=== PATIENT | female | born 1955 | race Caucasian/White ===

== ENCOUNTER 2023-11-04 06:39 | Day surgery (SDC) | payer MEDICARE, OTHER, SELFPAY ==
[2023-11-04 12:25] VITALS: BP 124/91
[2023-11-04 12:48] VITALS: BMI 20.6
[2023-11-04 13:09] VITALS: BMI 20.6
[2023-11-04 14:00] VITALS: BP 137/78
[2023-11-04 14:15] VITALS: BP 134/70
[2023-11-04 14:30] VITALS: BP 138/92
== END 2023-11-04 14:55 | disposition home or self-care (01) ==
LOC: SDS 06:39
PROVIDERS: ATTENDING PHYSICIAN Internal Medicine Gastroenterology
DX: K64.9 Unspecified hemorrhoids (principal); R19.4 Change in bowel habit; Z98.0 Intestinal bypass and anastomosis status
CPT/HCPCS: 45330

== ENCOUNTER → 2023-12-02 14:57 | Outpatient (REF) | payer MEDICARE, OTHER, SELFPAY ==
[2023-12-02 16:34] LABS: % Basophils 0.8 % (0-2); % Eosinophils 2.4 % (0-6); % Monocytes 10.6 % (1.7-9.3); % Neutrophils 50.2 % (42.2-75.2); Absolute Eosinophils 0.1 10^3/uL (0-0.7); Absolute Lymphocytes 1.3 10^3/uL (1.2-3.4); Absolute Monocytes 0.4 10^3/uL (0.1-0.6); Absolute Neutrophils 1.9 10^3/uL (1.4-6.5); Hematocrit 36.1 % (37.0-47.0); Hemoglobin 12.5 g/dL (12.0-16.0); Mean Corp Hgb Conc. 34.6 g/dL (33.0-37.0); Mean Corpuscular Hgb 34.2 pg (27.0-31.0); Mean Corpuscular Volume 98.9 fL (81.0-99.0); Mean Platelet Volume 9.7 fL (7.4-10.4); Nucleated Red Blood Cells % 0 %; Platelet Count 271 10^3/uL (130-400); Red Blood Cell Count 3.65 10^6/uL (4.20-5.40); Red Cell Dist. Width 12.1 % (11.5-14.5); White Blood Cell Count 3.7 10^3/uL (4.8-10.8)
[2023-12-02 16:40] LABS: Erythrocyte Sed Rate 1 mm/hour (0-20)
[2023-12-02 16:51] LABS: Blood Urea Nitrogen 17 mg/dl (7-17); Glucose 107 mg/dl (70-99)
[2023-12-02 16:52] LABS: ALT (SGPT) 30 U/L (0-35); AST (SGOT) 33 U/L (14-36); Albumin 3.9 g/dl (3.5-5.0); Alkaline Phosphatase 72 U/L (38-126); Calcium 9.3 mg/dl (8.4-10.2); Carbon Dioxide 29 mmol/L (22-30); Chloride 96 mmol/L (98-107); Potassium 4.4 mmol/L (3.5-5.1); Sodium 131 mmol/L (135-145); Total Bilirubin 0.4 mg/dl (0.2-1.3); Total Protein 6.1 g/dl (6.3-8.2); eGFR > 60.00
[2023-12-02 17:15] LABS: FSH 57.4 mIU/ml
[2023-12-02 17:31] LABS: Estradiol 23.8 pg/ml
[2023-12-03 23:51] LABS: Complement C3 77 mg/dl (88-165)
[2023-12-05 08:28] LABS: Scleroderma Antibody (Scl-70) 0 AU/mL (0-40); Smith (ENA) Antibody, IgG 0 AU/mL (0-40)
[2023-12-06 01:30] LABS: ds-DNA Ab, IgG Reflex To Titer 1 IU (0-24)
== END ==
LOC: REG 14:57
PROVIDERS: ATTENDING PHYSICIAN Internal Medicine Rheumatology; FAMILY PHYSICIAN Internal Medicine
DX: L94.0 Localized scleroderma [morphea] (principal); M34.1 CR(E)ST syndrome; M81.0 Age-related osteoporosis without current pathological fracture
CPT/HCPCS: 36415; 80053; 82670; 83001; 84403; 85025; 85652; 86140; 86160; 86225; 86235

== ENCOUNTER → 2023-12-31 11:45 | Outpatient (REF) | payer MEDICARE, OTHER, SELFPAY ==
[2023-12-31 13:17] LABS: % Basophils 0.8 % (0-2); % Eosinophils 3.9 % (0-6); % Immature Granulocytes 0.3 % (0-0.5); % Lymphocytes 33.8 % (20.5-51.1); % Monocytes 12.7 % (1.7-9.3); % Neutrophils 48.5 % (42.2-75.2); Absolute Eosinophils 0.1 10^3/uL (0-0.7); Absolute Lymphocytes 1.2 10^3/uL (1.2-3.4); Absolute Monocytes 0.5 10^3/uL (0.1-0.6); Absolute Neutrophils 1.8 10^3/uL (1.4-6.5); Hematocrit 41.1 % (37.0-47.0); Hemoglobin 13.8 g/dL (12.0-16.0); Mean Corp Hgb Conc. 33.6 g/dL (33.0-37.0); Mean Corpuscular Hgb 33.7 pg (27.0-31.0); Mean Corpuscular Volume 100.5 fL (81.0-99.0); Mean Platelet Volume 10.7 fL (7.4-10.4); Nucleated Red Blood Cells % 0 %; Platelet Count 282 10^3/uL (130-400); Red Blood Cell Count 4.09 10^6/uL (4.20-5.40); Red Cell Dist. Width 13.2 % (11.5-14.5); White Blood Cell Count 3.6 10^3/uL (4.8-10.8)
== END ==
LOC: REG 11:45
PROVIDERS: ATTENDING PHYSICIAN Internal Medicine Rheumatology; FAMILY PHYSICIAN Internal Medicine
DX: D72.819 Decreased white blood cell count, unspecified (principal)
CPT/HCPCS: 36415; 85025

== ENCOUNTER → 2024-01-12 14:16 | Outpatient (REF) | payer MEDICARE, OTHER, SELFPAY | LOC: WDC 14:16 | PROVIDERS: ATTENDING PHYSICIAN Obstetrics & Gynecology; FAMILY PHYSICIAN Internal Medicine | DX: Z12.31 Encounter for screening mammogram for malignant neoplasm of breast (principal) | CPT/HCPCS: 77063; 77067 ==

== ENCOUNTER → 2024-01-20 09:37 | Outpatient (REF) | payer MEDICARE, OTHER, SELFPAY ==
[2024-01-20 10:26] LABS: % Basophils 0.9 % (0-2); % Eosinophils 3.8 % (0-6); % Immature Granulocytes 0.3 % (0-0.5); % Lymphocytes 30.3 % (20.5-51.1); % Monocytes 8.8 % (1.7-9.3); % Neutrophils 55.9 % (42.2-75.2); Absolute Eosinophils 0.1 10^3/uL (0-0.7); Absolute Monocytes 0.3 10^3/uL (0.1-0.6); Absolute Neutrophils 1.8 10^3/uL (1.4-6.5); Hematocrit 37.8 % (37.0-47.0); Hemoglobin 13.1 g/dL (12.0-16.0); Mean Corp Hgb Conc. 34.7 g/dL (33.0-37.0); Mean Corpuscular Hgb 34.4 pg (27.0-31.0); Mean Corpuscular Volume 99.2 fL (81.0-99.0); Nucleated Red Blood Cells % 0 %; Platelet Count 266 10^3/uL (130-400); Red Blood Cell Count 3.81 10^6/uL (4.20-5.40); Red Cell Dist. Width 12.9 % (11.5-14.5); White Blood Cell Count 3.2 10^3/uL (4.8-10.8)
[2024-01-20 12:07] LABS: ALT (SGPT) 39 U/L (0-35); AST (SGOT) 38 U/L (14-36); Albumin 5.1 g/dl (3.5-5.0); Alkaline Phosphatase 77 U/L (38-126); Blood Urea Nitrogen 14 mg/dl (7-17); Calcium 10.2 mg/dl (8.4-10.2); Carbon Dioxide 26 mmol/L (22-30); Chloride 100 mmol/L (98-107); Creatine Phosphokinase 173 U/L (30-135); Glucose 82 mg/dl (70-99); Potassium 4.9 mmol/L (3.5-5.1); Sodium 132 mmol/L (135-145); Total Bilirubin 0.6 mg/dl (0.2-1.3); Total Cholesterol 232 mg/dl (50-199); Triglyceride 77 mg/dl (10-149); Very Low Density Lipoprotein 15 mg/dl (0-30); eGFR > 60.00
[2024-01-20 12:25] LABS: HDL Cholesterol 140 mg/dl; LDL Cholesterol, Calculated 77 mg/dl
[2024-01-20 12:30] LABS: Free T3 3.07 pg/ml (2.77-5.27); Free T4 0.94 ng/dl (0.78-2.19)
[2024-01-20 12:44] LABS: TSH 3.33 uIU/ml (0.47-4.68)
[2024-01-20 13:03] LABS: Vitamin B12 896 pg/ml (239-931)
[2024-01-21 22:51] LABS: Total T3 (Sendout) 91 ng/dL (80-200)
== END ==
LOC: REG 09:37
PROVIDERS: ATTENDING PHYSICIAN Physician Assistant; FAMILY PHYSICIAN Internal Medicine
DX: E03.9 Hypothyroidism, unspecified (principal); I10 Essential (primary) hypertension; M35.1 Other overlap syndromes; Z87.19 Personal history of other diseases of the digestive system; M81.0 Age-related osteoporosis without current pathological fracture; F34.1 Dysthymic disorder; M79.18 Myalgia, other site; D72.818 Other decreased white blood cell count; R53.82 Chronic fatigue, unspecified; E87.1 Hypo-osmolality and hyponatremia; Z00.00 Encounter for general adult medical examination without abnormal findings; G60.9 Hereditary and idiopathic neuropathy, unspecified
CPT/HCPCS: 36415; 80053; 80061; 82550; 82607; 84439; 84443; 84480; 84481; 85025

== ENCOUNTER → 2024-02-03 09:18 | Outpatient (REF) | payer MEDICARE, OTHER, SELFPAY ==
[2024-02-03 10:16] LABS: % Immature Granulocytes 0.3 % (0-0.5); % Lymphocytes 38.3 % (20.5-51.1); % Monocytes 11.1 % (1.7-9.3); % Neutrophils 45.3 % (42.2-75.2); Absolute Eosinophils 0.1 10^3/uL (0-0.7); Absolute Lymphocytes 1.1 10^3/uL (1.2-3.4); Absolute Monocytes 0.3 10^3/uL (0.1-0.6); Absolute Neutrophils 1.4 10^3/uL (1.4-6.5); Hematocrit 34.6 % (37.0-47.0); Hemoglobin 11.9 g/dL (12.0-16.0); Mean Corp Hgb Conc. 34.4 g/dL (33.0-37.0); Mean Corpuscular Hgb 34.5 pg (27.0-31.0); Mean Corpuscular Volume 100.3 fL (81.0-99.0); Mean Platelet Volume 9.3 fL (7.4-10.4); Nucleated Red Blood Cells % 0 %; Platelet Count 244 10^3/uL (130-400); Red Blood Cell Count 3.45 10^6/uL (4.20-5.40); Red Cell Dist. Width 12.6 % (11.5-14.5)
[2024-02-03 10:31] LABS: ALT (SGPT) 27 U/L (0-35); AST (SGOT) 27 U/L (14-36); Albumin 4.3 g/dl (3.5-5.0); Alkaline Phosphatase 85 U/L (38-126); Blood Urea Nitrogen 17 mg/dl (7-17); Calcium 9.8 mg/dl (8.4-10.2); Carbon Dioxide 26 mmol/L (22-30); Chloride 103 mmol/L (98-107); Creatine Phosphokinase 112 U/L (30-135); Glucose 91 mg/dl (70-99); Potassium 4.4 mmol/L (3.5-5.1); Sodium 133 mmol/L (135-145); Total Bilirubin 0.4 mg/dl (0.2-1.3); Total Protein 6.2 g/dl (6.3-8.2); eGFR > 60.00
[2024-02-03 10:45] LABS: Erythrocyte Sed Rate 11 mm/hour (0-20)
[2024-02-03 10:53] LABS: C-Reactive Protein < 5.00 mg/L (0.0-10.00)
[2024-02-03 11:06] LABS: Urine Albumin Negative (Neg - Trace); Urine Bilirubin Negative (Negative); Urine Character Clear (Clear); Urine Color Yellow; Urine Glucose Negative (Negative); Urine Ketone Negative (Negative); Urine Leukocyte Negative (Negative); Urine Nitrite Negative (Negative); Urine Occult Blood Negative (Negative); Urine Urobilinogen Negative (Neg - 1+)
[2024-02-04 19:39] LABS: Aldolase 3.7 U/L (1.2-7.6)
[2024-02-05 17:21] LABS: Myeloperoxidase Antibody 0 AU/mL (0-19); Serine Protease-3, IgG 0 AU/mL (0-19)
== END ==
LOC: REG 09:18
PROVIDERS: ATTENDING PHYSICIAN Physician Assistant; FAMILY PHYSICIAN Internal Medicine
DX: E07.9 Disorder of thyroid, unspecified (principal); I77.82 Antineutrophilic cytoplasmic antibody [ANCA] vasculitis; M06.4 Inflammatory polyarthropathy; M34.1 CR(E)ST syndrome; M79.10 Myalgia, unspecified site; M79.641 Pain in right hand; R68.83 Chills (without fever); M35.1 Other overlap syndromes; R53.83 Other fatigue
CPT/HCPCS: 36415; 80053; 81003; 82085; 82550; 83516; 85025; 85652; 86140; 87040

== ENCOUNTER → 2024-02-10 09:24 | Outpatient (REF) | payer MEDICARE, OTHER, SELFPAY ==
[2024-02-12 15:03] LABS: Lyme Antibody Screen, EIA Negative (Negative)
== END ==
LOC: REG 09:24
PROVIDERS: ATTENDING PHYSICIAN Internal Medicine Rheumatology; FAMILY PHYSICIAN Internal Medicine
DX: A69.20 Lyme disease, unspecified (principal); A77.40 Ehrlichiosis, unspecified; R53.83 Other fatigue
CPT/HCPCS: 36415; 86618; 86666

== ENCOUNTER → 2024-02-16 14:08 | Outpatient (REF) | payer MEDICARE, OTHER, SELFPAY ==
[2024-02-16 16:38] LABS: % Basophils 0.6 % (0-2); % Eosinophils 1.9 % (0-6); % Lymphocytes 26.7 % (20.5-51.1); % Monocytes 7.6 % (1.7-9.3); % Neutrophils 63.2 % (42.2-75.2); Absolute Eosinophils 0.1 10^3/uL (0-0.7); Absolute Lymphocytes 1.4 10^3/uL (1.2-3.4); Absolute Monocytes 0.4 10^3/uL (0.1-0.6); Absolute Neutrophils 3.4 10^3/uL (1.4-6.5); Hematocrit 37.1 % (37.0-47.0); Hemoglobin 12.6 g/dL (12.0-16.0); Mean Corpuscular Hgb 34.4 pg (27.0-31.0); Mean Corpuscular Volume 101.4 fL (81.0-99.0); Mean Platelet Volume 10.1 fL (7.4-10.4); Nucleated Red Blood Cells % 0 %; Platelet Count 266 10^3/uL (130-400); Red Blood Cell Count 3.66 10^6/uL (4.20-5.40); Red Cell Dist. Width 12.8 % (11.5-14.5); White Blood Cell Count 5.3 10^3/uL (4.8-10.8)
== END ==
LOC: REG 14:08
PROVIDERS: ATTENDING PHYSICIAN Internal Medicine Hematology & Oncology; FAMILY PHYSICIAN Internal Medicine; REFERRING PHYSICIAN Internal Medicine Rheumatology
DX: R53.81 Other malaise (principal); D64.9 Anemia, unspecified
CPT/HCPCS: 36415; 82784; 83520; 83521; 84155; 84165; 85025; 86334

== ENCOUNTER → 2024-02-18 18:07 | Outpatient (REF) | payer MEDICARE, OTHER, SELFPAY ==
[2024-02-18 19:06] LABS: Urine Albumin Negative (Neg - Trace); Urine Bilirubin Negative (Negative); Urine Character Clear (Clear); Urine Color Yellow; Urine Glucose Negative (Negative); Urine Ketone Negative (Negative); Urine Leukocyte Negative (Negative); Urine Nitrite Negative (Negative); Urine Occult Blood Negative (Negative); Urine Specific Gravity 1.005 (<1.030); Urine Urobilinogen Negative (Neg - 1+)
== END ==
LOC: CLAB 18:07
PROVIDERS: ATTENDING PHYSICIAN Nurse Practitioner
DX: N39.0 Urinary tract infection, site not specified (principal)
CPT/HCPCS: 81003; 87086

== ENCOUNTER → 2024-02-19 09:49 | Outpatient (REF) | payer MEDICARE, OTHER, SELFPAY | LOC: RAD 09:49 | PROVIDERS: ATTENDING PHYSICIAN Internal Medicine Hematology & Oncology; FAMILY PHYSICIAN Internal Medicine; OTHER PHYSICIAN Internal Medicine Rheumatology; REFERRING PHYSICIAN Internal Medicine Critical Care Medicine | DX: R53.81 Other malaise (principal); D64.9 Anemia, unspecified | CPT/HCPCS: 71260; 74177; Q9967 ==

== ENCOUNTER → 2024-02-27 09:14 | Outpatient (REF) | payer MEDICARE, OTHER, SELFPAY ==
[2024-02-27 09:46] VITALS: BP 156/93; BP_SYST 72
[2024-02-27 09:56] LABS: % Basophils 0.8 % (0-2); % Eosinophils 3.6 % (0-6); % Lymphocytes 37.2 % (20.5-51.1); % Monocytes 8.3 % (1.7-9.3); % Neutrophils 50.1 % (42.2-75.2); Absolute Eosinophils 0.1 10^3/uL (0-0.7); Absolute Lymphocytes 0.9 10^3/uL (1.2-3.4); Absolute Monocytes 0.2 10^3/uL (0.1-0.6); Absolute Neutrophils 1.3 10^3/uL (1.4-6.5); Hemoglobin 11.9 g/dL (12.0-16.0); Mean Corpuscular Volume 97.1 fL (81.0-99.0); Mean Platelet Volume 9.1 fL (7.4-10.4); Nucleated Red Blood Cells % 0 %; Platelet Count 274 10^3/uL (130-400); Red Cell Dist. Width 12.2 % (11.5-14.5); White Blood Cell Count 2.5 10^3/uL (4.8-10.8)
[2024-02-27 09:59] LABS: INR 1.02; PT 13.2 Sec (11.4-14.6)
[2024-02-27] MEDS: ATIVAN 0.5 MG IV (10:30)
[2024-02-27] MEDS: NSS (PRESERVATIVE FREE) 0.25 ML IV (10:30)
[2024-02-27 11:06] VITALS: BP 154/81; BP_SYST 76
[2024-02-27 11:12] VITALS: BP 165/93
[2024-02-27 11:20] VITALS: BP 149/82; BP_SYST 86
== END ==
LOC: RADI 09:14
PROVIDERS: ATTENDING PHYSICIAN Internal Medicine Hematology & Oncology; FAMILY PHYSICIAN Internal Medicine
DX: C90.00 Multiple myeloma not having achieved remission (principal)
CPT/HCPCS: 88305; 88311; 88312; 36415; 38222; 77012; 85025; 85610; 88313; 88341; 88342

== ENCOUNTER 2024-03-08 06:36 | Day surgery (SDC) | payer MEDICARE, OTHER, SELFPAY ==
[2024-02-23 13:16] VITALS: BMI 22.3
[2024-03-08 09:41] VITALS: BMI 22.3
[2024-03-08 09:56] VITALS: BP 128/81
[2024-03-08] MEDS: NORMOSOL-R 1000 IV (10:25)
[2024-03-08 11:40] VITALS: BP 119/70
[2024-03-08 11:46] VITALS: BP 125/78
[2024-03-08 12:00] VITALS: BP 132/67
[2024-03-08 12:15] VITALS: BP 151/83
== END 2024-03-08 12:35 | disposition home or self-care (01) ==
LOC: SDS 06:36
PROVIDERS: ATTENDING PHYSICIAN Urology
DX: R15.9 Full incontinence of feces (principal); R35.0 Frequency of micturition; M62.89 Other specified disorders of muscle
CPT/HCPCS: 64590; 64561; 72170; 76000; C1767; C1778; C1787; L8681

== ENCOUNTER → 2024-04-09 06:20 | Day surgery (SDC) | payer MEDICARE, OTHER, SELFPAY | LOC: GI 06:20 | PROVIDERS: ATTENDING PHYSICIAN Internal Medicine Gastroenterology | DX: E85.9 Amyloidosis, unspecified (principal); R19.4 Change in bowel habit; Z98.0 Intestinal bypass and anastomosis status; K62.6 Ulcer of anus and rectum; K22.2 Esophageal obstruction; K21.00 Gastro-esophageal reflux disease with esophagitis, without bleeding; K44.9 Diaphragmatic hernia without obstruction or gangrene; K31.7 Polyp of stomach and duodenum; K62.89 Other specified diseases of anus and rectum; K29.50 Unspecified chronic gastritis without bleeding | CPT/HCPCS: 45380; 43239; 88305; 88313; 88342 ==

== ENCOUNTER → 2024-04-27 14:47 | Outpatient (REF) | payer MEDICARE, OTHER, SELFPAY ==
[2024-04-27 14:44] LABS: % Basophils 0.3 % (0-2); % Eosinophils 2.8 % (0-6); % Lymphocytes 35.8 % (20.5-51.1); % Neutrophils 52.1 % (42.2-75.2); Absolute Eosinophils 0.1 10^3/uL (0-0.7); Absolute Lymphocytes 1.2 10^3/uL (1.2-3.4); Absolute Monocytes 0.3 10^3/uL (0.1-0.6); Absolute Neutrophils 1.7 10^3/uL (1.4-6.5); Hematocrit 36.8 % (37.0-47.0); Hemoglobin 12.6 g/dL (12.0-16.0); Mean Corp Hgb Conc. 34.2 g/dL (33.0-37.0); Mean Corpuscular Hgb 34.2 pg (27.0-31.0); Mean Platelet Volume 9.3 fL (7.4-10.4); Platelet Count 297 10^3/uL (130-400); Red Blood Cell Count 3.68 10^6/uL (4.20-5.40); Red Cell Dist. Width 12.5 % (11.5-14.5); White Blood Cell Count 3.2 10^3/uL (4.8-10.8)
[2024-04-27 15:57] LABS: ALT (SGPT) 23 U/L (0-35); AST (SGOT) 31 U/L (14-36); Albumin 4.9 g/dl (3.5-5.0); Alkaline Phosphatase 69 U/L (38-126); Blood Urea Nitrogen 21 mg/dl (7-17); Carbon Dioxide 26 mmol/L (22-30); Chloride 98 mmol/L (98-107); Glucose 78 mg/dl (70-99); Sodium 134 mmol/L (135-145); Total Bilirubin 0.5 mg/dl (0.2-1.3); Total Protein 6.6 g/dl (6.3-8.2); eGFR > 60.00
[2024-04-27 16:25] LABS: Hepatitis B Surface Antigen Negative (Negative)
[2024-04-27 16:43] LABS: Hepatitis B Core Ab, Total Negative (Negative); Hepatitis B Surface Antibody Positive
== END ==
LOC: OIDL 14:47
PROVIDERS: ATTENDING PHYSICIAN Internal Medicine Hematology & Oncology
DX: D64.9 Anemia, unspecified (principal); R53.81 Other malaise; C90.00 Multiple myeloma not having achieved remission
CPT/HCPCS: 80053; 85025; 86704; 86706; 86850; 86900; 86901; 87340

== ENCOUNTER 2024-05-04 17:15 | Emergency (ER) | payer MEDICARE, OTHER, SELFPAY ==
[2024-05-04 17:16] VITALS: BP 167/90
[2024-05-04 18:48] VITALS: BP 151/82
[2024-05-04 18:49] VITALS: BMI 23.1
--- NOTE | 2024-05-04 19:28 | ED.GENMED ---
History of Present Illness
General
Chief Complaint: Abnormal Lab Value
Source: patient
Exam Limitations: none
Time Seen by Provider: 05/04/24 18:47
History of Present Illness
History of Present Illness:
This is a 68 year old female that comes in with c/o abnormal labs. States that she has blood work done thisi morning and Dr. Moreland called her and told her that her sodium was low. States that she was told to come to the ER. States that she is to
be getting Chemo on . States that she has felt hot, lightheaded, fatigued and dizzy. States that occasionally she was SOB, nausea, had abd discomfort, and in a daze. Denies any fever, chills, chest pain, vomiting, diarrhea, headache, urinary
burning.
Past History
Past History
ED Past Medical History: Cancer (Multiple Myloma, ), HTN, Psychiatric (depression, anxiety), Other (diverticulitis with Perforation, Lupus, connective tissue disorder, small bowel obstructions, irritable bowel syndrome, Back pain, Migraines,
Raynauds, Colitis, Urinary retention) and Other (Headaches, Imitrex as needed at home, Lyme, Lupus, CREST disease, ADHD, )
ED Past Surgical History: Bowel resection (Sigmoid diverticulitis with perforation requiring temporary colostomy with colostomy reversal 2014. Sigmoid colon resection. Lysis of adhesions.), Gynecological (Hysterectomy, Pelvic lift, LEEP, Right and
left Rotator cuff), Orthopedic (RL5-S1 fusion, Left wrist surgery, Right hip repair. Right and left Hip replacement ), Urological (Bladder prolapse. Rectocele/Cystocele repair) and Other (Abdominoplasty, breast augmentation, Cataracts, face lift,
Breast implants, )
Social History
Tobacco: Non-smoker
Alcohol: None
Drug: Other (Medical marijuana as needed)
Personal:
Living: alone
Employment: Not employed
Family History
Family History: Other (Father with coronary disease, hypertension, gout)
Review of Systems
Review of Systems
All Other Systems: ROS reviewed and negative except as documented in HPI and ROS
Constitutional: Reports no symptoms; Denies fever or chills
EENT: Reports no symptoms
Respiratory: Reports trouble breathing (occasional); Denies cough
Cardiac: Reports no symptoms; Denies chest pain
ABD/GI: Reports abdominal pain and nausea; Denies vomiting or diarrhea
: Reports no symptoms; Denies dysuria, frequency or urgency
Musculoskeletal: Reports no symptoms
Skin: Reports no symptoms
Neurological: Reports dizzy (Lightheaded); Denies headache
Psychiatric: Reports no symptoms
Phy Exam
General Physical Exam
General Presentation: well appearing and no apparent distress
General age: appears stated age
General Skin: warm and dry
General Habitus: normal
General Mental: alert
General Hydration: dry mucous membranes
ENT Exam
ENT Exam: TM's normal, pharynx normal and neck supple
Eye Exam
Eye Exam: EOMI
Cardiovascular Exam
Cardiovascular Exam: regular rate/rhythm, no edema and normal peripheral pulses
Pulmonary Exam
Pulmonary Exam: lungs clear, no respiratory distress, no rales, chest non tender, no crackles, no rhonchi, no wheezing and no cough
Gastrointestinal Exam
Gastrointestinal Exam: normal bowel sounds, non tender, soft, no organomegaly, no pulsatile mass and non distended
Musculoskeletal Exam
Musculoskeletal Exam: full ROM and no edema
Skin Exam
Skin Exam: normal color, warm/dry, no rash and no petechia
Psychiatric Exam
Psychiatric Exam: normal mood/affect
Course
Orders/Labs/Results
Orders:
Orders
05/04/24 17:21
Electrocardiogram (*1) Urgent
Reason for Study: Chest Pain
EKG- Treatment ONCE
05/04/24 19:27
0.9% Sodium Chloride 1000 ml [Nss] 1,000 ml IV BOLUS
05/04/24 19:30
Complete Blood Count/With Diff Urgent
Comprehensive Metabolic Panel Urgent
Abnormal Lab Results
05/04/24
19:30
WBC 4.2 L 10^3/uL
(4.8-10.8)
RBC 3.56 L 10^6/uL
(4.20-5.40)
Hct 33.0 L %
(37.0-47.0)
MCH 34.0 H pg
(27.0-31.0)
Monocytes % 9.9 H %
(1.7-9.3)
Sodium 132 L mmol/L
(135-145)
BUN 23 H mg/dl
(7-17)
Total Protein 5.9 L g/dl
(6.3-8.2)
05/04/24 19:30
05/04/24 19:30
WBC slightly low. Sodium very slightly low. Dehydration. Total protein slightly low.
Vital Signs
Initial and Last Documented VS:
Initial Vital Signs
Temp Pulse Resp BP Pulse Ox
99.2 F 86 20 167/90 97
05/04/24 17:16 05/04/24 17:16 05/04/24 17:16 05/04/24 17:16 05/04/24 17:16
Last Documented Vital Signs
Temp Pulse Resp BP Pulse Ox
99.2 F 86 20 151/82 98
05/04/24 17:16 05/04/24 17:16 05/04/24 17:16 05/04/24 18:48 05/04/24 19:00
MDM/Problems Addressed
Differential Diagnosis Includes:
Dehydration, Hyponatremia,
MDM/Problems Addressed:
This is a 68 year old female that comes in with c/o abnormal labs. States that she was told to come in by Dr. Moreland as she is due to have an Infusion on . State that she had blood work this morning and was told that her Sodium is low.
Will recheck labs and give IV fluids.
Back into see patient. Explained that her blood work shows that her Sodium is 132. This is very slightly low but not at a level that is concerning. Patient can eat some canned soup or boxed food that his high is sodium. Follow up with the Oncologist
or family doctor for recheck. Return with any concerns.
Chronic conditions affecting care: Cancer
Acute Exacerbation and/or Progression of Chronic Illness: Cancer
*Pulse Oximetry
Patient hypoxic: no
*EKG
Interpreted by ED Provider?: Yes
Heart Rate: 79
Rate: normal
Rhythm: sinus
[place]: normal axis
Interval: normal interval
QRS Pattern: normal QRS
Ischemia: no ischemia
*Critical Care Note
Total Time (30-74mins, 75-104mins- exclusive of procedures): Not Applicable
ED Attending Note
-
Portions of this chart may have been created with voice recognition software.� Occasional wrong word or��sound alike� substitutions may have occurred due to the inherent limitations of voice recognition software.
Discharge Plan
Departure
Patient Disposition: Home (Routine Discharge)
Date of Disposition: 05/04/24
Time of Disposition: 21:10
Patient with high blood pressure during this ER visit?: Yes
Condition: Good
Covid-19: Not Applicable
Discharge Problem:
Dehydration
Instructions: Dehydration, Adult (DC), BLOOD PRESSURE
Prescriptions:
No Action
losartan 50 MG tablet
50 mg PO DAILY
zinc 15 MG tablet
30 mg PO DAILY
ascorbic acid (vitamin C) [Vitamin C] 500 MG tablet
1,000 mg PO BID
hydroxychloroquine 200 MG tablet
200 mg PO Daily
finasteride 5 MG tablet
5 mg PO DAILY
diltiazem HCl 180 mg Capsule,Extended Release 24 Hr
180 mg PO DAILY
clonazepam [Klonopin] 0.5 mg Tablet
0.5 mg PO HS
quercetin 500 mg Capsule
250 mg PO DAILY
Calm
15 ml PO HS
Rx Instructions:
Magnesium
Prolia 60 mg/mL Syringe
60 mg SC [id number]
Regener-Eyes
1 drp BOTH EYES PRN PRN (Reason: dry eyes)
Medical Cannabis
1 dose inhalation DAILY PRN (Reason: inflammation)
multivitamin Tablet
1 tab PO DAILY
minoxidil 2.5 mg Tablet
1.25 mg PO DAILY
sumatriptan succinate 50 mg Tablet
50 mg PO ONCE PRN (Reason: Migraines)
cholecalciferol (vitamin D3) [Vitamin D3] 125 mcg (5,000 unit) Tablet
125 mcg PO DAILY
Cbd
1 dose PO PRN PRN (Reason: pain, sleep)
[place] 3
5 ml PO DAILY
Referrals:
UNKNOWN - PT DOES,NOT KNOW [Unknown Provider] -
Activity Restrictions/Additional Instructions:
As discussed, your blood work shows that your Sodium is very slightly low and that you area dehydrated. You have been given a liter of saline. Please try eating some canned soup or boxed food. Please limit your water intake to no more then 8-8oz
glasses daily. Follow up with the Oncologist or the Family doctor for recheck. IF YOU HAVE ANY OTHER CONCERNS PLEASE RETURN TO THE EMERGENCY ROOM.
Interventions
Interventions:
*Risk Screen - Suicide Last Done: 05/04/24 17:16
*General Assessment Last Done: 05/04/24 17:16
*Neglect/Abuse Screening Last Done: 05/04/24 17:16
ED- Fall Risk Assessment Last Done: 05/04/24 18:52
*ED COVID-19 Vaccine History Last Done: 05/04/24 18:52
Discharge Date and Time
Print Language: TURKISH
[2024-05-04] MEDS: NSS 1000 IV (19:30)
[2024-05-04 19:57] LABS: % Basophils 0.2 % (0-2); % Eosinophils 2.6 % (0-6); % Immature Granulocytes 0.2 % (0-0.5); % Lymphocytes 33.2 % (20.5-51.1); % Monocytes 9.9 % (1.7-9.3); % Neutrophils 53.9 % (42.2-75.2); Absolute Eosinophils 0.1 10^3/uL (0-0.7); Absolute Lymphocytes 1.4 10^3/uL (1.2-3.4); Absolute Monocytes 0.4 10^3/uL (0.1-0.6); Absolute Neutrophils 2.2 10^3/uL (1.4-6.5); Hemoglobin 12.1 g/dL (12.0-16.0); Mean Corp Hgb Conc. 36.7 g/dL (33.0-37.0); Mean Corpuscular Volume 92.7 fL (81.0-99.0); Mean Platelet Volume 10.1 fL (7.4-10.4); Nucleated Red Blood Cells % 0 %; Platelet Count 215 10^3/uL (130-400); Red Blood Cell Count 3.56 10^6/uL (4.20-5.40); Red Cell Dist. Width 12.8 % (11.5-14.5); White Blood Cell Count 4.2 10^3/uL (4.8-10.8)
[2024-05-04 20:00] VITALS: BP 149/78
[2024-05-04 20:15] LABS: ALT (SGPT) 32 U/L (0-35); AST (SGOT) 20 U/L (14-36); Albumin 4.2 g/dl (3.5-5.0); Alkaline Phosphatase 80 U/L (38-126); Blood Urea Nitrogen 23 mg/dl (7-17); Calcium 9.6 mg/dl (8.4-10.2); Carbon Dioxide 25 mmol/L (22-30); Chloride 100 mmol/L (98-107); Estimated Creatinine Clearance 52 ml/min; Glucose 94 mg/dl (70-99); Sodium 132 mmol/L (135-145); Total Bilirubin 0.2 mg/dl (0.2-1.3); Total Protein 5.9 g/dl (6.3-8.2); eGFR > 60.00
[2024-05-04 21:00] VITALS: BP 137/79
== END 2024-05-04 22:02 | disposition home or self-care (01) ==
LOC: EMR 17:15
PROVIDERS: Clinical Nurse Specialist Family Health; EMERGENCY PHYSICIAN Emergency Medicine; FAMILY PHYSICIAN Internal Medicine
DX: E86.0 Dehydration (principal); R79.89 Other specified abnormal findings of blood chemistry; I10 Essential (primary) hypertension; F41.8 Other specified anxiety disorders; M32.9 Systemic lupus erythematosus, unspecified; I73.00 Raynaud's syndrome without gangrene; K58.9 Irritable bowel syndrome, unspecified; Z82.49 Family history of ischemic heart disease and other diseases of the circulatory system; Z90.710 Acquired absence of both cervix and uterus
CPT/HCPCS: 99283; 36415; 80053; 85025; 93005

== ENCOUNTER → 2024-05-11 12:06 | Outpatient (REF) | payer MEDICARE, OTHER, SELFPAY ==
[2024-05-11 16:09] LABS: % Basophils 0.3 % (0-2); % Eosinophils 0.9 % (0-6); % Immature Granulocytes 1.2 % (0-0.5); % Lymphocytes 24.1 % (20.5-51.1); % Neutrophils 62.5 % (42.2-75.2); Absolute Lymphocytes 0.8 10^3/uL (1.2-3.4); Absolute Monocytes 0.4 10^3/uL (0.1-0.6); Absolute Neutrophils 2.2 10^3/uL (1.4-6.5); Hematocrit 34.4 % (37.0-47.0); Hemoglobin 12.2 g/dL (12.0-16.0); Mean Corp Hgb Conc. 35.5 g/dL (33.0-37.0); Mean Corpuscular Hgb 34.7 pg (27.0-31.0); Mean Corpuscular Volume 97.7 fL (81.0-99.0); Nucleated Red Blood Cells % 0 %; Platelet Count 169 10^3/uL (130-400); Red Blood Cell Count 3.52 10^6/uL (4.20-5.40); White Blood Cell Count 3.4 10^3/uL (4.8-10.8)
[2024-05-11 16:36] LABS: ALT (SGPT) 26 U/L (0-35); AST (SGOT) 21 U/L (14-36); Albumin 4.2 g/dl (3.5-5.0); Alkaline Phosphatase 71 U/L (38-126); Blood Urea Nitrogen 16 mg/dl (7-17); Calcium 9.4 mg/dl (8.4-10.2); Carbon Dioxide 26 mmol/L (22-30); Chloride 97 mmol/L (98-107); Glucose 75 mg/dl (70-99); Potassium 4.8 mmol/L (3.5-5.1); Sodium 129 mmol/L (135-145); Total Bilirubin 0.5 mg/dl (0.2-1.3); Total Protein 5.9 g/dl (6.3-8.2); eGFR > 60.00
== END ==
LOC: REG 12:06
PROVIDERS: ATTENDING PHYSICIAN Internal Medicine Hematology & Oncology
DX: D64.9 Anemia, unspecified (principal); R53.81 Other malaise; C90.00 Multiple myeloma not having achieved remission
CPT/HCPCS: 36415; 80053; 85025

== ENCOUNTER → 2024-05-18 08:14 | Outpatient (REF) | payer MEDICARE, OTHER, SELFPAY ==
[2024-05-18 11:34] LABS: ALT (SGPT) 33 U/L (0-35); AST (SGOT) 24 U/L (14-36); Albumin 4.2 g/dl (3.5-5.0); Alkaline Phosphatase 68 U/L (38-126); Blood Urea Nitrogen 14 mg/dl (7-17); Calcium 9.4 mg/dl (8.4-10.2); Carbon Dioxide 31 mmol/L (22-30); Chloride 99 mmol/L (98-107); Glucose 86 mg/dl (70-99); Potassium 4.1 mmol/L (3.5-5.1); Sodium 133 mmol/L (135-145); Total Bilirubin 0.4 mg/dl (0.2-1.3); Total Protein 5.9 g/dl (6.3-8.2); eGFR > 60.00
[2024-05-18 11:36] LABS: % Eosinophils 0.4 % (0-6); % Lymphocytes 27.8 % (20.5-51.1); % Monocytes 10.4 % (1.7-9.3); % Neutrophils 61.4 % (42.2-75.2); Absolute Lymphocytes 0.6 10^3/uL (1.2-3.4); Absolute Monocytes 0.2 10^3/uL (0.1-0.6); Absolute Neutrophils 1.4 10^3/uL (1.4-6.5); Hematocrit 34.6 % (37.0-47.0); Hemoglobin 12.2 g/dL (12.0-16.0); Mean Corp Hgb Conc. 35.3 g/dL (33.0-37.0); Mean Corpuscular Hgb 34.6 pg (27.0-31.0); Nucleated Red Blood Cells % 0 %; Platelet Count 177 10^3/uL (130-400); Red Blood Cell Count 3.53 10^6/uL (4.20-5.40); Red Cell Dist. Width 13.1 % (11.5-14.5); White Blood Cell Count 2.3 10^3/uL (4.8-10.8)
== END ==
LOC: RAD 08:14
PROVIDERS: ATTENDING PHYSICIAN Surgery; FAMILY PHYSICIAN Internal Medicine; OTHER PHYSICIAN Internal Medicine Hematology & Oncology; REFERRING PHYSICIAN Internal Medicine Rheumatology
DX: R10.9 Unspecified abdominal pain (principal); K59.09 Other constipation; D64.9 Anemia, unspecified; R53.81 Other malaise; C90.00 Multiple myeloma not having achieved remission
CPT/HCPCS: 36415; 74250; 80053; 85025

== ENCOUNTER → 2024-05-25 14:55 | Outpatient (REF) | payer MEDICARE, OTHER, SELFPAY ==
[2024-05-25 15:43] LABS: % Basophils 0.2 % (0-2); % Eosinophils 0.2 % (0-6); % Immature Granulocytes 0.2 % (0-0.5); % Lymphocytes 22.3 % (20.5-51.1); % Monocytes 10.9 % (1.7-9.3); % Neutrophils 66.2 % (42.2-75.2); Absolute Lymphocytes 0.9 10^3/uL (1.2-3.4); Absolute Monocytes 0.5 10^3/uL (0.1-0.6); Absolute Neutrophils 2.7 10^3/uL (1.4-6.5); Hematocrit 33.1 % (37.0-47.0); Hemoglobin 11.9 g/dL (12.0-16.0); Mean Corpuscular Hgb 35.1 pg (27.0-31.0); Mean Corpuscular Volume 97.6 fL (81.0-99.0); Mean Platelet Volume 9.9 fL (7.4-10.4); Nucleated Red Blood Cells % 0 %; Platelet Count 191 10^3/uL (130-400); Red Blood Cell Count 3.39 10^6/uL (4.20-5.40); Red Cell Dist. Width 13.1 % (11.5-14.5); White Blood Cell Count 4.1 10^3/uL (4.8-10.8)
[2024-05-25 17:19] LABS: ALT (SGPT) 33 U/L (0-35); AST (SGOT) 27 U/L (14-36); Albumin 4.2 g/dl (3.5-5.0); Alkaline Phosphatase 65 U/L (38-126); Blood Urea Nitrogen 16 mg/dl (7-17); Calcium 9.1 mg/dl (8.4-10.2); Carbon Dioxide 23 mmol/L (22-30); Chloride 97 mmol/L (98-107); Glucose 89 mg/dl (70-99); Potassium 4.4 mmol/L (3.5-5.1); Sodium 127 mmol/L (135-145); Total Bilirubin 0.4 mg/dl (0.2-1.3); Total Protein 5.8 g/dl (6.3-8.2); eGFR > 60.00
== END ==
LOC: REG 14:55
PROVIDERS: ATTENDING PHYSICIAN Internal Medicine Hematology & Oncology; FAMILY PHYSICIAN Internal Medicine
DX: D64.9 Anemia, unspecified (principal); R53.81 Other malaise; C90.00 Multiple myeloma not having achieved remission; K57.90 Diverticulosis of intestine, part unspecified, without perforation or abscess without bleeding
CPT/HCPCS: 36415; 80053; 85025

== ENCOUNTER → 2024-06-01 13:46 | Outpatient (REF) | payer MEDICARE, OTHER, SELFPAY ==
[2024-06-01 14:16] LABS: % Basophils 0.3 % (0-2); % Eosinophils 0.2 % (0-6); % Lymphocytes 10.2 % (20.5-51.1); % Monocytes 6.4 % (1.7-9.3); % Neutrophils 81.9 % (42.2-75.2); Absolute Immature Granulocytes 0.1 10^3/uL (0-0.05); Absolute Lymphocytes 0.6 10^3/uL (1.2-3.4); Absolute Monocytes 0.4 10^3/uL (0.1-0.6); Hematocrit 33.6 % (37.0-47.0); Hemoglobin 12.3 g/dL (12.0-16.0); Mean Corp Hgb Conc. 36.6 g/dL (33.0-37.0); Mean Corpuscular Hgb 34.6 pg (27.0-31.0); Mean Corpuscular Volume 94.6 fL (81.0-99.0); Mean Platelet Volume 10.4 fL (7.4-10.4); Nucleated Red Blood Cells % 0 %; Platelet Count 193 10^3/uL (130-400); Red Blood Cell Count 3.55 10^6/uL (4.20-5.40); Red Cell Dist. Width 13.3 % (11.5-14.5); White Blood Cell Count 6.1 10^3/uL (4.8-10.8)
[2024-06-01 15:10] LABS: ALT (SGPT) 39 U/L (0-35); AST (SGOT) 31 U/L (14-36); Albumin 4.5 g/dl (3.5-5.0); Alkaline Phosphatase 67 U/L (38-126); Blood Urea Nitrogen 15 mg/dl (7-17); Calcium 9.6 mg/dl (8.4-10.2); Carbon Dioxide 27 mmol/L (22-30); Chloride 97 mmol/L (98-107); Glucose 91 mg/dl (70-99); Potassium 4.3 mmol/L (3.5-5.1); Sodium 134 mmol/L (135-145); Total Bilirubin 0.5 mg/dl (0.2-1.3); Total Protein 6.4 g/dl (6.3-8.2); eGFR > 60.00
== END ==
LOC: REG 13:46
PROVIDERS: ATTENDING PHYSICIAN Internal Medicine Hematology & Oncology
DX: D64.9 Anemia, unspecified (principal); R53.81 Other malaise; C90.00 Multiple myeloma not having achieved remission
CPT/HCPCS: 36415; 80053; 85025

== ENCOUNTER → 2024-06-08 12:54 | Outpatient (REF) | payer MEDICARE, OTHER, SELFPAY ==
[2024-06-08 14:20] LABS: % Basophils 0.3 % (0-2); % Eosinophils 0.8 % (0-6); % Immature Granulocytes 0.7 % (0-0.5); % Lymphocytes 6.1 % (20.5-51.1); % Monocytes 13.6 % (1.7-9.3); % Neutrophils 78.5 % (42.2-75.2); ALT (SGPT) 39 U/L (0-35); AST (SGOT) 24 U/L (14-36); Absolute Eosinophils 0.1 10^3/uL (0-0.7); Absolute Immature Granulocytes 0.1 10^3/uL (0-0.05); Absolute Lymphocytes 0.5 10^3/uL (1.2-3.4); Absolute Neutrophils 5.8 10^3/uL (1.4-6.5); Albumin 4.1 g/dl (3.5-5.0); Alkaline Phosphatase 59 U/L (38-126); Blood Urea Nitrogen 16 mg/dl (7-17); Carbon Dioxide 28 mmol/L (22-30); Chloride 94 mmol/L (98-107); Glucose 86 mg/dl (70-99); Hematocrit 32.3 % (37.0-47.0); Hemoglobin 11.1 g/dL (12.0-16.0); Mean Corp Hgb Conc. 34.4 g/dL (33.0-37.0); Mean Corpuscular Hgb 33.7 pg (27.0-31.0); Mean Corpuscular Volume 98.2 fL (81.0-99.0); Nucleated Red Blood Cells % 0 %; Platelet Count 174 10^3/uL (130-400); Potassium 4.7 mmol/L (3.5-5.1); Red Blood Cell Count 3.29 10^6/uL (4.20-5.40); Red Cell Dist. Width 13.8 % (11.5-14.5); Sodium 130 mmol/L (135-145); Total Bilirubin 0.5 mg/dl (0.2-1.3); Total Protein 5.8 g/dl (6.3-8.2); White Blood Cell Count 7.4 10^3/uL (4.8-10.8); eGFR > 60.00
== END ==
LOC: REG 12:54
PROVIDERS: ATTENDING PHYSICIAN Internal Medicine Hematology & Oncology; FAMILY PHYSICIAN Internal Medicine
DX: D64.9 Anemia, unspecified (principal); R53.81 Other malaise; C90.00 Multiple myeloma not having achieved remission
CPT/HCPCS: 36415; 80053; 85025

== ENCOUNTER → 2024-06-14 15:11 | Outpatient (REF) | payer MEDICARE, OTHER, SELFPAY ==
[2024-06-14 16:21] LABS: ALT (SGPT) 37 U/L (0-35); AST (SGOT) 23 U/L (14-36); Alkaline Phosphatase 61 U/L (38-126); Blood Urea Nitrogen 20 mg/dl (7-17); Calcium 8.9 mg/dl (8.4-10.2); Carbon Dioxide 29 mmol/L (22-30); Chloride 96 mmol/L (98-107); Glucose 100 mg/dl (70-99); Potassium 4.7 mmol/L (3.5-5.1); Sodium 131 mmol/L (135-145); Total Bilirubin 0.6 mg/dl (0.2-1.3); Total Protein 5.8 g/dl (6.3-8.2); eGFR > 60.00
[2024-06-14 17:09] LABS: Hematocrit 32.3 % (37.0-47.0); Hemoglobin 11.3 g/dL (12.0-16.0); Mean Corpuscular Hgb 33.6 pg (27.0-31.0); Mean Corpuscular Volume 96.1 fL (81.0-99.0); Mean Platelet Volume 11.2 fL (7.4-10.4); Platelet Count 132 10^3/uL (130-400); Red Blood Cell Count 3.36 10^6/uL (4.20-5.40); White Blood Cell Count 6.7 10^3/uL (4.8-10.8)
[2024-06-14 17:19] LABS: % Basophils 0.2 % (0-2); % Eosinophils 1.4 % (0-6); % Immature Granulocytes 0.8 % (0-0.5); % Lymphocytes 6.6 % (20.5-51.1); Absolute Eosinophils 0.1 10^3/uL (0-0.7); Absolute Immature Granulocytes 0.1 10^3/uL (0-0.05); Absolute Lymphocytes 0.4 10^3/uL (1.2-3.4); Absolute Monocytes 0.9 10^3/uL (0.1-0.6); Absolute Neutrophils 5.1 10^3/uL (1.4-6.5); Nucleated Red Blood Cells % 0.5 %
[2024-06-14 21:53] LABS: Urine Albumin 1+ (Neg - Trace); Urine Bilirubin Negative (Negative); Urine Character Clear (Clear); Urine Color Yellow; Urine Glucose Negative (Negative); Urine Ketone Negative (Negative); Urine Leukocyte 2+ (Negative); Urine Nitrite Negative (Negative); Urine Occult Blood 4+ (Negative); Urine Urobilinogen Negative (Neg - 1+)
[2024-06-14 22:31] LABS: Urine White Cell 26-30 /HPF (0-5)
[2024-06-14 22:33] LABS: Urine Bacteria Moderate (Negative); Urine Red Blood Cell 0-2 /HPF (0-2)
== END ==
LOC: REG 15:11
PROVIDERS: ATTENDING PHYSICIAN Nurse Practitioner Adult Health; FAMILY PHYSICIAN Internal Medicine
DX: D64.9 Anemia, unspecified (principal); R53.81 Other malaise; C90.00 Multiple myeloma not having achieved remission
CPT/HCPCS: 36415; 80053; 81003; 81015; 83735; 85025; 87077; 87086

== ENCOUNTER → 2024-06-15 11:31 | Outpatient (REF) | payer MEDICARE, OTHER, SELFPAY ==
[2024-06-15 12:50] LABS: Hematocrit 33.9 % (37.0-47.0); Hemoglobin 11.7 g/dL (12.0-16.0); Mean Corp Hgb Conc. 34.5 g/dL (33.0-37.0); Mean Corpuscular Hgb 34.8 pg (27.0-31.0); Mean Corpuscular Volume 100.9 fL (81.0-99.0); Platelet Count 138 10^3/uL (130-400); Red Blood Cell Count 3.36 10^6/uL (4.20-5.40); Red Cell Dist. Width 14.1 % (11.5-14.5); White Blood Cell Count 7.3 10^3/uL (4.8-10.8)
[2024-06-15 13:32] LABS: ALT (SGPT) 35 U/L (0-35); AST (SGOT) 22 U/L (14-36); Albumin 3.8 g/dl (3.5-5.0); Alkaline Phosphatase 67 U/L (38-126); Blood Urea Nitrogen 17 mg/dl (7-17); Calcium 8.9 mg/dl (8.4-10.2); Carbon Dioxide 28 mmol/L (22-30); Chloride 97 mmol/L (98-107); Glucose 71 mg/dl (70-99); Potassium 4.7 mmol/L (3.5-5.1); Sodium 131 mmol/L (135-145); Total Bilirubin 0.6 mg/dl (0.2-1.3); Total Protein 5.6 g/dl (6.3-8.2); eGFR > 60.00
[2024-06-15 14:37] LABS: % Basophils 0.3 % (0-2); % Eosinophils 1.9 % (0-6); % Immature Granulocytes 1.1 % (0-0.5); % Lymphocytes 5.6 % (20.5-51.1); % Monocytes 11.7 % (1.7-9.3); % Neutrophils 79.4 % (42.2-75.2); Absolute Eosinophils 0.1 10^3/uL (0-0.7); Absolute Immature Granulocytes 0.1 10^3/uL (0-0.05); Absolute Lymphocytes 0.4 10^3/uL (1.2-3.4); Absolute Monocytes 0.9 10^3/uL (0.1-0.6); Absolute Neutrophils 5.8 10^3/uL (1.4-6.5); Nucleated Red Blood Cells % 0.3 %
== END ==
LOC: REG 11:31
PROVIDERS: ATTENDING PHYSICIAN Internal Medicine Hematology & Oncology; FAMILY PHYSICIAN Internal Medicine
DX: D64.9 Anemia, unspecified (principal); R53.81 Other malaise; C90.00 Multiple myeloma not having achieved remission
CPT/HCPCS: 36415; 80053; 85025

== ENCOUNTER → 2024-06-18 11:34 | Outpatient (REF) | payer MEDICARE, OTHER, SELFPAY | LOC: REG 11:34 | PROVIDERS: ATTENDING PHYSICIAN Nurse Practitioner Adult Health | DX: D64.9 Anemia, unspecified (principal); R53.81 Other malaise; C90.00 Multiple myeloma not having achieved remission | CPT/HCPCS: 87045; 87046; 87324; 87328; 87329; 87427; 87449; 89055 ==

== ENCOUNTER → 2024-06-22 13:02 | Outpatient (REF) | payer MEDICARE, OTHER, SELFPAY ==
[2024-06-22 14:41] LABS: Hematocrit 32.3 % (37.0-47.0); Hemoglobin 11.2 g/dL (12.0-16.0); Mean Corp Hgb Conc. 34.7 g/dL (33.0-37.0); Mean Corpuscular Hgb 33.4 pg (27.0-31.0); Mean Corpuscular Volume 96.4 fL (81.0-99.0); Mean Platelet Volume 10.3 fL (7.4-10.4); Platelet Count 219 10^3/uL (130-400); Red Blood Cell Count 3.35 10^6/uL (4.20-5.40); Red Cell Dist. Width 13.7 % (11.5-14.5); White Blood Cell Count 4.7 10^3/uL (4.8-10.8)
[2024-06-22 15:01] LABS: ALT (SGPT) 51 U/L (0-35); AST (SGOT) 31 U/L (14-36); Albumin 3.8 g/dl (3.5-5.0); Alkaline Phosphatase 82 U/L (38-126); Blood Urea Nitrogen 16 mg/dl (7-17); Calcium 9.1 mg/dl (8.4-10.2); Carbon Dioxide 25 mmol/L (22-30); Chloride 98 mmol/L (98-107); Glucose 82 mg/dl (70-99); Potassium 4.4 mmol/L (3.5-5.1); Sodium 135 mmol/L (135-145); Total Bilirubin 0.3 mg/dl (0.2-1.3); Total Protein 5.6 g/dl (6.3-8.2); eGFR > 60.00
[2024-06-22 15:11] LABS: Absolute Neutrophils -Man Diff 3.2 10^3/uL (1.4-6.5); Band Neutrophils 0 % (0-3); Eosinophils 4 % (0-6); Lymphocytes 11 % (20-51); Monocytes 15 % (2-9); Segmented Neutrophils 69 % (42-75)
[2024-06-22 15:12] LABS: Myelocytes 1 % (-); Normal RBC Morphology Yes; Platelets Checked Yes; Total Cells Counted 100
== END ==
LOC: REG 13:02
PROVIDERS: ATTENDING PHYSICIAN Internal Medicine Hematology & Oncology; FAMILY PHYSICIAN Internal Medicine
DX: D64.9 Anemia, unspecified (principal); R53.81 Other malaise; C90.00 Multiple myeloma not having achieved remission
CPT/HCPCS: 36415; 80053; 85025

== ENCOUNTER → 2024-06-24 13:10 | Outpatient (REF) | payer MEDICARE, OTHER, SELFPAY ==
[2024-06-24 15:14] LABS: Protein/creatinine Ratio 0.2; Urine Protein 8 mg/dl
== END ==
LOC: OIDL 13:10
PROVIDERS: ATTENDING PHYSICIAN Internal Medicine Hematology & Oncology
DX: D64.9 Anemia, unspecified (principal); R53.81 Other malaise; C90.00 Multiple myeloma not having achieved remission
CPT/HCPCS: 82570; 84156

== ENCOUNTER → 2024-06-28 08:22 | Outpatient (REF) | payer MEDICARE, OTHER, SELFPAY ==
[2024-06-28 09:06] VITALS: BP 146/83; BP_SYST 61
[2024-06-28] MEDS: VANCOCIN 200 IV (09:29)
== END ==
LOC: RADI 08:22
PROVIDERS: ATTENDING PHYSICIAN Nurse Practitioner Adult Health; FAMILY PHYSICIAN Internal Medicine
DX: D64.9 Anemia, unspecified (principal)
CPT/HCPCS: 36561; 76937; 77001; 99152; 99153; C1788

== ENCOUNTER → 2024-06-29 15:52 | Outpatient (REF) | payer MEDICARE, OTHER, SELFPAY ==
[2024-06-29 16:39] LABS: % Basophils 0.7 % (0-2); % Eosinophils 4.6 % (0-6); % Immature Granulocytes 1.5 % (0-0.5); % Lymphocytes 11.1 % (20.5-51.1); % Monocytes 9.4 % (1.7-9.3); % Neutrophils 72.7 % (42.2-75.2); Absolute Eosinophils 0.3 10^3/uL (0-0.7); Absolute Immature Granulocytes 0.1 10^3/uL (0-0.05); Absolute Lymphocytes 0.6 10^3/uL (1.2-3.4); Absolute Monocytes 0.5 10^3/uL (0.1-0.6); Absolute Neutrophils 3.9 10^3/uL (1.4-6.5); Hematocrit 34.6 % (37.0-47.0); Hemoglobin 11.9 g/dL (12.0-16.0); Mean Corp Hgb Conc. 34.4 g/dL (33.0-37.0); Mean Corpuscular Hgb 33.7 pg (27.0-31.0); Mean Platelet Volume 10.4 fL (7.4-10.4); Nucleated Red Blood Cells % 0 %; Platelet Count 259 10^3/uL (130-400); Red Blood Cell Count 3.53 10^6/uL (4.20-5.40); Red Cell Dist. Width 14.6 % (11.5-14.5); White Blood Cell Count 5.4 10^3/uL (4.8-10.8)
[2024-06-29 17:03] LABS: ALT (SGPT) 33 U/L (0-35); AST (SGOT) 24 U/L (14-36); Albumin 4.2 g/dl (3.5-5.0); Alkaline Phosphatase 86 U/L (38-126); Blood Urea Nitrogen 15 mg/dl (7-17); Calcium 9.6 mg/dl (8.4-10.2); Carbon Dioxide 24 mmol/L (22-30); Chloride 100 mmol/L (98-107); Glucose 88 mg/dl (70-99); Potassium 4.8 mmol/L (3.5-5.1); Sodium 135 mmol/L (135-145); Total Bilirubin 0.3 mg/dl (0.2-1.3); Total Protein 6.1 g/dl (6.3-8.2); eGFR > 60.00
== END ==
LOC: REG 15:52
PROVIDERS: ATTENDING PHYSICIAN Internal Medicine Hematology & Oncology; FAMILY PHYSICIAN Internal Medicine
DX: D64.9 Anemia, unspecified (principal); R53.81 Other malaise; C90.00 Multiple myeloma not having achieved remission; A69.20 Lyme disease, unspecified
CPT/HCPCS: 36415; 80053; 85025

== ENCOUNTER → 2024-07-03 09:39 | Outpatient (REF) | payer MEDICARE, OTHER, SELFPAY ==
[2024-07-03 10:56] LABS: % Basophils 0.7 % (0-2); % Eosinophils 3.2 % (0-6); % Immature Granulocytes 0.7 % (0-0.5); % Monocytes 11.3 % (1.7-9.3); % Neutrophils 78.1 % (42.2-75.2); Absolute Basophils 0.1 10^3/uL (0-0.2); Absolute Eosinophils 0.3 10^3/uL (0-0.7); Absolute Immature Granulocytes 0.1 10^3/uL (0-0.05); Absolute Lymphocytes 0.6 10^3/uL (1.2-3.4); Absolute Monocytes 1.1 10^3/uL (0.1-0.6); Absolute Neutrophils 7.5 10^3/uL (1.4-6.5); Hematocrit 33.1 % (37.0-47.0); Hemoglobin 11.5 g/dL (12.0-16.0); Mean Corp Hgb Conc. 34.7 g/dL (33.0-37.0); Mean Corpuscular Hgb 34.5 pg (27.0-31.0); Mean Corpuscular Volume 99.4 fL (81.0-99.0); Mean Platelet Volume 10.1 fL (7.4-10.4); Nucleated Red Blood Cells % 0 %; Platelet Count 302 10^3/uL (130-400); Red Blood Cell Count 3.33 10^6/uL (4.20-5.40); Red Cell Dist. Width 14.2 % (11.5-14.5); White Blood Cell Count 9.6 10^3/uL (4.8-10.8)
[2024-07-03 11:43] LABS: ALT (SGPT) 29 U/L (0-35); AST (SGOT) 22 U/L (14-36); Albumin 4.2 g/dl (3.5-5.0); Alkaline Phosphatase 82 U/L (38-126); Blood Urea Nitrogen 17 mg/dl (7-17); Calcium 9.4 mg/dl (8.4-10.2); Carbon Dioxide 24 mmol/L (22-30); Chloride 104 mmol/L (98-107); Glucose 100 mg/dl (70-99); Potassium 4.2 mmol/L (3.5-5.1); Sodium 138 mmol/L (135-145); Total Bilirubin 0.4 mg/dl (0.2-1.3); Total Protein 5.9 g/dl (6.3-8.2); eGFR > 60.00
[2024-07-05 20:10] LABS: Beta-2-Glycoprotein I Ab. IgG <10 SGU (<=20); Beta-2-Glycoprotein I Ab. IgM <10 SMU (<=20)
[2024-07-05 20:34] LABS: Albumin 4.02 g/dL (3.75-5.01); Alpha 1 Globulin 0.28 g/dL (0.19-0.46); Alpha 2 Globulin 0.55 g/dL (0.48-1.05); Free Kappa Light Chains,Quant 3.19 mg/L (3.30-19.40); Free Lambda Light Chains,Quant 133.71 mg/L (5.71-26.30); IgA 2 mg/dL (68-408); IgG 304 mg/dL (768-1632); IgM <10 mg/dL (35-263); Immunofixation Electrophoresis IFE Done; Kappa/Lambda Fr Light Ratio 0.02 (0.26-1.65); Monoclonal Protein 0.17 g/dL (<=0.00); Total Protein-Electrophoresis 5.7 g/dL (6.3-8.2)
== END ==
LOC: REG 09:39
PROVIDERS: ATTENDING PHYSICIAN Internal Medicine Hematology & Oncology; FAMILY PHYSICIAN Internal Medicine
DX: D64.9 Anemia, unspecified (principal); R53.81 Other malaise; C90.00 Multiple myeloma not having achieved remission
CPT/HCPCS: 36415; 80053; 82784; 83521; 84155; 84165; 85025; 86146; 86334

== ENCOUNTER → 2024-07-06 08:55 | Outpatient (REF) | payer MEDICARE, OTHER, SELFPAY ==
[2024-07-06 10:14] LABS: 24 Hour Urine Total Volume 3000 ml
[2024-07-06 10:31] LABS: % Basophils 0.6 % (0-2); % Eosinophils 2.1 % (0-6); % Immature Granulocytes 0.8 % (0-0.5); % Monocytes 18.8 % (1.7-9.3); % Neutrophils 63.7 % (42.2-75.2); Absolute Basophils 0.1 10^3/uL (0-0.2); Absolute Eosinophils 0.2 10^3/uL (0-0.7); Absolute Immature Granulocytes 0.1 10^3/uL (0-0.05); Absolute Lymphocytes 1.2 10^3/uL (1.2-3.4); Absolute Monocytes 1.6 10^3/uL (0.1-0.6); Absolute Neutrophils 5.5 10^3/uL (1.4-6.5); Hematocrit 35.7 % (37.0-47.0); Hemoglobin 12.5 g/dL (12.0-16.0); Mean Corpuscular Hgb 35.3 pg (27.0-31.0); Mean Corpuscular Volume 100.8 fL (81.0-99.0); Nucleated Red Blood Cells % 0 %; Platelet Count 369 10^3/uL (130-400); Red Blood Cell Count 3.54 10^6/uL (4.20-5.40); Red Cell Dist. Width 14.1 % (11.5-14.5); White Blood Cell Count 8.6 10^3/uL (4.8-10.8)
[2024-07-06 11:04] LABS: ALT (SGPT) 38 U/L (0-35); AST (SGOT) 22 U/L (14-36); Albumin 4.5 g/dl (3.5-5.0); Alkaline Phosphatase 59 U/L (38-126); Blood Urea Nitrogen 20 mg/dl (7-17); Calcium 10.1 mg/dl (8.4-10.2); Carbon Dioxide 29 mmol/L (22-30); Chloride 99 mmol/L (98-107); Glucose 79 mg/dl (70-99); Potassium 4.5 mmol/L (3.5-5.1); Sodium 139 mmol/L (135-145); Total Bilirubin 0.4 mg/dl (0.2-1.3); Total Protein 6.4 g/dl (6.3-8.2); eGFR > 60.00
[2024-07-08 22:57] LABS: 24 Hour Urine Total Volume 3000 mL; Ur Free Lambda Excretion/day 16.26 mg/d; Urine Collection Length 24 hr; Urine Free Kappa Excretion/Day 4.41 mg/d; Urine Free Kappa Light Chains 1.47 mg/L (0.00-32.90); Urine Free Lambda Light Chains 5.42 mg/L (0.00-3.79)
== END ==
LOC: REG 08:55
PROVIDERS: ATTENDING PHYSICIAN Internal Medicine Hematology & Oncology; FAMILY PHYSICIAN Internal Medicine
DX: D64.9 Anemia, unspecified (principal); R53.81 Other malaise; C90.00 Multiple myeloma not having achieved remission
CPT/HCPCS: 80053; 81050; 83521; 84156; 85025; 86335

== ENCOUNTER 2024-07-12 20:41 | Emergency (ER) | payer MEDICARE, OTHER, SELFPAY ==
[2024-07-12 20:43] VITALS: BP 163/89
[2024-07-12 20:58] LABS: % Basophils 0.3 % (0-2); % Eosinophils 10.3 % (0-6); % Immature Granulocytes 4.4 % (0-0.5); % Lymphocytes 13.7 % (20.5-51.1); % Monocytes 10.2 % (1.7-9.3); % Neutrophils 61.1 % (42.2-75.2); Absolute Eosinophils 0.8 10^3/uL (0-0.7); Absolute Immature Granulocytes 0.3 10^3/uL (0-0.05); Absolute Monocytes 0.7 10^3/uL (0.1-0.6); Absolute Neutrophils 4.4 10^3/uL (1.4-6.5); Hematocrit 35.8 % (37.0-47.0); Hemoglobin 12.4 g/dL (12.0-16.0); Mean Corp Hgb Conc. 34.6 g/dL (33.0-37.0); Mean Corpuscular Hgb 33.2 pg (27.0-31.0); Mean Corpuscular Volume 95.7 fL (81.0-99.0); Mean Platelet Volume 10.2 fL (7.4-10.4); Nucleated Red Blood Cells % 0 %; Platelet Count 248 10^3/uL (130-400); Red Blood Cell Count 3.74 10^6/uL (4.20-5.40); Red Cell Dist. Width 14.1 % (11.5-14.5); White Blood Cell Count 7.3 10^3/uL (4.8-10.8)
[2024-07-12 21:08] LABS: COVID-19 Antigen Negative (Negative)
[2024-07-12 21:13] LABS: ALT (SGPT) 32 U/L (0-35); AST (SGOT) 23 U/L (14-36); Albumin 4.1 g/dl (3.5-5.0); Alkaline Phosphatase 90 U/L (38-126); Blood Urea Nitrogen 15 mg/dl (7-17); Calcium 9.2 mg/dl (8.4-10.2); Carbon Dioxide 28 mmol/L (22-30); Chloride 99 mmol/L (98-107); Glucose 95 mg/dl (70-99); Potassium 4.2 mmol/L (3.5-5.1); Sodium 134 mmol/L (135-145); Total Bilirubin 0.2 mg/dl (0.2-1.3); Total Protein 5.9 g/dl (6.3-8.2); eGFR > 60.00
[2024-07-12 23:30] VITALS: BMI 21.5
[2024-07-12 23:34] VITALS: BP 137/81
--- NOTE | 2024-07-13 00:01 | ED.GENMED ---
History of Present Illness
General
Chief Complaint: Weakness
Source: patient
Exam Limitations: none
Time Seen by Provider: 07/12/24 22:56
History of Present Illness
History of Present Illness:
This is a 68 year old female that comes in with c/o redness on her right abdomen. States that she had her injection on . Today she went to PT and they noticed the redness on her stomach. State that she as told that she could be septic so
this 'freaked her out'. States that she has been letargic today and she felt that the redness on her abd was getting worse. States that she did have some chills today, some abd discomfort, nausea, and feels like she is walking in a cloud. Denies any
fever, chest pain, SOB, vomiting, diarrhea, headache, dizziness, urinary burning.
Past History
Past History
ED Past Medical History: Cancer (Multiple Myloma, ), HTN, Psychiatric (depression, anxiety), Other (diverticulitis with Perforation, Lupus, connective tissue disorder, small bowel obstructions, irritable bowel syndrome, Back pain, Migraines,
Raynaud's, Colitis, Urinary retention) and Other (Headaches, Imitrex as needed at home, Lyme, Lupus, CREST disease, ADHD, )
ED Past Surgical History: Bowel resection (Sigmoid diverticulitis with perforation requiring temporary colostomy with colostomy reversal 2014. Sigmoid colon resection. Lysis of adhesions.), Gynecological (Hysterectomy, Pelvic lift, LEEP, Right and
left Rotator cuff), Orthopedic (RL5-S1 fusion, Left wrist surgery, Right hip repair. Right and left Hip replacement ), Urological (Bladder prolapse. Rectocele/Cystocele repair) and Other (Abdominoplasty, breast augmentation, Cataracts, face lift,
Breast implants, )
Social History
Tobacco: Non-smoker
Alcohol: None
Drug: Other (Medical marijuana as needed)
Personal:
Living: alone
Employment: Not employed
Family History
Family History: Other (Father with coronary disease, hypertension, gout)
Review of Systems
Review of Systems
All Other Systems: ROS reviewed and negative except as documented in HPI and ROS
Constitutional: Reports chills; Denies fever
EENT: Reports no symptoms
Respiratory: Reports no symptoms; Denies cough or trouble breathing
Cardiac: Reports no symptoms; Denies chest pain
ABD/GI: Reports abdominal pain and nausea; Denies vomiting or diarrhea
: Reports no symptoms; Denies dysuria, frequency or urgency
Musculoskeletal: Reports no symptoms
Skin: Reports other (Redness on the right lower abd)
Neurological: Reports other (Just feels like she is in a fog); Denies dizzy or headache
Psychiatric: Reports no symptoms
Phy Exam
General Physical Exam
General Presentation: no apparent distress
General age: appears stated age
General Skin: warm and dry
General Habitus: normal
General Mental: alert
General Hydration: dry mucous membranes
ENT Exam
ENT Exam: TM's normal, pharynx normal and neck supple
Eye Exam
Eye Exam: EOMI
Cardiovascular Exam
Cardiovascular Exam: regular rate/rhythm and normal peripheral pulses
Pulmonary Exam
Pulmonary Exam: lungs clear, no respiratory distress, no rales, chest non tender, no crackles, no rhonchi, no wheezing and no cough
Gastrointestinal Exam
Gastrointestinal Exam: normal bowel sounds, non tender, soft, no organomegaly, no pulsatile mass and non distended
Musculoskeletal Exam
Musculoskeletal Exam: full ROM and edema (Very slight lower leg edema nonpitting)
Skin Exam
Skin Exam: normal color, warm/dry, no petechia and redness (right lower abd that is moving up to the right UQ. Almost appears like a hive, Patient has a rash over her back that is itching and states that the abd is slightly itchy. )
Psychiatric Exam
Psychiatric Exam: normal mood/affect
Course
Orders/Labs/Results
Orders:
Orders
07/12/24 20:48
Influenza A+B Rapid Molecular Urgent
RADHA Source: Nasal Swab
Specimen Description:
07/12/24 20:52
COVID-19 Antigen Urgent
Source: Nasal Swab
Complete Blood Count/With Diff Urgent
Comprehensive Metabolic Panel Urgent
07/12/24 23:59
Clindamycin HCl [Cleocin] 300 mg PO NOW STA
Abnormal Lab Results
07/12/24
20:52
RBC 3.74 L 10^6/uL
(4.20-5.40)
Hct 35.8 L %
(37.0-47.0)
MCH 33.2 H pg
(27.0-31.0)
Abs Immat Gran (auto) 0.3 H 10^3/uL
(0-0.05)
Absolute Lymphs (auto) 1.0 L 10^3/uL
(1.2-3.4)
Absolute Monos (auto) 0.7 H 10^3/uL
(0.1-0.6)
Absolute Eos (auto) 0.8 H 10^3/uL
(0-0.7)
Immature Gran % 4.4 H %
(0-0.5)
Lymphocytes % 13.7 L %
(20.5-51.1)
Monocytes % 10.2 H %
(1.7-9.3)
Eosinophils % 10.3 H %
(0-6)
Sodium 134 L mmol/L
(135-145)
Total Protein 5.9 L g/dl
(6.3-8.2)
07/12/24 20:52
07/12/24 20:52
Sodium very slightly low. Total protein low.
Vital Signs
Initial and Last Documented VS:
Initial Vital Signs
Temp Pulse Resp BP Pulse Ox
98.2 F 90 18 163/89 98
07/12/24 20:43 07/12/24 20:43 07/12/24 20:43 07/12/24 20:43 07/12/24 20:43
Last Documented Vital Signs
Temp Pulse Resp BP Pulse Ox
98.2 F 76 12 137/81 96
07/12/24 20:43 07/12/24 23:33 07/12/24 23:34 07/12/24 23:34 07/12/24 23:34
MDM/Problems Addressed
Differential Diagnosis Includes:
Cellulitis, Local reaction to injection,
MDM/Problems Addressed:
This is a 68 year old female that comes in with c/o redness of the right abd. States that she got her injection on and that the redness form the injection has gotten redder. States that she went to PT today and they were concerned and told
her that this could be sepsis. Patient freaked out.
Will check labs and given patient an antibiotic. Patient has follow up visit for labs tomorrow.
Will discharge patient home.
Chronic conditions affecting care: Cancer
Acute Exacerbation and/or Progression of Chronic Illness: Cancer
*Pulse Oximetry
Patient hypoxic: no
*EKG
Interpreted by ED Provider?: NA
Rate: EKG- N/A
*[place] Interpretation
Rate: normal
Heart Rate: 76
Rhythm: sinus
*Critical Care Note
Total Time (30-74mins, 75-104mins- exclusive of procedures): Not Applicable
ED Attending Note
-
Portions of this chart may have been created with voice recognition software.� Occasional wrong word or��sound alike� substitutions may have occurred due to the inherent limitations of voice recognition software.
Discharge Plan
Departure
Patient Disposition: Home (Routine Discharge)
Date of Disposition: 07/13/24
Time of Disposition: 00:10
Patient with high blood pressure during this ER visit?: Yes
Condition: Good
Covid-19: Negative COVID-19
Discharge Problem:
Skin reaction to injection vs Cellulitis
Instructions: Cellulitis (Skin Infection), Adult ED, BLOOD PRESSURE
Prescriptions:
New
clindamycin HCl 300 mg capsule
300 mg PO BID Qty: 14 0RF
No Action
losartan 50 MG tablet
50 mg PO DAILY
zinc 15 MG tablet
30 mg PO DAILY
ascorbic acid (vitamin C) [Vitamin C] 500 MG tablet
1,000 mg PO BID
finasteride 5 MG tablet
5 mg PO DAILY
diltiazem HCl 180 mg Capsule,Extended Release 24 Hr
180 mg PO DAILY
clonazepam [Klonopin] 0.5 mg Tablet
0.5 mg PO HS
quercetin 500 mg Capsule
250 mg PO DAILY
Prolia 60 mg/mL Syringe
60 mg SC [id number]
Medical Cannabis
1 dose inhalation DAILY PRN (Reason: inflammation)
multivitamin Tablet
1 tab PO DAILY
minoxidil 2.5 mg Tablet
1.25 mg PO DAILY
sumatriptan succinate 50 mg Tablet
50 mg PO ONCE PRN (Reason: Migraines)
cholecalciferol (vitamin D3) [Vitamin D3] 125 mcg (5,000 unit) Tablet
125 mcg PO DAILY
Artificial Tears (cmc) 1 % Drops
1 drp OPHTHALMIC (EYE) BID PRN (Reason: dry eyes)
Referrals:
Daniel Easton MD [Family Provider] -
Activity Restrictions/Additional Instructions:
As discussed, your blood work is normal. You are negative for COVID. This may be a reaction to the injection or Cellulitis which is a skin infection. You have been given your first antibiotic here and a prescription has been sent to your Pharmacy.
Please follow up with the family doctor for recheck. IF YOU HAVE ANY FEVER, OR YOU HAVE ANY OTHER CONCERNS PLEASE RETURN TO THE EMEREGNCY ROOM.
Interventions
Interventions:
*Risk Screen - Suicide Last Done: 07/12/24 20:43
*General Assessment Last Done: 07/12/24 20:43
*Neglect/Abuse Screening Last Done: 07/12/24 20:43
ED- Fall Risk Assessment Last Done: 07/12/24 23:31
*ED COVID-19 Vaccine History Last Done: 07/12/24 20:43
ED- Cardiac Assessment Last Done: 07/12/24 23:31
ED- Neurological Assessment Last Done: 07/12/24 23:31
ED- Pulmonary Assessment Last Done: 07/12/24 23:31
Discharge Date and Time
Print Language: [id number]
[2024-07-13] MEDS: CLEOCIN 300 MG PO (00:28)
[2024-07-13 00:35] VITALS: BP 157/86
== END 2024-07-13 00:47 | disposition home or self-care (01) ==
LOC: EMR 20:41
PROVIDERS: Student in an Organized Health Care Education/Training Program; EMERGENCY PHYSICIAN Emergency Medicine; FAMILY PHYSICIAN Internal Medicine
DX: R53.1 Weakness (principal); I10 Essential (primary) hypertension; F41.9 Anxiety disorder, unspecified; I73.00 Raynaud's syndrome without gangrene; K58.9 Irritable bowel syndrome, unspecified; Z82.49 Family history of ischemic heart disease and other diseases of the circulatory system; Z90.710 Acquired absence of both cervix and uterus
CPT/HCPCS: 99283; 80053; 85025; 87811

== ENCOUNTER → 2024-07-13 14:25 | Outpatient (REF) | payer MEDICARE, OTHER, SELFPAY ==
[2024-07-13 15:24] LABS: % Basophils 0.2 % (0-2); % Eosinophils 7.6 % (0-6); % Immature Granulocytes 1.7 % (0-0.5); % Lymphocytes 6.8 % (20.5-51.1); % Monocytes 6.3 % (1.7-9.3); % Neutrophils 77.4 % (42.2-75.2); Absolute Eosinophils 0.7 10^3/uL (0-0.7); Absolute Immature Granulocytes 0.2 10^3/uL (0-0.05); Absolute Lymphocytes 0.6 10^3/uL (1.2-3.4); Absolute Monocytes 0.6 10^3/uL (0.1-0.6); Absolute Neutrophils 6.8 10^3/uL (1.4-6.5); Hematocrit 36.8 % (37.0-47.0); Hemoglobin 12.9 g/dL (12.0-16.0); Mean Corp Hgb Conc. 35.1 g/dL (33.0-37.0); Mean Corpuscular Hgb 34.6 pg (27.0-31.0); Mean Corpuscular Volume 98.7 fL (81.0-99.0); Mean Platelet Volume 10.8 fL (7.4-10.4); Nucleated Red Blood Cells % 0 %; Platelet Count 247 10^3/uL (130-400); Red Blood Cell Count 3.73 10^6/uL (4.20-5.40); White Blood Cell Count 8.8 10^3/uL (4.8-10.8)
[2024-07-13 15:52] LABS: ALT (SGPT) 31 U/L (0-35); AST (SGOT) 21 U/L (14-36); Albumin 3.9 g/dl (3.5-5.0); Alkaline Phosphatase 64 U/L (38-126); Blood Urea Nitrogen 17 mg/dl (7-17); Calcium 9.2 mg/dl (8.4-10.2); Carbon Dioxide 24 mmol/L (22-30); Chloride 99 mmol/L (98-107); Glucose 94 mg/dl (70-99); Potassium 4.2 mmol/L (3.5-5.1); Sodium 132 mmol/L (135-145); Total Bilirubin 0.3 mg/dl (0.2-1.3); Total Protein 5.8 g/dl (6.3-8.2); eGFR > 60.00
== END ==
LOC: REG 14:25
PROVIDERS: ATTENDING PHYSICIAN Internal Medicine Hematology & Oncology; FAMILY PHYSICIAN Internal Medicine
DX: D64.9 Anemia, unspecified (principal); R53.81 Other malaise; C90.00 Multiple myeloma not having achieved remission
CPT/HCPCS: 36415; 80053; 85025

== ENCOUNTER → 2024-07-21 12:29 | Outpatient (REF) | payer MEDICARE, OTHER, SELFPAY ==
[2024-07-21 13:30] LABS: % Basophils 0.2 % (0-2); % Eosinophils 0.1 % (0-6); % Immature Granulocytes 0.5 % (0-0.5); % Lymphocytes 4.9 % (20.5-51.1); % Monocytes 11.6 % (1.7-9.3); % Neutrophils 82.7 % (42.2-75.2); Absolute Immature Granulocytes 0.1 10^3/uL (0-0.05); Absolute Lymphocytes 0.5 10^3/uL (1.2-3.4); Absolute Monocytes 1.2 10^3/uL (0.1-0.6); Absolute Neutrophils 8.7 10^3/uL (1.4-6.5); Hemoglobin 11.2 g/dL (12.0-16.0); Mean Corpuscular Hgb 33.4 pg (27.0-31.0); Mean Corpuscular Volume 95.5 fL (81.0-99.0); Mean Platelet Volume 10.1 fL (7.4-10.4); Nucleated Red Blood Cells % 0 %; Platelet Count 267 10^3/uL (130-400); Red Blood Cell Count 3.35 10^6/uL (4.20-5.40); Red Cell Dist. Width 14.4 % (11.5-14.5); White Blood Cell Count 10.5 10^3/uL (4.8-10.8)
[2024-07-21 14:16] LABS: ALT (SGPT) 40 U/L (0-35); AST (SGOT) 30 U/L (14-36); Albumin 4.2 g/dl (3.5-5.0); Alkaline Phosphatase 69 U/L (38-126); Blood Urea Nitrogen 18 mg/dl (7-17); Calcium 9.4 mg/dl (8.4-10.2); Carbon Dioxide 24 mmol/L (22-30); Chloride 102 mmol/L (98-107); Glucose 93 mg/dl (70-99); Potassium 4.5 mmol/L (3.5-5.1); Sodium 135 mmol/L (135-145); Total Bilirubin 0.3 mg/dl (0.2-1.3); Total Protein 5.9 g/dl (6.3-8.2); eGFR > 60.00
== END ==
LOC: REG 12:29
PROVIDERS: ATTENDING PHYSICIAN Internal Medicine Hematology & Oncology; FAMILY PHYSICIAN Internal Medicine
DX: D64.9 Anemia, unspecified (principal); R53.81 Other malaise; C90.00 Multiple myeloma not having achieved remission
CPT/HCPCS: 36415; 80053; 85025

== ENCOUNTER → 2024-07-27 15:45 | Outpatient (REF) | payer MEDICARE, OTHER, SELFPAY ==
[2024-07-27 17:13] LABS: % Basophils 0.4 % (0-2); % Eosinophils 7.4 % (0-6); % Immature Granulocytes 0.4 % (0-0.5); % Lymphocytes 13.7 % (20.5-51.1); % Monocytes 15.5 % (1.7-9.3); % Neutrophils 62.6 % (42.2-75.2); Absolute Eosinophils 0.4 10^3/uL (0-0.7); Absolute Lymphocytes 0.7 10^3/uL (1.2-3.4); Absolute Monocytes 0.8 10^3/uL (0.1-0.6); Absolute Neutrophils 3.3 10^3/uL (1.4-6.5); Hematocrit 34.1 % (37.0-47.0); Hemoglobin 11.7 g/dL (12.0-16.0); Mean Corp Hgb Conc. 34.3 g/dL (33.0-37.0); Mean Corpuscular Hgb 32.8 pg (27.0-31.0); Mean Corpuscular Volume 95.5 fL (81.0-99.0); Mean Platelet Volume 9.9 fL (7.4-10.4); Nucleated Red Blood Cells % 0 %; Platelet Count 287 10^3/uL (130-400); Red Blood Cell Count 3.57 10^6/uL (4.20-5.40); Red Cell Dist. Width 13.9 % (11.5-14.5); White Blood Cell Count 5.2 10^3/uL (4.8-10.8)
[2024-07-27 17:25] LABS: 24 Hour Urine Total Volume 3000 ml
[2024-07-27 17:40] LABS: ALT (SGPT) 33 U/L (0-35); AST (SGOT) 22 U/L (14-36); Albumin 3.9 g/dl (3.5-5.0); Alkaline Phosphatase 85 U/L (38-126); Blood Urea Nitrogen 19 mg/dl (7-17); Carbon Dioxide 25 mmol/L (22-30); Chloride 98 mmol/L (98-107); Glucose 90 mg/dl (70-99); Potassium 4.1 mmol/L (3.5-5.1); Sodium 132 mmol/L (135-145); Total Bilirubin 0.3 mg/dl (0.2-1.3); Total Protein 5.7 g/dl (6.3-8.2); eGFR > 60.00
[2024-07-27 18:08] LABS: 24 Hour Urine Creatinine 0.729 gm/day (0.8-1.8); Urine Protein 12 mg/dl (0-12)
[2024-07-27 18:45] LABS: Folate 19.8 ng/ml (2.76-20); Vitamin B12 > 1000 pg/ml (239-931)
[2024-07-30 04:50] LABS: Beta-2-Microglobulin 1.4 mg/L (<=3.0)
[2024-07-30 08:34] LABS: 24 Hour Urine Total Volume 3000 mL; Ur Free Lambda Excretion/day 3.12 mg/d; Urine Collection Length 24 hr; Urine Free Kappa Excretion/Day 1.41 mg/d; Urine Free Kappa Light Chains 0.47 mg/L (0.00-32.90); Urine Free Lambda Light Chains 1.04 mg/L (0.00-3.79)
== END ==
LOC: REG 15:45
PROVIDERS: ATTENDING PHYSICIAN Internal Medicine Hematology & Oncology; FAMILY PHYSICIAN Internal Medicine; REFERRING PHYSICIAN Psychiatry & Neurology Neurology
DX: D64.9 Anemia, unspecified (principal); R53.81 Other malaise; C90.00 Multiple myeloma not having achieved remission; R41.3 Other amnesia
CPT/HCPCS: 36415; 80053; 81050; 82232; 82570; 82607; 82746; 82784; 83521; 84155; 84156; 84165; 85025; 86334; 86335

== ENCOUNTER → 2024-07-28 13:40 | Outpatient (REF) | payer MEDICARE, OTHER, SELFPAY | LOC: RCS 13:40 | PROVIDERS: ATTENDING PHYSICIAN Internal Medicine Interventional Cardiology; FAMILY PHYSICIAN Internal Medicine; REFERRING PHYSICIAN Internal Medicine Hematology & Oncology | DX: Z51.11 Encounter for antineoplastic chemotherapy (principal); D64.9 Anemia, unspecified; R53.81 Other malaise; C90.00 Multiple myeloma not having achieved remission | CPT/HCPCS: 93306; 93356 ==

== ENCOUNTER → 2024-08-03 15:54 | Outpatient (REF) | payer MEDICARE, OTHER, SELFPAY ==
[2024-08-03 16:38] LABS: Hematocrit 34.4 % (37.0-47.0); Mean Corp Hgb Conc. 34.9 g/dL (33.0-37.0); Mean Corpuscular Hgb 34.5 pg (27.0-31.0); Mean Corpuscular Volume 98.9 fL (81.0-99.0); Mean Platelet Volume 9.8 fL (7.4-10.4); Platelet Count 245 10^3/uL (130-400); Red Blood Cell Count 3.48 10^6/uL (4.20-5.40); Red Cell Dist. Width 13.7 % (11.5-14.5)
[2024-08-03 16:55] LABS: ALT (SGPT) 31 U/L (0-35); AST (SGOT) 22 U/L (14-36); Albumin 3.8 g/dl (3.5-5.0); Alkaline Phosphatase 65 U/L (38-126); Blood Urea Nitrogen 18 mg/dl (7-17); Carbon Dioxide 27 mmol/L (22-30); Chloride 98 mmol/L (98-107); Glucose 91 mg/dl (70-99); Potassium 4.2 mmol/L (3.5-5.1); Sodium 133 mmol/L (135-145); Total Bilirubin 0.2 mg/dl (0.2-1.3); Total Protein 5.6 g/dl (6.3-8.2); eGFR > 60.00
[2024-08-04 09:18] LABS: % Basophils 0.3 % (0-2); % Eosinophils 2.3 % (0-6); % Immature Granulocytes 1.3 % (0-0.5); % Lymphocytes 16.1 % (20.5-51.1); % Monocytes 12.3 % (1.7-9.3); % Neutrophils 67.7 % (42.2-75.2); Absolute Eosinophils 0.1 10^3/uL (0-0.7); Absolute Immature Granulocytes 0.1 10^3/uL (0-0.05); Absolute Monocytes 0.8 10^3/uL (0.1-0.6); Absolute Neutrophils 4.1 10^3/uL (1.4-6.5); Nucleated Red Blood Cells % 0 %
== END ==
LOC: RAD 15:54
PROVIDERS: ATTENDING PHYSICIAN Internal Medicine Hematology & Oncology; FAMILY PHYSICIAN Internal Medicine; REFERRING PHYSICIAN Psychiatry & Neurology Neurology
DX: M54.50 Low back pain, unspecified (principal); D64.9 Anemia, unspecified; R53.81 Other malaise; C90.00 Multiple myeloma not having achieved remission
CPT/HCPCS: 36415; 72100; 80053; 85025; 85027

== ENCOUNTER 2024-08-04 09:16 | Outpatient (RCR) | payer MEDICARE, OTHER, SELFPAY | END 2024-08-04 23:59 | disposition home or self-care (01) | LOC: RPT 09:16 | PROVIDERS: ATTENDING PHYSICIAN Nurse Practitioner Adult Health; FAMILY PHYSICIAN Internal Medicine | DX: C90.00 Multiple myeloma not having achieved remission (principal); R53.81 Other malaise; D64.9 Anemia, unspecified; R53.0 Neoplastic (malignant) related fatigue; R10.2 Pelvic and perineal pain; K59.00 Constipation, unspecified | CPT/HCPCS: 97110; 97163; 97164; 97530 ==

== ENCOUNTER → 2024-08-17 16:17 | Outpatient (REF) | payer MEDICARE, OTHER, SELFPAY ==
[2024-08-17 16:56] LABS: % Basophils 0.2 % (0-2); % Eosinophils 3.1 % (0-6); % Monocytes 11.3 % (1.7-9.3); % Neutrophils 73.4 % (42.2-75.2); Absolute Eosinophils 0.3 10^3/uL (0-0.7); Absolute Immature Granulocytes 0.1 10^3/uL (0-0.05); Absolute Neutrophils 6.3 10^3/uL (1.4-6.5); Hematocrit 33.7 % (37.0-47.0); Hemoglobin 11.4 g/dL (12.0-16.0); Mean Corp Hgb Conc. 33.8 g/dL (33.0-37.0); Mean Corpuscular Hgb 33.6 pg (27.0-31.0); Mean Corpuscular Volume 99.4 fL (81.0-99.0); Mean Platelet Volume 10.2 fL (7.4-10.4); Nucleated Red Blood Cells % 0 %; Platelet Count 210 10^3/uL (130-400); Red Blood Cell Count 3.39 10^6/uL (4.20-5.40); Red Cell Dist. Width 13.6 % (11.5-14.5); White Blood Cell Count 8.7 10^3/uL (4.8-10.8)
[2024-08-17 17:13] LABS: ALT (SGPT) 39 U/L (0-35); AST (SGOT) 23 U/L (14-36); Albumin 3.8 g/dl (3.5-5.0); Alkaline Phosphatase 100 U/L (38-126); Blood Urea Nitrogen 21 mg/dl (7-17); Calcium 9.1 mg/dl (8.4-10.2); Carbon Dioxide 29 mmol/L (22-30); Chloride 97 mmol/L (98-107); Glucose 85 mg/dl (70-99); Potassium 4.5 mmol/L (3.5-5.1); Sodium 133 mmol/L (135-145); Total Bilirubin 0.2 mg/dl (0.2-1.3); Total Protein 5.7 g/dl (6.3-8.2); eGFR > 60.00
== END ==
LOC: REG 16:17
PROVIDERS: ATTENDING PHYSICIAN Internal Medicine Hematology & Oncology; FAMILY PHYSICIAN Internal Medicine
DX: D64.9 Anemia, unspecified (principal); R53.81 Other malaise; C90.00 Multiple myeloma not having achieved remission
CPT/HCPCS: 36415; 80053; 85025

== ENCOUNTER → 2024-08-20 15:47 | Outpatient (REF) | payer MEDICARE, OTHER, SELFPAY | LOC: HWRAD 15:47 | PROVIDERS: ATTENDING PHYSICIAN Physician Assistant; FAMILY PHYSICIAN Internal Medicine; REFERRING PHYSICIAN Internal Medicine Hematology & Oncology | DX: J32.8 Other chronic sinusitis (principal) | CPT/HCPCS: 70486 ==

== ENCOUNTER → 2024-08-24 16:04 | Outpatient (REF) | payer MEDICARE, OTHER, SELFPAY ==
[2024-08-24 17:05] LABS: % Basophils 0.3 % (0-2); % Eosinophils 1.6 % (0-6); % Immature Granulocytes 1.6 % (0-0.5); % Lymphocytes 15.5 % (20.5-51.1); % Monocytes 13.4 % (1.7-9.3); % Neutrophils 67.6 % (42.2-75.2); Absolute Eosinophils 0.1 10^3/uL (0-0.7); Absolute Immature Granulocytes 0.1 10^3/uL (0-0.05); Absolute Lymphocytes 1.1 10^3/uL (1.2-3.4); Absolute Neutrophils 4.9 10^3/uL (1.4-6.5); Hemoglobin 12.3 g/dL (12.0-16.0); Mean Corp Hgb Conc. 34.2 g/dL (33.0-37.0); Mean Corpuscular Hgb 33.4 pg (27.0-31.0); Mean Corpuscular Volume 97.8 fL (81.0-99.0); Mean Platelet Volume 10.5 fL (7.4-10.4); Nucleated Red Blood Cells % 0 %; Platelet Count 268 10^3/uL (130-400); Red Blood Cell Count 3.68 10^6/uL (4.20-5.40); Red Cell Dist. Width 13.5 % (11.5-14.5); White Blood Cell Count 7.3 10^3/uL (4.8-10.8)
[2024-08-24 17:23] LABS: ALT (SGPT) 40 U/L (0-35); AST (SGOT) 25 U/L (14-36); Alkaline Phosphatase 75 U/L (38-126); Blood Urea Nitrogen 19 mg/dl (7-17); Carbon Dioxide 25 mmol/L (22-30); Chloride 97 mmol/L (98-107); Glucose 87 mg/dl (70-99); Potassium 4.6 mmol/L (3.5-5.1); Sodium 131 mmol/L (135-145); Total Bilirubin 0.2 mg/dl (0.2-1.3); Total Protein 5.8 g/dl (6.3-8.2); eGFR > 60.00
== END ==
LOC: REG 16:04
PROVIDERS: ATTENDING PHYSICIAN Internal Medicine Hematology & Oncology; FAMILY PHYSICIAN Internal Medicine
DX: D64.9 Anemia, unspecified (principal); R53.81 Other malaise; C90.00 Multiple myeloma not having achieved remission; M35.1 Other overlap syndromes
CPT/HCPCS: 36415; 80053; 85025

== ENCOUNTER → 2024-08-26 16:11 | Outpatient (REF) | payer MEDICARE, OTHER, SELFPAY ==
[2024-08-26 11:54] LABS: % Basophils 0.3 % (0-2); % Eosinophils 2.3 % (0-6); % Lymphocytes 8.7 % (20.5-51.1); % Monocytes 11.4 % (1.7-9.3); % Neutrophils 76.3 % (42.2-75.2); Absolute Eosinophils 0.2 10^3/uL (0-0.7); Absolute Immature Granulocytes 0.1 10^3/uL (0-0.05); Absolute Lymphocytes 0.6 10^3/uL (1.2-3.4); Absolute Monocytes 0.8 10^3/uL (0.1-0.6); Absolute Neutrophils 5.3 10^3/uL (1.4-6.5); Hematocrit 36.4 % (37.0-47.0); Hemoglobin 12.2 g/dL (12.0-16.0); Mean Corp Hgb Conc. 33.5 g/dL (33.0-37.0); Mean Corpuscular Hgb 33.8 pg (27.0-31.0); Mean Corpuscular Volume 100.8 fL (81.0-99.0); Mean Platelet Volume 10.1 fL (7.4-10.4); Platelet Count 302 10^3/uL (130-400); Red Blood Cell Count 3.61 10^6/uL (4.20-5.40); Red Cell Dist. Width 13.6 % (11.5-14.5); White Blood Cell Count 6.9 10^3/uL (4.8-10.8)
[2024-08-26 14:37] LABS: ALT (SGPT) 34 U/L (0-35); AST (SGOT) 25 U/L (14-36); Alkaline Phosphatase 68 U/L (38-126); Blood Urea Nitrogen 16 mg/dl (7-17); Calcium 8.9 mg/dl (8.4-10.2); Carbon Dioxide 25 mmol/L (22-30); Chloride 96 mmol/L (98-107); Glucose 70 mg/dl (70-99); Potassium 4.5 mmol/L (3.5-5.1); Sodium 131 mmol/L (135-145); Total Bilirubin 0.4 mg/dl (0.2-1.3); Total Protein 5.6 g/dl (6.3-8.2); eGFR > 60.00
[2024-08-28 16:48] LABS: Beta-2-Microglobulin 1.4 mg/L (<=3.0)
== END ==
LOC: OIDL 16:11
PROVIDERS: ATTENDING PHYSICIAN Nurse Practitioner Acute Care
DX: D64.9 Anemia, unspecified (principal)
CPT/HCPCS: 80053; 82232; 82784; 83521; 84155; 84165; 85025; 86334

== ENCOUNTER 2024-09-01 15:00 | Outpatient (RCR) | payer MEDICARE, OTHER, SELFPAY | END 2024-09-01 23:59 | disposition home or self-care (01) | LOC: RPT 15:00 | PROVIDERS: ATTENDING PHYSICIAN Nurse Practitioner Adult Health; FAMILY PHYSICIAN Internal Medicine | DX: C90.00 Multiple myeloma not having achieved remission (principal); R53.81 Other malaise; D64.9 Anemia, unspecified; R10.2 Pelvic and perineal pain; R53.0 Neoplastic (malignant) related fatigue; K59.00 Constipation, unspecified | CPT/HCPCS: 36415; 80053; 85025; 97110; 97112; 97140 ==

== ENCOUNTER → 2024-09-01 16:00 | Outpatient (REF) | payer MEDICARE, OTHER, SELFPAY ==
[2024-09-01 17:15] LABS: % Basophils 0.1 % (0-2); % Eosinophils 2.2 % (0-6); % Immature Granulocytes 1.5 % (0-0.5); % Lymphocytes 13.5 % (20.5-51.1); % Monocytes 10.6 % (1.7-9.3); % Neutrophils 72.1 % (42.2-75.2); Absolute Eosinophils 0.2 10^3/uL (0-0.7); Absolute Immature Granulocytes 0.1 10^3/uL (0-0.05); Absolute Monocytes 0.8 10^3/uL (0.1-0.6); Absolute Neutrophils 5.2 10^3/uL (1.4-6.5); Hematocrit 33.5 % (37.0-47.0); Hemoglobin 11.5 g/dL (12.0-16.0); Mean Corp Hgb Conc. 34.3 g/dL (33.0-37.0); Mean Corpuscular Hgb 33.3 pg (27.0-31.0); Mean Corpuscular Volume 97.1 fL (81.0-99.0); Mean Platelet Volume 10.6 fL (7.4-10.4); Nucleated Red Blood Cells % 0 %; Platelet Count 217 10^3/uL (130-400); Red Blood Cell Count 3.45 10^6/uL (4.20-5.40); Red Cell Dist. Width 13.4 % (11.5-14.5); White Blood Cell Count 7.2 10^3/uL (4.8-10.8)
[2024-09-01 17:33] LABS: ALT (SGPT) 37 U/L (0-35); AST (SGOT) 28 U/L (14-36); Alkaline Phosphatase 75 U/L (38-126); Blood Urea Nitrogen 15 mg/dl (7-17); Carbon Dioxide 24 mmol/L (22-30); Chloride 99 mmol/L (98-107); Glucose 69 mg/dl (70-99); Potassium 4.5 mmol/L (3.5-5.1); Sodium 132 mmol/L (135-145); Total Bilirubin 0.2 mg/dl (0.2-1.3); Total Protein 5.7 g/dl (6.3-8.2); eGFR > 60.00
== END ==
LOC: REG 16:00
PROVIDERS: ATTENDING PHYSICIAN Internal Medicine Hematology & Oncology; FAMILY PHYSICIAN Internal Medicine
DX: D64.9 Anemia, unspecified (principal); R53.81 Other malaise; C90.00 Multiple myeloma not having achieved remission
CPT/HCPCS: 36415; 80053; 85025

== ENCOUNTER → 2024-09-03 11:42 | Outpatient (REF) | payer MEDICARE, OTHER, SELFPAY | LOC: PAVMRI 11:42 | PROVIDERS: ATTENDING PHYSICIAN Psychiatry & Neurology Neurology; FAMILY PHYSICIAN Internal Medicine | DX: C90.00 Multiple myeloma not having achieved remission (principal); R41.3 Other amnesia | CPT/HCPCS: 70551 ==

== ENCOUNTER → 2024-09-08 13:34 | Outpatient (REF) | payer MEDICARE, OTHER, SELFPAY ==
[2024-09-08 14:20] LABS: % Basophils 0.9 % (0-2); % Eosinophils 2.4 % (0-6); % Immature Granulocytes 0.6 % (0-0.5); % Lymphocytes 7.2 % (20.5-51.1); % Monocytes 14.2 % (1.7-9.3); % Neutrophils 74.7 % (42.2-75.2); Absolute Basophils 0.1 10^3/uL (0-0.2); Absolute Eosinophils 0.1 10^3/uL (0-0.7); Absolute Lymphocytes 0.4 10^3/uL (1.2-3.4); Absolute Monocytes 0.8 10^3/uL (0.1-0.6); Hematocrit 33.2 % (37.0-47.0); Hemoglobin 11.5 g/dL (12.0-16.0); Mean Corp Hgb Conc. 34.6 g/dL (33.0-37.0); Mean Corpuscular Volume 98.2 fL (81.0-99.0); Mean Platelet Volume 9.5 fL (7.4-10.4); Nucleated Red Blood Cells % 0 %; Platelet Count 274 10^3/uL (130-400); Red Blood Cell Count 3.38 10^6/uL (4.20-5.40); Red Cell Dist. Width 13.4 % (11.5-14.5); White Blood Cell Count 5.4 10^3/uL (4.8-10.8)
[2024-09-08 14:40] LABS: ALT (SGPT) 38 U/L (0-35); AST (SGOT) 27 U/L (14-36); Alkaline Phosphatase 69 U/L (38-126); Blood Urea Nitrogen 16 mg/dl (7-17); Carbon Dioxide 27 mmol/L (22-30); Chloride 99 mmol/L (98-107); Glucose 81 mg/dl (70-99); Potassium 4.1 mmol/L (3.5-5.1); Sodium 134 mmol/L (135-145); Total Bilirubin 0.3 mg/dl (0.2-1.3); Total Protein 5.8 g/dl (6.3-8.2); eGFR > 60.00
== END ==
LOC: REG 13:34
PROVIDERS: ATTENDING PHYSICIAN Internal Medicine Hematology & Oncology; FAMILY PHYSICIAN Internal Medicine
DX: D64.9 Anemia, unspecified (principal); R53.81 Other malaise; C90.00 Multiple myeloma not having achieved remission
CPT/HCPCS: 36415; 80053; 85025

== ENCOUNTER → 2024-09-15 11:12 | Outpatient (REF) | payer MEDICARE, OTHER, SELFPAY ==
[2024-09-15 12:12] LABS: % Basophils 0.3 % (0-2); % Eosinophils 6.6 % (0-6); % Immature Granulocytes 0.3 % (0-0.5); % Monocytes 17.8 % (1.7-9.3); Absolute Eosinophils 0.3 10^3/uL (0-0.7); Absolute Lymphocytes 0.3 10^3/uL (1.2-3.4); Absolute Monocytes 0.7 10^3/uL (0.1-0.6); Absolute Neutrophils 2.5 10^3/uL (1.4-6.5); Hematocrit 36.8 % (37.0-47.0); Hemoglobin 12.6 g/dL (12.0-16.0); Mean Corp Hgb Conc. 34.2 g/dL (33.0-37.0); Mean Corpuscular Hgb 32.6 pg (27.0-31.0); Mean Corpuscular Volume 95.1 fL (81.0-99.0); Mean Platelet Volume 10.6 fL (7.4-10.4); Nucleated Red Blood Cells % 0 %; Platelet Count 203 10^3/uL (130-400); Red Blood Cell Count 3.87 10^6/uL (4.20-5.40); Red Cell Dist. Width 13.1 % (11.5-14.5); White Blood Cell Count 3.8 10^3/uL (4.8-10.8)
[2024-09-15 14:20] LABS: ALT (SGPT) 40 U/L (0-35); AST (SGOT) 26 U/L (14-36); Albumin 4.2 g/dl (3.5-5.0); Alkaline Phosphatase 67 U/L (38-126); Blood Urea Nitrogen 14 mg/dl (7-17); Carbon Dioxide 27 mmol/L (22-30); Chloride 97 mmol/L (98-107); Glucose 84 mg/dl (70-99); Potassium 4.4 mmol/L (3.5-5.1); Sodium 131 mmol/L (135-145); Total Bilirubin 0.4 mg/dl (0.2-1.3); Total Protein 5.9 g/dl (6.3-8.2); eGFR > 60.00
== END ==
LOC: REG 11:12
PROVIDERS: ATTENDING PHYSICIAN Internal Medicine Hematology & Oncology; FAMILY PHYSICIAN Internal Medicine
DX: D64.9 Anemia, unspecified (principal); R53.81 Other malaise; C90.00 Multiple myeloma not having achieved remission
CPT/HCPCS: 36415; 80053; 85025

== ENCOUNTER → 2024-09-28 11:29 | Outpatient (REF) | payer MEDICARE, OTHER, SELFPAY ==
[2024-09-28 12:37] LABS: Hemoglobin 12.2 g/dL (12.0-16.0); Mean Corp Hgb Conc. 33.9 g/dL (33.0-37.0); Mean Corpuscular Hgb 31.9 pg (27.0-31.0); Mean Corpuscular Volume 94.2 fL (81.0-99.0); Mean Platelet Volume 9.9 fL (7.4-10.4); Platelet Count 384 10^3/uL (130-400); Red Blood Cell Count 3.82 10^6/uL (4.20-5.40); Red Cell Dist. Width 13.2 % (11.5-14.5); White Blood Cell Count 4.9 10^3/uL (4.8-10.8)
[2024-09-28 12:47] LABS: ALT (SGPT) 36 U/L (0-35); AST (SGOT) 33 U/L (14-36); Albumin 4.2 g/dl (3.5-5.0); Alkaline Phosphatase 72 U/L (38-126); Blood Urea Nitrogen 14 mg/dl (7-17); Calcium 9.5 mg/dl (8.4-10.2); Carbon Dioxide 25 mmol/L (22-30); Chloride 97 mmol/L (98-107); Glucose 86 mg/dl (70-99); Potassium 4.6 mmol/L (3.5-5.1); Sodium 130 mmol/L (135-145); Total Bilirubin 0.4 mg/dl (0.2-1.3); eGFR > 60.00
[2024-09-28 13:15] LABS: Absolute Neutrophils -Man Diff 2.4 10^3/uL (1.4-6.5); Band Neutrophils 0 % (0-3); Eosinophils 2 % (0-6); Lymphocytes 23 % (20-51); Monocytes 19 % (2-9); Segmented Neutrophils 49 % (42-75)
[2024-09-28 13:16] LABS: Atypical Lymphocytes 7 %; Normal RBC Morphology Yes; Platelets Checked Yes; Total Cells Counted 100
[2024-09-28 13:52] LABS: Folate > 20.0 ng/ml (2.76-20); Vitamin B12 > 1000 pg/ml (239-931)
== END ==
LOC: REG 11:29
PROVIDERS: ATTENDING PHYSICIAN Nurse Practitioner Adult Health; FAMILY PHYSICIAN Internal Medicine; OTHER PHYSICIAN Nurse Practitioner
DX: R41.3 Other amnesia (principal); R20.0 Anesthesia of skin; D64.9 Anemia, unspecified; R53.81 Other malaise; C90.00 Multiple myeloma not having achieved remission
CPT/HCPCS: 36415; 80053; 82607; 82746; 85025

== ENCOUNTER 2024-09-30 14:57 | Outpatient (RCR) | payer MEDICARE, OTHER, SELFPAY | END 2024-10-01 07:35 | disposition home or self-care (01) | LOC: RPT 14:57 | PROVIDERS: ATTENDING PHYSICIAN Nurse Practitioner Adult Health; FAMILY PHYSICIAN Internal Medicine | DX: C90.00 Multiple myeloma not having achieved remission (principal); R53.81 Other malaise; D64.9 Anemia, unspecified; R10.2 Pelvic and perineal pain; R53.0 Neoplastic (malignant) related fatigue; K59.00 Constipation, unspecified | CPT/HCPCS: 97110; 97112; 97140; 97530 ==

== ENCOUNTER → 2024-10-07 13:00 | Outpatient (REF) | payer MEDICARE, OTHER, SELFPAY | LOC: MRI 3T 13:00 | PROVIDERS: ATTENDING PHYSICIAN Nurse Practitioner Adult Health | DX: D64.9 Anemia, unspecified (principal); R53.81 Other malaise; C90.00 Multiple myeloma not having achieved remission | CPT/HCPCS: 70543; A9575 ==

== ENCOUNTER 2024-10-21 18:50 | Emergency (ER) | payer MEDICARE, OTHER, SELFPAY ==
[2024-10-21 18:51] VITALS: BMI 23.3
[2024-10-21 18:54] VITALS: BP 164/93
--- NOTE | 2024-10-21 19:43 | ED.GENMED ---
History of Present Illness
<Stephany Lopez PA-C - Last Filed: 10/21/24 22:42>
General
Chief Complaint: Catheter/Tube Problem
Source: patient
Exam Limitations: none
Time Seen by Provider: 10/21/24 19:05
Nursing documentation reviewed up to this point in time: agreed with
History of Present Illness
History of Present Illness:
69-year-old female with past medical history of multiple myeloma presents to the emergency department today with concerns of bleeding from her right upper chest catheter site. Patient reports that she is being followed with Dr. Kohli with
[facility] here at [place] as well as Dr. Coleman with the [facility]. Patient reports that a few days ago, she went to have her stem cells harvested to later get a stem cell infusion. Patient states that they harvested stem cells for the
reimplantation via central line. Patient states that she saw her oncologist yesterday. Patient states that she has been feeling well and was going to take off the dressing today when she went to take a shower and noticed that the wound started
bleeding. Patient states that she called her doctor and they told her to hold pressure. Patient states that she was holding pressure for around an hour and the bleeding still would not stop.
Past History
<Stephany Lopez PA-C - Last Filed: 10/21/24 22:42>
Past History
ED Past Medical History: Cancer (Multiple Myloma, ), HTN, Psychiatric (depression, anxiety), Other (diverticulitis with Perforation, Lupus, connective tissue disorder, small bowel obstructions, irritable bowel syndrome, Back pain, Migraines,
Raynaud's, Colitis, Urinary retention) and Other (Headaches, Imitrex as needed at home, Lyme, Lupus, CREST disease, ADHD, )
ED Past Surgical History: Bowel resection (Sigmoid diverticulitis with perforation requiring temporary colostomy with colostomy reversal 2014. Sigmoid colon resection. Lysis of adhesions.), Gynecological (Hysterectomy, Pelvic lift, LEEP, Right and
left Rotator cuff), Orthopedic (RL5-S1 fusion, Left wrist surgery, Right hip repair. Right and left Hip replacement ), Urological (Bladder prolapse. Rectocele/Cystocele repair) and Other (Abdominoplasty, breast augmentation, Cataracts, face lift,
Breast implants, )
Social History
Tobacco: Non-smoker
Alcohol: None
Drug: Other (Medical marijuana as needed)
Personal:
Living: alone
Employment: Not employed
Family History
Family History: Other (Father with coronary disease, hypertension, gout)
Review of Systems
<Stephany Lopez PA-C - Last Filed: 10/21/24 22:42>
Review of Systems
All Other Systems: ROS reviewed and negative except as documented in HPI and ROS
Phy Exam
<Stephany Lopez PA-C - Last Filed: 10/21/24 22:42>
Physical Exam
Physical Exam:
General: Patient is well appearing and in no acute distress; non-toxic
Skin: Actively bleeding and oozing infraclavicular central line site. No surrounding erythema.
Head: Normocephalic, atraumatic
Eyes: Sclera non-icteric. EOMs intact.
Cardiac: Regular rate and rhythm, no murmurs
Pulm: Normal respiratory effort
Neuro: CN II-XII intact, no focal neurologic deficits.
Psychiatric: Appropriate mood and affect.
Course
<Stephany Lopez PA-C - Last Filed: 10/21/24 22:42>
Vital Signs
Initial and Last Documented VS:
Initial Vital Signs
Temp Pulse Resp BP Pulse Ox
98.1 F 70 16 164/93 98
10/21/24 18:54 10/21/24 18:54 10/21/24 18:54 10/21/24 18:54 10/21/24 18:54
Last Documented Vital Signs
Temp Pulse Resp BP Pulse Ox
98.1 F 70 16 164/93 98
10/21/24 18:54 10/21/24 18:54 10/21/24 18:54 10/21/24 18:54 10/21/24 18:54
<Cyrus Yao DO - Last Filed: 10/21/24 20:15>
Vital Signs
Initial and Last Documented VS:
Initial Vital Signs
Temp Pulse Resp BP Pulse Ox
98.1 F 70 16 164/93 98
10/21/24 18:54 10/21/24 18:54 10/21/24 18:54 10/21/24 18:54 10/21/24 18:54
Last Documented Vital Signs
Temp Pulse Resp BP Pulse Ox
98.1 F 70 16 164/93 98
10/21/24 18:54 10/21/24 18:54 10/21/24 18:54 10/21/24 18:54 10/21/24 18:54
Procedures
<Stephany Lopez PA-C - Last Filed: 10/21/24 22:42>
Laceration Closure
right infraclavicular central line site:
Status of Wound: clean
Size of Wound in cm: 1
Anesthesia: 1% Lidocaine
Wound exploration: explored to base- no FB
Skin Closure Material: 4-0 nylon
Number of sutures: 1
Additional information:
figure of 8 stitch placed
<Stephany Lopez PA-C - Last Filed: 10/21/24 22:42>
MDM/Problems Addressed
Differential Diagnosis Includes:
See below
MDM/Problems Addressed:
NUMBER AND COMPLEXITY OF PROBLEMS ADDRESSED AT THE ENCOUNTER
� Chronic conditions affecting care: IBS, menses, ADHD, anxiety, depression, multiple myeloma, migraines
� Acute Exacerbation and/or Progression of Chronic Illness:
AMOUNT AND/OR COMPLEXITY OF DATA TO BE REVIEWED AND ANALYZED
� I performed an independent evaluation of and my interpretation is:
Other:
� Review of other/old records: Reviewed previous records, reviewed ER physician documentation from 07/13/2024, patient seen for generalized weakness, she was discharged with unremarkable workup
� Clinical information was obtained by an independent historian: n/a
� Prescriptions/Medications Considered but not given: n/a
� Further testing considered but not performed: n/a
RISK OF COMPLICATIONS AND/OR MORBIDITY OR MORTALITY OF PATIENT MANAGEMENT
� Social determinants of health affecting care: none
� Discussion with other providers: ER attending
� Escalation of care including admission/observation vs risk of discharge considered:
69-year-old female with a past medical history multiple myeloma presents with persistent bleeding from her stem cell harvesting site. Patient had stem cell harvesting done recently which she took the dressing off today and took a shower, she noted
a lot of bleeding. Held pressure this did not help. Patient is not take any blood thinners. On physical exam, she has active bleeding and oozing noted from the central line site, did attempt hemostasis with Surgicel however after. Time in
observation does not hold. Did place [id number] stitch. This maintained hemostasis. Patient stable for discharge.
<Stephany Lopez PA-C - Last Filed: 10/21/24 22:42>
*Critical Care Note
Total Time (30-74mins, 75-104mins- exclusive of procedures): Not Applicable
ED Attending Note
<Stephany Lopez PA-C - Last Filed: 10/21/24 22:42>
-
Portions of this chart may have been created with voice recognition software.� Occasional wrong word or��sound alike� substitutions may have occurred due to the inherent limitations of voice recognition software.
<Cyrus Yao DO - Last Filed: 10/21/24 20:15>
ED Attending Note
Patient seen and examined by attending physician: Yes
I performed the substantive portion of visit, reviewed & personally made and approve the management plan that is documented in note by myself or JESU.: Yes
ED Attending Note:
Seen with PA examined independently bleeding from central line site where she had stem cells harvested dressing removed yesterday, will hold direct pressure if that not susceptible consideration for surgery saw and/or suture
Discharge Plan
Departure
Patient Disposition: Home (Routine Discharge)
Date of Disposition: 10/21/24
Time of Disposition: 20:54
Patient with high blood pressure during this ER visit?: Yes
Condition: Good
Discharge Problem:
Hemorrhage from wound
Instructions: Wound care - ED discharge instructions, Stitches - ED discharge instructions
Prescriptions:
No Action
losartan 50 MG tablet
50 mg PO DAILY
zinc 15 MG tablet
30 mg PO DAILY
ascorbic acid (vitamin C) [Vitamin C] 500 MG tablet
1,000 mg PO BID
finasteride 5 MG tablet
5 mg PO DAILY
diltiazem HCl 180 mg Capsule,Extended Release 24 Hr
180 mg PO DAILY
clonazepam [Klonopin] 0.5 mg Tablet
0.5 mg PO HS
quercetin 500 mg Capsule
250 mg PO DAILY
Prolia 60 mg/mL Syringe
60 mg SC [id number]
Medical Cannabis
1 dose inhalation DAILY PRN (Reason: inflammation)
multivitamin Tablet
1 tab PO DAILY
minoxidil 2.5 mg Tablet
1.25 mg PO DAILY
sumatriptan succinate 50 mg Tablet
50 mg PO ONCE PRN (Reason: Migraines)
cholecalciferol (vitamin D3) [Vitamin D3] 125 mcg (5,000 unit) Tablet
125 mcg PO DAILY
Artificial Tears (cmc) 1 % Drops
1 drp OPHTHALMIC (EYE) BID PRN (Reason: dry eyes)
clindamycin HCl 300 mg capsule
300 mg PO BID Qty: 14 0RF
Referrals:
Daniel Easton MD [Family Provider] -
Activity Restrictions/Additional Instructions:
Two stitches were placed today. One was an interrupted cruciate stitch (x shaped) and the other one was an interrupted stitch. Please have these stitches removed in 3 days with your family doctor.
Please keep the wound dry for 24 hours. After 24 hours, you can let warm mild soap and water run over the wound.
Please return to emergency department should you experience signs of infection such as increasing pain, spreading redness to the wound, fevers or chills, or surrounding redness.
Please follow-up with your oncologist.
Interventions
Interventions:
*Risk Screen - Suicide Last Done: 10/21/24 18:54
*General Assessment Last Done: 10/21/24 19:55
*Neglect/Abuse Screening Last Done: 10/21/24 18:54
*ED COVID-19 Vaccine History Last Done: 10/21/24 19:55
*Nursing Disposition Last Done: 10/21/24 21:04
DC-Tlriyi-Xfrhnivlpf Assessment Last Done: 10/21/24 19:56
ED-Female Genitourinary Assessment Last Done: 10/21/24 19:56
Discharge Date and Time
Discharge Date/Time: 10/21/24 21:05
Print Language: MAURITIAN
== END 2024-10-21 21:05 | disposition home or self-care (01) ==
LOC: EMR 18:50
PROVIDERS: EMERGENCY PHYSICIAN Emergency Medicine; FAMILY PHYSICIAN Internal Medicine; OTHER PHYSICIAN Family Medicine; REFERRING PHYSICIAN Nurse Practitioner Family
DX: T82.838A Hemorrhage due to vascular prosthetic devices, implants and grafts, initial encounter (principal); Y83.8 Other surgical procedures as the cause of abnormal reaction of the patient, or of later complication, without mention of misadventure at the time of the procedure; C90.00 Multiple myeloma not having achieved remission; I10 Essential (primary) hypertension; Z98.890 Other specified postprocedural states
CPT/HCPCS: 12001; 99283

== ENCOUNTER → 2024-10-22 15:51 | Outpatient (REF) | payer MEDICARE, OTHER, SELFPAY ==
[2024-10-22 17:39] LABS: % Basophils 0.2 % (0-2); % Eosinophils 0.6 % (0-6); % Immature Granulocytes 5.1 % (0-0.5); % Lymphocytes 1.6 % (20.5-51.1); % Monocytes 6.1 % (1.7-9.3); % Neutrophils 86.4 % (42.2-75.2); Absolute Basophils 0.1 10^3/uL (0-0.2); Absolute Eosinophils 0.3 10^3/uL (0-0.7); Absolute Immature Granulocytes 2.4 10^3/uL (0-0.05); Absolute Lymphocytes 0.7 10^3/uL (1.2-3.4); Absolute Monocytes 2.8 10^3/uL (0.1-0.6); Absolute Neutrophils 40.2 10^3/uL (1.4-6.5); Hematocrit 36.8 % (37.0-47.0); Hemoglobin 12.3 g/dL (12.0-16.0); Mean Corp Hgb Conc. 33.4 g/dL (33.0-37.0); Mean Corpuscular Hgb 31.3 pg (27.0-31.0); Mean Corpuscular Volume 93.6 fL (81.0-99.0); Mean Platelet Volume 9.4 fL (7.4-10.4); Nucleated Red Blood Cells % 0 %; Platelet Count 90 10^3/uL (130-400); Red Blood Cell Count 3.93 10^6/uL (4.20-5.40); Red Cell Dist. Width 13.5 % (11.5-14.5); White Blood Cell Count 46.5 10^3/uL (4.8-10.8)
== END ==
LOC: REG 15:51
PROVIDERS: FAMILY PHYSICIAN Internal Medicine
DX: M35.1 Other overlap syndromes (principal)
CPT/HCPCS: 36415; 85025

== ENCOUNTER → 2024-11-19 12:21 | Outpatient (REF) | payer MEDICARE, OTHER, SELFPAY ==
[2024-11-19 14:37] LABS: Hematocrit 26.2 % (37.0-47.0); Mean Corp Hgb Conc. 34.4 g/dL (33.0-37.0); Mean Corpuscular Hgb 30.5 pg (27.0-31.0); Mean Corpuscular Volume 88.8 fL (81.0-99.0); Mean Platelet Volume 11.4 fL (7.4-10.4); Platelet Count 96 10^3/uL (130-400); Red Blood Cell Count 2.95 10^6/uL (4.20-5.40); Red Cell Dist. Width 14.2 % (11.5-14.5); White Blood Cell Count 8.1 10^3/uL (4.8-10.8)
[2024-11-19 15:30] LABS: ALT (SGPT) 23 U/L (0-35); AST (SGOT) 21 U/L (14-36); Albumin 3.9 g/dl (3.5-5.0); Alkaline Phosphatase 95 U/L (38-126); Blood Urea Nitrogen 11 mg/dl (7-17); Carbon Dioxide 24 mmol/L (22-30); Chloride 96 mmol/L (98-107); Glucose 89 mg/dl (70-99); Potassium 4.3 mmol/L (3.5-5.1); Sodium 128 mmol/L (135-145); Total Bilirubin 0.4 mg/dl (0.2-1.3); Total Protein 5.6 g/dl (6.3-8.2); eGFR > 60.00
[2024-11-19 16:38] LABS: Absolute Neutrophils -Man Diff 5.5 10^3/uL (1.4-6.5); Band Neutrophils 1 % (0-3); Lymphocytes 7 % (20-51); Monocytes 22 % (2-9); Segmented Neutrophils 67 % (42-75)
[2024-11-19 16:39] LABS: Myelocytes 3 % (-); Normal RBC Morphology Yes; Platelets Checked Yes; Total Cells Counted 100
== END ==
LOC: REG 12:21
PROVIDERS: ATTENDING PHYSICIAN Internal Medicine; FAMILY PHYSICIAN Internal Medicine; REFERRING PHYSICIAN Internal Medicine Hematology & Oncology
DX: C90.00 Multiple myeloma not having achieved remission (principal)
CPT/HCPCS: 36415; 80053; 85025

== ENCOUNTER → 2024-11-29 11:32 | Outpatient (REF) | payer MEDICARE, OTHER, SELFPAY ==
[2024-11-29 13:23] LABS: Hematocrit 30.9 % (37.0-47.0); Hemoglobin 10.4 g/dL (12.0-16.0); Mean Corp Hgb Conc. 33.7 g/dL (33.0-37.0); Mean Corpuscular Hgb 31.3 pg (27.0-31.0); Mean Corpuscular Volume 93.1 fL (81.0-99.0); Mean Platelet Volume 9.2 fL (7.4-10.4); Platelet Count 458 10^3/uL (130-400); Red Blood Cell Count 3.32 10^6/uL (4.20-5.40); Red Cell Dist. Width 16.6 % (11.5-14.5); White Blood Cell Count 5.1 10^3/uL (4.8-10.8)
[2024-11-29 13:36] LABS: ALT (SGPT) 21 U/L (0-35); AST (SGOT) 20 U/L (14-36); Albumin 4.4 g/dl (3.5-5.0); Alkaline Phosphatase 70 U/L (38-126); Blood Urea Nitrogen 15 mg/dl (7-17); Calcium 9.8 mg/dl (8.4-10.2); Carbon Dioxide 23 mmol/L (22-30); Chloride 97 mmol/L (98-107); Glucose 89 mg/dl (70-99); Potassium 4.6 mmol/L (3.5-5.1); Sodium 131 mmol/L (135-145); Total Bilirubin 0.5 mg/dl (0.2-1.3); Total Protein 6.1 g/dl (6.3-8.2); eGFR > 60.00
[2024-11-29 13:42] LABS: Absolute Neutrophils -Man Diff 3.6 10^3/uL (1.4-6.5); Anisocytosis Slight; Band Neutrophils 0 % (0-3); Lymphocytes 18 % (20-51); Monocytes 11 % (2-9); Normal RBC Morphology No; Ovalocytes Slight; Platelets Checked Yes; Segmented Neutrophils 71 % (42-75); Total Cells Counted 100
== END ==
LOC: REG 11:32
PROVIDERS: FAMILY PHYSICIAN Internal Medicine; OTHER PHYSICIAN Internal Medicine
DX: C90.00 Multiple myeloma not having achieved remission (principal)
CPT/HCPCS: 36415; 80053; 85025

== ENCOUNTER → 2024-12-06 15:20 | Outpatient (REF) | payer MEDICARE, OTHER, SELFPAY ==
[2024-12-06 16:09] LABS: % Basophils 0.6 % (0-2); % Eosinophils 1.6 % (0-6); % Immature Granulocytes 0.3 % (0-0.5); % Lymphocytes 7.2 % (20.5-51.1); % Monocytes 14.6 % (1.7-9.3); % Neutrophils 75.7 % (42.2-75.2); Absolute Eosinophils 0.1 10^3/uL (0-0.7); Absolute Lymphocytes 0.5 10^3/uL (1.2-3.4); Absolute Monocytes 0.9 10^3/uL (0.1-0.6); Absolute Neutrophils 4.8 10^3/uL (1.4-6.5); Hematocrit 31.2 % (37.0-47.0); Hemoglobin 10.5 g/dL (12.0-16.0); Mean Corp Hgb Conc. 33.7 g/dL (33.0-37.0); Mean Corpuscular Hgb 31.4 pg (27.0-31.0); Mean Corpuscular Volume 93.4 fL (81.0-99.0); Mean Platelet Volume 9.1 fL (7.4-10.4); Nucleated Red Blood Cells % 0 %; Platelet Count 327 10^3/uL (130-400); Red Blood Cell Count 3.34 10^6/uL (4.20-5.40); Red Cell Dist. Width 16.9 % (11.5-14.5); White Blood Cell Count 6.4 10^3/uL (4.8-10.8)
[2024-12-06 16:32] LABS: ALT (SGPT) 18 U/L (0-35); AST (SGOT) 20 U/L (14-36); Albumin 4.2 g/dl (3.5-5.0); Alkaline Phosphatase 73 U/L (38-126); Blood Urea Nitrogen 20 mg/dl (7-17); Calcium 9.9 mg/dl (8.4-10.2); Carbon Dioxide 21 mmol/L (22-30); Chloride 99 mmol/L (98-107); Glucose 92 mg/dl (70-99); Potassium 4.6 mmol/L (3.5-5.1); Sodium 130 mmol/L (135-145); Total Bilirubin 0.5 mg/dl (0.2-1.3); Total Protein 5.9 g/dl (6.3-8.2); eGFR > 60.00
== END ==
LOC: REG 15:20
PROVIDERS: ATTENDING PHYSICIAN Internal Medicine Hematology & Oncology; FAMILY PHYSICIAN Internal Medicine; OTHER PHYSICIAN Internal Medicine; OTHER PHYSICIAN Nurse Practitioner Gerontology
DX: C90.00 Multiple myeloma not having achieved remission (principal)
CPT/HCPCS: 36415; 80053; 82784; 83521; 84155; 84165; 85025; 86334

== ENCOUNTER → 2024-12-13 12:31 | Outpatient (REF) | payer MEDICARE, OTHER, SELFPAY ==
[2024-12-13 13:10] LABS: Hematocrit 34.3 % (37.0-47.0); Hemoglobin 11.3 g/dL (12.0-16.0); Mean Corp Hgb Conc. 32.9 g/dL (33.0-37.0); Mean Corpuscular Hgb 31.7 pg (27.0-31.0); Mean Corpuscular Volume 96.1 fL (81.0-99.0); Mean Platelet Volume 9.4 fL (7.4-10.4); Platelet Count 281 10^3/uL (130-400); Red Blood Cell Count 3.57 10^6/uL (4.20-5.40); Red Cell Dist. Width 16.9 % (11.5-14.5); White Blood Cell Count 4.3 10^3/uL (4.8-10.8)
[2024-12-13 13:27] LABS: Anisocytosis Slight; Band Neutrophils 0 % (0-3); Eosinophils 4 % (0-6); Lymphocytes 9 % (20-51); Monocytes 17 % (2-9); Normal RBC Morphology No; Ovalocytes Slight; Platelets Checked Yes; Segmented Neutrophils 70 % (42-75); Total Cells Counted 100
[2024-12-13 14:13] LABS: ALT (SGPT) 19 U/L (0-35); AST (SGOT) 21 U/L (14-36); Alkaline Phosphatase 83 U/L (38-126); Blood Urea Nitrogen 14 mg/dl (7-17); Calcium 9.7 mg/dl (8.4-10.2); Carbon Dioxide 26 mmol/L (22-30); Chloride 99 mmol/L (98-107); Glucose 85 mg/dl (70-99); Potassium 4.3 mmol/L (3.5-5.1); Sodium 131 mmol/L (135-145); Total Bilirubin 0.3 mg/dl (0.2-1.3); Total Protein 5.8 g/dl (6.3-8.2); eGFR > 60.00
== END ==
LOC: REG 12:31
PROVIDERS: ATTENDING PHYSICIAN Internal Medicine Hematology & Oncology; FAMILY PHYSICIAN Internal Medicine; REFERRING PHYSICIAN Internal Medicine Hematology & Oncology
DX: C90.00 Multiple myeloma not having achieved remission (principal)
CPT/HCPCS: 36415; 80053; 85025

== ENCOUNTER 2024-12-20 13:44 | Outpatient (RCR) | payer MEDICARE, OTHER, SELFPAY ==
[2024-12-20 13:45] VITALS: BP 146/72
[2024-12-20 14:43] LABS: % Basophils 1.5 % (0-2); % Eosinophils 6.2 % (0-6); % Immature Granulocytes 0.3 % (0-0.5); % Lymphocytes 8.4 % (20.5-51.1); % Monocytes 14.7 % (1.7-9.3); % Neutrophils 68.9 % (42.2-75.2); Absolute Basophils 0.1 10^3/uL (0-0.2); Absolute Eosinophils 0.4 10^3/uL (0-0.7); Absolute Lymphocytes 0.6 10^3/uL (1.2-3.4); Absolute Neutrophils 4.6 10^3/uL (1.4-6.5); Hematocrit 32.3 % (37.0-47.0); Hemoglobin 11.2 g/dL (12.0-16.0); Mean Corp Hgb Conc. 34.7 g/dL (33.0-37.0); Mean Corpuscular Hgb 32.3 pg (27.0-31.0); Mean Corpuscular Volume 93.1 fL (81.0-99.0); Mean Platelet Volume 9.4 fL (7.4-10.4); Nucleated Red Blood Cells % 0 %; Platelet Count 272 10^3/uL (130-400); Red Blood Cell Count 3.47 10^6/uL (4.20-5.40); Red Cell Dist. Width 16.7 % (11.5-14.5); White Blood Cell Count 6.7 10^3/uL (4.8-10.8)
[2024-12-20 15:05] LABS: ALT (SGPT) 20 U/L (0-35); AST (SGOT) 20 U/L (14-36); Albumin 3.8 g/dl (3.5-5.0); Alkaline Phosphatase 78 U/L (38-126); Blood Urea Nitrogen 19 mg/dl (7-17); Calcium 9.2 mg/dl (8.4-10.2); Carbon Dioxide 24 mmol/L (22-30); Chloride 102 mmol/L (98-107); Glucose 92 mg/dl (70-99); Sodium 133 mmol/L (135-145); Total Bilirubin 0.2 mg/dl (0.2-1.3); Total Protein 5.5 g/dl (6.3-8.2); eGFR > 60.00
[2024-12-23 05:46] LABS: Beta-2-Microglobulin 1.7 mg/L (<=3.0)
[2024-12-24 04:40] LABS: Albumin 3.96 g/dL (3.75-5.01); Alpha 1 Globulin 0.25 g/dL (0.19-0.46); Alpha 2 Globulin 0.52 g/dL (0.48-1.05); Free Kappa Light Chains,Quant 1.22 mg/L (3.30-19.40); Free Lambda Light Chains,Quant 37.92 mg/L (5.71-26.30); IgA <2 mg/dL (68-408); IgG 235 mg/dL (768-1632); IgM <10 mg/dL (35-263); Immunofixation Electrophoresis IFE Done; Kappa/Lambda Fr Light Ratio 0.03 (0.26-1.65); Total Protein-Electrophoresis 5.5 g/dL (6.3-8.2)
== END 2025-01-03 23:59 | disposition home or self-care (01) ==
LOC: OID 13:44
PROVIDERS: Internal Medicine Hematology & Oncology; ATTENDING PHYSICIAN Internal Medicine; FAMILY PHYSICIAN Internal Medicine; REFERRING PHYSICIAN Internal Medicine Hematology & Oncology
DX: C90.00 Multiple myeloma not having achieved remission (principal); D80.1 Nonfamilial hypogammaglobulinemia; D64.9 Anemia, unspecified; R53.81 Other malaise
CPT/HCPCS: 80053; 82232; 82784; 83521; 84155; 84165; 85025; 86334; 96523

== ENCOUNTER → 2025-01-11 13:57 | Outpatient (REF) | payer MEDICARE, OTHER, SELFPAY | LOC: WDC 13:57 | PROVIDERS: ATTENDING PHYSICIAN Internal Medicine | DX: Z12.31 Encounter for screening mammogram for malignant neoplasm of breast (principal) | CPT/HCPCS: 77063; 77067 ==

== ENCOUNTER 2025-01-13 12:57 | Outpatient (RCR) | payer MEDICARE, OTHER, SELFPAY ==
[2025-01-13 13:21] VITALS: BP 150/85
[2025-01-13 14:31] LABS: ALT (SGPT) 22 U/L (0-35); AST (SGOT) 21 U/L (14-36); Albumin 4.5 g/dl (3.5-5.0); Alkaline Phosphatase 97 U/L (38-126); Blood Urea Nitrogen 15 mg/dl (7-17); Calcium 9.5 mg/dl (8.4-10.2); Carbon Dioxide 25 mmol/L (22-30); Chloride 105 mmol/L (98-107); Glucose 96 mg/dl (70-99); Potassium 4.3 mmol/L (3.5-5.1); Sodium 136 mmol/L (135-145); Total Bilirubin 0.4 mg/dl (0.2-1.3); Total Protein 6.1 g/dl (6.3-8.2); eGFR > 60.00
[2025-01-13 14:34] LABS: % Basophils 1.1 % (0-2); % Lymphocytes 22.2 % (20.5-51.1); % Monocytes 17.7 % (1.7-9.3); Absolute Eosinophils 0.2 10^3/uL (0-0.7); Absolute Lymphocytes 0.8 10^3/uL (1.2-3.4); Absolute Monocytes 0.6 10^3/uL (0.1-0.6); Hematocrit 35.4 % (37.0-47.0); Hemoglobin 12.1 g/dL (12.0-16.0); Mean Corp Hgb Conc. 34.2 g/dL (33.0-37.0); Mean Corpuscular Hgb 31.4 pg (27.0-31.0); Mean Corpuscular Volume 91.9 fL (81.0-99.0); Mean Platelet Volume 9.5 fL (7.4-10.4); Nucleated Red Blood Cells % 0 %; Platelet Count 281 10^3/uL (130-400); Red Blood Cell Count 3.85 10^6/uL (4.20-5.40); Red Cell Dist. Width 14.6 % (11.5-14.5); White Blood Cell Count 3.6 10^3/uL (4.8-10.8)
[2025-01-13 14:35] LABS: C-Reactive Protein < 5.00 mg/L (0.0-10.00); Complement C3 96 mg/dl (88-165)
[2025-01-13 14:36] LABS: NT-proBNP 113 pg/ml
[2025-01-13 14:48] LABS: Creatine Phosphokinase 93 U/L (30-135)
[2025-01-13 14:48] LABS: Urine Albumin Negative (Neg - Trace); Urine Bilirubin Negative (Negative); Urine Character Clear (Clear); Urine Color Yellow; Urine Glucose Negative (Negative); Urine Ketone Negative (Negative); Urine Leukocyte Negative (Negative); Urine Nitrite Negative (Negative); Urine Occult Blood Negative (Negative); Urine Specific Gravity 1.005 (<1.030); Urine Urobilinogen Negative (Neg - 1+)
[2025-01-13 15:32] LABS: Erythrocyte Sed Rate 4 mm/hour (0-20)
[2025-01-16 08:12] LABS: ANA, IgG Reflex to HEp-2 None Detected (None Detected)
[2025-01-16 11:02] LABS: F-Actin Antibody IgG 1 Units (0-19)
[2025-01-16 14:39] LABS: Smith/RNP (ENA), IgG 2 Units (0-19)
[2025-01-16 15:22] LABS: SSA 52 (Ro)(ENA) Ab, IgG 0 AU/mL (0-40); SSA 60 (Ro)(ENA) Ab, IgG 0 AU/mL (0-40); SSB (La)(ENA) Ab, IgG 0 AU/mL (0-40); Scleroderma Antibody (Scl-70) 0 AU/mL (0-40)
[2025-01-17 08:09] LABS: Beta-2-Glycoprotein I Ab. IgA <10 SAU (<=20)
[2025-01-17 08:21] LABS: Cardiolipin IgA Antibody <10 APL (<=11); Cardiolipin IgM Antibody <10 MPL (<=12); Cardiolipin Igg Antibody <10 GPL (<=14)
[2025-01-19 13:02] LABS: ds-DNA Ab, IgG Reflex To Titer 0 IU (0-24)
== END 2025-02-02 23:59 | disposition home or self-care (01) ==
LOC: OID 12:57
PROVIDERS: ATTENDING PHYSICIAN Internal Medicine; FAMILY PHYSICIAN Internal Medicine; OTHER PHYSICIAN Internal Medicine; REFERRING PHYSICIAN Internal Medicine Hematology & Oncology
DX: C90.00 Multiple myeloma not having achieved remission (principal); D80.1 Nonfamilial hypogammaglobulinemia; D64.9 Anemia, unspecified; R53.81 Other malaise
CPT/HCPCS: 36591; 80053; 81003; 82550; 83880; 85025; 85652; 86015; 86038; 86140; 86146; 86147; 86160; 86225; 86235

== ENCOUNTER 2025-01-24 06:43 | Outpatient (RCR) | payer MEDICARE, OTHER, SELFPAY | END 2025-01-24 23:59 | disposition home or self-care (01) | LOC: RPT 06:43 | PROVIDERS: ATTENDING PHYSICIAN Nurse Practitioner; FAMILY PHYSICIAN Internal Medicine | DX: R15.9 Full incontinence of feces (principal); M62.89 Other specified disorders of muscle; R35.0 Frequency of micturition; Z73.6 Limitation of activities due to disability | CPT/HCPCS: 97161; 97530 ==

== ENCOUNTER 2025-01-26 16:22 | Emergency (ER) | payer MEDICARE, OTHER, SELFPAY ==
[2025-01-26 16:32] VITALS: BP 131/105
[2025-01-26 17:11] LABS: ALT (SGPT) 23 U/L (0-35); AST (SGOT) 21 U/L (14-36); Albumin 4.2 g/dl (3.5-5.0); Alkaline Phosphatase 100 U/L (38-126); Blood Urea Nitrogen 16 mg/dl (7-17); Calcium 9.7 mg/dl (8.4-10.2); Carbon Dioxide 27 mmol/L (22-30); Chloride 105 mmol/L (98-107); Glucose 92 mg/dl (70-99); Potassium 4.3 mmol/L (3.5-5.1); Sodium 139 mmol/L (135-145); Total Bilirubin 0.3 mg/dl (0.2-1.3); eGFR > 60.00
[2025-01-26 17:18] LABS: Atypical Lymphocytes 2 %; Band Neutrophils 1 % (0-3); Eosinophils 3 % (0-6); Lymphocytes 15 % (20-51); Monocytes 9 % (2-9); Segmented Neutrophils 70 % (42-75)
[2025-01-26 17:19] LABS: Absolute Neutrophils -Man Diff 3.1 10^3/uL (1.4-6.5); Hematocrit 37.1 % (37.0-47.0); Hemoglobin 12.4 g/dL (12.0-16.0); Mean Corp Hgb Conc. 33.4 g/dL (33.0-37.0); Mean Corpuscular Hgb 31.1 pg (27.0-31.0); Normal RBC Morphology Yes; Platelet Count 262 10^3/uL (130-400); Platelets Checked Yes; Red Blood Cell Count 3.99 10^6/uL (4.20-5.40); White Blood Cell Count 4.4 10^3/uL (4.8-10.8)
[2025-01-26 17:20] LABS: Total Cells Counted 100
[2025-01-26 19:18] VITALS: BP 172/75
[2025-01-26 20:00] VITALS: BP 153/76
[2025-01-26 21:00] VITALS: BP 159/89
--- NOTE | 2025-01-26 21:19 | ED.GENMED ---
History of Present Illness
General
Chief Complaint: Dizziness
Source: patient
Exam Limitations: none
Time Seen by Provider: 01/26/25 20:55
History of Present Illness
History of Present Illness:
See MDM
Past History
Past History
ED Past Medical History: Cancer (Multiple Myloma, ), HTN, Psychiatric (depression, anxiety), Other (diverticulitis with Perforation, Lupus, connective tissue disorder, small bowel obstructions, irritable bowel syndrome, Back pain, Migraines,
Raynaud's, Colitis, Urinary retention) and Other (Headaches, Imitrex as needed at home, Lyme, Lupus, CREST disease, ADHD, )
ED Past Surgical History: Bowel resection (Sigmoid diverticulitis with perforation requiring temporary colostomy with colostomy reversal 2014. Sigmoid colon resection. Lysis of adhesions.), Gynecological (Hysterectomy, Pelvic lift, LEEP, Right and
left Rotator cuff), Orthopedic (RL5-S1 fusion, Left wrist surgery, Right hip repair. Right and left Hip replacement ), Urological (Bladder prolapse. Rectocele/Cystocele repair) and Other (Abdominoplasty, breast augmentation, Cataracts, face lift,
Breast implants, )
Social History
Tobacco: Non-smoker
Alcohol: None
Drug: Other (Medical marijuana as needed)
Personal:
Living: alone
Employment: Not employed
Family History
Family History: Other (Father with coronary disease, hypertension, gout)
Phy Exam
Physical Exam
Physical Exam:
See MDM
Course
Orders/Labs/Results
Orders:
Orders
01/26/25 16:35
EKG [Electrocardiogram (*1)] Urgent
Reason for Study: Vertigo / Dizzy
01/26/25 16:36
EKG- Treatment ONCE
01/26/25 16:46
Complete Blood Count/With Diff Urgent
Comprehensive Metabolic Panel Urgent
Manual Differential Urgent
01/26/25 21:18
CT Head W/o Iv Contrast Urgent
Comment:
Reason For Exam: dizzy, hx cancer
Dexamethasone Pf [Decadron] 10 mg PO NOW STA
Meclizine [Antivert] 25 mg PO NOW STA
Abnormal Lab Results
01/26/25
16:46
WBC 4.4 L 10^3/uL
(4.8-10.8)
RBC 3.99 L 10^6/uL
(4.20-5.40)
MCH 31.1 H pg
(27.0-31.0)
Lymphocytes (Manual) 15 L %
(20-51)
Total Protein 6.0 L g/dl
(6.3-8.2)
01/26/25 16:46
01/26/25 16:46
Vital Signs
Initial and Last Documented VS:
Initial Vital Signs
Temp Pulse Resp BP Pulse Ox
98.7 F 88 16 131/105 98
01/26/25 16:32 01/26/25 16:32 01/26/25 16:32 01/26/25 16:32 01/26/25 16:32
Last Documented Vital Signs
Temp Pulse Resp BP Pulse Ox
98.6 F 77 14 155/87 99
01/26/25 21:47 01/26/25 22:11 01/26/25 22:11 01/26/25 22:11 01/26/25 22:11
MDM/Problems Addressed
Differential Diagnosis Includes:
HPI and MDM Narrative:
69-year-old female presenting for evaluation of dizziness over the past 2 days. Patient states it is intermittent. She states she feels wobbly and as if she is spinning. She was mostly concerned about her prior medical issues, specifically recent
stem cell transplant in October. She called her oncology team at [facility] and they instructed her to go to the emergency department. Patient states they wanted to make sure she did not have an infection. Patient is afebrile and not immunocompromised.
On my exam, she has normal finger-nose. She does have fatigable horizontal nystagmus with [place]-Hallpike to the left. Her left TM is bulging but pale. She denies any cough or flu symptoms although she does complain of chills and myalgias. Given
her prior history, will obtain CT head. Will give dose of meclizine and start steroids
Physical exam
General: Well appearing and non-toxic
HEENT: protecting airway. Left TM bulging
Neck: appears supple
CV: No evidence of cyanosis. Regular rate and rhythm
Resp: No accessory muscle use
Abd: Non-distended
Extremities: No deformities
Neuro: alert. Normal finger-nose bilaterally. Normal frih-do-rqnv bilaterally. Positive [place]-Hallpike to the left with fatigable horizontal nystagmus
Psych: Normal affect
Skin: Intact
Problems Addressed including Acute and Chronic Conditions affecting care:
1. Dizziness
Acuity: acute
Prognosis: stable
Details: Pleasant in setting of vertigo. Will give meclizine. Will give Decadron given bulging TM. Given prior history, will obtain CT head
Updates
CT head negative. Patient feeling better and feels comfortable going home
Differential Diagnosis (but not limited to): Vertigo, stroke
Testing considered: Viral test
Drug therapy (if applicable): OTC meds, please see d/c instruction regarding Rx drugs
Amount and/or Complexity of Data Reviewed
Clinical info obtained from: Patient
External data reviewed: N/A
Labs I independently reviewed (but not limited to): Sodium level is normal
Radiology: The CT scan was personally and independently reviewed. In addition, official CT report reviewed.
Pulse Ox: not hypoxic
EKG independently reviewed: Sinus rhythm, normal axis, no STEMI
Rubber Vulcanizing Machine Operator: N/A
Critical Care: N/A
Risk of Complication:
Social Determinants of health: Good social support
Discussed with other providers: N/A
Escalation of Care includes Admit/Obs: After being observed in the Emergency Department, pt stable for discharge.
Occasional wrong word or 'sound a like' substitutions may have occurred due to the inherent limitations of voice recognition software. Read the chart carefully and recognize, using context, where substitutions have occurred.
*Critical Care Note
Total Time (30-74mins, 75-104mins- exclusive of procedures): Not Applicable
ED Attending Note
-
Portions of this chart may have been created with voice recognition software.� Occasional wrong word or��sound alike� substitutions may have occurred due to the inherent limitations of voice recognition software.
Discharge Plan
Departure
Patient Disposition: Home (Routine Discharge)
Date of Disposition: 01/26/25
Time of Disposition: 22:54
Patient with high blood pressure during this ER visit?: Yes
Discharge Problem:
Vertigo
Instructions: Vertigo (a Type of Dizziness) (DC), BLOOD PRESSURE
Prescriptions:
New
meclizine [Antivert] 25 mg Tablet,Chewable
25 mg PO BIDPRN PRN (Reason: nausea or vertigo) Qty: 10 0RF
prednisone 20 mg tablet
40 mg PO DAILY Qty: 10 0RF
No Action
losartan 50 MG tablet
50 mg PO DAILY
zinc 15 MG tablet
30 mg PO DAILY
ascorbic acid (vitamin C) [Vitamin C] 500 MG tablet
1,000 mg PO BID
diltiazem HCl 180 mg Capsule,Extended Release 24 Hr
240 mg PO DAILY
clonazepam [Klonopin] 0.5 mg Tablet
0.5 mg PO HS
quercetin 500 mg Capsule
250 mg PO DAILY
Medical Cannabis
1 dose inhalation DAILY PRN (Reason: inflammation)
multivitamin Tablet
1 tab PO DAILY
sumatriptan succinate 50 mg Tablet
50 mg PO ONCE PRN (Reason: Migraines)
cholecalciferol (vitamin D3) [Vitamin D3] 125 mcg (5,000 unit) Tablet
125 mcg PO DAILY
Artificial Tears (cmc) 1 % Drops
1 drp OPHTHALMIC (EYE) BID PRN (Reason: dry eyes)
Referrals:
Daniel Easton MD [Family Provider] -
Kostas Garcia MD [Active] -
Activity Restrictions/Additional Instructions:
Please return for any worsening symptoms.
You may return at any time if you have further concerns.
Please follow up with the ENT doctor at the first available appointment.
Thank you for choosing [facility].
Interventions
Interventions:
*Risk Screen - Suicide Last Done: 01/26/25 16:32
*General Assessment Last Done: 01/26/25 19:46
*Neglect/Abuse Screening Last Done: 01/26/25 16:32
*ED- Fall Risk Assessment Last Done: 01/26/25 21:56
*ED COVID-19 Vaccine History Last Done: 01/26/25 21:55
ED- Neurological Assessment Last Done: 01/26/25 19:46
ED- Cardiac Assessment Last Done: 01/26/25 19:49
ED Swallowing Screen Last Done: 01/26/25 22:13
Discharge Date and Time
Print Language: CITIZ[place]
[2025-01-26 21:50] VITALS: BMI 22.5
[2025-01-26] MEDS: ANTIVERT 25 MG PO (21:53)
[2025-01-26] MEDS: DECADRON 10 MG PO (21:53)
[2025-01-26 22:11] VITALS: BP 155/87
[2025-01-26 23:00] VITALS: BP 156/96
== END 2025-01-26 23:10 | disposition home or self-care (01) ==
LOC: EMR 16:22
PROVIDERS: EMERGENCY PHYSICIAN Student in an Organized Health Care Education/Training Program; FAMILY PHYSICIAN Internal Medicine
DX: R42 Dizziness and giddiness (principal); I10 Essential (primary) hypertension; F41.9 Anxiety disorder, unspecified; I73.00 Raynaud's syndrome without gangrene; K58.9 Irritable bowel syndrome, unspecified; Z82.49 Family history of ischemic heart disease and other diseases of the circulatory system; Z90.710 Acquired absence of both cervix and uterus; F90.9 Attention-deficit hyperactivity disorder, unspecified type; M32.9 Systemic lupus erythematosus, unspecified
CPT/HCPCS: 99284; 70450; 80053; 85025; 93005

== ENCOUNTER → 2025-02-02 16:24 | Outpatient (REF) | payer MEDICARE, OTHER, SELFPAY | LOC: RAD 16:24 | PROVIDERS: ATTENDING PHYSICIAN Internal Medicine Gastroenterology; FAMILY PHYSICIAN Internal Medicine; OTHER PHYSICIAN Internal Medicine; REFERRING PHYSICIAN Internal Medicine Hematology & Oncology | DX: K59.9 Functional intestinal disorder, unspecified (principal) | CPT/HCPCS: 74177; Q9967 ==

== ENCOUNTER → 2025-02-07 14:04 | Outpatient (REF) | payer MEDICARE, OTHER, SELFPAY | LOC: RCS 14:04 | PROVIDERS: ATTENDING PHYSICIAN Internal Medicine Interventional Cardiology; FAMILY PHYSICIAN Internal Medicine | DX: I10 Essential (primary) hypertension (principal); Z51.11 Encounter for antineoplastic chemotherapy | CPT/HCPCS: 93306; 93356 ==

== ENCOUNTER 2025-02-24 13:45 | Outpatient (RCR) | payer MEDICARE, OTHER, SELFPAY ==
[2025-02-10 13:04] VITALS: BP 122/61
[2025-02-10 13:55] LABS: % Eosinophils 1.8 % (0-6); % Immature Granulocytes 0.2 % (0-0.5); % Lymphocytes 9.3 % (20.5-51.1); % Monocytes 9.8 % (1.7-9.3); % Neutrophils 77.9 % (42.2-75.2); Absolute Basophils 0.1 10^3/uL (0-0.2); Absolute Eosinophils 0.1 10^3/uL (0-0.7); Absolute Lymphocytes 0.6 10^3/uL (1.2-3.4); Absolute Monocytes 0.6 10^3/uL (0.1-0.6); Absolute Neutrophils 4.9 10^3/uL (1.4-6.5); Hematocrit 34.8 % (37.0-47.0); Hemoglobin 11.7 g/dL (12.0-16.0); Mean Corp Hgb Conc. 33.6 g/dL (33.0-37.0); Mean Corpuscular Volume 92.1 fL (81.0-99.0); Mean Platelet Volume 9.1 fL (7.4-10.4); Platelet Count 249 10^3/uL (130-400); Red Blood Cell Count 3.78 10^6/uL (4.20-5.40); Red Cell Dist. Width 13.3 % (11.5-14.5); White Blood Cell Count 6.3 10^3/uL (4.8-10.8)
[2025-02-10 14:38] LABS: ALT (SGPT) 21 U/L (0-35); AST (SGOT) 19 U/L (14-36); Albumin 4.2 g/dl (3.5-5.0); Alkaline Phosphatase 97 U/L (38-126); Blood Urea Nitrogen 16 mg/dl (7-17); Calcium 9.1 mg/dl (8.4-10.2); Carbon Dioxide 24 mmol/L (22-30); Chloride 104 mmol/L (98-107); Glucose 114 mg/dl (70-99); Potassium 3.9 mmol/L (3.5-5.1); Sodium 136 mmol/L (135-145); Total Bilirubin 0.3 mg/dl (0.2-1.3); Total Protein 5.6 g/dl (6.3-8.2); eGFR > 60.00
[2025-02-13 05:11] LABS: Beta-2-Microglobulin 1.4 mg/L (<=3.0)
[2025-02-15 00:50] LABS: Albumin 3.87 g/dL (3.75-5.01); Alpha 1 Globulin 0.21 g/dL (0.19-0.46); Alpha 2 Globulin 0.55 g/dL (0.48-1.05); Free Kappa Light Chains,Quant 3.18 mg/L (3.30-19.40); Free Lambda Light Chains,Quant 43.42 mg/L (5.71-26.30); IgA 2 mg/dL (68-408); IgG 209 mg/dL (768-1632); IgM <10 mg/dL (35-263); Immunofixation Electrophoresis IFE Done; Kappa/Lambda Fr Light Ratio 0.07 (0.26-1.65); Total Protein-Electrophoresis 5.4 g/dL (6.3-8.2)
[2025-02-24 13:50] VITALS: BP 131/74
[2025-02-24 15:54] LABS: Urine Albumin Negative (Neg - Trace); Urine Bilirubin Negative (Negative); Urine Character Clear (Clear); Urine Color Yellow; Urine Glucose Negative (Negative); Urine Ketone Negative (Negative); Urine Leukocyte Negative (Negative); Urine Nitrite Negative (Negative); Urine Occult Blood Negative (Negative); Urine Urobilinogen Negative (Neg - 1+)
[2025-02-24 16:02] LABS: ALT (SGPT) 30 U/L (0-35); AST (SGOT) 24 U/L (14-36); Alkaline Phosphatase 80 U/L (38-126); Blood Urea Nitrogen 16 mg/dl (7-17); Carbon Dioxide 24 mmol/L (22-30); Chloride 106 mmol/L (98-107); Glucose 106 mg/dl (70-99); Hematocrit 37.2 % (37.0-47.0); Hemoglobin 12.4 g/dL (12.0-16.0); Mean Corp Hgb Conc. 33.3 g/dL (33.0-37.0); Mean Corpuscular Hgb 30.8 pg (27.0-31.0); Mean Corpuscular Volume 92.3 fL (81.0-99.0); Mean Platelet Volume 10.5 fL (7.4-10.4); Platelet Count 245 10^3/uL (130-400); Potassium 4.3 mmol/L (3.5-5.1); Red Blood Cell Count 4.03 10^6/uL (4.20-5.40); Red Cell Dist. Width 13.3 % (11.5-14.5); Sodium 134 mmol/L (135-145); Total Bilirubin 0.4 mg/dl (0.2-1.3); Total Protein 6.1 g/dl (6.3-8.2); White Blood Cell Count 3.6 10^3/uL (4.8-10.8); eGFR > 60.00
[2025-02-24 16:21] LABS: Absolute Neutrophils -Man Diff 2.2 10^3/uL (1.4-6.5); Band Neutrophils 0 % (0-3); Eosinophils 1 % (0-6); Lymphocytes 18 % (20-51); Monocytes 18 % (2-9); Normal RBC Morphology Yes; Platelets Checked Yes; Segmented Neutrophils 63 % (42-75); Total Cells Counted 100
[2025-02-26 23:29] LABS: Beta-2-Microglobulin 1.7 mg/L (<=3.0)
[2025-03-01 15:33] LABS: Albumin 3.94 g/dL (3.75-5.01); Alpha 1 Globulin 0.25 g/dL (0.19-0.46); Alpha 2 Globulin 0.59 g/dL (0.48-1.05); Free Kappa Light Chains,Quant 5.23 mg/L (3.30-19.40); Free Lambda Light Chains,Quant 33.19 mg/L (5.71-26.30); IgA 5 mg/dL (68-408); IgG 592 mg/dL (768-1632); IgM 15 mg/dL (35-263); Immunofixation Electrophoresis IFE Done; Kappa/Lambda Fr Light Ratio 0.16 (0.26-1.65)
== END 2025-02-25 10:01 | disposition home or self-care (01) ==
LOC: OID 13:45
PROVIDERS: ATTENDING PHYSICIAN Internal Medicine Hematology & Oncology; FAMILY PHYSICIAN Internal Medicine
DX: D64.9 Anemia, unspecified (principal); C90.00 Multiple myeloma not having achieved remission; D80.1 Nonfamilial hypogammaglobulinemia; R53.81 Other malaise
CPT/HCPCS: 80053; 81003; 82232; 82784; 83521; 84155; 84165; 85025; 86334; 96523

== ENCOUNTER 2025-03-03 16:04 | Outpatient (RCR) | payer MEDICARE, OTHER, SELFPAY | END 2025-03-03 23:59 | disposition home or self-care (01) | LOC: RPT 16:04 | PROVIDERS: ATTENDING PHYSICIAN Nurse Practitioner; FAMILY PHYSICIAN Internal Medicine | DX: R15.9 Full incontinence of feces (principal); M62.89 Other specified disorders of muscle; R35.0 Frequency of micturition; Z73.6 Limitation of activities due to disability | CPT/HCPCS: 97110; 97140; 97530 ==

== ENCOUNTER → 2025-03-23 11:55 | Outpatient (REF) | payer MEDICARE, OTHER, SELFPAY | LOC: PAVMRI 11:55 | PROVIDERS: ATTENDING PHYSICIAN Physician Assistant Surgical; FAMILY PHYSICIAN Internal Medicine | DX: M53.3 Sacrococcygeal disorders, not elsewhere classified (principal); M54.50 Low back pain, unspecified; M48.062 Spinal stenosis, lumbar region with neurogenic claudication; Z98.1 Arthrodesis status; C90.00 Multiple myeloma not having achieved remission | CPT/HCPCS: 72158; A9575 ==

== ENCOUNTER 2025-03-31 15:37 | Outpatient (RCR) | payer MEDICARE, OTHER, SELFPAY | END 2025-03-31 23:59 | disposition home or self-care (01) | LOC: RPT 15:37 | PROVIDERS: ATTENDING PHYSICIAN Nurse Practitioner; FAMILY PHYSICIAN Internal Medicine | DX: R15.9 Full incontinence of feces (principal); M62.89 Other specified disorders of muscle; R35.0 Frequency of micturition; Z73.6 Limitation of activities due to disability | CPT/HCPCS: 97110; 97140; 97530 ==

== ENCOUNTER 2025-04-01 13:45 | Outpatient (RCR) | payer MEDICARE, OTHER, SELFPAY ==
[2025-04-01 13:55] VITALS: BP 157/80
[2025-04-01 14:52] LABS: % Basophils 1.2 % (0-2); % Eosinophils 10.3 % (0-6); % Immature Granulocytes 0.3 % (0-0.5); % Lymphocytes 24.7 % (20.5-51.1); % Neutrophils 47.5 % (42.2-75.2); Absolute Basophils 0.1 10^3/uL (0-0.2); Absolute Eosinophils 0.6 10^3/uL (0-0.7); Absolute Lymphocytes 1.4 10^3/uL (1.2-3.4); Absolute Monocytes 0.9 10^3/uL (0.1-0.6); Absolute Neutrophils 2.7 10^3/uL (1.4-6.5); Hematocrit 36.6 % (37.0-47.0); Hemoglobin 12.5 g/dL (12.0-16.0); Mean Corp Hgb Conc. 34.2 g/dL (33.0-37.0); Mean Corpuscular Hgb 29.8 pg (27.0-31.0); Mean Corpuscular Volume 87.1 fL (81.0-99.0); Mean Platelet Volume 10.1 fL (7.4-10.4); Nucleated Red Blood Cells % 0 %; Platelet Count 220 10^3/uL (130-400); Red Cell Dist. Width 13.9 % (11.5-14.5); White Blood Cell Count 5.8 10^3/uL (4.8-10.8)
[2025-04-01 15:27] LABS: ALT (SGPT) 29 U/L (0-35); AST (SGOT) 23 U/L (14-36); Albumin 3.9 g/dl (3.5-5.0); Alkaline Phosphatase 80 U/L (38-126); Blood Urea Nitrogen 19 mg/dl (7-17); Calcium 9.2 mg/dl (8.4-10.2); Carbon Dioxide 24 mmol/L (22-30); Chloride 103 mmol/L (98-107); Glucose 96 mg/dl (70-99); Potassium 3.8 mmol/L (3.5-5.1); Sodium 134 mmol/L (135-145); Total Bilirubin 0.3 mg/dl (0.2-1.3); Total Protein 5.9 g/dl (6.3-8.2); eGFR > 60.00
[2025-04-01 15:58] LABS: TSH Reflex To Free T4 2.53 uIU/ml (0.47-4.68)
[2025-04-01 15:59] LABS: Erythrocyte Sed Rate 9 mm/hour (0-20)
[2025-04-01 16:33] LABS: Folate > 20.0 ng/ml (2.76-20); Vitamin B12 767 pg/ml (239-931)
[2025-04-04 14:02] LABS: Lyme Antibody Screen, EIA Negative (Negative)
== END 2025-04-04 08:35 | disposition home or self-care (01) ==
LOC: OID 13:45
PROVIDERS: Internal Medicine Hematology & Oncology; ATTENDING PHYSICIAN Internal Medicine Hematology & Oncology; FAMILY PHYSICIAN Internal Medicine; REFERRING PHYSICIAN Surgery
DX: C90.00 Multiple myeloma not having achieved remission (principal); D80.1 Nonfamilial hypogammaglobulinemia; D64.9 Anemia, unspecified; R53.81 Other malaise
CPT/HCPCS: 80053; 82607; 82746; 82784; 83521; 84155; 84165; 84443; 85025; 85652; 86334; 86618

== ENCOUNTER 2025-04-15 15:19 | Outpatient (RCR) | payer MEDICARE, OTHER, SELFPAY ==
[2025-04-15 15:29] VITALS: BP 119/59
[2025-04-15 16:07] LABS: Hematocrit 36.8 % (37.0-47.0); Hemoglobin 12.4 g/dL (12.0-16.0); Mean Corp Hgb Conc. 33.7 g/dL (33.0-37.0); Mean Corpuscular Volume 86.2 fL (81.0-99.0); Nucleated Red Blood Cells % 0 %; Platelet Count 221 10^3/uL (130-400); Red Cell Dist. Width 14.5 % (11.5-14.5)
[2025-04-15 16:20] LABS: ALT (SGPT) 34 U/L (0-35); AST (SGOT) 27 U/L (14-36); Albumin 4.1 g/dl (3.5-5.0); Alkaline Phosphatase 101 U/L (38-126); Blood Urea Nitrogen 13 mg/dl (7-17); Calcium 8.9 mg/dl (8.4-10.2); Carbon Dioxide 23 mmol/L (22-30); Chloride 104 mmol/L (98-107); Glucose 93 mg/dl (70-99); Potassium 3.9 mmol/L (3.5-5.1); Sodium 131 mmol/L (135-145); Total Protein 5.9 g/dl (6.3-8.2); eGFR > 60.00
== END 2025-04-18 10:37 | disposition home or self-care (01) ==
LOC: OID 15:19
PROVIDERS: ATTENDING PHYSICIAN Internal Medicine Hematology & Oncology; FAMILY PHYSICIAN Internal Medicine; REFERRING PHYSICIAN Surgery
DX: C90.00 Multiple myeloma not having achieved remission (principal); D64.9 Anemia, unspecified; R53.81 Other malaise; D80.1 Nonfamilial hypogammaglobulinemia; Z98.890 Other specified postprocedural states
CPT/HCPCS: 36591; 80053; 85025

== ENCOUNTER 2025-04-27 13:14 | Outpatient (RCR) | payer MEDICARE, OTHER, SELFPAY | END 2025-04-27 23:59 | disposition home or self-care (01) | LOC: RPT 13:14 | PROVIDERS: ATTENDING PHYSICIAN Nurse Practitioner; FAMILY PHYSICIAN Internal Medicine | DX: R15.9 Full incontinence of feces (principal); M62.89 Other specified disorders of muscle; R35.0 Frequency of micturition; Z73.6 Limitation of activities due to disability | CPT/HCPCS: 97110; 97140; 97530 ==

== ENCOUNTER → 2025-04-28 14:55 | Outpatient (REF) | payer MEDICARE, OTHER, SELFPAY ==
[2025-04-28 16:57] LABS: Sodium 132 mmol/L (135-145)
== END ==
LOC: REG 14:55
PROVIDERS: ATTENDING PHYSICIAN Internal Medicine
DX: E87.1 Hypo-osmolality and hyponatremia (principal)
CPT/HCPCS: 36415; 84295

== ENCOUNTER 2025-05-23 16:31 | Observation (INO) | payer MEDICARE, OTHER, SELFPAY ==
[2025-05-23] VITALS (9 sets, daily range): BP systolic 126–164; BP diastolic 62–79; BMI 20.7
--- NOTE | 2025-05-23 10:37 | ED.GENMED ---
History of Present Illness
<Za Grimm MD, Resident - Last Filed: 05/23/25 14:39>
General
Chief Complaint: Chest Pain
Source: patient
Exam Limitations: none
Time Seen by Provider: 05/23/25 10:32
Nursing documentation reviewed up to this point in time: agreed with
History of Present Illness
History of Present Illness:
69-year-old female with past medical history of multiple myeloma, recent back surgery 2 weeks ago, hypertension, connective tissue disease comes to the ED due to left-sided chest pain that started around 3 AM last night. Patient fell asleep
following the pain but ended up feeling nauseous and with continued pain. While walking back from the bathroom to her bed, she ended up falling face first and striking the right side of her face and her left knee. She states she felt nauseous and
lightheaded and had a bit of sweatiness at the time. Currently has chest tightness and trouble with deep inspiration. She does not have any fever or any headaches at this time. Does not have any vomiting or any abdominal pain, and does not have
any back pain at this time.
Past History
<Za Grimm MD, Resident - Last Filed: 05/23/25 14:39>
Past History
ED Past Medical History: Cancer (Multiple Myloma, ), HTN, Psychiatric (depression, anxiety), Other (diverticulitis with Perforation, Lupus, connective tissue disorder, small bowel obstructions, irritable bowel syndrome, Back pain, Migraines,
Raynaud's, Colitis, Urinary retention) and Other (Headaches, Imitrex as needed at home, Lyme, Lupus, CREST disease, ADHD, )
ED Past Surgical History: Bowel resection (Sigmoid diverticulitis with perforation requiring temporary colostomy with colostomy reversal 2014. Sigmoid colon resection. Lysis of adhesions.), Gynecological (Hysterectomy, Pelvic lift, LEEP, Right and
left Rotator cuff), Orthopedic (RL5-S1 fusion, Left wrist surgery, Right hip repair. Right and left Hip replacement ), Urological (Bladder prolapse. Rectocele/Cystocele repair) and Other (Abdominoplasty, breast augmentation, Cataracts, face lift,
Breast implants, )
Social History
Tobacco: Non-smoker
Alcohol: None
Drug: Other (Medical marijuana as needed)
Personal:
Living: alone
Employment: Not employed
Family History
Family History: Other (Father with coronary disease, hypertension, gout)
Review of Systems
<Za Grimm MD, Resident - Last Filed: 05/23/25 14:39>
Review of Systems
Allergies reviewed?: Yes
Constitutional: Reports chills; Denies fever or fatigue
EENT: Reports no symptoms
Respiratory: Reports trouble breathing (Pain on deep inspiration); Denies cough
Cardiac: Reports chest pain (Left-sided chest pain) and syncope; Denies palpitations
ABD/GI: Reports nausea; Denies abdominal pain or vomiting
: Reports no symptoms
Musculoskeletal: Reports no symptoms
Skin: Reports no symptoms
Neurological: Reports no symptoms
Endocrine: Reports no symptoms
Hematologic/Lymphatic: Reports no symptoms
Psychiatric: Reports no symptoms
Phy Exam
<Za Grimm MD, Resident - Last Filed: 05/23/25 14:39>
General Physical Exam
General Presentation: moderate distress
General age: appears stated age
General Skin: warm and dry
General Habitus: normal
General Mental: alert
General Hydration: appears well hydrated
Cardiovascular Exam
Cardiovascular Exam: regular rate/rhythm, no edema and no murmur
Pulmonary Exam
Pulmonary Exam: no respiratory distress
Breath Sounds: Crackles: left upper
Gastrointestinal Exam
Gastrointestinal Exam: normal bowel sounds, non tender, soft and non distended
Musculoskeletal Exam
Musculoskeletal Exam: full ROM, no edema and other
Skin Exam
Skin Exam: normal color, warm/dry and tenderness (Right upper face tender erythematous, left knee erythematous area)
Psychiatric Exam
Psychiatric Exam: anxious
Scores
<Za Grimm MD, Resident - Last Filed: 05/23/25 14:39>
Heart Score for Chest Pain Patients
STEMI patient?: No
History: Moderately Suspicious
ECG: Normal
Age: >/= 65 years
Risk Factors: >/= 3 Risk Factors or History of CAD
Troponin: </= Normal Limit
Heart Score for Chest Pain Patients: 5
Heart Score Risk: 20.3% MACE over next 6 weeks
PE Wells Score
Symptoms of DVT: No
No alternative diagnosis better explains the illness: No
Tachycardia with pulse > 100: No
Immobilization (>=3 days) or surgery within previous 4 weeks: Yes
Prior history of DVT or pulmonary embolism: No
Presence of hemoptysis: No
Presence of malignancy: Yes
Pulmonary Embolism Risk Score: 2.5
Probability of PE: Pt is moderate risk
<Caleb Wood, DO - Last Filed: 05/23/25 14:58>
Heart Score for Chest Pain Patients
Heart Score for Chest Pain Patients: 5
Heart Score Risk: 20.3% MACE over next 6 weeks
PE Wells Score
Pulmonary Embolism Risk Score: 2.5
Probability of PE: Pt is moderate risk
Course
<Za Grimm MD, Resident - Last Filed: 05/23/25 14:39>
Orders/Labs/Results
Orders:
Orders
05/23/25 09:50
EKG [Electrocardiogram (*1)] Urgent
Reason for Study: Chest Pain
EKG- Treatment ONCE
05/23/25 11:04
CT Head W/o Iv Contrast Urgent
Comment:
Reason For Exam: Fall w/ head trauma following sycnopal episode
05/23/25 11:10
CT Chest PE Study Urgent
Comment:
Reason For Exam: Left sided chest pain
05/23/25 11:35
Complete Blood Count/With Diff Urgent
Comprehensive Metabolic Panel Urgent
D-Dimer Urgent
Troponin I Urgent
05/23/25 13:12
HYDROmorphone [Dilaudid] 1 mg IV NOW STA
Ondansetron Injectable [Zofran] 4 mg IV NOW STA
05/23/25 14:01
Troponin I Urgent
Abnormal Lab Results
05/23/25
11:35
RBC 4.06 L 10^6/uL
(4.20-5.40)
Hct 35.6 L %
(37.0-47.0)
RDW 16.4 H %
(11.5-14.5)
Abs Immat Gran (auto) 0.1 H 10^3/uL
(0-0.05)
Absolute Neuts (auto) 7.5 H 10^3/uL
(1.4-6.5)
Absolute Lymphs (auto) 0.6 L 10^3/uL
(1.2-3.4)
Absolute Monos (auto) 0.7 H 10^3/uL
(0.1-0.6)
Neutrophils % 80.4 H %
(42.2-75.2)
Lymphocytes % 5.9 L %
(20.5-51.1)
D-Dimer 1.12 H ug/mlFEU
(0.00-0.50)
Sodium 133 L mmol/L
(135-145)
Total Protein 5.5 L g/dl
(6.3-8.2)
05/23/25 11:35
05/23/25 11:35
Vital Signs
Initial and Last Documented VS:
Initial Vital Signs
Temp Pulse Resp BP Pulse Ox
98.8 F 74 16 156/73 98
05/23/25 09:58 05/23/25 09:58 05/23/25 09:58 05/23/25 09:58 05/23/25 09:58
Last Documented Vital Signs
Temp Pulse Resp BP Pulse Ox
98.8 F 64 12 132/64 98
05/23/25 09:58 05/23/25 11:28 05/23/25 11:00 05/23/25 11:00 05/23/25 10:37
<Caleb Wood, DO - Last Filed: 05/23/25 14:58>
Orders/Labs/Results
Orders:
Orders
05/23/25 09:50
EKG [Electrocardiogram (*1)] Urgent
Reason for Study: Chest Pain
EKG- Treatment ONCE
05/23/25 11:04
CT Head W/o Iv Contrast Urgent
Comment:
Reason For Exam: Fall w/ head trauma following sycnopal episode
05/23/25 11:10
CT Chest PE Study Urgent
Comment:
Reason For Exam: Left sided chest pain
05/23/25 11:35
Complete Blood Count/With Diff Urgent
Comprehensive Metabolic Panel Urgent
D-Dimer Urgent
Troponin I Urgent
05/23/25 13:12
HYDROmorphone [Dilaudid] 1 mg IV NOW STA
Ondansetron Injectable [Zofran] 4 mg IV NOW STA
05/23/25 14:01
Troponin I Urgent
Abnormal Lab Results
05/23/25
11:35
RBC 4.06 L 10^6/uL
(4.20-5.40)
Hct 35.6 L %
(37.0-47.0)
RDW 16.4 H %
(11.5-14.5)
Abs Immat Gran (auto) 0.1 H 10^3/uL
(0-0.05)
Absolute Neuts (auto) 7.5 H 10^3/uL
(1.4-6.5)
Absolute Lymphs (auto) 0.6 L 10^3/uL
(1.2-3.4)
Absolute Monos (auto) 0.7 H 10^3/uL
(0.1-0.6)
Neutrophils % 80.4 H %
(42.2-75.2)
Lymphocytes % 5.9 L %
(20.5-51.1)
D-Dimer 1.12 H ug/mlFEU
(0.00-0.50)
Sodium 133 L mmol/L
(135-145)
Total Protein 5.5 L g/dl
(6.3-8.2)
05/23/25 11:35
05/23/25 11:35
Vital Signs
Initial and Last Documented VS:
Initial Vital Signs
Temp Pulse Resp BP Pulse Ox
98.8 F 74 16 156/73 98
05/23/25 09:58 05/23/25 09:58 05/23/25 09:58 05/23/25 09:58 05/23/25 09:58
Last Documented Vital Signs
Temp Pulse Resp BP Pulse Ox
98.8 F 64 12 132/64 98
05/23/25 09:58 05/23/25 11:28 05/23/25 11:00 05/23/25 11:00 05/23/25 10:37
<Za Grimm MD, Resident - Last Filed: 05/23/25 14:39>
MDM/Problems Addressed
Differential Diagnosis Includes:
Pulmonary embolism, acute costochondritis, ACS, GERD, metastasis, exacerbation of mixed connective tissue disorder
MDM/Problems Addressed:
69-year-old female with past medical history of multiple myeloma, recent back surgery 2 weeks ago, hypertension, connective tissue disease comes to the ED due to left-sided chest pain that started around 3 AM last night and subsequent syncopal
episode causing fall and head trauma.
EKG unremarkable, will get basic lab work including CBC, CMP, troponin, D-dimer
Will get head CT without contrast due to head trauma from fall
Due to patient's history of malignancy, recent surgery, moderate concern for pulmonary embolism. Will get CT PE study.
D-Dimer elevated, will get repeat Troponin
Pain control with Dilaudid (allergic to morphine) and nausea control with Zofran
CT PE Study did not show any sign of pulmonary embolism but did reveal a small-moderate sized pleural effusion in the posterior left lung.
Will be admitting patient to hospitalist service for further managment of pleural effusion
Chronic conditions affecting care: HTN, Cancer (Multiple myeloma) and Other (Back surgery 2 weeks ago)
<Za Grimm MD, Resident - Last Filed: 05/23/25 14:39>
*Pulse Oximetry
SaO2: 98
Oxygen Mode of Delivery: Room air
Patient hypoxic: no
*Critical Care Note
Total Time (30-74mins, 75-104mins- exclusive of procedures): Not Applicable
ED Attending Note
<Za Grimm MD, Resident - Last Filed: 05/23/25 14:39>
-
Portions of this chart may have been created with voice recognition software.� Occasional wrong word or��sound alike� substitutions may have occurred due to the inherent limitations of voice recognition software.
<Caleb Wood, - Last Filed: 05/23/25 14:58>
ED Attending Note
Patient seen and examined by attending physician: Yes
I performed a history and physical exam of patient and discussed management with resident, I reviewed resident's note and agree with documented findings and plan of care.: Yes
ED Attending Note:
I reviewed and agree with history and plan by Za Grimm MD. My exam revealed mild decreased breath sounds in the left lung field. No serious traumatic injury. Admit to hospitalist for further treatment of pleural effusion.
Discharge Plan
Departure
Patient Disposition: Admit
Date of Disposition: 05/23/25
Time of Disposition: 14:33
Admit to: Med/Surg
Admit to doctor: Dr. Blanton
Presentation/result/management discussed w/ accepting MD/DO: Hospitalist
Patient with high blood pressure during this ER visit?: Yes
Condition: Serious
Covid-19: Not Applicable
Discharge Problem:
Pleural effusion on left, Chest pain
Prescriptions:
No Action
losartan 50 MG tablet
50 mg PO DAILY
zinc 15 MG tablet
30 mg PO DAILY
ascorbic acid (vitamin C) [Vitamin C] 500 MG tablet
1,000 mg PO BID
diltiazem HCl 180 mg Capsule,Extended Release 24 Hr
240 mg PO DAILY
clonazepam [Klonopin] 0.5 mg Tablet
0.5 mg PO HS
quercetin 500 mg Capsule
250 mg PO DAILY
Medical Cannabis
1 dose inhalation DAILY PRN (Reason: inflammation)
multivitamin Tablet
1 tab PO DAILY
sumatriptan succinate 50 mg Tablet
50 mg PO ONCE PRN (Reason: Migraines)
cholecalciferol (vitamin D3) [Vitamin D3] 125 mcg (5,000 unit) Tablet
125 mcg PO DAILY
Artificial Tears (cmc) 1 % Drops
1 drp OPHTHALMIC (EYE) BID PRN (Reason: dry eyes)
meclizine [Antivert] 25 mg Tablet,Chewable
25 mg PO BIDPRN PRN (Reason: nausea or vertigo) Qty: 10 0RF
lenalidomide [Revlimid] 10 mg Capsule
10 mg PO DAILY
Referrals:
Daniel Easton MD [Family Provider, Internal Medicine]
Discharge Date and Time
Print Language: IVORIAN
[2025-05-23 11:44] LABS: Hematocrit 35.6 % (37.0-47.0); Hemoglobin 12.0 g/dL (12.0-16.0); Mean Corp Hgb Conc. 33.7 g/dL (33.0-37.0); Mean Corpuscular Volume 87.7 fL (81.0-99.0); Nucleated Red Blood Cells % 0 %; Platelet Count 286 10^3/uL (130-400); Red Cell Dist. Width 16.4 % (11.5-14.5)
[2025-05-23 12:15] LABS: Troponin I < 0.012 ng/ml
[2025-05-23 12:21] LABS: ALT (SGPT) 17 U/L (0-35); AST (SGOT) 16 U/L (14-36); Albumin 3.6 g/dl (3.5-5.0); Alkaline Phosphatase 102 U/L (38-126); Blood Urea Nitrogen 12 mg/dl (7-17); Calcium 8.9 mg/dl (8.4-10.2); Carbon Dioxide 22 mmol/L (22-30); Chloride 107 mmol/L (98-107); Glucose 95 mg/dl (70-99); Potassium 4.2 mmol/L (3.5-5.1); Sodium 133 mmol/L (135-145); Total Protein 5.5 g/dl (6.3-8.2); eGFR > 60.00
[2025-05-23 12:23] LABS: D-Dimer 1.12 ug/mlFEU (0.00-0.50)
[2025-05-23] MEDS: DILAUDID 1 MG IV (13:16)
[2025-05-23] MEDS: ZOFRAN 4 MG IV ×2 (13:16→23:48)
[2025-05-23 14:43] LABS: Troponin I < 0.012 ng/ml
--- NOTE | 2025-05-23 15:27 | W.PN.UPDATE ---
Update Note
Progress Note Update
I personally performed a history and physical exam of the patient and discussed management with the resident. I reviewed the resident's note and agree with the documented findings and plan of care HPI/CC.
69 y/o F who p/w CC chest pain. Chest pain started around 3 AM patient describes the chest pain as pleuritic. It was initially left-sided now is right-sided. She states that earlier today she had a bowel movement with subsequent diaphoresis. She
had a syncopal event while walking from the bathroom back to her bedroom.
132/64, 64, 12, 98.8 F, 98% RA
Gen: NAD, AAOx3.
Eyes: EOMI, PERRLA, no scleral icterus. Right periorbital ecchymoses and mild soft tissue edema.
Neck: supple.
CV: RRR, +S1/S2, no m/r/g.
Resp: Decreased breath sounds in the left base, no rales, wheezes, or rhonchi.
Abd: +BS, soft, NT, ND
Skin: No rashes.
Neuro: CN 2-12 intact, non-focal.
Psych: Normal mood and affect.
Allergies
Allergy/AdvReac Type Severity Reaction Status Date / Time
adhesive Allergy reddness, Verified 05/23/25 09:58
skin tear
Cephalosporins Allergy Pharmacy Verified 05/23/25 09:58
to Review
codeine Allergy Nausea/CONS Verified 05/23/25 09:58
TIPATION
morphine Allergy Vomiting Verified 05/23/25 09:58
oxycodone HCl (From Allergy Nausea/vomi Verified 05/23/25 09:58
OxyContin) ting
penicillin G Allergy Pharmacy Verified 05/23/25 09:58
to Review
Penicillins Allergy Pharmacy Verified 05/23/25 09:58
to Review
sulfamethoxazole Allergy ITCH Verified 05/23/25 09:58
tetracycline Allergy mild Rash Verified 05/23/25 09:58
vancomycin Allergy Rash Verified 05/23/25 09:58
Home Medications
ascorbic acid (vitamin C) 500 mg tablet (Vitamin C) 1,000 mg PO BID 07/23/21
losartan 50 mg tablet 50 mg PO DAILY 07/23/21
quercetin 500 mg capsule 250 mg PO DAILY 10/22/22
Medical Cannabis 1 gummy PO DAILYPRN PRN mild pain 04/18/23
cholecalciferol (vitamin D3) 125 mcg (5,000 unit) tablet (Vitamin D3) 125 mcg PO DAILY 03/03/24
carboxymethylcellulose sodium 1 % eye drops (Artificial Tears (carboxymethylcellulose)) 1 drp BOTH EYES BIDPRN PRN dry eyes 06/28/24
meclizine 25 mg chewable tablet (Antivert) 25 mg PO BIDPRN PRN nausea or vertigo #10 tabs 01/26/25
lenalidomide 10 mg capsule (Revlimid) 10 mg PO DIRECTED 02/10/25
acyclovir 400 mg tablet 400 mg PO BID 05/23/25
lnwsnkg-zwtjryuddeump-zislxflw 250 mg-250 mg-65 mg tablet (Excedrin Migraine) 1 tab PO DAILYPRN PRN mild pain 05/23/25
lorazepam 0.5 mg tablet 0.5 mg PO BIDPRN PRN anxiety 05/23/25
Lab Results
05/23/25 05/23/25
11:35 14:01
WBC 9.3
RBC 4.06 L
Hgb 12.0
Hct 35.6 L
MCV 87.7
MCH 29.6
MCHC 33.7
RDW 16.4 H
Plt Count 286
MPV 9.3
Abs Immat Gran (auto) 0.1 H
Absolute Neuts (auto) 7.5 H
Absolute Lymphs (auto) 0.6 L
Absolute Monos (auto) 0.7 H
Absolute Eos (auto) 0.5
Absolute Basos (auto) 0.0
Immature Gran % 0.5
Neutrophils % 80.4 H
Lymphocytes % 5.9 L
Monocytes % 8.0
Eosinophils % 4.8
Basophils % 0.4
Nucleated RBC % 0
D-Dimer 1.12 H
Sodium 133 L
Potassium 4.2
Chloride 107
Carbon Dioxide 22
BUN 12
Creatinine 0.7
eGFR > 60.00
Glucose 95
Calcium 8.9
Total Bilirubin 0.6
AST 16
ALT 17
Alkaline Phosphatase 102
Troponin I < 0.012 < 0.012
Total Protein 5.5 L
Albumin 3.6
CTA chest:
1. Negative for pulmonary embolism.
2. Small to moderate left pleural effusion and adjacent compressive atelectasis.
3. Chronic dilation of right renal pelvis, question mild congenital UPJ obstruction.
CT head: No acute intracranial abnormality.
Acute syncope:
-with L-sided CP
-after having a BM, had diaphoresis just after, possibly vasovagal
-Trop NEG x 2
-ECG (read by me): NSR @ 71, nl axis/intervals, no acute ST/TW changes
-monitor on tele
-check echo
-check orthostatics
Small-mod L pleural effusion:
-check chest U/S to assess if enough fluid for Dx thoracentesis
Other problems:
Recent L2-L3 spinal fusion
Multiple Myeloma
Essential HTN: Cont Losartan
Depression
Anxiety: Cont Ativan
CTD
IBS
h/o SBO
FULL/Lovenox/OBS/tele
--- NOTE | 2025-05-23 16:42 | HPS.HSE ---
Family Physician
-
Family Physician: Daniel Easton
Chief Complaint
-
Syncopal fall and chest pain
History of Present Illness
Miroslava is a 69-year-old female with history of multiple myeloma in remission on maintenance therapy with Revlimid s/p SCT in October with Dr. Jacobsen at [place] [facility] and [facility] here, recent spinal fusion with Dr. Moss, hypertension, and
lupus ('in remission ') who presented to the ED after a syncopal fall this morning and pleuritic left-sided chest pain, initially on the left now on the right. She states that since a spinal fusion 2 weeks ago, she was recovering well without
complications. The only new medication she had was Percocet, which she reports she did not use as it causes constipation for her. She much prefers edible marijuana for pain control. This morning however, she woke up with abdominal pain (usual for
her plus ISO recent surgery as access site was there) and went towards the bathroom. She sat down to use the toilet for a bowel movement and felt sweaty, nauseous, and lightheaded. She stood up to walk back to her room, and the next thing she
remembers is waking up from the impact of a fall where she hit the right side of her cheek and eye on the ground. In the ED, she continues to have chest pressure bilaterally, worse on the left than the right. She also states that her stomach has
been crampy since her surgery and at baseline, she receives pelvic floor PT for 'a tight pelvis'that has negatively affected her bowel movements significantly and chronically. She follows with [facility] who gives her pelvic floor
Botox therapy. She denies previous episodes of this sort, current nausea/vomiting, fever/chills, changes in appetite, migraine, vision changes, or any new symptom other than mentioned above.
Medical History
Past Medical History
Past Medical History: Reports Cancer (Multiple myeloma), HTN, Psychiatric (Depression, anxiety) and Other (Lupus, IBS, history of SBO)
Past Surgical History: Reports Other (Bowel resection (sigmoid diverticulitis with perforation requiring temporary colostomy with colostomy reversal in 2015), sigmoid colon resection, hysterectomy, pelvic lift, LEEP, right and left rotator cuff
surgery, R L5-S1 fusion, left wrist surgery, bilateral hip replacement,)
Additional Past Surgical History:
Rectocele/cystocele repair, abdominoplasty, breast augmentation, facelift
Social History
Tobacco: Non-smoker
Alcohol: None
Drug: Marijuana (Medical marijuana for pain control)
Living: Alone
Family History
Family History: Not pertinent
Allergies / Home Medications
Allergies reflects when Allergies were last updated in [facility].
Home Medications with original date entered in [facility]
Allergy/Medication List:
Allergies
Allergy/AdvReac Type Severity Reaction Status Date / Time
adhesive Allergy reddness, Verified 05/23/25 09:58
skin tear
Cephalosporins Allergy Pharmacy Verified 05/23/25 09:58
to Review
codeine Allergy Nausea/CONS Verified 05/23/25 09:58
TIPATION
morphine Allergy Vomiting Verified 05/23/25 09:58
oxycodone HCl (From Allergy Nausea/vomi Verified 05/23/25 09:58
OxyContin) ting
penicillin G Allergy Pharmacy Verified 05/23/25 09:58
to Review
Penicillins Allergy Pharmacy Verified 05/23/25 09:58
to Review
sulfamethoxazole Allergy ITCH Verified 05/23/25 09:58
tetracycline Allergy mild Rash Verified 05/23/25 09:58
vancomycin Allergy Rash Verified 05/23/25 09:58
Home Medications
ascorbic acid (vitamin C) 500 mg tablet (Vitamin C) 1,000 mg PO BID 07/23/21
losartan 50 mg tablet 50 mg PO DAILY 07/23/21
quercetin 500 mg capsule 250 mg PO DAILY 10/22/22
Medical Cannabis 1 gummy PO DAILYPRN PRN mild pain 04/18/23
cholecalciferol (vitamin D3) 125 mcg (5,000 unit) tablet (Vitamin D3) 125 mcg PO DAILY 03/03/24
carboxymethylcellulose sodium 1 % eye drops (Artificial Tears (carboxymethylcellulose)) 1 drp BOTH EYES BIDPRN PRN dry eyes 06/28/24
meclizine 25 mg chewable tablet (Antivert) 25 mg PO BIDPRN PRN nausea or vertigo #10 tabs 01/26/25
lenalidomide 10 mg capsule (Revlimid) 10 mg PO DIRECTED 02/10/25
acyclovir 400 mg tablet 400 mg PO BID 05/23/25
kokpeps-ogunnypbgautb-ozcruyxj 250 mg-250 mg-65 mg tablet (Excedrin Migraine) 1 tab PO DAILYPRN PRN mild pain 05/23/25
lorazepam 0.5 mg tablet 0.5 mg PO BIDPRN PRN anxiety 05/23/25
Review of Systems
-
History Source: Patient
A 12 point ROS was completed and negative except as noted: Yes
Constitutional: Reports Fatigue (Since surgery)
EENT: Reports Other (Right cheek swelling and bruising, ecchymosis under right eye from fall)
Cardiac: Reports Chest Pain (Pleuritic, left worse than right)
Abdomen/GI: Reports Constipated (Chronic)
Musculoskeletal: Reports Joint Swelling (Left knee with scabbing from fall)
Physical Exam
Vital Signs
Vital Signs
Temp Pulse Resp BP Pulse Ox
98.8 F 64 12 132/64 98
05/23/25 09:58 05/23/25 11:28 05/23/25 11:00 05/23/25 11:00 05/23/25 10:37
Physical Exam
General: Well Developed, Well Nourished, Comfortable, Conversant and Pain (Endorses pleuritic chest pain, better s/p Dilaudid)
HEENT: NormoCephalic, Anicteric, Moist mucous membranes and Other (Right cheek extremely erythematous with ecchymosis under right eye and above cheek)
Respiratory: Non Labored Respirations and Decreased Breath Sounds
Cardiac: S1/S2 and Regular Rhythm
GI: Soft, Non Distended, Normal Bowel Sounds and Tender (Diffusely and slightly)
Musculoskeletal: No Clubbing, No Cyanosis and Other (Slight left knee swelling with scabbing from fall)
Skin: Warm, Dry and Rash
Neuro: AO x 3
Psych: Calm and Intact Judgment/Insight
Laboratory Results
-
05/23/25 11:35
05/23/25 11:35
Laboratory Results
Total Bilirubin 0.6 mg/dl (0.2-1.3) 05/23/25 11:35
AST 16 U/L (14-36) 05/23/25 11:35
ALT 17 U/L (0-35) 05/23/25 11:35
Alkaline Phosphatase 102 U/L (38-126) 05/23/25 11:35
Troponin I < 0.012 ng/ml 05/23/25 14:01
Impression/Plan
-
IMPRESSION: Miroslava is a 69-year-old female with history of multiple myeloma in remission on maintenance therapy with Revlimid s/p SCT in October with Dr. Jacobsen at [place] [facility] and [facility] here, recent spinal fusion with Dr. Moss,
hypertension, and lupus ('in remission ') who presented to the ED after a syncopal fall this morning and pleuritic left-sided chest pain, initially on the left now on the right. In the ED, 05/[address] showed no acute intracranial abnormality and
CT PE was negative for pulmonary embolism, but did show small to moderate left pleural effusion and adjacent compressive atelectasis. There was also chronic dilation of right renal pelvis, question mild congenital UPJ obstruction. EKG was normal
sinus rhythm. Last echo on file 02/07/2025, showed EF 60 to 65% with mild mitral regurg and tricuspid regurg. Given syncopal episode ISO history of malignancy and recent surgery, she was admitted to telemetry for further evaluation and management.
PLAN:
#Acute syncope, likely vasovagal
#Traumatic fall
#Left-sided chest pain
- Trop negative x 2, EKG normal sinus rhythm, CT PE 05/23 showing small to moderate pleural effusion with compressive atelectasis
- Monitor on telemetry
- Follow-up echo
- Orthostatic vital signs twice daily
#Pleural effusion, new as seen on CT
- Follow-up chest ultrasound to assess for potential diagnostic thoracentesis
--If yes, consult IR
# History of multiple myeloma s/p SCT, in remission on maintenance therapy
- Continue Revlimid 10 mg p.o.
- Continue acyclovir 400 mg p.o. twice daily
#Anxiety
#Depression
- Continue Ativan 0.5 mg p.o. twice daily as needed
#Essential hypertension
- Continue losartan 50 mg p.o. daily
DVT prophylaxis: Lovenox
CODE STATUS: Full
[2025-05-23] MEDS: COZAAR 50 MG PO (22:35)
[2025-05-23] MEDS: LOVENOX 40 MG SC (22:35)
[2025-05-23] MEDS: ZOVIRAX 400 MG PO (22:36)
[2025-05-23] MEDS: DILAUDID 0.5 MG IV (23:47)
[2025-05-23] MEDS: SENOKOT-S 1 TABLET PO (23:58)
[2025-05-24 04:01] VITALS: BP 127/74
[2025-05-24] MEDS: ATIVAN 0.5 MG PO (05:32)
[2025-05-24 06:50] LABS: Hematocrit 35.3 % (37.0-47.0); Hemoglobin 11.9 g/dL (12.0-16.0); Mean Corp Hgb Conc. 33.7 g/dL (33.0-37.0); Mean Corpuscular Volume 88.7 fL (81.0-99.0); Nucleated Red Blood Cells % 0 %; Platelet Count 278 10^3/uL (130-400); Red Cell Dist. Width 16.4 % (11.5-14.5)
[2025-05-24 07:20] LABS: ALT (SGPT) 15 U/L (0-35); AST (SGOT) 15 U/L (14-36); Albumin 3.5 g/dl (3.5-5.0); Alkaline Phosphatase 98 U/L (38-126); Blood Urea Nitrogen 8 mg/dl (7-17); Calcium 8.9 mg/dl (8.4-10.2); Carbon Dioxide 25 mmol/L (22-30); Chloride 105 mmol/L (98-107); Estimated Creatinine Clearance 78 ml/min; Glucose 90 mg/dl (70-99); Magnesium 2.0 mg/dl (1.6-2.3); Potassium 4.4 mmol/L (3.5-5.1); Sodium 135 mmol/L (135-145); Total Protein 5.3 g/dl (6.3-8.2); eGFR > 60.00
[2025-05-24 07:46] LABS: TSH 3.32 uIU/ml (0.47-4.68)
[2025-05-24 07:47] VITALS: BP 137/85
[2025-05-24] MEDS: COZAAR 50 MG PO (08:22)
[2025-05-24] MEDS: ZOVIRAX 400 MG PO (08:22)
[2025-05-24] MEDS: ZOFRAN 4 MG IV (08:23)
[2025-05-24] MEDS: FLUSH (NSS) 2 FLUSH IV (08:24)
--- NOTE | 2025-05-24 08:39 | W.PN.UPDATE ---
Update Note
Progress Note Update
I saw and evaluated the patient. I reviewed the resident�s note and agree with findings and plan as documented in the resident�s note.
Pt states she feels 'sore.'
Gen: NAD, AAOx3.
Eyes: EOMI, PERRLA, no scleral icterus. Right periorbital ecchymoses and mild soft tissue edema.
Neck: supple.
CV: tachy, reg rhythm, +S1/S2, no m/r/g.
Resp: remains with decreased breath sounds in the left base, no rales, wheezes, or rhonchi.
Abd: +BS, soft, NT, ND
Skin: No rashes.
Neuro: CN 2-12 intact, non-focal.
Psych: Normal mood and affect.
Echo: Normal left ventricular size, wall thickness and systolic function. No regional
wall motion abnormalities are seen. LV ejection fraction is 60-65% by visual
assessment. Normal diastolic function. GLS endo peak avg. = -19.1%.
Mild mitral regurgitation.
Mild tricuspid regurgitation.
Compared to the previous echo Jul 2024, there is no significant change.
CTA chest:
1. Negative for pulmonary embolism.
2. Small to moderate left pleural effusion and adjacent compressive atelectasis.
3. Chronic dilation of right renal pelvis, question mild congenital UPJ obstruction.
CT head: No acute intracranial abnormality.
Chest U/S: Moderate volume left pleural effusion is seen.
Acute syncope:
-with L-sided CP, likely related to pleurisy from L-pleural effusion
-occurred after having a BM, had diaphoresis just after, possibly vasovagal
-Trop NEG x 2
-ECG (read by me): NSR @ 71, nl axis/intervals, no acute ST/TW changes
-echo unremarkable as above
-Tele with sinus tachy, no arrhythmias
-check orthostatics
Mod L pleural effusion:
-Dx/Tx L thoracentesis
Other problems:
Recent L2-L3 spinal fusion
Multiple Myeloma
Essential HTN: Cont Losartan
Depression
Anxiety: Cont Ativan
CTD
IBS
h/o SBO
FULL/Lovenox/OBS/tele
Dispo: d/c after thoracentesis
[2025-05-24 09:40] VITALS: BP 137/82; BP_SYST 898
[2025-05-24 10:09] LABS: LDH 165 U/L (120-246)
--- NOTE | 2025-05-24 10:29 | W.PN.HOSP.TC ---
Today's Communication/Plan
-
IR to drain moderate left-sided pleural effusion today 05/24/2025
Follow-up echo
Follow-up orthostatic vital signs
If all above unremarkable and patient is asymptomatic s/p drainage, okay to discharge
Assessment / Plan
Assessment / Plan
Miroslava is a 69-year-old female with history of multiple myeloma in remission on maintenance therapy with Revlimid s/p SCT in October with Dr. Jacobsen at [facility] and Bren[facility] Kohli here, recent spinal fusion with Dr. Moss, hypertension, and
lupus ('in remission ') who presented to the ED on 05/23 after a syncopal fall this morning and pleuritic left-sided chest pain, initially on the left now on the right.� In the ED, head CT showed no acute intracranial abnormality and CT PE was
negative for pulmonary embolism, but did show small to moderate left pleural effusion and adjacent compressive atelectasis.� There was also chronic dilation of right renal pelvis, question mild congenital UPJ obstruction.� EKG was normal sinus
rhythm.� Last echo on file 02/07/2025, showed EF 60 to 65% with mild mitral regurg and tricuspid regurg.� Given syncopal episode ISO history of malignancy and recent surgery, she was admitted to telemetry for further evaluation and management. Chest
ultrasound 05/23 showed moderate left pleural effusion. IR was consulted for drainage with plan to drain on 05/24/2025.
Chest ultrasound 05/23/2025:
Ultrasound evaluation of the right and left chest.
There is no right pleural effusion.
Moderate volume left pleural effusion is seen.
Chest CT 05/23/2025:
1. Negative for pulmonary embolism.
2. Small to moderate left pleural effusion and adjacent compressive atelectasis.
3. Chronic dilation of right renal pelvis, question mild congenital UPJ obstruction.
#Acute syncope, likely vasovagal
#Traumatic fall
#Left-sided chest pain
- Trop negative x 2, EKG normal sinus rhythm, chest CT and chest US as above, showing moderate pleural effusion
- Monitor on telemetry
- Follow-up echo
- Follow-up orthostatic vital signs
#Pleural effusion, new as seen on CT chest and chest US
- IR following, plan to drain fluid with fluid studies today 05/24/2025
# History of multiple myeloma s/p SCT, in remission on maintenance therapy
- Continue Revlimid 10 mg p.o.
- Continue acyclovir 400 mg p.o. twice daily
#Anxiety
#Depression
- Continue Ativan 0.5 mg p.o. twice daily as needed
#Essential hypertension
- Continue losartan 50 mg p.o. daily
DVT prophylaxis: Lovenox
CODE STATUS: Full
Anticipated Discharge: Today (Pending unremarkable echo, pleural effusion drainage, and asymptomatic vital signs)
Subjective/Interval History
-
Date of Service: May 24, 2025
-This morning, she is pacing around in her room. She is still having a lot of soreness and pain in her chest as she still has effusion there. She feels that everything is taking a really long time and is worried about missing her outpatient
appointment for pelvic floor Botox at 3 PM. I reassured her that IR has been consulted and will drain her effusion this morning. After drainage, she will get an echo and orthostatic vital sign check. I told her that pending unremarkable findings,
symptom improvement, and conversation with consultants, she may be able to go home today.
Objective Data
-
Labs:
Laboratory Results
05/24/25 05/24/25
06:29 09:30
WBC 6.9
Hgb 11.9 L
Hct 35.3 L Cancelled
Plt Count 278
Sodium 135
Potassium 4.4
Chloride 105
Carbon Dioxide 25
BUN 8
Creatinine 0.6
Glucose 90 Cancelled
Calcium 8.9
Total Bilirubin 0.6
AST 15
ALT 15
Alkaline Phosphatase 98
Vital Signs:
Vital Signs
Temp Pulse Resp BP Pulse Ox
98.7 F 898 18 137/82 97
05/24/25 09:40 05/24/25 09:40 05/24/25 09:40 05/24/25 09:40 05/24/25 09:40
I&O
05/23/25 05/24/25 05/25/25
06:59 06:59 06:59
Intake Total 1919
Balance 1919
Review of Systems
-
History Source: Patient
All other systems: Reviewed and negative
Constitutional: Reports Fatigue and Weakness
Cardiac: Reports Chest Pain ('Pressure ')
Abdomen/GI: Reports Constipated (Chronic)
Physical Exam
-
General: Well Developed, Well Nourished, No Apparent Distress, Comfortable and Conversant
HEENT: Normocephalic, Moist Mucous Membranes and Other (Right cheek erythema and bruising around right eye secondary to fall at home yesterday)
Respiratory: Clear to Auscultation and Non Labored Respirations
Cardiac: Regular Rhythm and S1/S2
GI: Soft, Nondistended and Tender (Slightly tender to palpation over left side s/p spinal fusion access site 2 weeks ago)
Musculoskeletal: No Clubbing, No Cyanosis and No Edema
Skin: Warm, Dry and Rash
Neuro: AO x 3
Psych: Calm and Intact Judgement/Insight
[2025-05-24 11:46] LABS: Body Fluid Second Tech EM
[2025-05-24 12:11] VITALS: BP 159/82
[2025-05-24 12:12] VITALS: BP 150/87; BP 153/82; BP 159/82; PULSE 78; PULSE 79; PULSE 91
--- NOTE | 2025-05-24 13:11 | W.PN.UPDATE ---
Update Note
Progress Note Update
This serves as an update to my progress note from 05/24/25.
After her pleural effusion drainage, fluid studies showed high LDH and protein ratio was high, as well as WBC. Pulmonology was consulted for question of further workup for her effusion. They recommended outpatient follow-up with their team for
effusions. This was noted in her discharge instructions and relayed to Ms. Mahoney.
[2025-05-24 13:37] VITALS: BMI 20.7
[2025-05-24] MEDS: MIRALAX 17 GRAMS PO (14:28)
--- NOTE | 2025-05-24 14:48 | CM ---
Alert awake oriented patient who lives alone in an apartment with 4 steps to enter and another 18 steps to living area.Sh is independent in driving and in all activities of daily living.No adaptive devices.Offered VN she declined.She had back
surgery at [facility] 2 weeks ago and fell at home prior to coming to ED.Offered VN she declined need. She said she was ready for discharge today and she will drive herself home..
No VN hx/No SNF hx
Pharmacy [facility]
PCP Dr Gilbert
PLAN Home no needs
--- NOTE | 2025-05-24 14:53 | W.DCSUMMARY ---
Discharge Summary
Discharge Data
Date of Admission: 05/23/25
Date of Discharge: 05/24/25
-
Pending Results: Yes
Additional Pending Results:
05/24/2025 pleural fluid microbiology
Hospital Course
Discharging Physician : Maria Eugenia Ennis MD/NITHIN
Disposition : Home
Principal Discharge diagnosis : Left pleural effusion s/p IR drainage 05/24/2025
Hospital Course : Miroslava is a 69-year-old female with history of multiple myeloma in remission on maintenance therapy with Revlimid s/p SCT in October with Dr. Jacobsen at [facility] and [facility]li here, recent spinal fusion with Dr. Moss,
hypertension, and lupus ('in remission ') who presented to the ED on 05/23 after a syncopal fall this morning and pleuritic left-sided chest pain, initially on the left now on the right.� Physical exam was pertinent for right cheek erythema and
swelling, and bruising around right orbit. In the ED, head CT showed no acute intracranial abnormality and CT PE was negative for pulmonary embolism, but did show small to moderate left pleural effusion and adjacent compressive atelectasis.� There
was also chronic dilation of right renal pelvis, question mild congenital UPJ obstruction.� EKG was normal sinus rhythm. Given syncopal episode ISO history of malignancy and recent surgery, she was admitted on observation to telemetry for further
evaluation and management. Chest ultrasound 05/23 showed moderate left pleural effusion and IR was consulted for thoracentesis to drain the effusion. They did so on 05/24/2025. Pleural fluid studies showed fluid LDH 154, total protein 3.8, WBC
3470. Pulmonology was consulted for further management recs and they advised outpatient follow-up with them for effusions. Echo 05/24/2025, when compared to 02/07/2025, had no significant change and facial bone x-ray 05/24/2025 had no evidence of
acute facial bone, orbital wall, or mandibular fracture. She was discharged with instructions to follow-up with PCP within a week and pulmonology in 2 to 4 weeks.
Important imaging findings :
Facial bones x-ray 05/24/2025: No radiographic evidence for acute facial bone, orbital wall, or mandibular fracture.
Chest x-ray 05/24/2025:
1. No radiographic evidence for pneumothorax following left thoracentesis.
2. Interval decrease in size of a now small left pleural effusion.
3. Mild subsegmental atelectasis in the left lower lobe.
4. Bilateral breast implants in place.
5. Right IJ Mediport catheter in place.
6. Multiple chronic healed right posterior rib fractures.
Thoracentesis 05/24/2025:
Successful ultrasound-guided thoracentesis, yielding 550 cc of straw colored pleural fluid.
Chest US 05/23/25:
Ultrasound evaluation of the right and left chest.
There is no right pleural effusion.
Moderate volume left pleural effusion is seen.
Chest CT 05/23/25:
1. Negative for pulmonary embolism.
2. Small to moderate left pleural effusion and adjacent compressive atelectasis.
3. Chronic dilation of right renal pelvis, question mild congenital UPJ obstruction.
Head CT 05/23/25:
No acute intracranial abnormality.
ECHO 05/24/25:
1. Limited echocardiogram.
2. Normal biventricular size and systolic function. LV ejection fraction visually estimated 60-65%. GLS Endo peak average -18.9%.
3. Mild mitral regurgitation.
4. Trace tricuspid regurgitation.
5. Trileaflet mildly thickened aortic valve. No aortic regurgitation.
6. No pericardial effusion.
7. When compared to prior study dated 02/07/2025, GLS Endo peak average was -19.9%. No significant change.
Discharge Plan
-
Patient Disposition: Home (Routine Discharge)
Discharge Diagnosis/Procedures: Left-sided pleural effusion s/p IR drainage 05/24/2025
Chest pain/pressure
Condition: Good
Diet: No restrictions
Activity: As tolerated
Driving Restrictions: As prior to admission
Bathing Restrictions: None
Blood Work: CBC with differential and CMP in a week
Others Tests: Follow up with pulmonology outpatient for effusions
Referrals:
Daniel Easton MD [Family Provider, Internal Medicine] - in less than 1 week
Referral Note: Follow-up about this hospitalization with your PCP in less than a week.
Hiram Sahu MD [Active, Pulmonary Medicine] - in two to four weeks
Referral Note: Follow up with pulmonology for effusions
Prescriptions:
Continued
losartan 50 MG tablet
50 mg PO DAILY
ascorbic acid (vitamin C) [Vitamin C] 500 MG tablet
1,000 mg PO BID
quercetin 500 mg Capsule
250 mg PO DAILY
Medical Cannabis
1 gummy PO DAILYPRN PRN (Reason: mild pain)
cholecalciferol (vitamin D3) [Vitamin D3] 125 mcg (5,000 unit) Tablet
125 mcg PO DAILY
Artificial Tears (cmc) 1 % Drops
1 drp BOTH EYES BIDPRN PRN (Reason: dry eyes)
meclizine [Antivert] 25 mg Tablet,Chewable
25 mg PO BIDPRN PRN (Reason: nausea or vertigo) Qty: 10 0RF
lenalidomide [Revlimid] 10 mg Capsule
10 mg PO DIRECTED
Rx Instructions:
take for 21 days then off 7 days off
acyclovir 400 mg Tablet
400 mg PO BID
lorazepam 0.5 mg Tablet
0.5 mg PO BIDPRN PRN (Reason: anxiety)
[id number] [Excedrin Migraine] 250-250-65 mg Tablet
1 tab PO DAILYPRN PRN (Reason: mild pain)
Discharge Orders:
Discharge Patient (As Directed); Ordered 05/24/25
Ordered By: Maria Eugenia Ennis
Discharge Date and Time
Discharge Date/Time: 05/24/25 15:54
Print Language: INDIAN
== END 2025-05-24 15:54 | disposition home or self-care (01) ==
LOC: 3 WEST ACU 16:31
PROVIDERS: ADMITTING PHYSICIAN Internal Medicine; EMERGENCY PHYSICIAN Emergency Medicine; FAMILY PHYSICIAN Internal Medicine
DX: R55 Syncope and collapse (principal); I10 Essential (primary) hypertension; R79.89 Other specified abnormal findings of blood chemistry; R07.89 Other chest pain; C90.00 Multiple myeloma not having achieved remission; F32.A Depression, unspecified; F41.9 Anxiety disorder, unspecified; K58.9 Irritable bowel syndrome, unspecified; J90 Pleural effusion, not elsewhere classified; J98.11 Atelectasis; S00.83XA Contusion of other part of head, initial encounter; W22.03XA Walked into furniture, initial encounter; Z79.899 Other long term (current) drug therapy
CPT/HCPCS: 32555; 70140; 70450; 71045; 71275; 76604; 80053; 82150; 82945; 83615; 83735; 83986; 84157; 84443; 84478; 84484; 85025; 85379; 87015; 87070; 87102; 87116; 87205; 87206; 88112; 88305; 89051; 93005; 93306; 93356; 96374; 96375; 99285; G0378; Q9967

== ENCOUNTER → 2025-05-27 10:30 | Outpatient (REF) | payer MEDICARE, OTHER, SELFPAY | LOC: RAD 10:30 | PROVIDERS: ATTENDING PHYSICIAN Internal Medicine; FAMILY PHYSICIAN Internal Medicine | DX: J90 Pleural effusion, not elsewhere classified (principal) | CPT/HCPCS: 71046 ==

== ENCOUNTER 2025-05-27 13:31 | Outpatient (RCR) | payer MEDICARE, OTHER, SELFPAY ==
[2025-05-06 14:37] VITALS: BP 156/73
[2025-05-06 15:22] LABS: Hematocrit 37.2 % (37.0-47.0); Hemoglobin 12.4 g/dL (12.0-16.0); Mean Corp Hgb Conc. 33.3 g/dL (33.0-37.0); Mean Corpuscular Volume 86.9 fL (81.0-99.0); Platelet Count 245 10^3/uL (130-400); Red Cell Dist. Width 15.6 % (11.5-14.5)
[2025-05-06 15:38] LABS: ALT (SGPT) 36 U/L (0-35); AST (SGOT) 25 U/L (14-36); Albumin 4.1 g/dl (3.5-5.0); Alkaline Phosphatase 83 U/L (38-126); Blood Urea Nitrogen 21 mg/dl (7-17); Calcium 9.2 mg/dl (8.4-10.2); Carbon Dioxide 23 mmol/L (22-30); Chloride 102 mmol/L (98-107); Glucose 107 mg/dl (70-99); Potassium 4.3 mmol/L (3.5-5.1); Sodium 132 mmol/L (135-145); Total Protein 5.9 g/dl (6.3-8.2); eGFR > 60.00
[2025-05-06 15:59] LABS: Absolute Neutrophils -Man Diff 3.0 10^3/uL (1.4-6.5); Platelets Checked Yes
[2025-05-06 16:00] LABS: Normal RBC Morphology Yes; Total Cells Counted 100
[2025-05-10 02:24] LABS: Free Kappa Light Chains,Quant 3.92 mg/L (3.30-19.40); Free Lambda Light Chains,Quant 26.96 mg/L (5.71-26.30); Kappa/Lambda Fr Light Ratio 0.15 (0.26-1.65)
[2025-05-12 02:39] LABS: Albumin 3.64 g/dL (3.75-5.01); SPEP IFE Reflex IFE Done; Total Protein-Electrophoresis 5.5 g/dL (6.3-8.2)
[2025-05-27 13:45] VITALS: BP 130/62
[2025-05-27 14:22] LABS: Hematocrit 31.8 % (37.0-47.0); Hemoglobin 10.8 g/dL (12.0-16.0); Mean Corp Hgb Conc. 34.0 g/dL (33.0-37.0); Mean Corpuscular Volume 88.1 fL (81.0-99.0); Nucleated Red Blood Cells % 0 %; Platelet Count 271 10^3/uL (130-400); Red Cell Dist. Width 15.9 % (11.5-14.5)
[2025-05-27 14:41] LABS: ALT (SGPT) 17 U/L (0-35); AST (SGOT) 15 U/L (14-36); Albumin 3.6 g/dl (3.5-5.0); Alkaline Phosphatase 99 U/L (38-126); Blood Urea Nitrogen 12 mg/dl (7-17); Calcium 8.5 mg/dl (8.4-10.2); Carbon Dioxide 26 mmol/L (22-30); Chloride 97 mmol/L (98-107); Glucose 105 mg/dl (70-99); Potassium 4.4 mmol/L (3.5-5.1); Sodium 127 mmol/L (135-145); Total Protein 5.3 g/dl (6.3-8.2); eGFR > 60.00
== END 2025-05-30 09:13 | disposition home or self-care (01) ==
LOC: OID 13:31
PROVIDERS: Nurse Practitioner Gerontology; ATTENDING PHYSICIAN Internal Medicine Hematology & Oncology; FAMILY PHYSICIAN Internal Medicine; REFERRING PHYSICIAN Surgery
DX: D80.1 Nonfamilial hypogammaglobulinemia (principal); C90.00 Multiple myeloma not having achieved remission; D64.9 Anemia, unspecified; R53.81 Other malaise
CPT/HCPCS: 80053; 82784; 83521; 84155; 84165; 85025; 86334; 96523

== ENCOUNTER 2025-05-29 06:54 | Inpatient (IN) | payer MEDICARE, OTHER, SELFPAY ==
[2025-05-28 15:37] VITALS: BMI 22.5
[2025-05-28 15:43] VITALS: BP 135/72
[2025-05-28 16:19] LABS: Hematocrit 33.1 % (37.0-47.0); Hemoglobin 10.8 g/dL (12.0-16.0); Mean Corp Hgb Conc. 32.6 g/dL (33.0-37.0); Mean Corpuscular Volume 89.7 fL (81.0-99.0); Nucleated Red Blood Cells % 0 %; Platelet Count 263 10^3/uL (130-400); Red Cell Dist. Width 16.1 % (11.5-14.5)
[2025-05-28 16:24] LABS: INR 1.02; PT 13.7 Sec (11.4-14.6)
[2025-05-28 16:39] LABS: ALT (SGPT) 16 U/L (0-35); AST (SGOT) 14 U/L (14-36); Albumin 3.5 g/dl (3.5-5.0); Alkaline Phosphatase 99 U/L (38-126); Blood Urea Nitrogen 13 mg/dl (7-17); Calcium 8.9 mg/dl (8.4-10.2); Carbon Dioxide 28 mmol/L (22-30); Chloride 103 mmol/L (98-107); Glucose 97 mg/dl (70-99); Potassium 4.7 mmol/L (3.5-5.1); Sodium 132 mmol/L (135-145); Total Protein 5.4 g/dl (6.3-8.2); eGFR > 60.00
[2025-05-28 16:42] LABS: Troponin I < 0.012 ng/ml
--- NOTE | 2025-05-28 18:29 | ED.GENMED ---
History of Present Illness
<Za Grimm MD, Resident - Last Filed: 05/28/25 21:24>
General
Chief Complaint: Chest Pain
Source: patient
Exam Limitations: none
Time Seen by Provider: 05/28/25 18:25
Nursing documentation reviewed up to this point in time: agreed with
History of Present Illness
History of Present Illness:
69-year-old female with past medical history of multiple myeloma, recent back surgery, hypertension, connective tissue disease, and recent admission for pleural effusion treated with thoracentesis, comes to the ED due to increased right-sided chest
pain that began yesterday. She says that this is similar in pain to the pain that she had on her left side on Friday. She is following up with her PCP Dr. Easton we did chest x-ray which found fluid coming back of the left lung but nothing else she
says. She says that she cannot take a deep breath and the pain is more of a stabbing pain on the right side. Does not have pain in her right ribs but it is more inside her chest she says. She also complains of left rib pain as well. She says
that heating pad helps and she also takes cannabinoid medical marijuana as needed around every 7 hours to help with pain. She does not have any fever but has been complaining about some mild chills. She has difficulty breathing but has no
left-sided chest pain anymore has some mild swelling in her bilateral ankles. Has some nausea but does not endorse any abdominal pain, or vomiting.
Past History
<Za Grimm MD, Resident - Last Filed: 05/28/25 21:24>
Past History
ED Past Medical History: Cancer (Multiple Myeloma), HTN, Psychiatric (depression, anxiety), Other (diverticulitis with Perforation, Lupus, connective tissue disorder, small bowel obstructions, irritable bowel syndrome, Back pain, Migraines,
Raynaud's, Colitis, Urinary retention) and Other (Headaches, Imitrex as needed at home, Lyme, Lupus, CREST disease, ADHD, )
ED Past Surgical History: Bowel resection (Sigmoid diverticulitis with perforation requiring temporary colostomy with colostomy reversal 2015. Sigmoid colon resection. Lysis of adhesions.), Gynecological (Hysterectomy, Pelvic lift, LEEP, Right and
left Rotator cuff), Orthopedic (RL5-S1 fusion, Left wrist surgery, Right hip repair. Right and left Hip replacement ), Urological (Bladder prolapse. Rectocele/Cystocele repair) and Other (Abdominoplasty, breast augmentation, Cataracts, face lift,
Breast implants, )
Social History
Tobacco: Non-smoker
Alcohol: None
Drug: Other (Medical marijuana as needed)
Personal:
Living: alone
Employment: Not employed
Family History
Family History: Other (Father with coronary disease, hypertension, gout)
Review of Systems
<Za Grimm MD, Resident - Last Filed: 05/28/25 21:24>
Review of Systems
Allergies reviewed?: Yes
All Other Systems: ROS reviewed and negative except as documented in HPI and ROS
Constitutional: Reports fatigue and chills; Denies fever
EENT: Reports no symptoms
Respiratory: Reports trouble breathing
Cardiac: Reports chest pain (Right sided); Denies diaphoresis, palpitations or syncope
ABD/GI: Reports nausea; Denies abdominal pain or vomiting
: Reports no symptoms
Musculoskeletal: Reports edema (Bilateral ankles) and other (Left lower rib pain)
Skin: Reports no symptoms
Neurological: Reports no symptoms
Endocrine: Reports no symptoms
Hematologic/Lymphatic: Reports no symptoms
Psychiatric: Reports anxiety
Phy Exam
<Za Grimm MD, Resident - Last Filed: 05/28/25 21:24>
General Physical Exam
General Presentation: mild distress
General age: appears stated age
General Skin: warm and dry
General Habitus: normal
General Mental: alert
General Hydration: appears well hydrated
Cardiovascular Exam
Cardiovascular Exam: regular rate/rhythm, no edema and no murmur
Pulmonary Exam
Pulmonary Exam: no crackles, no wheezing and decreased breath sounds (Left lung)
Gastrointestinal Exam
Gastrointestinal Exam: normal bowel sounds, soft and non distended
Musculoskeletal Exam
Musculoskeletal Exam: full ROM and edema (Mild bilateral ankle edema)
Skin Exam
Skin Exam: normal color and warm/dry
Psychiatric Exam
Psychiatric Exam: normal mood/affect
<Love Morrow MD - Last Filed: 05/28/25 22:19>
Physical Exam
Physical Exam:
Physical Exam
General: no apparent distress, not acutely ill. Ecchymotic right side of face which patient reports is due to Botox
Neck: supple. no meningeal signs. normal psoterior pharynx
Heart: s1/s2 regular rate and rhythm, no murmur. equal radial pulses.
Lungs: Decreased breath sounds on left. Mild tachypnea with speaking.
Abdomen: normal bowel sounds. not tender. no CVAT
Neuro: alert and oriented. no focal neurological deficits
Skin: no rash
Psychiatric: well kept. interactive and cooperative
Extremities: no edema. no calf tenderness. negative homans. good distal pulses
Scores
<Za Grimm MD, Resident - Last Filed: 05/28/25 21:24>
Heart Score for Chest Pain Patients
STEMI patient?: Not applicable
Course
<Za Grimm MD, Resident - Last Filed: 05/28/25 21:24>
Orders/Labs/Results
Orders:
Orders
05/28/25 15:38
Electrocardiogram (*1) Urgent
Reason for Study: Chest Pain
EKG- Treatment ONCE
05/28/25 15:58
Complete Blood Count/With Diff Urgent
Comprehensive Metabolic Panel Urgent
Prothrombin Time Urgent
Troponin I Urgent
05/28/25 19:46
Acetaminophen [Tylenol] 650 mg PO NOW STA
HYDROmorphone [Dilaudid] 0.5 mg IV NOW STA
Ondansetron Injectable [Zofran] 4 mg IV NOW STA
05/28/25 20:15
CR Chest - 2 Views Urgent
Comment:
Reason For Exam: R sided chest pain
05/28/25 20:22
COVID-19 Antigen Urgent
Source: Nasal Swab
Influenza A+B Rapid Molecular Urgent
RADHA Source: Nasal Swab
Specimen Description:
05/28/25 20:23
Urinalysis Reflex To Culture Urgent
Date Specimen was Collected: 05/28/25
Time Specimen was Collected: 20:22
05/28/25 21:15
IV Insert/Care/Rem.- Treatment PRN
05/28/25 21:43
Lactic Acid Q4H
Comment: CANCEL 2nd LACTIC ACID IF 1st LACTIC ACID IS LESS THAN 2
Blood Culture Q30M
RADHA Source: Blood/Venous
Specimen Description:
05/28/25 21:45
Blood Culture Q30M
RADHA Source: Blood/Venous
Specimen Description:
05/29/25 01:15
Lactic Acid Q4H
Comment: CANCEL 2nd LACTIC ACID IF 1st LACTIC ACID IS LESS THAN 2
Abnormal Lab Results
05/28/25 05/28/25
15:58 21:43
RBC 3.69 L 10^6/uL
(4.20-5.40)
Hgb 10.8 L g/dL
(12.0-16.0)
Hct 33.1 L %
(37.0-47.0)
MCHC 32.6 L g/dL
(33.0-37.0)
RDW 16.1 H %
(11.5-14.5)
Absolute Lymphs (auto) 0.7 L 10^3/uL
(1.2-3.4)
Absolute Monos (auto) 1.4 H 10^3/uL
(0.1-0.6)
Lymphocytes % 8.1 L %
(20.5-51.1)
Monocytes % 17.8 H %
(1.7-9.3)
Sodium 132 L mmol/L
(135-145)
Lactic Acid < 0.5 L mmol/L
(0.7-2.0)
Total Protein 5.4 L g/dl
(6.3-8.2)
05/28/25 15:58
05/28/25 15:58
Vital Signs
Initial and Last Documented VS:
Initial Vital Signs
Temp Pulse Resp BP Pulse Ox
100.2 F 91 18 135/72 97
05/28/25 15:43 05/28/25 15:43 05/28/25 15:43 05/28/25 15:43 05/28/25 15:43
Last Documented Vital Signs
Temp Pulse Resp BP Pulse Ox
99.2 F 80 25 111/93 97
05/28/25 19:48 05/28/25 19:37 05/28/25 19:37 05/28/25 19:37 05/28/25 18:29
<Love Morrow MD - Last Filed: 05/28/25 22:19>
Orders/Labs/Results
Orders:
Orders
05/28/25 15:38
Electrocardiogram (*1) Urgent
Reason for Study: Chest Pain
EKG- Treatment ONCE
05/28/25 15:58
Complete Blood Count/With Diff Urgent
Comprehensive Metabolic Panel Urgent
Prothrombin Time Urgent
Troponin I Urgent
05/28/25 19:46
Acetaminophen [Tylenol] 650 mg PO NOW STA
HYDROmorphone [Dilaudid] 0.5 mg IV NOW STA
Ondansetron Injectable [Zofran] 4 mg IV NOW STA
05/28/25 20:15
CR Chest - 2 Views Urgent
Comment:
Reason For Exam: R sided chest pain
05/28/25 20:22
COVID-19 Antigen Urgent
Source: Nasal Swab
Influenza A+B Rapid Molecular Urgent
RADHA Source: Nasal Swab
Specimen Description:
05/28/25 20:23
Urinalysis Reflex To Culture Urgent
Date Specimen was Collected: 05/28/25
Time Specimen was Collected: 20:22
05/28/25 21:15
IV Insert/Care/Rem.- Treatment PRN
05/28/25 21:43
Lactic Acid Q4H
Comment: CANCEL 2nd LACTIC ACID IF 1st LACTIC ACID IS LESS THAN 2
Blood Culture Q30M
RADHA Source: Blood/Venous
Specimen Description:
05/28/25 21:45
Blood Culture Q30M
RADHA Source: Blood/Venous
Specimen Description:
05/29/25 01:15
Lactic Acid Q4H
Comment: CANCEL 2nd LACTIC ACID IF 1st LACTIC ACID IS LESS THAN 2
Abnormal Lab Results
05/28/25 05/28/25
15:58 21:43
RBC 3.69 L 10^6/uL
(4.20-5.40)
Hgb 10.8 L g/dL
(12.0-16.0)
Hct 33.1 L %
(37.0-47.0)
MCHC 32.6 L g/dL
(33.0-37.0)
RDW 16.1 H %
(11.5-14.5)
Absolute Lymphs (auto) 0.7 L 10^3/uL
(1.2-3.4)
Absolute Monos (auto) 1.4 H 10^3/uL
(0.1-0.6)
Lymphocytes % 8.1 L %
(20.5-51.1)
Monocytes % 17.8 H %
(1.7-9.3)
Sodium 132 L mmol/L
(135-145)
Lactic Acid < 0.5 L mmol/L
(0.7-2.0)
Total Protein 5.4 L g/dl
(6.3-8.2)
05/28/25 15:58
05/28/25 15:58
Vital Signs
Initial and Last Documented VS:
Initial Vital Signs
Temp Pulse Resp BP Pulse Ox
100.2 F 91 18 135/72 97
05/28/25 15:43 05/28/25 15:43 05/28/25 15:43 05/28/25 15:43 05/28/25 15:43
Last Documented Vital Signs
Temp Pulse Resp BP Pulse Ox
99.2 F 80 25 111/93 97
05/28/25 19:48 05/28/25 19:37 05/28/25 19:37 05/28/25 19:37 05/28/25 18:29
<Za Grimm MD, Resident - Last Filed: 05/28/25 21:24>
MDM/Problems Addressed
Differential Diagnosis Includes:
Costochondritis, pleurisy, pulmonary effusion, pneumonia, atelectasis, PE
MDM/Problems Addressed:
69-year-old female with past medical history of multiple myeloma, recent back surgery, hypertension, connective tissue disease, and recent admission for pleural effusion treated with thoracentesis, comes to the ED due to increased right-sided chest
pain that began yesterday.
Troponin negative, EKG unremarkable, no abnormality seen on CMP or CBC
Outpatient chest x-ray and blood work was unremarkable as per patient.
Will repeat chest x-ray, check UA, check COVID/influenza.
Give pain relief with IV Dilaudid along with Zofran for her allergy to Dilaudid
Will give Tylenol for her increased temperature
Chest x-ray showed return of pleural fluid of the left lung, will admit to the hospital due to recurrence of pleural effusion, mild low-grade fever and worsening symptoms.
Chronic conditions affecting care: HTN, Cancer and Other (Back surgery 2 weeks ago)
<Za Grimm MD, Resident - Last Filed: 05/28/25 21:24>
*Pulse Oximetry
SaO2: 97
Oxygen Mode of Delivery: Room air
Patient hypoxic: no
*Critical Care Note
Total Time (30-74mins, 75-104mins- exclusive of procedures): Not Applicable
ED Attending Note
<Za Grimm MD, Resident - Last Filed: 05/28/25 21:24>
-
Portions of this chart may have been created with voice recognition software.� Occasional wrong word or��sound alike� substitutions may have occurred due to the inherent limitations of voice recognition software.
<Love Morrow MD - Last Filed: 05/28/25 22:19>
ED Attending Note
I performed a history and physical exam of patient and discussed management with resident, I reviewed resident's note and agree with documented findings and plan of care.: Yes
ED Attending Note:
Given patient's persistent and recurrent left pleural effusion and shortness of breath, decision made to admit patient. Patient is normotensive and does not appear septic, therefore, we have held off on any antibiotics at this time.
Discharge Plan
Departure
Patient Disposition: Admit
Date of Disposition: 05/28/25
Time of Disposition: 21:21
Admit to: Med/Surg
Presentation/result/management discussed w/ accepting MD/DO: Hospitalist
Patient with high blood pressure during this ER visit?: Yes
Condition: Serious
Covid-19: Negative COVID-19
Discharge Problem:
Recurrent pleural effusion
Prescriptions:
No Action
losartan 50 MG tablet
50 mg PO DAILY
ascorbic acid (vitamin C) [Vitamin C] 500 MG tablet
1,000 mg PO BID
quercetin 500 mg Capsule
250 mg PO DAILY
Medical Cannabis
1 gummy PO DAILYPRN PRN (Reason: mild pain)
cholecalciferol (vitamin D3) [Vitamin D3] 125 mcg (5,000 unit) Tablet
125 mcg PO DAILY
Artificial Tears (cmc) 1 % Drops
1 drp BOTH EYES BIDPRN PRN (Reason: dry eyes)
meclizine [Antivert] 25 mg Tablet,Chewable
25 mg PO BIDPRN PRN (Reason: nausea or vertigo) Qty: 10 0RF
lenalidomide [Revlimid] 10 mg Capsule
10 mg PO DIRECTED
Rx Instructions:
take for 21 days then off 7 days off
tizanidine 2 mg Capsule
2 mg PO DAILY PRN (Reason: pain)
acyclovir 400 mg Tablet
400 mg PO BID
lorazepam 0.5 mg Tablet
0.5 mg PO BIDPRN PRN (Reason: anxiety)
oflfatx-[id number]-ydetubjz [Excedrin Migraine] 250-250-65 mg Tablet
1 tab PO DAILYPRN PRN (Reason: mild pain)
Referrals:
Daniel Easton MD [Family Provider, Internal Medicine]
Interventions
Interventions:
*Risk Screen - Suicide Last Done: 05/28/25 15:43
*General Assessment Last Done: 05/28/25 15:43
*Neglect/Abuse Screening Last Done: 05/28/25 15:43
*ED- Fall Risk Assessment Last Done: 05/28/25 22:09
ED- Cardiac Assessment Last Done: 05/28/25 19:41
Discharge Date and Time
Print Language: FINNISH
[2025-05-28 19:37] VITALS: BP 111/93
[2025-05-28] MEDS: TYLENOL 650 MG PO (20:28)
[2025-05-28] MEDS: DILAUDID 0.5 MG IV (20:28)
[2025-05-28] MEDS: ZOFRAN 4 MG IV (20:29)
[2025-05-28 20:38] LABS: Urine Character Clear (Clear)
[2025-05-28 20:48] LABS: COVID-19 Antigen Negative (Negative)
--- NOTE | 2025-05-28 22:25 | HPS.HSE ---
Family Physician
-
Family Physician: Daniel Easton
Chief Complaint
-
Chest Pain
History of Present Illness
Patient is a 69y F with PMH significant for multiple myeloma in remission / on Revlimid and recent hospitalization for chest pain and L pleural effusion s/p syncopal event who presents to ED complaining of persistent / recurrent chest pain.
Patient complains of pain in the R upper chest and the L lower chest - all anterior pain. Pain is worse with movement - especially flexion of the trunk. Worse with deep breathing, coughing, etc. No fevers / chills. No SOB.
Patient initially reported R sided chest pain to the ED staff. She tells me that the majority of her pain is L lower chest.
Patient was recently admitted at after a syncopal event at home. She was having sharp, crampy pain in the abdomen with diaphoresis and lightheadedness and she passed out - falling onto her hardwood floors. She was briefly unconscious. She
presented to the ED and was admitted with newly noted L pleural effusion. Thoracentesis was done on 05/23 with yielded 550cc of exudative fluid. Cultures remain negative to date. Patient is scheduled for outpatient follow-up with Pulmonary for
further evaluation of this new exudative effusion.
Recent history is most significant for lumbar fusion procedure (via anterior / abdominal approach) [facility] on 05[facility] Moss.
Patient states that she was recovering well from that procedure prior to her syncopal event.
Medical History
Past Medical History
Past Medical History: Reports Other
Additional Past Medical History:
Multiple Myeloma - In remission on maintenance Revlimid
Scleroderma / CREST Syndrome
Diverticular Disease
Hypothyroidism
Migraine Headaches
Cervical Dysplasia
Hypertension
Lupus
Pulmonary Nodule
Left Pleural Effusion
Past Surgical History: Reports Other
Additional Past Surgical History:
Stem Cell Transplant (October 2024)
L2-3 Anterior Fusion (05/09/25)
T&A
Bilateral Breast Augmentation
MIKALA / BSO
Lumbar Laminectomy / Fusion (L4-5)
Sigmoid Resection / Mayes's Procedure
Colostomy Reversal
Liposuction / Cosmetic Surgeries
Bilateral ECHO
Right Shoulder Surgery
Cataracts
Social History
Tobacco: Non-smoker
Alcohol: None
Drug: Marijuana (Medical card for pain)
Family History
Family History: Not pertinent
Allergies / Home Medications
Allergies reflects when Allergies were last updated in [facility].
Home Medications with original date entered in [facility]
Allergy/Medication List:
Allergies
Allergy/AdvReac Type Severity Reaction Status Date / Time
adhesive Allergy reddness, Verified 05/28/25 18:26
skin tear
Cephalosporins Allergy Pharmacy Verified 05/28/25 18:26
to Review
codeine Allergy Nausea/CONS Verified 05/28/25 18:26
TIPATION
morphine Allergy Vomiting Verified 05/28/25 18:26
oxycodone HCl (From Allergy Nausea/vomi Verified 05/28/25 18:26
OxyContin) ting
penicillin G Allergy Pharmacy Verified 05/28/25 18:26
to Review
Penicillins Allergy Pharmacy Verified 05/28/25 18:26
to Review
sulfamethoxazole Allergy ITCH Verified 05/28/25 18:26
tetracycline Allergy mild Rash Verified 05/28/25 18:26
vancomycin Allergy Rash Verified 05/28/25 18:26
Home Medications
ascorbic acid (vitamin C) 500 mg tablet (Vitamin C) 1,000 mg PO BID Supplement 07/23/21
losartan 50 mg tablet 50 mg PO DAILY Blood Pressure 07/23/21
quercetin 500 mg capsule 250 mg PO DAILY 10/22/22
Medical Cannabis 1 gummy PO DAILYPRN PRN mild pain 04/18/23
cholecalciferol (vitamin D3) 125 mcg (5,000 unit) tablet (Vitamin D3) 125 mcg PO DAILY Supplement 03/03/24
carboxymethylcellulose sodium 1 % eye drops (Artificial Tears (carboxymethylcellulose)) 1 drp BOTH EYES BIDPRN PRN dry eyes 06/28/24
meclizine 25 mg chewable tablet (Antivert) 25 mg PO BIDPRN PRN nausea or vertigo #10 tabs 01/26/25
lenalidomide 10 mg capsule (Revlimid) 10 mg PO DIRECTED Cancer 02/10/25
acyclovir 400 mg tablet 400 mg PO BID Infection 05/23/25
vmfwdjt-vuirzandtuvrz-fuhbihim 250 mg-250 mg-65 mg tablet (Excedrin Migraine) 1 tab PO DAILYPRN PRN mild pain 05/23/25
lorazepam 0.5 mg tablet 0.5 mg PO BIDPRN PRN anxiety 05/23/25
tizanidine 2 mg capsule 2 mg PO DAILY PRN pain 05/27/25
Review of Systems
-
History Source: Patient
A 12 point ROS was completed and negative except as noted: Yes
Constitutional: Denies Fever, Fatigue or Chills
EENT: Denies Sore Throat
Respiratory: Denies Cough or Trouble Breathing
Cardiac: Reports Chest Pain; Denies Diaphoresis or Palpitations
Abdomen/GI: Reports Nausea; Denies Abdominal Pain, Vomiting, Diarrhea, Constipated, Bloody Stools or Black Stools
: Denies Dysuria, Frequency or Flank Pain
Musculoskeletal: Denies Joint Pain or Edema
Neurological: Denies Dizzy or Headache
Psych: Denies Depression or Anxiety
Physical Exam
Vital Signs
Vital Signs
Temp Pulse Resp BP Pulse Ox
99.2 F 80 25 111/93 97
05/28/25 19:48 05/28/25 19:37 05/28/25 19:37 05/28/25 19:37 05/28/25 18:29
Physical Exam
General: Other (69y F in mild distress due to pain.)
HEENT: Moist mucous membranes and PERRLA
Respiratory: Other (decreased at bases - decreased effort due to pain. No W/R/R.)
Cardiac: S1/S2 and Regular Rhythm; No Murmur
GI: Soft, Non Tender, Non Distended and Normal Bowel Sounds
Musculoskeletal: No Clubbing, No Cyanosis and Other (Trace LE edema - R > L.)
Neuro: AO x 3
Laboratory Results
-
05/28/25 15:58
05/28/25 15:58
Laboratory Results
PT 13.7 Sec (11.4-14.6) 05/28/25 15:58
INR 1.02 05/28/25 15:58
Lactic Acid < 0.5 mmol/L (0.7-2.0) L 05/28/25 21:43
Total Bilirubin 0.3 mg/dl (0.2-1.3) 05/28/25 15:58
AST 14 U/L (14-36) 05/28/25 15:58
ALT 16 U/L (0-35) 05/28/25 15:58
Alkaline Phosphatase 99 U/L (38-126) 05/28/25 15:58
Troponin I < 0.012 ng/ml 05/28/25 15:58
Impression/Plan
-
A/P: Patient is a 69y F with PMH significant for multiple myeloma in remission, scleroderma and recent admission with syncope / L pleural effusion who presents to ED complaining of recurrent / persistent chest pain.
Chest Pain
- Observe overnight for further evaluation and treatment.
- ? musculoskeletal origin of pain s/p recent syncope / fall event
- Pain control efforts with Tylenol, NSAIDs, etc.
- Check abd US in AM given lower chest / upper abdomen location of pain.
- Monitor for any new / worsening symptoms.
Left Pleural Effusion
- Exudative effusion based on prior fluid studies from 05/23.
- ? pleuritic pain related to effusion (though initial complaint here and for her PCP recently was of RIGHT chest pain).
- Pulmonary evaluation for additional recommendations / work-up of new exudative effusion.
- CXR done today shows mild increase in fluid from recent discharge.
Multiple Myeloma in Remission
- s/p stem cell transplant in October and now on maintenance Revlimid.
- Continue current med regimen including prophylactic acyclovir
Benign Hypertension
- Stable. Continue losartan.
Anxiety / Depression
- Stable. Continue PRN lorazepam.
Lumbar DDD
- s/p recent L3-4 anterior fusion.
- Was doing well prior to syncopal event / fall.
- Activity as tolerated.
DVT Prophylaxis: SCDs
Code Status: Full
[2025-05-28 22:53] VITALS: BP 136/78
[2025-05-28 23:00] VITALS: BP 139/66
[2025-05-29] VITALS (7 sets, daily range): BP systolic 121–148; BP diastolic 63–77; BMI 21.7
--- NOTE | 2025-05-29 00:15 | PTCARENOTE ---
Pt arrived to unit from ED via stretcher. Ambulated from stretcher to bed with a standby assist. A&Ox3. Oriented to unit. Pt home med, Revlimid, tubed to pharmacy. Call light within reach. Plan of care ongoing.
[2025-05-29] MEDS: TORADOL 10 MG IV ×3 (00:35→18:25)
--- NOTE | 2025-05-29 07:57 | CON.PUL ---
Addendum entered and electronically signed by Rodolfo Calvin MD 05/29/25 09:06:
Revlimid with 7% incidence of pleural effusion
Follow clinically for now
Original Note:
Consultation
Consultation Request
Date/Time Consultation Requested: 05/29
Date/Time Consultation Performed: 05/29
Reason for Consultation: Chest discomfort, pleural effusion
Medical History
-
History of Present Illness:
History obtained from the patient and reviewing both inpatient and outpatient records. Patient is a 69-year-old female with complex medical history including multiple myeloma diagnosed 2023 followed by chemotherapy, stem cell transplant October
2024 at [facility], on Revlimid therapy recently held for 2 weeks during and following back surgery, patient restarted few days ago. Patient also has a history of mixed connective tissue disease, scleroderma was on CellCept for 15 years, reevaluated at
[facility], was told since stem cell transplant does not need to be on CellCept because of 'new immune system'. Patient was recently discharged 05/24 when she presented with a left pleural effusion and a fall on 05/23. She was apparently in her house, got
up to go to the bathroom and fell down, imaging unremarkable. She underwent left thoracentesis 05/24, cultures negative to date, elevated white count but otherwise unremarkable, cytology negative with predominantly neutrophils and numerous red
cells. Patient returns to the hospital with worsening chest discomfort which she states 'radiates' to her back and her front. She also has fatigue, lack of energy. Upon arrival to [facility], temperature 100.2, pulse 91, breathing at 18,
blood pressure 135/72, 97%. White count is normal at 8.1, creatinine normal, sodium 132. Chest x-ray shows slight increase in left pleural effusion when compared to prior imaging. Patient admitted for pain control and possible thoracentesis.
Patient denies any fevers, sweats, does admit to shortness of breath because of splinting but is able to complete activities at home. Denies any further falls. Denies any blood in urine or stool. Patient is convinced pain started after lumbar
fusion procedure done at [place] on 05/09 via anterior abdominal approach on the left.
.
PMH: History of scleroderma/crest syndrome/lupus, now in remission was on mycophenolate for 15 years, discontinued early 2024, hypertension, hypothyroidism, multiple myeloma status post stem cell transplant in October 2024 on maintenance Revlimid
(held for 2 weeks in May for back surgery), MIKALA/BSO, lumbar laminectomy with fusion, sigmoid resection/Skinny's procedure with diverticular disease, colostomy reversal, liposuction with multiple cosmetic surgeries, bilateral hip replacement,
right shoulder surgery, bilateral breast augmentation. Patient denies any pulmonary history, cardiac history or blood clots
Past Medical History
Past Medical History: None (See HPI)
Past Surgical History: None (See HPI)
Social History
Tobacco: Vaping (Patient does vape intermittently)
Alcohol: None
Drug: None
Living: Alone
Employment: Employed ([employer])
Family History
Family History: Other (2 children, 1 with asthma. No siblings (only child). Family history negative for lung cancer, blood clots)
Allergies / Home Medications
Allergies
Allergy/AdvReac Type Severity Reaction Status Date / Time
adhesive Allergy reddness, Verified 05/28/25 18:26
skin tear
Cephalosporins Allergy Pharmacy Verified 05/28/25 18:26
to Review
codeine Allergy Nausea/CONS Verified 05/28/25 18:26
TIPATION
morphine Allergy Vomiting Verified 05/28/25 18:26
oxycodone HCl (From Allergy Nausea/vomi Verified 05/28/25 18:26
OxyContin) ting
penicillin G Allergy Pharmacy Verified 05/28/25 18:26
to Review
Penicillins Allergy Pharmacy Verified 05/28/25 18:26
to Review
sulfamethoxazole Allergy ITCH Verified 05/28/25 18:26
tetracycline Allergy mild Rash Verified 05/28/25 18:26
vancomycin Allergy Rash Verified 05/28/25 18:26
Home Medications
�Medication �Instructions �Recorded �Confirmed �Last Taken �Type
ascorbic acid (vitamin C) 500 mg 1,000 mg PO BID Supplement 07/23/21 05/27/25 05/27/25 History
tablet (Vitamin C)
losartan 50 mg tablet 50 mg PO DAILY Blood Pressure 07/23/21 05/27/25 05/27/25 History
quercetin 500 mg capsule 250 mg PO DAILY 10/22/22 05/27/25 05/27/25 History
Medical Cannabis 1 gummy PO DAILYPRN PRN mild pain 04/18/23 05/27/25 05/26/25 History
cholecalciferol (vitamin D3) 125 125 mcg PO DAILY Supplement 03/03/24 05/27/25 05/27/25 History
mcg (5,000 unit) tablet (Vitamin
D3)
carboxymethylcellulose sodium 1 % 1 drp BOTH EYES BIDPRN PRN dry eyes 06/28/24 05/27/25 05/27/25 History
eye drops (Artificial Tears
(carboxymethylcellulose))
meclizine 25 mg chewable tablet 25 mg PO BIDPRN PRN nausea or 01/26/25 05/27/25 Unknown Rx
(Antivert) vertigo #10 tabs
lenalidomide 10 mg capsule 10 mg PO DIRECTED Cancer 02/10/25 05/27/25 05/27/25 History
(Revlimid)
acyclovir 400 mg tablet 400 mg PO BID Infection 05/23/25 05/27/25 05/27/25 History
figircs-hhnlnbzfxhfxy-cydnpbhe 250 1 tab PO DAILYPRN PRN mild pain 05/23/25 05/27/25 05/23/25 History
mg-250 mg-65 mg tablet (Excedrin
Migraine)
lorazepam 0.5 mg tablet 0.5 mg PO BIDPRN PRN anxiety 05/23/25 05/27/25 Unknown History
tizanidine 2 mg capsule 2 mg PO DAILY PRN pain 05/27/25 05/27/25 05/27/25 History
Review of Systems
-
All other systems: Negative unless noted
Vitals / Labs / Diagnostic Testing
Vital Signs
Temp Pulse Resp BP Pulse Ox
98.4 F 56 14 128/70 96
05/29/25 03:12 05/29/25 03:12 05/29/25 03:12 05/29/25 03:12 05/29/25 03:12
Laboratory Results
05/28/25
15:58
PT 13.7
INR 1.02
Microbiology
05/28/25 20:22 Nasal Swab Influenza Types A & B (DEMARCUS) - Final
Negative for Influenza A & B, NAAT
Negative results must be combined with clinical observations
and patient history.
Nucleic Acid Amplification test (NAAT)performed on the
[employer] platform.
Diagnostic Testing:
Physical Exam
-
HEENT: Normocephalic, Anicteric, Other (Right periorbital bruise) and Other (Right anterior chest port)
Cardiovascular: S1/S2, Regular Rhythm, Murmur (n) and Other
Respiratory: Wheeze (n), Rales (n), Rhonchi (n), Non-Labored Respirations (Splinting on exam, slight decreased breath in the left base) and Other (Reproducible left lower rib point tenderness)
GI: Soft, Non Distended, Non Tender and Other (Mild abdominal discomfort but no focal tenderness, no rebound or guarding)
Neurology: Awake, Alert and No Motor Deficits (Ambulating in the room)
Skin: Good Color and Other (Skin no rash, no clubbing)
General: Comfortable
Assessment
-
69-year-old female with history of multiple myeloma status post stem cell transplant October 2024 at [facility], on Revlimid therapy, recent L2/3 anterior fusion back surgery 05/30 at [place] complicated by left chest discomfort since procedure, had fall
with facial trauma admitted 05/23, underwent left thoracentesis at that time with elevated white count but otherwise normal cultures, normal cytology, now presents with persistent, worsening left chest discomfort and chest x-ray with slight worsening
of left pleural effusion. We are asked to comment on pulmonary process
Left-sided chest discomfort, persistent/progressive
Left pleural effusion, moderate
Slightly worse compared to prior imaging
S/p left thoracentesis 05/23, cytology/cultures negative to date
Neutrophilic predominance, elevated white cells
Exudate by protein (analysis incomplete)
Recent fall with right facial trauma
Workup negative
Conditions present prior to admission
Multiple myeloma status post stem cell transplant October 2024
On maintenance Revlimid therapy
Scleroderma/crest syndrome/lupus
On mycophenolate for 15 years, discontinued 2024
In remission per rheumatology, since stem cell transplant
Hypertension
Diverticular disease
Sigmoid resection/Skinny's procedure
Colostomy reversal
MIKALA/BSO
History of breast augmentation
Intermittent vaping
Intermittent marijuana use
Plan/recommendations
At this time, patient appears to be comfortable. She has complex history.
Salient features include recent left thoracentesis without significant improvement in pain, unremarkable cultures, negative cytology
Neutrophilic predominance per fluid analysis, likely due to recent lung injury/fall?
Patient also has point tenderness in the left rib although no obvious rib abnormality per recent CT chest
CT chest 05/23 without any evidence of pulm embolism
Timing of pain seems to corroborate with postoperative back surgery 05/09, patient states it was a left anterior upper abdominal approach
Moving forward
For now, I feel there are 2 separate issues. One is pain control, second is pleural effusion
She will require repeat thoracentesis but this is not urgent
Discussed possibility of setting up as outpatient thoracentesis in the next 24 hours vs today although this may be difficult to complete today
Discussed at length with primary service
Second issue will be pain control. She does have point tenderness in the left lower rib
I could not appreciate any obvious rib abnormality on recent CT imaging 05/23
She will require pulmonary follow-up as outpatient
She may require intermittent thoracentesis of the left side to help facilitate analysis/diagnostic workup and facilitate auto pleurodesis
She is on Revlimid therapy
Will review whether this may be associated with pleural effusions
Otherwise we will focus on pain control at this time, bowel regimen as needed
Strongly recommend follow-up with pulmonary in the next few weeks, appointment already set up 06/[address] Arreaga at 215
Reviewed at length with primary service
[2025-05-29] MEDS: VITAMIN C 1000 MG PO ×2 (08:02→20:43)
[2025-05-29] MEDS: COZAAR 50 MG PO (08:02)
[2025-05-29] MEDS: TYLENOL 1000 MG PO ×3 (08:02→21:57)
[2025-05-29] MEDS: ZOVIRAX 400 MG PO ×2 (08:03→20:43)
[2025-05-29] MEDS: VITAMIN D3 (cholecalciferol) 125 MCG PO (08:03)
[2025-05-29 08:16] LABS: Hematocrit 34.4 % (37.0-47.0); Hemoglobin 11.6 g/dL (12.0-16.0); Mean Corp Hgb Conc. 33.7 g/dL (33.0-37.0); Mean Corpuscular Volume 89.8 fL (81.0-99.0); Platelet Count 277 10^3/uL (130-400); Red Cell Dist. Width 16.2 % (11.5-14.5)
[2025-05-29 08:40] LABS: Blood Urea Nitrogen 10 mg/dl (7-17); Calcium 8.8 mg/dl (8.4-10.2); Carbon Dioxide 25 mmol/L (22-30); Chloride 107 mmol/L (98-107); Estimated Creatinine Clearance 65 ml/min; Glucose 88 mg/dl (70-99); Potassium 4.6 mmol/L (3.5-5.1); Sodium 136 mmol/L (135-145); eGFR > 60.00
[2025-05-29] MEDS: ZOFRAN 4 MG IV ×2 (08:47→18:33)
--- NOTE | 2025-05-29 09:42 | W.PN.HOSP.TC ---
Today's Communication/Plan
-
Add PRN Zofran
PRN Tramadol
Assessment / Plan
Assessment / Plan
Gen: NAD, AAOx3.
Eyes: EOMI, PERRLA, no scleral icterus. Right periorbital ecchymoses and mild soft tissue edema.
Neck: supple.
CV: tachy, reg rhythm, +S1/S2, no m/r/g.
Resp: remains with decreased breath sounds in the left base, no rales, wheezes, or rhonchi.
Abd: +BS, soft, NT, ND
Skin: No rashes.
Neuro: CN 2-12 intact, non-focal.
Psych: Normal mood and affect.
Patient is a 69y F with PMH significant for multiple myeloma in remission, scleroderma and recent admission with syncope / L pleural effusion who presents to ED complaining of recurrent / persistent chest pain.
# left sided pleuritic chest Pain
Seems to continue despite thoracentesis
D/w Pulmonary doctor, pt will need IR to tap it and re- analyze the fluid.
No hypoxia
No cough
No signs of infiltration
Recommend pain control as pleuritic chest pain tends to exacerbate after aspiration due to inflammation and pleurisy
Multiple Myeloma in Remission
- s/p stem cell transplant in October and now on maintenance Revlimid.
- Continue current med regimen including prophylactic acyclovir
Hyponatremia, mild
Resolved
Nausea, as needed Zofran
No abdominal pain
# History of mixed connective tissue disease/ lupus. Reportedly in remission after stem cell transplant
# History of recent back surgery/ recent L3-4 anterior fusion at [facility] by Dr. Moss.
Lumbar DDD
- Was doing well prior to syncopal event / fall.
- Activity as tolerated.
Benign Hypertension
- Stable. Continue losartan.
Anxiety / Depression
- Stable. Continue PRN lorazepam.
DVT Prophylaxis: SCDs
Code Status: Full
Total time spent to see the patient, examine the patient, review data and lab results, discuss treatment plan with patient, nursing staff around 55 minutes
Anticipated Discharge: 24 - 48 hours
Subjective/Interval History
-
Date of Service: May 29, 2025
Reports pleuritic chest pain in left lower side
No sob
No abd pain
Objective Data
-
Labs:
Laboratory Results
05/29/25
07:50
WBC 7.9
Hgb 11.6 L
Hct 34.4 L
Plt Count 277
Sodium 136
Potassium 4.6
Chloride 107
Carbon Dioxide 25
BUN 10
Creatinine 0.7
Glucose 88
Calcium 8.8
Vital Signs:
Vital Signs
Temp Pulse Resp BP Pulse Ox
98.8 F 75 16 131/76 95
05/29/25 07:00 05/29/25 07:00 05/29/25 07:00 05/29/25 07:00 05/29/25 07:00
--- NOTE | 2025-05-29 16:32 | CM ---
Patient seen at beside
[facility] form explained. In chart
IA completed
Dx: pleuritic chest pain
PMH significant for multiple myeloma in remission, scleroderma and recent admission with syncope / L pleural effusion
Lives in carriage home with 4 ANDREINA, flight to bed/bath
PLOF: Independent
DME: [employer]
has had [facility] in past, Denies Rehab
PCP: Daniel Easton
Pharmacy: [facility]
PLAN: home, no needs
drove self, but if needed has alternate transportation
[2025-05-29] MEDS: DILAUDID 0.5 MG IV (20:10)
[2025-05-30] VITALS (10 sets, daily range): BP systolic 68–166; BP diastolic 67–88; PULSE 72–75; O2SAT 99–100
[2025-05-30] MEDS: TORADOL 10 MG IV ×3 (04:30→20:17)
[2025-05-30 04:45] LABS: Hematocrit 30.4 % (37.0-47.0); Hemoglobin 10.1 g/dL (12.0-16.0); Mean Corp Hgb Conc. 33.2 g/dL (33.0-37.0); Mean Corpuscular Volume 88.4 fL (81.0-99.0); Platelet Count 240 10^3/uL (130-400); Red Cell Dist. Width 15.9 % (11.5-14.5)
[2025-05-30 05:39] LABS: AST (SGOT) 15 U/L (14-36); Albumin 2.9 g/dl (3.5-5.0); Alkaline Phosphatase 81 U/L (38-126); Blood Urea Nitrogen 12 mg/dl (7-17); Calcium 9.0 mg/dl (8.4-10.2); Carbon Dioxide 25 mmol/L (22-30); Chloride 107 mmol/L (98-107); Estimated Creatinine Clearance 65 ml/min; Sodium 135 mmol/L (135-145); Total Protein 4.8 g/dl (6.3-8.2); eGFR > 60.00
[2025-05-30 05:46] LABS: ALT (SGPT) 15 U/L (0-35); Glucose 98 mg/dl (70-99); Potassium 4.6 mmol/L (3.5-5.1)
[2025-05-30] MEDS: COZAAR 50 MG PO (08:09)
[2025-05-30] MEDS: ZOVIRAX 400 MG PO ×2 (08:09→20:18)
[2025-05-30] MEDS: VITAMIN C 1000 MG PO ×2 (08:09→20:17)
[2025-05-30] MEDS: TYLENOL 1000 MG PO ×3 (08:09→21:39)
[2025-05-30] MEDS: VITAMIN D3 (cholecalciferol) 125 MCG PO (08:09)
--- NOTE | 2025-05-30 10:04 | W.PN.PUL3 ---
Today's Communication / Plan
-
Repeat thora while inpatient vs outpatient set up reviewed, will discuss case with care team
Consider empiric treatment with abx and prednisone given lack of known cause
We discussed possibility of ASEPT placement as well as OP if needed--she has appt at [facility] [place] on 06/[address] Arreaga at 2:15
Discharge planning otherwise per team, she was agreeable
Assessment
-
69-year-old female with history of multiple myeloma status post stem cell transplant October 2024 at [place], on Revlimid therapy, recent L2/3 anterior fusion back surgery 05/30 at [place] complicated by left chest discomfort since procedure, had fall
with facial trauma admitted 05/23, underwent left thoracentesis at that time with elevated white count but otherwise normal cultures, normal cytology, now presents with persistent, worsening left chest discomfort and chest x-ray with slight worsening
of left pleural effusion. We are asked to comment on pulmonary process
Left-sided chest discomfort, persistent/progressive
Left pleural effusion, moderate/exudate
Slightly worse compared to prior imaging
S/p left thoracentesis 05/23, cytology/cultures negative to date
Neutrophilic predominance, elevated white cells
Exudate by protein (analysis incomplete)
Recent fall with right facial trauma
Workup negative
Conditions present prior to admission
Multiple myeloma status post stem cell transplant October 2024
On maintenance Revlimid therapy
Scleroderma/crest syndrome/lupus
On mycophenolate for 15 years, discontinued 2024
In remission per rheumatology, since stem cell transplant
Hypertension
Diverticular disease
Sigmoid resection/Skinny's procedure
Colostomy reversal
MIKALA/BSO
History of breast augmentation
Intermittent vaping
Intermittent marijuana use
Plan/recommendations
At this time, patient appears to be comfortable. She has complex history.
Salient features include recent left thoracentesis without significant improvement in pain, unremarkable cultures, negative cytology
Neutrophilic predominance per fluid analysis, likely due to recent lung injury/fall?
Patient also has point tenderness in the left rib although no obvious rib abnormality per recent CT chest
CT chest 05/23 without any evidence of pulm embolism
Timing of pain seems to corroborate with postoperative back surgery 05/09, patient states it was a left anterior upper abdominal approach
Moderate L sided effusion s/p thora 05/24/25
Removed 550cc
Chemistry reviewed: pH 7.44 - wbc 3470 - glu 106 - tp 3.8 - ldh 154 - amylase 87 - tg <30--exudative, could be malignant vs parapneumonic
Culture and cyto negative
Recurrence is noted on repeat CXR --can repeat thora while inpatient vs outpatient
Second issue will be pain control. She does have point tenderness in the left lower rib
I could not appreciate any obvious rib abnormality on recent CT imaging 05/23
She will require pulmonary follow-up as outpatient
She may require intermittent thoracentesis of the left side to help facilitate analysis/diagnostic workup and facilitate auto pleurodesis
We discussed placement of ASEPT as well, can be arranged as OP
She is on Revlimid therapy
MM and CTD carry their own risk of pleural effusion/pleurisy
Otherwise we will focus on pain control at this time, bowel regimen as needed
Strongly recommend follow-up with pulmonary in the next few weeks, appointment already set up 06/[address] Arreaga at 215
Reviewed at length with primary service
Discharge planning per team
Diagnostic Data
Chest X-Ray: 05/28/25- 1. MODERATE LEFT PLEURAL EFFUSION with adjacent compressive atelectasis of the basilar segments of the left lower lobe which appears to have increased.
2. Right IJ Mediport catheter in place.
3. Bilateral breast implants and left total shoulder arthroplasty in place.
CT Scan: CHEST 05/23/25- . Negative for pulmonary embolism.
2. Small to moderate left pleural effusion and adjacent compressive atelectasis.
3. Chronic dilation of right renal pelvis, question mild congenital UPJ obstruction.
Echo: 05/24/25- 1. Limited echocardiogram.
2. Normal biventricular size and systolic function. LV ejection fraction visually estimated 60-65%. GLS Endo peak average -18.9%.
3. Mild mitral regurgitation.
4. Trace tricuspid regurgitation.
5. Trileaflet mildly thickened aortic valve. No aortic regurgitation.
6. No pericardial effusion.
7. When compared to prior study dated 02/07/2025, GLS Endo peak average was -19.9%. No significant change.
PFT's:
Reports and relevant images were personally reviewed.
Total time spent on this consultation/encounter __50__ minutes which includes review of history, physical exam, medications, laboratory data, personal review of imaging, extensive review of outpatient records, discussion with care team and
respiratory therapy.
Subjective Data
-
Date of Service:
Date of Service: May 30, 2025
Chief Complaint: Pulmonary Follow Up
Subjective:
Reports L sided discomfort but otherwise remains stable on RA
No new complaints
Objective Data
Data Reviewed
Vital Signs / I&O / Oxygen:
Vital Signs
Temp Pulse Resp BP Pulse Ox
98.2 F 73 16 134/77 98
05/30/25 07:00 05/30/25 08:09 05/30/25 07:00 05/30/25 08:09 05/30/25 09:23
Intake and Output
05/29/25 05/30/25 05/31/25
06:59 06:59 06:59
Intake Total 1280 / 1280
Balance 1280 / 1280
SaO2 98
Physical Exam
General: Comfortable and Other (NAD)
HEENT: Normocephalic, Anicteric and Moist Mucous Membranes
Cardiovascular: S1-S2 and Regular Rhythm
Respiratory: Clear (diminished at L base) and Non-Labored Respirations
GI: Soft, Non Distended and Non Tender
Neurology: Awake, Alert, Oriented and No Motor Deficits
Skin: Warm, Dry and Good Color
Labs/Micro/Reports
Lab Data
05/30/25 04:16
05/30/25 04:16
Microbiology
05/29/25 08:39 Blood/Venous Blood Culture - Preliminary
No Growth in 24 hours- Final report to follow
05/28/25 21:43 Blood/Venous Blood Culture - Preliminary
No Growth in 24 hours- Final report to follow
05/28/25 20:22 Nasal Swab Influenza Types A & B (DEMARCUS) - Final
Negative for Influenza A & B, NAAT
Negative results must be combined with clinical observations
and patient history.
Nucleic Acid Amplification test (NAAT)performed on the
[employer] platform.
[2025-05-30] MEDS: MIRALAX 17 GRAMS PO (12:00)
[2025-05-30 12:07] LABS: Body Fluid Second Tech EM
[2025-05-30 12:07] LABS: LDH 190 U/L (120-246)
[2025-05-30] MEDS: ZOFRAN 4 MG IV ×2 (13:30→22:02)
[2025-05-30] MEDS: DILAUDID 0.5 MG IV ×2 (13:31→21:53)
--- NOTE | 2025-05-30 15:59 | W.PN.HOSP.TC ---
Today's Communication/Plan
-
Assessment / Plan
Assessment / Plan
Left-sided pleuritic chest discomfort
Noted to have pleural effusion
Pulmonary evaluated recommended thoracentesis
Thoracentesis completed on 05/30, exudative, 800 cc removed
Will check CT PE study to ensure no pulmonary embolism however likelihood is low suspicion is not hypoxic, not tachycardic
Multiple myeloma in remission
S/p home cell transplant in October
Hyponatremia
Resolved
History of recent back surgery/ recent L3-4 anterior fusion at [facility] by Dr. Moss.
Lumbar DDD
- Was doing well prior to syncopal event / fall.
- Activity as tolerated.
Benign Hypertension
- Stable. Continue losartan.
Anxiety / Depression
- Stable. Continue PRN lorazepam.
CT PE negative. Plan to discharge home
Anticipated Discharge: Within 24 hours
Subjective/Interval History
-
Date of Service: May 30, 2025
Seen and examined. No new complaints. No acute overnight events.
Objective Data
-
Labs:
Laboratory Results
05/30/25
04:16
WBC 6.6
Hgb 10.1 L
Hct 30.4 L
Plt Count 240
Sodium 135
Potassium 4.6
Chloride 107
Carbon Dioxide 25
BUN 12
Creatinine 0.7
Glucose 98
Calcium 9.0
Total Bilirubin 0.4
AST 15
ALT 15
Alkaline Phosphatase 81
Vital Signs:
Vital Signs
Temp Pulse Resp BP Pulse Ox
99 F 68 15 137/67 99
05/30/25 10:20 05/30/25 11:34 05/30/25 11:34 05/30/25 11:34 05/30/25 11:15
I&O
05/29/25 05/30/25 05/31/25
06:59 06:59 06:59
Intake Total 1280 / 1280
Balance 1280 / 1280
Physical Exam
-
General: No Apparent Distress and Comfortable
HEENT: Normocephalic and Atraumatic
Respiratory: Clear to Auscultation
Cardiac: Regular Rhythm and S1/S2
GI: Soft, Nontender and Nondistended
Neuro: Awake and AO x 3
Psych: Calm
[2025-05-31 03:00] VITALS: BP 127/65
[2025-05-31] MEDS: TORADOL 10 MG IV (03:33)
[2025-05-31 07:19] VITALS: BP 133/62
[2025-05-31] MEDS: DILAUDID 0.5 MG IV (07:23)
[2025-05-31] MEDS: TYLENOL 1000 MG PO (07:24)
[2025-05-31] MEDS: COZAAR 50 MG PO (07:24)
[2025-05-31] MEDS: VITAMIN D3 (cholecalciferol) 125 MCG PO (07:24)
[2025-05-31] MEDS: VITAMIN C 1000 MG PO (07:24)
[2025-05-31] MEDS: ZOVIRAX 400 MG PO (07:26)
[2025-05-31] MEDS: ZOFRAN 4 MG IV (08:55)
--- NOTE | 2025-05-31 09:10 | W.PN.PUL3 ---
Today's Communication / Plan
-
s/p thora, repeat CXR improved
CT chest showing LLL consolidation, empiric treatment for presumed PNA w/ PO prednisone and LVQ course
Remains stable for discharge, defer planning per team
Reviewed her OP FU on 06/02, keep appt and repeat CXR as OP to follow along
Assessment
-
69-year-old female with history of multiple myeloma status post stem cell transplant October 2024 at [place], on Revlimid therapy, recent L2/3 anterior fusion back surgery 05/30 at [place] complicated by left chest discomfort since procedure, had fall
with facial trauma admitted 05/23, underwent left thoracentesis at that time with elevated white count but otherwise normal cultures, normal cytology, now presents with persistent, worsening left chest discomfort and chest x-ray with slight worsening
of left pleural effusion. We are asked to comment on pulmonary process
Left-sided chest discomfort, persistent/progressive
Left pleural effusion, moderate/exudate
Slightly worse compared to prior imaging
S/p left thoracentesis 05/23, cytology/cultures negative to date
Neutrophilic predominance, elevated white cells
Exudate by protein (analysis incomplete)
Recent fall with right facial trauma
Workup negative
Conditions present prior to admission
Multiple myeloma status post stem cell transplant October 2024
On maintenance Revlimid therapy
Scleroderma/crest syndrome/lupus
On mycophenolate for 15 years, discontinued 2024
In remission per rheumatology, since stem cell transplant
Hypertension
Diverticular disease
Sigmoid resection/Skinny's procedure
Colostomy reversal
MIKALA/BSO
History of breast augmentation
Intermittent vaping
Intermittent marijuana use
Plan/recommendations
At this time, patient appears to be comfortable. She has complex history.
Salient features include recent left thoracentesis without significant improvement in pain, unremarkable cultures, negative cytology
Neutrophilic predominance per fluid analysis, likely due to recent lung injury/fall?
Patient also has point tenderness in the left rib although no obvious rib abnormality per recent CT chest
CT chest 05/23 without any evidence of pulm embolism
Timing of pain seems to corroborate with postoperative back surgery 05/09, patient states it was a left anterior upper abdominal approach
Moderate L sided effusion s/p thora 05/24/25
Removed 550cc
Chemistry reviewed: pH 7.44 - wbc 3470 - glu 106 - tp 3.8 - ldh 154 - amylase 87 - tg <30--exudative, could be malignant vs parapneumonic
Culture and cyto negative
Recurrence is noted on repeat CXR --can repeat thora while inpatient vs outpatient
s/p repeat thora 05/30, repeat CXR improved
Reviewed repeat CT chest with residual consolidation
Will start empiric treatment for PNA, PO prednisone/LVQ given abx allergies--to be continued at discharge
Second issue will be pain control. She does have point tenderness in the left lower rib
I could not appreciate any obvious rib abnormality on recent CT imaging 05/23
She will require pulmonary follow-up as outpatient
She may require intermittent thoracentesis of the left side to help facilitate analysis/diagnostic workup and facilitate auto pleurodesis
We discussed placement of ASEPT as well, can be arranged as OP
She is on Revlimid therapy
MM and CTD carry their own risk of pleural effusion/pleurisy
Otherwise we will focus on pain control at this time, bowel regimen as needed
Strongly recommend follow-up with pulmonary in the next few weeks, appointment already set up 06/[address] Arreaga at 215
Reviewed at length with primary service
Discharge planning per team
Diagnostic Data
Chest X-Ray: 05/28/25- 1. MODERATE LEFT PLEURAL EFFUSION with adjacent compressive atelectasis of the basilar segments of the left lower lobe which appears to have increased.
2. Right IJ Mediport catheter in place.
3. Bilateral breast implants and left total shoulder arthroplasty in place.
CT Scan: CHEST 05/23/25- 1. Negative for pulmonary embolism.
2. Small to moderate left pleural effusion and adjacent compressive atelectasis.
3. Chronic dilation of right renal pelvis, question mild congenital UPJ obstruction.
Echo: 05/24/25- 1. Limited echocardiogram.
2. Normal biventricular size and systolic function. LV ejection fraction visually estimated 60-65%. GLS Endo peak average -18.9%.
3. Mild mitral regurgitation.
4. Trace tricuspid regurgitation.
5. Trileaflet mildly thickened aortic valve. No aortic regurgitation.
6. No pericardial effusion.
7. When compared to prior study dated 02/07/2025, GLS Endo peak average was -19.9%. No significant change.
PFT's:
Reports and relevant images were personally reviewed.
Total time spent on this consultation/encounter __50__ minutes which includes review of history, physical exam, medications, laboratory data, personal review of imaging, extensive review of outpatient records, discussion with care team and
respiratory therapy.
Subjective Data
-
Date of Service:
Date of Service: May 31, 2025
Chief Complaint: Pulmonary Follow Up
Subjective:
Still having some L sided pain, but otherwise no change
Stable on RA
Objective Data
Data Reviewed
Vital Signs / I&O / Oxygen:
Vital Signs
Temp Pulse Resp BP Pulse Ox
98.3 F 61 18 133/62 100
05/31/25 07:19 05/31/25 07:24 05/31/25 07:19 05/31/25 07:24 05/31/25 09:01
Intake and Output
05/30/25 05/31/25 06/01/25
06:59 06:59 06:59
Intake Total 1280 / 1280 1480 / 1480
Balance 1280 / 1280 1480 / 1480
SaO2 100
Physical Exam
General: Comfortable and Other (NAD)
HEENT: Normocephalic, Anicteric and Moist Mucous Membranes
Cardiovascular: S1-S2 and Regular Rhythm
Respiratory: Clear (diminished at L base) and Non-Labored Respirations
GI: Soft, Non Distended and Non Tender
Neurology: Awake, Alert, Oriented and No Motor Deficits
Skin: Warm, Dry and Good Color
Labs/Micro/Reports
Lab Data
05/30/25 04:16
05/30/25 04:16
Microbiology
05/29/25 08:39 Blood/Venous Blood Culture - Preliminary
No Growth in 48 hours- Final report to follow
05/28/25 21:43 Blood/Venous Blood Culture - Preliminary
No Growth in 48 hours- Final report to follow
05/30/25 11:18 Pleural Fluid Gram Stain - Preliminary
05/28/25 20:22 Nasal Swab Influenza Types A & B (DEMARCUS) - Final
Negative for Influenza A & B, NAAT
Negative results must be combined with clinical observations
and patient history.
Nucleic Acid Amplification test (NAAT)performed on the
[employer] platform.
[2025-05-31] MEDS: LEVAQUIN 750 MG PO (10:28)
[2025-05-31] MEDS: DELTASONE 40 MG PO (10:29)
[2025-05-31 11:26] VITALS: BP 143/89
--- NOTE | 2025-05-31 16:53 | W.DCSUMMARY ---
Discharge Summary
Discharge Data
Date of Admission: 05/29/25
Date of Discharge: 05/31/25
-
Pending Results: No
Hospital Course
69y F with PMH significant for multiple myeloma in remission / on Revlimid and recent hospitalization for chest pain and L pleural effusion
Presented with left-sided chest discomfort with findings of a pleural effusion on imaging studies. Pulmonary evaluated recommended thoracentesis which is a repeat. Fluid consistent with exudative effusion and pulmonary recommended outpatient
follow-up along with prednisone taper and levaquin with follow-up with pulmonary on 06/02.
CTPE Study
IMPRESSION:
1. LARGE LEFT LOWER LOBE AIRSPACE CONSOLIDATION. Diagnostic possibilities are (1) severe left lower lobe pneumonia or (2) residual left lower lobe atelectasis.
2. Small residual left pleural effusion.
3. Mild airspace consolidation in the posterior aspect of the lingula (probably subsegmental atelectasis).
4. 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
No PE noted on the study
Was seen and examined on the day of discharge which was 05/31/2025
No new complaints. No acute overnight events. Walking the hallways well
Without evidence of shortness of breath
NAD
Scleral Anicteric
MMM
No JVD
CTABL, diminished breath sounds left pleural base
RRR, S1/S2
Soft, NT, ND, BS+
Warm, Dry
AAOx3
Calm
More than 30 minutes spent in discharge including
Final examination of the patient
Summarizing hospital stay
Instructions for continuing care to all relevant caregivers
Preparation of discharge records, prescriptions, and referral forms
Total time spent (in minutes): 36mins
Discharge Plan
-
Patient Disposition: Home (Routine Discharge)
Discharge Diagnosis/Procedures: Recurrent pleural effusion
Condition: Good
Diet: As tolerated
Activity: As tolerated
Activity Restrictions/Additional Instructions:
Presented with left-sided chest discomfort with findings of a pleural effusion on imaging studies. Pulmonary evaluated recommended thoracentesis which is a repeat. Fluid consistent with exudative effusion and pulmonary recommended outpatient
follow-up along with prednisone taper and levaquin with follow-up with pulmonary on 06/02.
CTPE Study
IMPRESSION:
1. LARGE LEFT LOWER LOBE AIRSPACE CONSOLIDATION. Diagnostic possibilities are (1) severe left lower lobe pneumonia or (2) residual left lower lobe atelectasis.
2. Small residual left pleural effusion.
3. Mild airspace consolidation in the posterior aspect of the lingula (probably subsegmental atelectasis).
4. 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
No PE noted on the study
Referrals:
Paul Arreaga MD [Active, Pulmonary Medicine]
Referral Note: already scheduled-06/[address] Arreaga at 2:15
Daniel Easton MD [Family Provider, Internal Medicine]
Additional Discharge Medication Instructions: avoid exercising and strenous activity while on levaquin
Prescriptions:
New
prednisone 10 mg tablet
See Taper PO DAILY Qty: 20 0RF
Taper: Prednisone DC Starting at 40 mg daily
40 mg Daily for 2 Days and 0 Hour
30 mg Daily for 2 Days and 0 Hour
20 mg Daily for 2 Days and 0 Hour
10 mg Daily for 2 Days and 0 Hour
levofloxacin 750 mg tablet
750 mg PO DAILY Qty: 10 0RF
Rx Instructions:
start on 06/01 AM
Continued
losartan 50 MG tablet
50 mg PO DAILY
ascorbic acid (vitamin C) [Vitamin C] 500 MG tablet
1,000 mg PO BID
quercetin 500 mg Capsule
250 mg PO DAILY
Medical Cannabis
1 gummy PO DAILYPRN PRN (Reason: mild pain)
cholecalciferol (vitamin D3) [Vitamin D3] 125 mcg (5,000 unit) Tablet
125 mcg PO DAILY
Artificial Tears (cmc) 1 % Drops
1 drp BOTH EYES BIDPRN PRN (Reason: dry eyes)
meclizine [Antivert] 25 mg Tablet,Chewable
25 mg PO BIDPRN PRN (Reason: nausea or vertigo) Qty: 10 0RF
lenalidomide [Revlimid] 10 mg Capsule
10 mg PO DIRECTED
Rx Instructions:
take for 21 days then off 7 days off
tizanidine 2 mg Capsule
2 mg PO DAILY PRN (Reason: pain)
acyclovir 400 mg Tablet
400 mg PO BID
lorazepam 0.5 mg Tablet
0.5 mg PO BIDPRN PRN (Reason: anxiety)
[id number] [Excedrin Migraine] 250-250-65 mg Tablet
1 tab PO DAILYPRN PRN (Reason: mild pain)
Discharge Orders:
Discharge Patient (As Directed); Ordered 05/31/25
Ordered By: Glen Kelly
Discharge Date and Time
Discharge Date/Time: 05/31/25 12:24
Print Language: WELSH
== END 2025-05-31 12:24 | disposition home or self-care (01) | DRG 167 ==
LOC: 3 WEST ACU 06:54
PROVIDERS: Internal Medicine; Radiology Vascular & Interventional Radiology; ADMITTING PHYSICIAN Hospitalist; ATTENDING PHYSICIAN Hospitalist; CONSULT PHYSICIAN Internal Medicine Critical Care Medicine; EMERGENCY PHYSICIAN Emergency Medicine; FAMILY PHYSICIAN Internal Medicine
PROC: 0W9B4ZZ Drainage of Left Pleural Cavity, Percutaneous Endoscopic Approach (ICD-10-PCS; 2025-05-30)
DX: J18.9 Pneumonia, unspecified organism (principal); C90.01 Multiple myeloma in remission; J90 Pleural effusion, not elsewhere classified; E87.1 Hypo-osmolality and hyponatremia; Z94.84 Stem cells transplant status; M35.1 Other overlap syndromes; J98.11 Atelectasis; Q62.39 Other obstructive defects of renal pelvis and ureter; I10 Essential (primary) hypertension; F32.A Depression, unspecified; F41.9 Anxiety disorder, unspecified; G43.909 Migraine, unspecified, not intractable, without status migrainosus; K58.9 Irritable bowel syndrome, unspecified; M54.9 Dorsalgia, unspecified; I73.00 Raynaud's syndrome without gangrene; E03.9 Hypothyroidism, unspecified; N87.9 Dysplasia of cervix uteri, unspecified; R91.1 Solitary pulmonary nodule; F17.290 Nicotine dependence, other tobacco product, uncomplicated; M32.9 Systemic lupus erythematosus, unspecified; M34.1 CR(E)ST syndrome; Z96.643 Presence of artificial hip joint, bilateral; Z87.19 Personal history of other diseases of the digestive system; Z98.82 Breast implant status; Z98.1 Arthrodesis status; Z88.5 Allergy status to narcotic agent; Z82.49 Family history of ischemic heart disease and other diseases of the circulatory system; Z90.49 Acquired absence of other specified parts of digestive tract; Z90.710 Acquired absence of both cervix and uterus; Z90.722 Acquired absence of ovaries, bilateral; Z88.1 Allergy status to other antibiotic agents; Z88.0 Allergy status to penicillin; Z88.2 Allergy status to sulfonamides; Z91.048 Other nonmedicinal substance allergy status; Z11.52 Encounter for screening for COVID-19
CPT/HCPCS: 32555; 71045; 71046; 71275; 74019; 76700; 80048; 80053; 81003; 82784; 82945; 83521; 83605; 83615; 84155; 84157; 84165; 84478; 84484; 85025; 85027; 85610; 86334; 87015; 87040; 87070; 87205; 87502; 87811; 89051; 93005; 96374; 96375; 97116; 97162; 97166; 99285; Q9967

== ENCOUNTER → 2025-06-03 10:12 | Outpatient (REF) | payer MEDICARE, OTHER, SELFPAY | LOC: RAD 10:12 | PROVIDERS: ATTENDING PHYSICIAN Internal Medicine Critical Care Medicine; FAMILY PHYSICIAN Internal Medicine | DX: J90 Pleural effusion, not elsewhere classified (principal) | CPT/HCPCS: 71046 ==

== ENCOUNTER → 2025-06-13 10:27 | Outpatient (REF) | payer MEDICARE, OTHER, SELFPAY | LOC: RAD 10:27 | PROVIDERS: ATTENDING PHYSICIAN Internal Medicine | DX: J90 Pleural effusion, not elsewhere classified (principal); R06.02 Shortness of breath | CPT/HCPCS: 71046 ==

== ENCOUNTER 2025-07-04 11:24 | Outpatient (RCR) | payer MEDICARE, OTHER, SELFPAY ==
[2025-07-04 12:06] LABS: Hematocrit 37.9 % (37.0-47.0); Hemoglobin 12.7 g/dL (12.0-16.0); Mean Corp Hgb Conc. 33.5 g/dL (33.0-37.0); Mean Corpuscular Volume 90.7 fL (81.0-99.0); Platelet Count 267 10^3/uL (130-400); Red Cell Dist. Width 16.8 % (11.5-14.5)
[2025-07-04 12:58] LABS: ALT (SGPT) 22 U/L (0-35); AST (SGOT) 20 U/L (14-36); Albumin 4.1 g/dl (3.5-5.0); Alkaline Phosphatase 89 U/L (38-126); Blood Urea Nitrogen 16 mg/dl (7-17); Calcium 9.3 mg/dl (8.4-10.2); Carbon Dioxide 25 mmol/L (22-30); Chloride 105 mmol/L (98-107); Glucose 90 mg/dl (70-99); Potassium 4.2 mmol/L (3.5-5.1); Sodium 135 mmol/L (135-145); Total Protein 6.2 g/dl (6.3-8.2); eGFR > 60.00
[2025-07-06 22:18] LABS: Albumin 3.91 g/dL (3.75-5.01); Free Kappa Light Chains,Quant 3.53 mg/L (3.30-19.40); Free Lambda Light Chains,Quant 26.00 mg/L (5.71-26.30); Immunofixation Electrophoresis IFE Done; Kappa/Lambda Fr Light Ratio 0.14 (0.26-1.65); Total Protein-Electrophoresis 5.9 g/dL (6.3-8.2)
== END 2025-07-05 23:59 | disposition home or self-care (01) ==
LOC: OID 11:24
PROVIDERS: ATTENDING PHYSICIAN Internal Medicine Hematology & Oncology; FAMILY PHYSICIAN Internal Medicine; REFERRING PHYSICIAN Surgery
DX: D80.1 Nonfamilial hypogammaglobulinemia (principal); C90.00 Multiple myeloma not having achieved remission; D64.9 Anemia, unspecified; R53.81 Other malaise
CPT/HCPCS: 80053; 82232; 82784; 83521; 84155; 84165; 85025; 86334

== ENCOUNTER 2025-07-05 17:06 | Outpatient (RCR) | payer MEDICARE, OTHER, SELFPAY | END 2025-07-05 23:59 | disposition home or self-care (01) | LOC: RPT 17:06 | PROVIDERS: ATTENDING PHYSICIAN Nurse Practitioner; FAMILY PHYSICIAN Internal Medicine | DX: R15.9 Full incontinence of feces (principal); M62.89 Other specified disorders of muscle; R35.0 Frequency of micturition; Z73.6 Limitation of activities due to disability | CPT/HCPCS: 97110; 97140; 97164 ==

== ENCOUNTER → 2025-07-07 10:22 | Outpatient (REF) | payer MEDICARE, OTHER, SELFPAY | LOC: RAD 10:22 | PROVIDERS: ATTENDING PHYSICIAN Surgery; FAMILY PHYSICIAN Internal Medicine; OTHER PHYSICIAN Nurse Practitioner | DX: N13.5 Crossing vessel and stricture of ureter without hydronephrosis (principal); M62.89 Other specified disorders of muscle | CPT/HCPCS: 36415; 78708; A9539 ==

== ENCOUNTER 2025-07-25 06:19 | Day surgery (SDC) | payer MEDICARE, OTHER, SELFPAY ==
[2025-07-25 09:49] VITALS: BMI 20.6
[2025-07-25 09:50] VITALS: BP 128/80
[2025-07-25 11:34] VITALS: BP 132/63
[2025-07-25 11:35] VITALS: BP 128/80
[2025-07-25 11:45] VITALS: BP 138/69
[2025-07-25 12:10] VITALS: BP 140/66
[2025-07-25 12:25] VITALS: BP 136/67
== END 2025-07-25 12:59 | disposition home or self-care (01) ==
LOC: SDS 06:19
PROVIDERS: ATTENDING PHYSICIAN Surgery
DX: Q64.8 Other specified congenital malformations of urinary system (principal)
CPT/HCPCS: 52332; 74018; 76000; C1769; C2617

== ENCOUNTER → 2025-07-27 14:59 | Outpatient (REF) | payer MEDICARE, OTHER, SELFPAY ==
[2025-07-27 15:12] LABS: Hematocrit 38.1 % (37.0-47.0); Hemoglobin 12.5 g/dL (12.0-16.0); Mean Corp Hgb Conc. 32.8 g/dL (33.0-37.0); Mean Corpuscular Volume 93.8 fL (81.0-99.0); Platelet Count 250 10^3/uL (130-400); Red Cell Dist. Width 15.8 % (11.5-14.5)
[2025-07-27 16:18] LABS: ALT (SGPT) 27 U/L (0-35); AST (SGOT) 31 U/L (14-36); Albumin 4.0 g/dl (3.5-5.0); Alkaline Phosphatase 86 U/L (38-126); Blood Urea Nitrogen 23 mg/dl (7-17); Calcium 9.1 mg/dl (8.4-10.2); Carbon Dioxide 25 mmol/L (22-30); Chloride 104 mmol/L (98-107); Glucose 110 mg/dl (70-99); Potassium 4.0 mmol/L (3.5-5.1); Sodium 133 mmol/L (135-145); Total Protein 6.4 g/dl (6.3-8.2); eGFR > 60.00
== END ==
LOC: OIDL 14:59
PROVIDERS: ATTENDING PHYSICIAN Nurse Practitioner Acute Care
DX: D64.9 Anemia, unspecified (principal); R53.81 Other malaise; C90.00 Multiple myeloma not having achieved remission; D80.1 Nonfamilial hypogammaglobulinemia
CPT/HCPCS: 80053; 85025; 86850; 86900; 86901

== ENCOUNTER → 2025-07-28 17:07 | Outpatient (REF) | payer MEDICARE, OTHER, SELFPAY | LOC: RAD 17:07 | PROVIDERS: ATTENDING PHYSICIAN Internal Medicine | DX: R05.1 Acute cough (principal) | CPT/HCPCS: 71046 ==

== ENCOUNTER → 2025-08-01 10:38 | Outpatient (REF) | payer MEDICARE, OTHER, SELFPAY ==
[2025-08-01 11:47] LABS: Hematocrit 38.2 % (37.0-47.0); Hemoglobin 12.7 g/dL (12.0-16.0); Mean Corp Hgb Conc. 33.2 g/dL (33.0-37.0); Mean Corpuscular Volume 90.5 fL (81.0-99.0); Nucleated Red Blood Cells % 0 %; Platelet Count 274 10^3/uL (130-400); Red Cell Dist. Width 15.9 % (11.5-14.5)
[2025-08-01 12:43] LABS: ALT (SGPT) 24 U/L (0-35); AST (SGOT) 18 U/L (14-36); Albumin 3.9 g/dl (3.5-5.0); Alkaline Phosphatase 84 U/L (38-126); Blood Urea Nitrogen 19 mg/dl (7-17); Calcium 8.9 mg/dl (8.4-10.2); Carbon Dioxide 27 mmol/L (22-30); Chloride 101 mmol/L (98-107); Glucose 95 mg/dl (70-99); Potassium 4.4 mmol/L (3.5-5.1); Sodium 132 mmol/L (135-145); Total Protein 6.1 g/dl (6.3-8.2); eGFR > 60.00
== END ==
LOC: REG 10:38
PROVIDERS: ATTENDING PHYSICIAN Internal Medicine Hematology & Oncology; FAMILY PHYSICIAN Internal Medicine
DX: D64.9 Anemia, unspecified (principal); R53.81 Other malaise; C90.00 Multiple myeloma not having achieved remission; D80.1 Nonfamilial hypogammaglobulinemia
CPT/HCPCS: 36415; 80053; 85025

== ENCOUNTER 2025-08-04 11:02 | Outpatient (RCR) | payer MEDICARE, OTHER, SELFPAY | END 2025-08-04 23:59 | disposition home or self-care (01) | LOC: RPT 11:02 | PROVIDERS: ATTENDING PHYSICIAN Nurse Practitioner; FAMILY PHYSICIAN Internal Medicine | DX: R15.9 Full incontinence of feces (principal); M62.89 Other specified disorders of muscle; R35.0 Frequency of micturition; Z73.6 Limitation of activities due to disability | CPT/HCPCS: 97110; 97140 ==

== ENCOUNTER → 2025-08-04 14:05 | Outpatient (REF) | payer MEDICARE, OTHER, SELFPAY ==
[2025-08-04 14:53] LABS: Hematocrit 35.8 % (37.0-47.0); Hemoglobin 11.7 g/dL (12.0-16.0); Mean Corp Hgb Conc. 32.7 g/dL (33.0-37.0); Mean Corpuscular Volume 93.7 fL (81.0-99.0); Nucleated Red Blood Cells % 0 %; Platelet Count 287 10^3/uL (130-400); Red Cell Dist. Width 15.6 % (11.5-14.5)
[2025-08-04 15:26] LABS: C-Reactive Protein 9.50 mg/L (0.0-10.00)
[2025-08-04 15:51] LABS: ALT (SGPT) 23 U/L (0-35); AST (SGOT) 23 U/L (14-36); Albumin 4.0 g/dl (3.5-5.0); Alkaline Phosphatase 97 U/L (38-126); Blood Urea Nitrogen 24 mg/dl (7-17); Calcium 9.1 mg/dl (8.4-10.2); Carbon Dioxide 22 mmol/L (22-30); Chloride 102 mmol/L (98-107); Glucose 141 mg/dl (70-99); Potassium 4.1 mmol/L (3.5-5.1); Sodium 132 mmol/L (135-145); Total Protein 6.2 g/dl (6.3-8.2); eGFR > 60.00
== END ==
LOC: REG 14:05
PROVIDERS: ATTENDING PHYSICIAN Internal Medicine
DX: M53.3 Sacrococcygeal disorders, not elsewhere classified (principal); G89.29 Other chronic pain; C90.00 Multiple myeloma not having achieved remission; G25.82 Stiff-man syndrome
CPT/HCPCS: 36415; 72110; 72170; 80053; 85025; 85652; 86140

== ENCOUNTER 2025-08-08 13:39 | Outpatient (RCR) | payer MEDICARE, OTHER, SELFPAY ==
[2025-08-08 13:58] VITALS: BP 125/77
[2025-08-08 14:18] LABS: Hematocrit 37.2 % (37.0-47.0); Hemoglobin 12.6 g/dL (12.0-16.0); Mean Corp Hgb Conc. 33.9 g/dL (33.0-37.0); Mean Corpuscular Volume 91.9 fL (81.0-99.0); Platelet Count 266 10^3/uL (130-400); Red Cell Dist. Width 15.6 % (11.5-14.5)
[2025-08-08 15:08] LABS: ALT (SGPT) 36 U/L (0-35); AST (SGOT) 25 U/L (14-36); Albumin 3.8 g/dl (3.5-5.0); Alkaline Phosphatase 94 U/L (38-126); Blood Urea Nitrogen 22 mg/dl (7-17); Calcium 8.9 mg/dl (8.4-10.2); Carbon Dioxide 27 mmol/L (22-30); Chloride 100 mmol/L (98-107); Glucose 98 mg/dl (70-99); Potassium 4.3 mmol/L (3.5-5.1); Sodium 129 mmol/L (135-145); Total Protein 6.0 g/dl (6.3-8.2); eGFR > 60.00
[2025-08-11 23:48] LABS: Albumin 3.67 g/dL (3.75-5.01); Free Kappa Light Chains,Quant 1.50 mg/L (3.30-19.40); Free Lambda Light Chains,Quant 25.38 mg/L (5.71-26.30); Immunofixation Electrophoresis IFE Done; Kappa/Lambda Fr Light Ratio 0.06 (0.26-1.65); Total Protein-Electrophoresis 5.7 g/dL (6.3-8.2)
== END 2025-08-30 14:25 | disposition home or self-care (01) ==
LOC: OID 13:39
PROVIDERS: ATTENDING PHYSICIAN Internal Medicine Hematology & Oncology; FAMILY PHYSICIAN Internal Medicine; REFERRING PHYSICIAN Surgery
DX: C90.00 Multiple myeloma not having achieved remission (principal); D80.1 Nonfamilial hypogammaglobulinemia; D64.9 Anemia, unspecified; R53.81 Other malaise
CPT/HCPCS: 80053; 82232; 82784; 83521; 84155; 84165; 85025; 86334

== ENCOUNTER → 2025-08-10 08:12 | Outpatient (REF) | payer MEDICARE, OTHER, SELFPAY ==
[2025-08-10 17:05] LABS: Free T3 3.32 pg/ml (2.77-5.27); Vitamin D, 25-OH*** 110 ng/mL (30-80)
[2025-08-10 17:17] LABS: TSH 1.96 uIU/ml (0.47-4.68)
[2025-08-12 00:13] LABS: Total T3 (Sendout) 80 ng/dL (80-200)
== END ==
LOC: REG 08:12
PROVIDERS: ATTENDING PHYSICIAN Family Medicine; FAMILY PHYSICIAN Internal Medicine; OTHER PHYSICIAN Internal Medicine Hematology & Oncology
DX: C90.00 Multiple myeloma not having achieved remission (principal); E03.9 Hypothyroidism, unspecified; M81.0 Age-related osteoporosis without current pathological fracture
CPT/HCPCS: 36415; 82306; 84439; 84443; 84480; 84481

== ENCOUNTER → 2025-08-15 12:56 | Outpatient (REF) | payer MEDICARE, OTHER, SELFPAY ==
[2025-08-15 17:50] LABS: Hematocrit 37.8 % (37.0-47.0); Hemoglobin 12.7 g/dL (12.0-16.0); Mean Corp Hgb Conc. 33.6 g/dL (33.0-37.0); Mean Corpuscular Volume 92.4 fL (81.0-99.0); Nucleated Red Blood Cells % 0 %; Platelet Count 226 10^3/uL (130-400); Red Cell Dist. Width 16.4 % (11.5-14.5)
== END ==
LOC: HWRAD 12:56
PROVIDERS: ATTENDING PHYSICIAN Internal Medicine Critical Care Medicine; FAMILY PHYSICIAN Internal Medicine; OTHER PHYSICIAN Internal Medicine Hematology & Oncology
DX: J90 Pleural effusion, not elsewhere classified (principal); J18.9 Pneumonia, unspecified organism; D64.9 Anemia, unspecified; R53.81 Other malaise; C90.00 Multiple myeloma not having achieved remission; D80.1 Nonfamilial hypogammaglobulinemia
CPT/HCPCS: 36415; 71250; 85025

== ENCOUNTER 2025-08-18 06:41 | Day surgery (SDC) | payer MEDICARE, OTHER, SELFPAY ==
--- NOTE | 2025-07-25 11:44 | W.IMMPOSTOP ---
Surgical Immed Post Op Note
-
Primary Surgeon: Dolly
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
Post-op Diagnosis: No evidence of right ureteral stricture or high-grade UPJO (on RGP), dilated extrarenal pelvis
Procedure Performed: cysto, right RPG/stent insertion
Anesthesia Type: LMA
Specimen / Cultures: None/None
Estimated Blood Loss: Negligible
Drains: 4.7Fr x 22 cm JJ left ureteral stent
Complications: None
Operative Findings: right RGP w/ extrarenal pelvis noted on fluoroscopy, no evident high-grade UPJO or ureteral narrowing/stricture appreciated.
D/w daughter.
Plan for stent decompression x2 weeks and re-evaluation of right flank/abdominal symptoms.
[2025-08-18] VITALS (9 sets, daily range): BP systolic 83–162; BP diastolic 34–88; BMI 20.8
[2025-08-18] MEDS: NORMOSOL-R/PLASMALYTE-A 1000 IV (11:31)
== END 2025-08-18 14:06 | disposition home or self-care (01) ==
LOC: SDS 06:41
PROVIDERS: ATTENDING PHYSICIAN Surgery
DX: K59.4 Anal spasm (principal); K62.4 Stenosis of anus and rectum
CPT/HCPCS: 46505; J0585

== ENCOUNTER → 2025-08-23 09:58 | Outpatient (REF) | payer MEDICARE, OTHER, SELFPAY ==
[2025-08-23 12:19] LABS: Hematocrit 39.3 % (37.0-47.0); Hemoglobin 13.1 g/dL (12.0-16.0); Mean Corp Hgb Conc. 33.3 g/dL (33.0-37.0); Mean Corpuscular Volume 91.2 fL (81.0-99.0); Nucleated Red Blood Cells % 0 %; Platelet Count 234 10^3/uL (130-400); Red Cell Dist. Width 15.9 % (11.5-14.5)
[2025-08-23 13:50] LABS: ALT (SGPT) 71 U/L (0-35); AST (SGOT) 53 U/L (14-36); Albumin 4.2 g/dl (3.5-5.0); Alkaline Phosphatase 98 U/L (38-126); Blood Urea Nitrogen 17 mg/dl (7-17); Calcium 8.8 mg/dl (8.4-10.2); Carbon Dioxide 28 mmol/L (22-30); Chloride 100 mmol/L (98-107); Glucose 74 mg/dl (70-99); Potassium 4.1 mmol/L (3.5-5.1); Sodium 132 mmol/L (135-145); Total Protein 7.0 g/dl (6.3-8.2); eGFR > 60.00
== END ==
LOC: REG 09:58
PROVIDERS: ATTENDING PHYSICIAN Internal Medicine Hematology & Oncology; FAMILY PHYSICIAN Internal Medicine
DX: D64.9 Anemia, unspecified (principal); R53.81 Other malaise; C90.00 Multiple myeloma not having achieved remission; D80.1 Nonfamilial hypogammaglobulinemia
CPT/HCPCS: 36415; 80053; 85025

== ENCOUNTER 2025-08-29 09:02 | Outpatient (REF) | payer MEDICARE, OTHER, SELFPAY ==
[2025-08-29 10:21] LABS: Hematocrit 34.8 % (37.0-47.0); Hemoglobin 11.8 g/dL (12.0-16.0); Mean Corp Hgb Conc. 33.9 g/dL (33.0-37.0); Mean Corpuscular Volume 90.4 fL (81.0-99.0); Nucleated Red Blood Cells % 0 %; Platelet Count 212 10^3/uL (130-400); Red Cell Dist. Width 16.2 % (11.5-14.5)
[2025-08-29 10:27] LABS: ALT (SGPT) 42 U/L (0-35); AST (SGOT) 27 U/L (14-36); Albumin 4.2 g/dl (3.5-5.0); Alkaline Phosphatase 77 U/L (38-126); Blood Urea Nitrogen 25 mg/dl (7-17); Calcium 9.4 mg/dl (8.4-10.2); Carbon Dioxide 26 mmol/L (22-30); Chloride 101 mmol/L (98-107); Glucose 105 mg/dl (70-99); Potassium 4.3 mmol/L (3.5-5.1); Sodium 132 mmol/L (135-145); eGFR > 60.00
[2025-08-29 10:40] LABS: Total Protein 6.9 g/dl (6.3-8.2)
== END 2025-08-30 14:24 | disposition home or self-care (01) ==
LOC: REG 09:02
PROVIDERS: ATTENDING PHYSICIAN Internal Medicine Hematology & Oncology; FAMILY PHYSICIAN Internal Medicine
DX: D64.9 Anemia, unspecified (principal); R53.81 Other malaise; C90.00 Multiple myeloma not having achieved remission; D80.1 Nonfamilial hypogammaglobulinemia
CPT/HCPCS: 36415; 80053; 85025

== ENCOUNTER 2025-08-31 08:40 | Outpatient (RCR) | payer MEDICARE, OTHER, SELFPAY | END 2025-08-31 23:59 | disposition home or self-care (01) | LOC: RPT 08:40 | PROVIDERS: ATTENDING PHYSICIAN Nurse Practitioner; FAMILY PHYSICIAN Internal Medicine | DX: R15.9 Full incontinence of feces (principal); M62.89 Other specified disorders of muscle; R35.0 Frequency of micturition; Z73.6 Limitation of activities due to disability | CPT/HCPCS: 97110; 97140 ==

== ENCOUNTER 2025-09-05 14:04 | Outpatient (RCR) | payer MEDICARE, OTHER, SELFPAY ==
[2025-09-05 14:17] VITALS: BP 163/92
[2025-09-05 14:49] LABS: Hematocrit 34.7 % (37.0-47.0); Hemoglobin 11.6 g/dL (12.0-16.0); Mean Corp Hgb Conc. 33.4 g/dL (33.0-37.0); Mean Corpuscular Volume 94.6 fL (81.0-99.0); Platelet Count 225 10^3/uL (130-400); Red Cell Dist. Width 16.4 % (11.5-14.5)
[2025-09-05 15:10] LABS: ALT (SGPT) 48 U/L (0-35); AST (SGOT) 29 U/L (14-36); Albumin 4.0 g/dl (3.5-5.0); Alkaline Phosphatase 77 U/L (38-126); Blood Urea Nitrogen 30 mg/dl (7-17); Calcium 9.1 mg/dl (8.4-10.2); Carbon Dioxide 27 mmol/L (22-30); Chloride 101 mmol/L (98-107); Glucose 93 mg/dl (70-99); Potassium 4.4 mmol/L (3.5-5.1); Sodium 130 mmol/L (135-145); Total Protein 6.5 g/dl (6.3-8.2); eGFR > 60.00
== END 2025-10-05 23:59 | disposition home or self-care (01) ==
LOC: OID 14:04
PROVIDERS: ATTENDING PHYSICIAN Internal Medicine Hematology & Oncology; FAMILY PHYSICIAN Internal Medicine; OTHER PHYSICIAN Specialist; REFERRING PHYSICIAN Surgery
DX: C90.00 Multiple myeloma not having achieved remission (principal); D80.1 Nonfamilial hypogammaglobulinemia; D64.9 Anemia, unspecified; R53.81 Other malaise
CPT/HCPCS: 80053; 82570; 83935; 84156; 85025; 96523

== ENCOUNTER 2025-09-06 22:03 | Emergency (ER) | payer MEDICARE, OTHER, SELFPAY ==
[2025-09-06 22:04] VITALS: BP 163/93
[2025-09-06 23:24] VITALS: BMI 20.1
--- NOTE | 2025-09-06 23:26 | ED.GENMED ---
History of Present Illness
General
Chief Complaint: Fall
Source: patient
Exam Limitations: none
Time Seen by Provider: 09/06/25 22:40
Nursing documentation reviewed up to this point in time: agreed with
History of Present Illness
History of Present Illness:
70-year-old female past medical history of multiple connective tissue disorders multiple myeloma presenting to the emergency department today with concerns of a trip and fall while at the grocery store hitting her forehead as well as her left wrist.
Denies any loss of consciousness not on blood thinners. Ongoing wrist pain. Denies any neck pain.
Past History
Past History
ED Past Medical History: Cancer (Multiple Myeloma), HTN, Psychiatric (depression, anxiety), Other (diverticulitis with Perforation, Lupus, connective tissue disorder, small bowel obstructions, irritable bowel syndrome, Back pain, Migraines,
Raynaud's, Colitis, Urinary retention) and Other (Headaches, Imitrex as needed at home, Lyme, Lupus, CREST disease, ADHD, )
ED Past Surgical History: Bowel resection (Sigmoid diverticulitis with perforation requiring temporary colostomy with colostomy reversal 2014. Sigmoid colon resection. Lysis of adhesions.), Gynecological (Hysterectomy, Pelvic lift, LEEP, Right and
left Rotator cuff), Orthopedic (RL5-S1 fusion, Left wrist surgery, Right hip repair. Right and left Hip replacement ), Urological (Bladder prolapse. Rectocele/Cystocele repair) and Other (Abdominoplasty, breast augmentation, Cataracts, face lift,
Breast implants, )
Social History
Tobacco: Non-smoker
Alcohol: None
Drug: Other (Medical marijuana as needed)
Personal:
Living: alone
Employment: Not employed
Family History
Family History: Other (Father with coronary disease, hypertension, gout)
Review of Systems
Review of Systems
Allergies reviewed?: Yes
All Other Systems: ROS reviewed and negative except as documented in HPI and ROS
Phy Exam
Physical Exam
Physical Exam:
GENERAL: Alert , in no apparent distress
EYE: pupils equal and reactive
NECK: Supple, no significant adenopathy.
ENT: Small hematoma to the left forehead o/p clr, mmm.
CARDIAC: Regular rate and rhythm .
LUNGS: Clear breath sounds bilaterally, no acute respiratory distress, no wheezes/rales/rhonchi
ABDOMEN: Soft, without focal tenderness, no r/g, no cvat
NEUROLOGICAL: Alert and oriented, no focal neuro deficits
SKIN: Warm and dry, skin intact.
MUSCULOSKELETAL: Swelling and discomfort to the left wrist. Good pulses no tenderness to the hand or fingers. Good mechanical press operator strength. No edema, well perfused.
PSYCH: Normal and appropriate interaction.
Course
Orders/Labs/Results
Orders:
Orders
09/06/25 22:10
CT Head W/o Iv Contrast Urgent
Comment:
Reason For Exam: fall, head injury
09/06/25 22:49
CT Cervical Spine W/o Iv Contr Urgent
Comment:
Reason For Exam: fall
09/06/25 23:41
CR Wrist - Left Min 3 Views Urgent
Reason For Exam: FALL WRIST PAIN
Vital Signs
Initial and Last Documented VS:
Initial Vital Signs
Temp Pulse Resp BP Pulse Ox
97.6 F 83 19 163/93 100
09/06/25 22:04 09/06/25 22:04 09/06/25 22:04 09/06/25 22:04 09/06/25 22:04
Last Documented Vital Signs
Temp Pulse Resp BP Pulse Ox
97.6 F 83 19 163/93 100
09/06/25 22:04 09/06/25 22:04 09/06/25 22:04 09/06/25 22:04 09/06/25 23:28
MDM/Problems Addressed
MDM/Problems Addressed:
70-year-old female presenting to the emergency department after trip and fall prior to arrival at the food store. No loss of consciousness not on blood thinners. Did hit her left forehead. CT scan of the head and neck without emergent findings.
X-ray of the wrist did not show any significant fractures. There was a small line on the distal radius unclear if this is fracture or vascular bed. Patient was splinted but otherwise is following closely for MRI in the next week. Return
precautions were given. Advised for close outpatient follow-up.
*Pulse Oximetry
SaO2: 100
Oxygen Mode of Delivery: Room air
Patient hypoxic: no (100)
*Critical Care Note
Total Time (30-74mins, 75-104mins- exclusive of procedures): Not Applicable
ED Attending Note
-
Portions of this chart may have been created with voice recognition software.� Occasional wrong word or��sound alike� substitutions may have occurred due to the inherent limitations of voice recognition software.
Discharge Plan
Departure
Patient Disposition: Home (Routine Discharge)
Date of Disposition: 09/07/25
Time of Disposition: 00:26
Patient with high blood pressure during this ER visit?: No
Condition: Good
Covid-19: Not Applicable
Discharge Problem:
Fall, Sprain of wrist
Instructions: Preventing falls in adults
Prescriptions:
No Action
losartan 50 MG tablet
50 mg PO DAILY
ascorbic acid (vitamin C) [Vitamin C] 500 MG tablet
1,000 mg PO BID
quercetin 500 mg Capsule
250 mg PO DAILY
Medical Cannabis
1 gummy PO DAILYPRN PRN (Reason: mild pain)
cholecalciferol (vitamin D3) [Vitamin D3] 125 mcg (5,000 unit) Tablet
125 mcg PO DAILY
acyclovir 400 mg Tablet
400 mg PO BID
diltiazem HCl 240 mg Capsule,Extended Release 24hr
240 mg PO DAILY
diazepam [Valium] 2 mg Tablet
1 mg PO TID MDD usually only takes HS PRN (Reason: stiffness)
baclofen 10 mg Tablet
10 mg PO BID
fluticasone furoate-vilanterol [Breo Ellipta] 200-25 mcg/dose Blister With Device
1 inh INHALATION DAILY PRN (Reason: Reactive airway )
zinc 15 mg Tablet
15 mg PO DAILY
ivermectin 3 mg Tablet
15 mg PO SUTUTH
Systane (PF) 0.4-0.3 % Dropperette
1 drp OPHTHALMIC (EYE) 6XD PRN (Reason: dry eyes)
omeprazole 20 mg Tablet,Delayed Release (Dr/Ec)
20 mg PO DAILY
Darzalex Faspro 1,800 mg-30,000 unit/15 mL Solution
15 ml SC FR
magnesium 144 mg
144 mg PO DAILY
Referrals:
Daniel Easton MD [Family Provider, Internal Medicine]
Activity Restrictions/Additional Instructions:
You came to the emergency department today with concerns of a fall. Here today normal and reassuring head and neck CT. The x-ray of your wrist did not show any obvious fractures. You were given a splint to wear until follow-up. Return for any
worsening, new or concerning symptoms.
Interventions
Interventions:
*Risk Screen - Suicide Last Done: 09/06/25 22:06
*General Assessment Last Done: 09/06/25 22:06
*Neglect/Abuse Screening Last Done: 09/06/25 22:06
*ED COVID-19 Vaccine History Last Done: 09/06/25 22:06
*ED Influenza Vaccine History Last Done: 09/06/25 22:06
[facility] Risk Assessment Tool Last Done: 09/06/25 23:24
ED-Musculoskeletal Assessment Last Done: 09/06/25 23:20
ED- Neurological Assessment Last Done: 09/06/25 23:19
ED-Skin Assessment Last Done: 09/06/25 23:22
Discharge Date and Time
Print Language: SAMMARINESE
[2025-09-07 00:45] VITALS: BP 115/93
== END 2025-09-07 00:46 | disposition home or self-care (01) ==
LOC: EMR 22:03
PROVIDERS: EMERGENCY PHYSICIAN Emergency Medicine; FAMILY PHYSICIAN Internal Medicine
DX: S63.502A Unspecified sprain of left wrist, initial encounter (principal); W01.0XXA Fall on same level from slipping, tripping and stumbling without subsequent striking against object, initial encounter; C90.00 Multiple myeloma not having achieved remission; F41.8 Other specified anxiety disorders; I10 Essential (primary) hypertension; I73.00 Raynaud's syndrome without gangrene; K58.9 Irritable bowel syndrome, unspecified; Z82.49 Family history of ischemic heart disease and other diseases of the circulatory system; Z90.710 Acquired absence of both cervix and uterus; Z93.3 Colostomy status; Z96.643 Presence of artificial hip joint, bilateral; Z98.82 Breast implant status
CPT/HCPCS: 99284; 70450; 72125; 73110

== ENCOUNTER → 2025-09-08 14:25 | Outpatient (REF) | payer MEDICARE, OTHER, SELFPAY | LOC: REG 14:25 | PROVIDERS: ATTENDING PHYSICIAN Internal Medicine | DX: S63.501A Unspecified sprain of right wrist, initial encounter (principal); M25.431 Effusion, right wrist | CPT/HCPCS: 73110 ==

== ENCOUNTER 2025-09-12 13:20 | Emergency (ER) | payer MEDICARE, OTHER, SELFPAY ==
[2025-09-12 13:35] VITALS: BP 163/100
[2025-09-12 15:47] VITALS: BMI 20.6
--- NOTE | 2025-09-12 15:50 | EDRN ---
Pt states she arrives for pulmonary edema and swelling of her legs/ankles. Pt having urinary frequency. Unable to sleep decreased all week.
--- NOTE | 2025-09-12 15:51 | EDRN ---
Dr. Belle in room w/pt at this time.
--- NOTE | 2025-09-12 16:18 | ED.GENMED ---
History of Present Illness
General
Chief Complaint: Swelling
Time Seen by Provider: 09/12/25 15:47
Nursing documentation reviewed up to this point in time: agreed with
History of Present Illness
History of Present Illness:
70-year-old female presents to the ER for further evaluation of bilateral lower extremity edema along with urinary frequency, loss of control of bladder and severe left flank pain. Patient states that she has been having more swelling in her legs
over the past few days. She did have Lasix at home which she took last night. She states that she was urinating so frequently that she lost control of her bladder. She also reports that she is been having severe pain on her left kidney, similar
to previous kidney stones. She states that she recently had a stent removed from her right kidney. She does have an extensive prior medical history including multiple myeloma for which she is currently on immunotherapy, CREST syndrome, back pain
status post multiple repairs. She states that she is scheduled to have an MRI for her lumbar spine next week but is going to request that her oncologist write a prescription for a total body MRI for more comprehensive evaluation of her multiple
medical issues she is on multiple medications, in addition to prescriptions she receives ivermectin 3 times weekly along with infusions of vitamin C through her naturopathic physician.
Past History
Past History
ED Past Medical History: Cancer (Multiple Myeloma), HTN, Psychiatric (depression, anxiety), Other (diverticulitis with Perforation, Lupus, connective tissue disorder, small bowel obstructions, irritable bowel syndrome, Back pain, Migraines,
Raynaud's, Colitis, Urinary retention) and Other (Headaches, Imitrex as needed at home, Lyme, Lupus, CREST disease, ADHD, )
ED Past Surgical History: Bowel resection (Sigmoid diverticulitis with perforation requiring temporary colostomy with colostomy reversal 2014. Sigmoid colon resection. Lysis of adhesions.), Gynecological (Hysterectomy, Pelvic lift, LEEP, Right and
left Rotator cuff), Orthopedic (RL5-S1 fusion, Left wrist surgery, Right hip repair. Right and left Hip replacement ), Urological (Bladder prolapse. Rectocele/Cystocele repair) and Other (Abdominoplasty, breast augmentation, Cataracts, face lift,
Breast implants, )
Social History
Tobacco: Non-smoker
Alcohol: None
Drug: Other (Medical marijuana as needed)
Personal:
Living: alone
Employment: Not employed
Family History
Family History: Other (Father with coronary disease, hypertension, gout)
Review of Systems
Review of Systems
Allergies reviewed?: Yes
Phy Exam
Physical Exam
Physical Exam:
Patient is awake, alert, appears in no acute distress, head is NC with healing ecchymosis present in mid forehead, appears a week old, PERRL, EOMI mucous membranes moist, conjunctiva pink, heart regular rate and rhythm without murmurs or ectopy,
lungs are clear to auscultation without wheezes rales or rhonchi, no JVD, abdomen is soft and nontender on palpation, positive left CVA tenderness, no overlying skin slubber frame changer thoracic or lumbar spine, no crepitus, no step-offs, extremities 2+
edema symmetric bilateral lower legs, GCS is 15
Scores
Heart Failure Risk
Heart Failure Risk Score: Not Applicable
Course
Orders/Labs/Results
Orders:
Orders
09/12/25 16:17
Abdomen/Pelvis wo Contrast CT [CT Abd/pelvis Wo Iv Cont] Urgent
Comment:
Reason For Exam: left flank pain
09/12/25 16:44
Complete Blood Count/With Diff Urgent
Comprehensive Metabolic Panel Urgent
09/12/25 17:03
HYDROmorphone [Dilaudid] 0.5 mg IV NOW STA
09/12/25 17:29
Heparin Pf [Heparin Lock Flush] 500 unit .ROUTE .STK-MED ONE
09/12/25 17:51
Urinalysis Reflex To Culture Urgent
Date Specimen was Collected: 09/12/25
Time Specimen was Collected: 17:45
09/12/25 19:17
Potassium Chloride [KCl] 40 meq PO NOW STA
Abnormal Lab Results
09/12/25 09/12/25
16:44 17:51
RBC 3.73 L 10^6/uL
(4.20-5.40)
Hct 33.3 L %
(37.0-47.0)
MCH 32.2 H pg
(27.0-31.0)
RDW 16.0 H %
(11.5-14.5)
Abs Immat Gran (auto) 0.1 H 10^3/uL
(0-0.05)
Absolute Neuts (auto) 7.9 H 10^3/uL
(1.4-6.5)
Absolute Lymphs (auto) 0.7 L 10^3/uL
(1.2-3.4)
Absolute Monos (auto) 1.3 H 10^3/uL
(0.1-0.6)
Neutrophils % 79.9 H %
(42.2-75.2)
Lymphocytes % 6.9 L %
(20.5-51.1)
Monocytes % 12.6 H %
(1.7-9.3)
Sodium 127 L mmol/L
(135-145)
Potassium 3.0 L mmol/L
(3.5-5.1)
Chloride 94 L mmol/L
(98-107)
BUN 23 H mg/dl
(7-17)
AST 79 H U/L
(14-36)
ALT 78 H U/L
(0-35)
Total Protein 6.2 L g/dl
(6.3-8.2)
Urine Ketones 1+ A
(Negative)
09/12/25 16:44
09/12/25 16:44
Vital Signs
Initial and Last Documented VS:
Initial Vital Signs
Temp Pulse Resp BP Pulse Ox
98.2 F 111 16 163/100 98
09/12/25 13:35 09/12/25 13:35 09/12/25 13:35 09/12/25 13:35 09/12/25 13:35
Last Documented Vital Signs
Temp Pulse Resp BP Pulse Ox
98.2 F 94 16 156/88 98
09/12/25 13:35 09/12/25 17:00 09/12/25 17:00 09/12/25 17:00 09/12/25 17:00
*Radiology
Radiology exam reviewed: radiology read reviewed (No evidence for acute left-sided renal colic. I reviewed all remaining findings)
*Pulse Oximetry
SaO2: 98
Oxygen Mode of Delivery: Room air
Patient hypoxic: no
*Critical Care Note
Total Time (30-74mins, 75-104mins- exclusive of procedures): Not Applicable
Update Note
Update Note:
Patient resting in no acute distress throughout time in the emergency department. She did request a dose of Dilaudid for her severe discomforts. Once all test results available, I printed a copy of her results to review them individually. CBC
within normal limits. Patient has mild hyponatremia worse compared to labs from earlier this week. Similarly she now has hypokalemia compared to prior normal potassium level. We discussed her current use of diuretic which may be contributing to
these changes in her levels. She states that she chronically has issues with hyponatremia due to drinking too much water. I also discussed with her findings of constipation on the CT scan and encouraged her to continue using MiraLAX in addition to
the Cymraes herbs that she would prefer to use. I discussed with her benefit of following up with her primary care physician for reevaluation of her bilateral lower extremity edema. I discussed with her short-term use of potassium supplementation
in order to help correct her potassium levels. She has no increased work of breathing. She has no complaints of chest discomfort. I discussed with her lower extremity edema likely multifactorial in etiology. She expressed understanding of
discharge instructions and has no questions prior to leaving the department.
ED Attending Note
-
Portions of this chart may have been created with voice recognition software.� Occasional wrong word or��sound alike� substitutions may have occurred due to the inherent limitations of voice recognition software.
Discharge Plan
Departure
Patient Disposition: Home (Routine Discharge)
Date of Disposition: 09/12/25
Time of Disposition: 19:18
Patient with high blood pressure during this ER visit?: No
Discharge Problem:
Constipation, Chronic hyponatremia, Acute hypokalemia, Acute flank pain, Leg edema
Instructions: Hypokalemia, Dependent Edema (DC), Hyponatremia, Constipation in adults - ED (DC), Flank pain - ED (DC)
Prescriptions:
New
potassium chloride 10 mEq capsule, extended release
10 meq PO BID Qty: 10 0RF
No Action
losartan 50 MG tablet
50 mg PO DAILY
ascorbic acid (vitamin C) [Vitamin C] 500 MG tablet
1,000 mg PO BID
quercetin 500 mg Capsule
250 mg PO DAILY
Medical Cannabis
1 gummy PO DAILYPRN PRN (Reason: mild pain)
cholecalciferol (vitamin D3) [Vitamin D3] 125 mcg (5,000 unit) Tablet
125 mcg PO DAILY
acyclovir 400 mg Tablet
400 mg PO BID
diltiazem HCl 240 mg Capsule,Extended Release 24hr
240 mg PO DAILY
diazepam [Valium] 2 mg Tablet
1 mg PO TID MDD usually only takes HS PRN (Reason: stiffness)
baclofen 10 mg Tablet
10 mg PO BID
fluticasone furoate-vilanterol [Breo Ellipta] 200-25 mcg/dose Blister With Device
1 inh INHALATION DAILY PRN (Reason: Reactive airway )
zinc 15 mg Tablet
15 mg PO DAILY
ivermectin 3 mg Tablet
15 mg PO SUTUTH
Systane (PF) 0.4-0.3 % Dropperette
1 drp OPHTHALMIC (EYE) 6XD PRN (Reason: dry eyes)
omeprazole 20 mg Tablet,Delayed Release (Dr/Ec)
20 mg PO DAILY
Darzalex Faspro 1,800 mg-30,000 unit/15 mL Solution
15 ml SC FR
magnesium 144 mg
144 mg PO DAILY
Referrals:
Daniel Easton MD [Family Provider, Internal Medicine]
Activity Restrictions/Additional Instructions:
Continue your current medications. Please follow-up with your primary care physician tomorrow to discuss your lower leg swelling and your low potassium level. Please use MiraLAX as discussed to help with your constipation. Return to the ER for
any concerns
Interventions
Interventions:
*Risk Screen - Suicide Last Done: 09/12/25 13:24
*General Assessment Last Done: 09/12/25 15:48
*Neglect/Abuse Screening Last Done: 09/12/25 15:48
*ED COVID-19 Vaccine History Last Done: 09/12/25 15:48
*ED Influenza Vaccine History Last Done: 09/12/25 15:48
[facility] Fall Risk Assessment Tool Last Done: 09/12/25 15:47
*Nursing Disposition Last Done: 09/12/25 19:36
ED- Cardiac Assessment Last Done: 09/12/25 16:54
ED- Pulmonary Assessment Last Done: 09/12/25 16:54
ED-Skin Assessment Last Done: 09/12/25 16:54
Discharge Date and Time
Print Language: SAMI
--- NOTE | 2025-09-12 16:23 | EDRN ---
Pt has requested port access. Pt informed policy about not accessing ports to keep ports for chemo and other therapies. Pt stated 'I'm a VERY difficult stick and prefer port access.' VAT IV team RN informed via TT at this time.
--- NOTE | 2025-09-12 16:49 | EDRN ---
Pt states she is here for L flank pain above waist. Pt also has pain in L ribs under breast bone. Pt states she is also here for bilateral leg edema from upper leg to feet. Pt has been urinating on her own w/ incontinence. Pt not feeling as if has
to go. Pt having urgency. Pt took a diuretic 21:00 and 09:00. Pt took an ativan to sleep last night as well. Pt took no medical cannibas today, not eating and has not moved her bowels by 2 days
[2025-09-12 16:51] LABS: Hematocrit 33.3 % (37.0-47.0); Hemoglobin 12.0 g/dL (12.0-16.0); Mean Corp Hgb Conc. 36.0 g/dL (33.0-37.0); Mean Corpuscular Volume 89.3 fL (81.0-99.0); Nucleated Red Blood Cells % 0 %; Platelet Count 199 10^3/uL (130-400); Red Cell Dist. Width 16.0 % (11.5-14.5)
[2025-09-12 16:54] VITALS: BP 137/81
--- NOTE | 2025-09-12 16:58 | EDRN ---
Pt requesting pain medication and something to drink. Pt requesting dilaudid for her pain. Pt states dilaudid only lasts 2 hours.
[2025-09-12 17:00] VITALS: BP 156/88
[2025-09-12 17:07] LABS: ALT (SGPT) 78 U/L (0-35); AST (SGOT) 79 U/L (14-36); Albumin 4.1 g/dl (3.5-5.0); Alkaline Phosphatase 80 U/L (38-126); Blood Urea Nitrogen 23 mg/dl (7-17); Calcium 8.8 mg/dl (8.4-10.2); Carbon Dioxide 27 mmol/L (22-30); Chloride 94 mmol/L (98-107); Estimated Creatinine Clearance 56 ml/min; Glucose 84 mg/dl (70-99); Potassium 3.0 mmol/L (3.5-5.1); Sodium 127 mmol/L (135-145); Total Protein 6.2 g/dl (6.3-8.2); eGFR > 60.00
[2025-09-12] MEDS: DILAUDID 0.5 MG IV (17:08)
[2025-09-12 18:22] LABS: Urine Character Clear (Clear)
[2025-09-12] MEDS: KCL 40 MEQ PO (19:28)
== END 2025-09-12 20:19 | disposition home or self-care (01) ==
LOC: EMR 13:20
PROVIDERS: EMERGENCY PHYSICIAN Emergency Medicine; FAMILY PHYSICIAN Internal Medicine
DX: K59.00 Constipation, unspecified (principal); E87.1 Hypo-osmolality and hyponatremia; E87.6 Hypokalemia; R10.A2 Flank pain, left side; R60.0 Localized edema; C90.00 Multiple myeloma not having achieved remission; M34.1 CR(E)ST syndrome; I10 Essential (primary) hypertension; M32.9 Systemic lupus erythematosus, unspecified; K58.9 Irritable bowel syndrome, unspecified; F32.A Depression, unspecified; F41.9 Anxiety disorder, unspecified; F90.9 Attention-deficit hyperactivity disorder, unspecified type; Z96.643 Presence of artificial hip joint, bilateral; Z82.49 Family history of ischemic heart disease and other diseases of the circulatory system
CPT/HCPCS: 99284; 96374; 74176; 80053; 81003; 85025

== ENCOUNTER → 2025-09-13 11:44 | Outpatient (REF) | payer MEDICARE, OTHER, SELFPAY ==
[2025-09-13 12:26] LABS: Hematocrit 35.3 % (37.0-47.0); Hemoglobin 12.2 g/dL (12.0-16.0); Mean Corp Hgb Conc. 34.6 g/dL (33.0-37.0); Mean Corpuscular Volume 89.1 fL (81.0-99.0); Nucleated Red Blood Cells % 0 %; Platelet Count 238 10^3/uL (130-400); Red Cell Dist. Width 16.2 % (11.5-14.5)
[2025-09-13 16:40] LABS: ALT (SGPT) 81 U/L (0-35); AST (SGOT) 77 U/L (14-36); Albumin 3.9 g/dl (3.5-5.0); Alkaline Phosphatase 81 U/L (38-126); Blood Urea Nitrogen 20 mg/dl (7-17); Calcium 8.9 mg/dl (8.4-10.2); Carbon Dioxide 29 mmol/L (22-30); Chloride 97 mmol/L (98-107); Glucose 87 mg/dl (70-99); Potassium 3.5 mmol/L (3.5-5.1); Sodium 129 mmol/L (135-145); Total Protein 6.4 g/dl (6.3-8.2); eGFR > 60.00
== END ==
LOC: REG 11:44
PROVIDERS: ATTENDING PHYSICIAN Internal Medicine Hematology & Oncology; FAMILY PHYSICIAN Internal Medicine
DX: D64.9 Anemia, unspecified (principal); R53.81 Other malaise; C90.00 Multiple myeloma not having achieved remission; D80.1 Nonfamilial hypogammaglobulinemia
CPT/HCPCS: 36415; 80053; 85025

== ENCOUNTER 2025-09-14 20:08 | Inpatient (IN) | payer MEDICARE, OTHER, SELFPAY ==
[2025-09-14] VITALS (8 sets, daily range): BP systolic 129–158; BP diastolic 65–89; BMI 22.9; BMI 19.9
--- NOTE | 2025-09-14 18:03 | ED.GENMED ---
History of Present Illness
<Isabel Jones MD, Resident - Last Filed: 09/14/25 19:00>
General
Chief Complaint: Change in Mental Status
Source: patient
Exam Limitations: altered mental status
Time Seen by Provider: 09/14/25 17:35
Nursing documentation reviewed up to this point in time: agreed with
History of Present Illness
History of Present Illness:
70-year-old F with a history of multiple myeloma (on IVIG, recently started Darzalex immunotherapy), HTN, & mixed connective tissue disease (crest) who presents with fatigue, weakness, per staff, AMS.
Patient's friend called 911 after friend arrived to patient's house to find her lying on the floor and confused. Per nurse, patient was repeating the same numbers over and over again on presentation to the ED.
Per patient, she fell asleep on the floor on purpose and just has been having worsening weakness and swelling of her lower extremities, along with neuropathy, which prevented her from standing up. She endorses feeling weak and very tired. Patient
somewhat confused/circuitous narrator, repeating same story about her fall and asked me multiple times. Of note, patient fell in the grocery store last week and sustained trauma to the face. She came to the ED at that point (09/06/2025), and CT
scan of the head was negative. She says that her head still hurts. She also had another fall at home, which did not have trauma to the head, which she attributes to weakness and swelling in her legs. Per patient, she was repeating numbers to
emphasize that her friend had showed up on the wrong date for her friend's doctor appointment and she was repeating the appointment did not. Patient does not have any acute concerns other than the fact that she feels tired and weak.
Past History
<Isabel Jones MD, Resident - Last Filed: 09/14/25 19:00>
Past History
ED Past Medical History: Cancer (Multiple Myeloma), HTN, Psychiatric (depression, anxiety), Other (diverticulitis with Perforation, Lupus, connective tissue disorder, small bowel obstructions, irritable bowel syndrome, Back pain, Migraines,
Raynaud's, Colitis, Urinary retention) and Other (Headaches, Imitrex as needed at home, Lyme, Lupus, CREST disease, ADHD, )
ED Past Surgical History: Bowel resection (Sigmoid diverticulitis with perforation requiring temporary colostomy with colostomy reversal 2014. Sigmoid colon resection. Lysis of adhesions.), Gynecological (Hysterectomy, Pelvic lift, LEEP, Right and
left Rotator cuff), Orthopedic (RL5-S1 fusion, Left wrist surgery, Right hip repair. Right and left Hip replacement ), Urological (Bladder prolapse. Rectocele/Cystocele repair) and Other (Abdominoplasty, breast augmentation, Cataracts, face lift,
Breast implants, )
Social History
Tobacco: Non-smoker
Alcohol: None
Drug: Other (Medical marijuana as needed)
Personal:
Living: alone
Employment: Not employed
Family History
Family History: Other (Father with coronary disease, hypertension, gout)
Review of Systems
<Isabel Jones MD, Resident - Last Filed: 09/14/25 19:00>
Review of Systems
All Other Systems: ROS reviewed and negative except as documented in HPI and ROS
Constitutional: Reports fatigue
EENT: Reports no symptoms
Respiratory: Reports no symptoms
Cardiac: Reports no symptoms
ABD/GI: Reports no symptoms
: Reports frequency
Musculoskeletal: Reports edema
Skin: Reports no symptoms
Neurological: Reports weakness
Psychiatric: Reports no symptoms
Phy Exam
<Isabel Jones MD, Resident - Last Filed: 09/14/25 19:00>
General Physical Exam
General Presentation: mild distress
General age: appears stated age
General Skin: warm, dry and other (Ecchymosis on forehead)
General Habitus: normal
General Mental: confused (Seems somnolent, circuitous/repetitive storytelling, but able to answer questions and oriented)
Eye Exam
Eye Exam: PERRL, EOMI and conjunctiva normal
Cardiovascular Exam
Cardiovascular Exam: regular rate/rhythm and other (Significant 2+ pitting lower extremity edema bilaterally to the knees)
Heart Sounds: normal
Pulmonary Exam
Pulmonary Exam: no respiratory distress
Gastrointestinal Exam
Gastrointestinal Exam: non distended
Neurological Exam
Neurological Exam: oriented x3 and slurred speech
Musculoskeletal Exam
Musculoskeletal Exam: edema (Significant 2+ pitting edema bilateral lower extremities to knee)
Skin Exam
Skin Exam: normal color
Psychiatric Exam
Psychiatric Exam: other (Somewhat somnolent, repeating grievances against physicians and grocery store workers, some slurred speech)
Course
<Isabel Jones MD, Resident - Last Filed: 09/14/25 19:00>
Orders/Labs/Results
Orders:
Orders
09/14/25 16:34
Electrocardiogram (*1) Urgent
Reason for Study: Other
Other Reason for Exam: Possible Sepsis
09/14/25 16:35
EKG- Treatment ONCE
09/14/25 17:56
Complete Blood Count/With Diff Urgent
Comprehensive Metabolic Panel Urgent
Lactic Acid Urgent
Prothrombin Time Urgent
09/14/25 18:00
Heparin Pf [Heparin Lock Flush] 500 unit IV PER PROTOCOL
09/14/25 18:17
CT Head W/o Iv Contrast Urgent
Comment:
Reason For Exam: AMS
Urinalysis Reflex To Culture Urgent
Date Specimen was Collected: 09/14/25
Time Specimen was Collected: 18:46
09/14/25 18:49
3% Sodium Chloride 100 ml [Sodium Chloride 3%] 100 ml IV ONCE
Abnormal Lab Results
09/14/25
17:56
WBC 12.6 H 10^3/uL
(4.8-10.8)
RBC 3.78 L 10^6/uL
(4.20-5.40)
Hct 33.8 L %
(37.0-47.0)
MCH 32.3 H pg
(27.0-31.0)
RDW 15.6 H %
(11.5-14.5)
Abs Immat Gran (auto) 0.1 H 10^3/uL
(0-0.05)
Absolute Neuts (auto) 11.2 H 10^3/uL
(1.4-6.5)
Absolute Lymphs (auto) 0.4 L 10^3/uL
(1.2-3.4)
Absolute Monos (auto) 0.9 H 10^3/uL
(0.1-0.6)
Immature Gran % 0.6 H %
(0-0.5)
Neutrophils % 89.2 H %
(42.2-75.2)
Lymphocytes % 3.4 L %
(20.5-51.1)
Sodium 122 L mmol/L
(135-145)
Chloride 93 L mmol/L
(98-107)
BUN 25 H mg/dl
(7-17)
Glucose 110 H mg/dl
(70-99)
AST 84 H U/L
(14-36)
ALT 89 H U/L
(0-35)
09/14/25 17:56
09/14/25 17:56
Vital Signs
Initial and Last Documented VS:
Initial Vital Signs
Temp Pulse Resp BP Pulse Ox
97.4 F 92 18 158/74 99
09/14/25 16:33 09/14/25 16:33 09/14/25 16:33 09/14/25 16:33 09/14/25 16:33
Last Documented Vital Signs
Temp Pulse Resp BP Pulse Ox
97.4 F 93 22 143/78 98
09/14/25 16:33 09/14/25 18:15 09/14/25 18:15 09/14/25 18:00 09/14/25 18:15
<Kd Dawson, DO - Last Filed: 09/14/25 18:20>
Orders/Labs/Results
Orders:
Orders
09/14/25 16:34
Electrocardiogram (*1) Urgent
Reason for Study: Other
Other Reason for Exam: Possible Sepsis
09/14/25 16:35
EKG- Treatment ONCE
09/14/25 17:56
Complete Blood Count/With Diff Urgent
Comprehensive Metabolic Panel Urgent
Lactic Acid Urgent
Prothrombin Time Urgent
09/14/25 18:00
Heparin Pf [Heparin Lock Flush] 500 unit IV PER PROTOCOL
09/14/25 18:17
CT Head W/o Iv Contrast Urgent
Comment:
Reason For Exam: AMS
Urinalysis Reflex To Culture Urgent
Date Specimen was Collected: 09/14/25
Time Specimen was Collected: 18:46
09/14/25 18:49
3% Sodium Chloride 100 ml [Sodium Chloride 3%] 100 ml IV ONCE
Abnormal Lab Results
09/14/25
17:56
WBC 12.6 H 10^3/uL
(4.8-10.8)
RBC 3.78 L 10^6/uL
(4.20-5.40)
Hct 33.8 L %
(37.0-47.0)
MCH 32.3 H pg
(27.0-31.0)
RDW 15.6 H %
(11.5-14.5)
Abs Immat Gran (auto) 0.1 H 10^3/uL
(0-0.05)
Absolute Neuts (auto) 11.2 H 10^3/uL
(1.4-6.5)
Absolute Lymphs (auto) 0.4 L 10^3/uL
(1.2-3.4)
Absolute Monos (auto) 0.9 H 10^3/uL
(0.1-0.6)
Immature Gran % 0.6 H %
(0-0.5)
Neutrophils % 89.2 H %
(42.2-75.2)
Lymphocytes % 3.4 L %
(20.5-51.1)
Sodium 122 L mmol/L
(135-145)
Chloride 93 L mmol/L
(98-107)
BUN 25 H mg/dl
(7-17)
Glucose 110 H mg/dl
(70-99)
AST 84 H U/L
(14-36)
ALT 89 H U/L
(0-35)
09/14/25 17:56
09/14/25 17:56
Vital Signs
Initial and Last Documented VS:
Initial Vital Signs
Temp Pulse Resp BP Pulse Ox
97.4 F 92 18 158/74 99
09/14/25 16:33 09/14/25 16:33 09/14/25 16:33 09/14/25 16:33 09/14/25 16:33
Last Documented Vital Signs
Temp Pulse Resp BP Pulse Ox
97.4 F 93 22 143/78 98
09/14/25 16:33 09/14/25 18:15 09/14/25 18:15 09/14/25 18:00 09/14/25 18:15
<Isabel Jones MD, Resident - Last Filed: 09/14/25 19:00>
MDM/Problems Addressed
Differential Diagnosis Includes:
ICH versus subdural hematoma
Ischemic CVA frontal cortex
Electrolyte abnormality, hyponatremia
Side effect of MM progression and/or treatment changes
Dehydration
Sepsis
MDM/Problems Addressed:
- CBC, CMP
- UA with reflex to culture
- CT head without contrast
<Isabel Jones MD, Resident - Last Filed: 09/14/25 19:00>
*Pulse Oximetry
SaO2: 99
Oxygen Mode of Delivery: Room air
Patient hypoxic: no
*Critical Care Note
Total Time (30-74mins, 75-104mins- exclusive of procedures): Not Applicable
<Isabel Jones MD, Resident - Last Filed: 09/14/25 19:00>
Update Note
Update Note:
Leukocytosis 12.6
6:45pm
Hyponatremia, Na returned 122
Likely contributor to AMS, but pt without severe sx however, so 3% not indicated at this time
(Pt typically slightly hyponatremic, ranging 132-127)
Will give bolus of NSS 500cc given dry status & plan to admit
ED Attending Note
<Isabel Jones MD, Resident - Last Filed: 09/14/25 19:00>
-
Portions of this chart may have been created with voice recognition software.� Occasional wrong word or��sound alike� substitutions may have occurred due to the inherent limitations of voice recognition software.
<Kd Dawson, DO - Last Filed: 09/14/25 18:20>
ED Attending Note
Patient seen and examined by attending physician: Yes
I performed a history and physical exam of patient and discussed management with resident, I reviewed resident's note and agree with documented findings and plan of care.: Yes
ED Attending Note:
I have seen and evaluated the patient with a [id number] encounter. I have spoken to the resident and involved in the medical history, the physical exam, medical decision making.
Evaluation and management service: agree unless noted differently below.
Results interpretation: agree unless noted differently below.
Focused HPI: 70-year-old female presenting for evaluation of abnormal behavior. Apparently, her friend noted that she had repetitive questioning which is abnormal for her. Patient states this was a miscommunication and she was repeating numbers so
she did not forget it
Physical exam: Repetitive questioning, tangential thought, dry mucous membranes, +2 pitting edema bilateral lower extremities
Medical Decision Making: Patient does have abnormal behavior. She answers questions appropriately but has a bizarre affect. She has no focal neurodeficits. Recent CT head negative for mass. Given recurrent exam, will obtain basic blood work
looking for any evidence of metabolic abnormalities. Will repeat CT head given concern for recurrent fall. Will obtain urinalysis
Discharge Plan
Departure
Patient Disposition: Admit
Date of Disposition: 09/14/25
Time of Disposition: 18:59
Admit to: Med/Surg
Admit to doctor: Juli Mantilla
Presentation/result/management discussed w/ accepting MD/DO: Hospitalist
Patient with high blood pressure during this ER visit?: Yes
Condition: Fair
Covid-19: Not Applicable
Discharge Problem:
Acute hyponatremia, Weakness
Prescriptions:
No Action
losartan 50 MG tablet
50 mg PO DAILY
ascorbic acid (vitamin C) [Vitamin C] 500 MG tablet
1,000 mg PO BID
quercetin 500 mg Capsule
250 mg PO DAILY
Medical Cannabis
1 gummy PO DAILYPRN PRN (Reason: mild pain)
cholecalciferol (vitamin D3) [Vitamin D3] 125 mcg (5,000 unit) Tablet
125 mcg PO DAILY
acyclovir 400 mg Tablet
400 mg PO BID
diltiazem HCl 240 mg Capsule,Extended Release 24hr
240 mg PO DAILY
diazepam [Valium] 2 mg Tablet
1 mg PO TID MDD usually only takes HS PRN (Reason: stiffness)
baclofen 10 mg Tablet
10 mg PO BID
fluticasone furoate-vilanterol [Breo Ellipta] 200-25 mcg/dose Blister With Device
1 inh INHALATION DAILY PRN (Reason: Reactive airway )
zinc 15 mg Tablet
15 mg PO DAILY
ivermectin 3 mg Tablet
15 mg PO SUTUTH
Systane (PF) 0.4-0.3 % Dropperette
1 drp OPHTHALMIC (EYE) 6XD PRN (Reason: dry eyes)
omeprazole 20 mg Tablet,Delayed Release (Dr/Ec)
20 mg PO DAILY
Darzalex Faspro 1,800 mg-30,000 unit/15 mL Solution
15 ml SC FR
magnesium 144 mg
144 mg PO DAILY
potassium chloride 10 mEq capsule, extended release
10 meq PO BID Qty: 10 0RF
Referrals:
Daniel Easton MD [Family Provider, Internal Medicine]
Interventions
Interventions:
*Risk Screen - Suicide Last Done: 09/14/25 16:36
*General Assessment Last Done: 09/14/25 16:36
*Neglect/Abuse Screening Last Done: 09/14/25 16:36
*ED COVID-19 Vaccine History Last Done: 09/14/25 16:36
*ED Influenza Vaccine History Last Done: 09/14/25 16:36
[facility] Fall Risk Assessment Tool Last Done: 09/14/25 16:36
Discharge Date and Time
Print Language: GUINEAN
[2025-09-14 18:10] LABS: Hematocrit 33.8 % (37.0-47.0); Hemoglobin 12.2 g/dL (12.0-16.0); Mean Corp Hgb Conc. 36.1 g/dL (33.0-37.0); Mean Corpuscular Volume 89.4 fL (81.0-99.0); Nucleated Red Blood Cells % 0 %; Platelet Count 215 10^3/uL (130-400); Red Cell Dist. Width 15.6 % (11.5-14.5)
[2025-09-14 18:13] LABS: INR 1.10; PT 14.0 Sec (11.4-14.6)
[2025-09-14 18:23] LABS: ALT (SGPT) 89 U/L (0-35); AST (SGOT) 84 U/L (14-36); Albumin 4.0 g/dl (3.5-5.0); Alkaline Phosphatase 81 U/L (38-126); Blood Urea Nitrogen 25 mg/dl (7-17); Calcium 9.0 mg/dl (8.4-10.2); Carbon Dioxide 26 mmol/L (22-30); Chloride 93 mmol/L (98-107); Estimated Creatinine Clearance 62 ml/min; Glucose 110 mg/dl (70-99); Potassium 3.8 mmol/L (3.5-5.1); Sodium 122 mmol/L (135-145); Total Protein 6.3 g/dl (6.3-8.2); eGFR > 60.00
--- NOTE | 2025-09-14 19:19 | HPS.HSE ---
Family Physician
-
Family Physician: Daniel Easton
Chief Complaint
-
Weakness
History of Present Illness
Patient is a 70-year-old with past medical history significant for multiple myeloma currently on Revlimid, scleroderma/crest, hypertension, hypothyroid, migraine headaches who presents to the emergency department after being found lethargic by
friend.
Patient was seen in the emergency department recently for flank pain and was found to have constipation. Patient endorsed feeling weak, unable to get up from the ground, tired, reports leg swelling and a headache. She denies any fevers or chills.
No specific localizing symptoms. Denies any worsening shortness of breath or dyspnea on exertion. Poor appetite.
Patient had a mechanical fall September 06. She states she did hit her head. She had a CT scan at that time which was unremarkable. She states she is pending a follow-up CT scan.
Patient also reported that she has a history of right-sided kidney stone and urinary obstruction status post stenting. She had a stent removed about 2 weeks ago. Patient claims ongoing right-sided UPJ obstruction.
Patient also states that she has had complications of her regular need with bilateral pleural effusion, and currently states that she has been taking ivermectin as well as and mistletoe for multiple myeloma in remission. She states she is status
post stem cell transplant 1 year ago and has been in remission for the last 2 to 3 years.
She reports feeling cold but denies any fevers or chills. Denies any acute urinary symptoms.
In the emergency department she was afebrile, blood pressure was 143/78 with a pulse rate of 93 and she was satting 98% on room air. ECG shows a normal sinus rhythm at a rate of [address] or T wave changes. CT of the head was
negative.
White count was 12.6, hemoglobin and platelets were unremarkable. Electrolytes notable for a sodium of 122 but otherwise normal. UA is pending. COVID test was negative.
Medical History
Past Medical History
Past Medical History: Reports Other
Additional Past Medical History:
Multiple Myeloma - In remission on maintenance Revlimid
Scleroderma / CREST Syndrome
Diverticular Disease
Hypothyroidism
Migraine Headaches
Cervical Dysplasia
Hypertension
Lupus
Pulmonary Nodule
Left Pleural Effusion
Past Surgical History: Reports Other
Additional Past Surgical History:
Stem Cell Transplant (October 2024)
L2-3 Anterior Fusion (05/09/25)
T&A
Bilateral Breast Augmentation
MIKALA / BSO
Lumbar Laminectomy / Fusion (L4-5)
Sigmoid Resection / Mayes's Procedure
Colostomy Reversal
Liposuction / Cosmetic Surgeries
Bilateral ECHO
Right Shoulder Surgery
Cataracts
Social History
Tobacco: Non-smoker
Alcohol: None
Drug: Marijuana (Medical card for pain)
Family History
Family History: Not pertinent
Allergies / Home Medications
Allergies reflects when Allergies were last updated in [facility].
Home Medications with original date entered in [facility]
Allergy/Medication List:
Allergies
Allergy/AdvReac Type Severity Reaction Status Date / Time
adhesive Allergy reddness, Verified 09/12/25 13:44
skin tear
codeine Allergy Nausea/CONS Verified 09/12/25 13:44
TIPATION
morphine Allergy Vomiting Verified 09/12/25 13:44
oxycodone HCl (From Allergy Nausea/vomi Verified 09/12/25 13:44
OxyContin) ting
sulfamethoxazole Allergy ITCH Verified 09/12/25 13:44
tetracycline Allergy mild Rash Verified 09/12/25 13:44
vancomycin Allergy Rash Verified 09/12/25 13:44
Home Medications
ascorbic acid (vitamin C) 500 mg tablet (Vitamin C) 1,000 mg PO BID Supplement 07/23/21
losartan 50 mg tablet 50 mg PO DAILY Blood Pressure 07/23/21
quercetin 500 mg capsule 250 mg PO DAILY Supplement 10/22/22
Medical Cannabis 1 gummy PO DAILYPRN PRN mild pain 04/18/23
cholecalciferol (vitamin D3) 125 mcg (5,000 unit) tablet (Vitamin D3) 125 mcg PO DAILY Supplement 03/03/24
acyclovir 400 mg tablet 400 mg PO BID Infection 05/23/25
diltiazem HCl 240 mg capsule,extended release 24 hr 240 mg PO DAILY 07/04/25
baclofen 10 mg tablet 10 mg PO BID 07/21/25
fluticasone furoate 200 mcg-vilanterol 25 mcg/dose inhalation powder (Breo Ellipta) 1 inh inhalation DAILY PRN Reactive airway 07/21/25
diazepam 2 mg tablet (Valium) 1 mg PO TID PRN stiffness 08/08/25
daratumumab 1,800 ra-tosiuishukief-ighc 30,000 unit/15 mL subcut soln (Darzalex Faspro) 15 ml SC FR 08/15/25
ivermectin 3 mg tablet 15 mg PO SUTUTH 08/15/25
magnesium 144 mg PO DAILY 08/15/25
omeprazole 20 mg tablet,delayed release 20 mg PO DAILY 08/15/25
peg 400-propylene glycol (PF) 0.4 %-0.3 % eye drops in a dropperette 1 drp ophthalmic (eye) 6XD PRN dry eyes 08/15/25
zinc 15 mg tablet 15 mg PO DAILY 08/15/25
potassium chloride 10 mEq capsule,extended release 10 meq PO BID #10 caps 09/12/25
Review of Systems
-
History Source: Patient
A 12 point ROS was completed and negative except as noted: Yes
Constitutional: Denies Fever, Fatigue or Chills
EENT: Denies Sore Throat
Respiratory: Denies Cough or Trouble Breathing
Cardiac: Reports Chest Pain; Denies Diaphoresis or Palpitations
Abdomen/GI: Reports Nausea; Denies Abdominal Pain, Vomiting, Diarrhea, Constipated, Bloody Stools or Black Stools
: Denies Dysuria, Frequency or Flank Pain
Musculoskeletal: Denies Joint Pain or Edema
Neurological: Denies Dizzy or Headache
Psych: Denies Depression or Anxiety
Physical Exam
Vital Signs
Vital Signs
Temp Pulse Resp BP Pulse Ox
97.4 F 93 22 143/78 98
09/14/25 16:33 09/14/25 18:15 09/14/25 18:15 09/14/25 18:00 09/14/25 18:15
Physical Exam
General: Well Developed, Well Nourished and No Apparent Distress
HEENT: NormoCephalic, Moist mucous membranes and Atraumatic
Respiratory: Clear
Cardiac: S1/S2 and Regular Rhythm; No Murmur or Rub
GI: Soft, Non Tender, Non Distended and Normal Bowel Sounds; No Organomegaly
Rectal: Deferred by Provider
Musculoskeletal: No Clubbing, No Cyanosis, Edema, Left Lower Extremity and Edema, Right Lower Extremity
Skin: No Rash
Neuro: AO x 3 and Nonfocal/grossly intact
Hematologic/Lymphatic: No Lymphadenopathy
Psych: Calm
Laboratory Results
-
09/14/25 17:56
09/14/25 17:56
Laboratory Results
PT 14.0 Sec (11.4-14.6) 09/14/25 17:56
INR 1.10 09/14/25 17:56
Lactic Acid 0.7 mmol/L (0.7-2.0) 09/14/25 17:56
Total Bilirubin 0.8 mg/dl (0.2-1.3) 09/14/25 17:56
AST 84 U/L (14-36) H 09/14/25 17:56
ALT 89 U/L (0-35) H 09/14/25 17:56
Alkaline Phosphatase 81 U/L (38-126) 09/14/25 17:56
Data Reviewed
-
CT Scan: Report Reviewed by me
Medical Tests (Nuc Med, Echo, EKG etc): Image Personally Visualized and interpreted
Lab Data: Labs Reviewed by me
Old Records: Reviewed
Impression/Plan
-
IMPRESSION:
70-year-old with multiple medical comorbidities including history of multiple myeloma on Revlimid, Crest syndrome/scleroderma, hypothyroid, chronic migraine headaches hypertension who presents to the emergency department with failure to thrive and
altered mental status. No localizing findings on examination. She does have a white count of 12.6. Sodium was 122.
PLAN:
Hyponatremia -unclear etiology of hyponatremia. Patient did had a fall but shows no acute intracranial process. Urine studies are pending at this time. Suspect patient does have some poor p.o. intake however he is normotensive and has bilateral
peripheral edema. No history of CHF. No known history of DVTs.
-Admit to IMU
-Will start hypertonic saline at 20 cc an hour
-Repeat sodium in 4 hours
-Increased rate to of less than 12 mEq in 24 hours
-Will keep on free water restriction for now until volume status can be further delineated
� Follow-up urine awesome's and urine sodium
� check cortisol and TSH
-Nephrology consultation
Bilateral lower extremity edema -oxygen saturation is 99% on room air. Patient has no history of CHF, last EF 60-65%, normal valves. She did not notice prior history of pleural effusions. Renal function is intact. Will further evaluate for
volume. ?pulm htn
- Chest x-ray
- Check BNP and echo
� Check bilateral ultrasounds
� No aggressive hydration for now
Nephrolithiasis -patient complains of recurrent nephrolithiasis and inadequate treatment of chronic UVJ obstruction
- CT scan done on September 12 shows no acute interval process
� Patient will need to follow-up with outpatient urology
- UA pending, if there is an infection we will consult urology here
Chronic back pain
-Patient states that Dr. Lo is requested spinal MRI at 7 AM tomorrow, will obtain lumbar spinal MRI while patient inpatient
Hypertension
� Continue losartan, continue diltiazem
DVT prophy�Lovenox subcu
CODE STATUS�full code
[2025-09-14 19:34] LABS: Urine Character Clear (Clear)
[2025-09-14] MEDS: NSS 500 IV (19:45)
[2025-09-14 19:46] LABS: COVID-19 Antigen Negative (Negative)
[2025-09-14] MEDS: SODIUM CHLORIDE 3% 250 IV (21:37)
[2025-09-14] MEDS: VITAMIN C 1000 MG PO (23:01)
[2025-09-14] MEDS: ZOVIRAX 400 MG PO (23:01)
[2025-09-14] MEDS: LIORESAL 10 MG PO (23:01)
[2025-09-14 23:16] LABS: Blood Urea Nitrogen 18 mg/dl (7-17); Calcium 8.4 mg/dl (8.4-10.2); Carbon Dioxide 26 mmol/L (22-30); Chloride 101 mmol/L (98-107); Estimated Creatinine Clearance 72 ml/min; Glucose 94 mg/dl (70-99); Potassium 3.2 mmol/L (3.5-5.1); Sodium 127 mmol/L (135-145); eGFR > 60.00
[2025-09-15] VITALS (15 sets, daily range): BP systolic 103–145; BP diastolic 63–82; PULSE 96; O2SAT 98; BMI 19.8
--- NOTE | 2025-09-15 00:07 | PTCARENOTE ---
Pt arrived to floor on stretcher from ED. Solid over to bed; Noted to have bruising on b/l knees, b/l shins, R toes, forehead, R upper thigh/back and L upper thigh/buttock. Pt known to have had multiple falls at home. +2 B/L lower ext pitting
edema from thigh to foot - US done in ED and negative for DVT's. AAO x 3, anxious/argumentative. Pt very forgetful. NSR on monitor, 97% SpO2 on RA. Oriented to room, call james within reach. Will continue to monitor and assess.
[2025-09-15] MEDS: TYLENOL PO ×5 (00:24→20:15)
[2025-09-15] MEDS: ATIVAN 0.5 MG PO ×2 (00:28→08:19)
[2025-09-15 03:25] LABS: Hematocrit 29.2 % (37.0-47.0); Hemoglobin 10.4 g/dL (12.0-16.0); Mean Corp Hgb Conc. 35.6 g/dL (33.0-37.0); Mean Corpuscular Volume 91.0 fL (81.0-99.0); Platelet Count 175 10^3/uL (130-400); Red Cell Dist. Width 15.9 % (11.5-14.5)
[2025-09-15 03:47] LABS: Blood Urea Nitrogen 14 mg/dl (7-17); Calcium 8.3 mg/dl (8.4-10.2); Carbon Dioxide 28 mmol/L (22-30); Chloride 102 mmol/L (98-107); Estimated Creatinine Clearance 72 ml/min; Glucose 94 mg/dl (70-99); Potassium 3.4 mmol/L (3.5-5.1); Sodium 130 mmol/L (135-145); eGFR > 60.00
[2025-09-15 04:19] LABS: Cortisol, Random 13.5 ug/dl
[2025-09-15] MEDS: CARDIZEM CD 240 MG PO (08:12)
[2025-09-15] MEDS: MAGNESIUM OXIDE 200 MG PO (08:13)
[2025-09-15] MEDS: COZAAR 50 MG PO (08:13)
[2025-09-15] MEDS: VITAMIN C 1000 MG PO ×2 (08:13→20:15)
[2025-09-15] MEDS: ZOVIRAX 400 MG PO ×2 (08:38→20:15)
[2025-09-15] MEDS: LIORESAL 10 MG PO ×2 (08:39→20:15)
[2025-09-15] MEDS: KCL 40 MEQ PO (10:35)
[2025-09-15] MEDS: TYLENOL 650 MG PO (11:37)
[2025-09-15 11:46] LABS: Sodium 131 mmol/L (135-145)
--- NOTE | 2025-09-15 12:35 | CM ---
I.A: Completed By CHRISSEI Barcenas. 70-year-old with past medical history significant for multiple myeloma currently on Revlimid, scleroderma/crest, hypertension, hypothyroid, migraine headaches who presents to the emergency department after being found
lethargic by friend.
Patient lives alone in a 3 S[address], only uses 2nd level, 4 STH, and 18 STI. DME: [employer], No Other DME.
PCP: Dr. Daniel Easton
Pharm: [facility]
Patient has transport home when ready. PLAN: Home VN vs. No Needs.
--- NOTE | 2025-09-15 13:02 | W.CON.NEPH ---
Addendum entered and electronically signed by Charlene Franklin MD 09/15/25 14:15:
please correct in the notes pt did not get hypotonic fluids such as D5w
Original Note:
Consultation
-
Date/Time Consultation Requested: 09/14/25 2625
Date/Time Consultation Performed: 09/15/25 1145
Requesting Provider: Yousuf Elkins MD
Performing Provider: Charlene Perez
Reason for Consultation: Hyponatremia
Medical History
-
Chief Complaint: weakness
History of Present Illness:
70-year-old with past medical history significant for multiple myeloma recently was on Revlimid, scleroderma/crest, Proteinuria on losartan, hypertension on diltiazem, hypothyroid, migraine headaches, chronic pain on medical marijuana, history of
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
she was in the ER and the 12 of September with the abdominal pain. Found to be constipation related. She also noted to have lower extremity edema at that time and per report she was taking prn lasix.
Patient endorsed feeling weak, tired, reports leg swelling ,no dizziness. She denies any fevers or chills. No specific localizing symptoms. Denies any worsening shortness of breath or dyspnea on exertion. Poor appetite.
Patient had a mechanical fall September 06. She states she did hit her head. She had a CT scan at that time which was unremarkable.
Patient also reported that she has a history of right-sided kidney UPJ urinary obstruction status post stenting in Aug. She had a stent removed about 2 weeks ago. she has been taking ivermectin as well as and mistletoe ifor multiple myeloma in
remission. She states she is status post stem cell transplant 1 year ago and has been in remission for the last 2 to 3 years.
In the emergency department Electrolytes notable for a sodium of 122, baseline in 130s-follows Dr Pollock. she received 3% saline overnight with sodium correction up to 130 this morning, Nephrology consulted for further evaluation. With the
concern of her rapid correction she was given 1 L of D5 water this morning. and repeat lab shows 131. she reports drinking lots of liquids 60 oz per day but does not look like she eats very well.
Past Medical History
Multiple Myeloma - In remission on maintenance Revlimid
Scleroderma / CREST Syndrome
Diverticular Disease
Hypothyroidism
Migraine Headaches
Cervical Dysplasia
Hypertension
Lupus
Pulmonary Nodule
Left Pleural Effusion
Past Surgical History: Other (Stem Cell Transplant (October 2024) L2-3 Anterior Fusion (05/09/25) T&A Bilateral Breast Augmentation MIKALA / BSO Lumbar Laminectomy / Fusion (L4-5) Sigmoid Resection / Mayes's Procedure Colostomy Reversal Liposuction /
Cosmetic Surgeries Bilateral ECHO Right Shoulder Surgery Cataracts)
Social History
Tobacco: Non-Smoker
Alcohol: None
Drug: Marijuana (medical)
Family History
father high blood pressure, gout, heart disease age of 80
Mother with autoimmune, crest that age of 74
Allergies / Home Medications
Allergy/AdvReac Type Severity Reaction Status Date / Time
adhesive Allergy reddness, Verified 09/12/25 13:44
skin tear
codeine Allergy Nausea/CONS Verified 09/12/25 13:44
TIPATION
morphine Allergy Vomiting Verified 09/12/25 13:44
oxycodone HCl (From Allergy Nausea/vomi Verified 09/12/25 13:44
OxyContin) ting
sulfamethoxazole Allergy ITCH Verified 09/12/25 13:44
tetracycline Allergy mild Rash Verified 09/12/25 13:44
vancomycin Allergy Rash Verified 09/12/25 13:44
�Medication �Instructions �Recorded �Confirmed �Type
ascorbic acid (vitamin C) 500 mg 1,000 mg PO BID Supplement 07/23/21 09/14/25 History
tablet (Vitamin C)
losartan 50 mg tablet 50 mg PO DAILY Blood Pressure 07/23/21 09/14/25 History
quercetin 500 mg capsule 250 mg PO DAILY Supplement 10/22/22 09/14/25 History
acyclovir 400 mg tablet 400 mg PO BID Infection 05/23/25 09/14/25 History
diltiazem HCl 240 mg 240 mg PO DAILY Blood Pressure 07/04/25 09/14/25 History
capsule,extended release 24 hr
baclofen 10 mg tablet 10 mg PO BID SPASMS 07/21/25 09/14/25 History
daratumumab 1,800 15 ml SC FR MULTIPLE MYELOMA 08/15/25 09/14/25 History
ac-aflckdgrblkpc-bjhk 30,000
unit/15 mL subcut soln (Darzalex
Faspro)
ivermectin 3 mg tablet 15 mg PO SUTUTH 08/15/25 09/14/25 History
magnesium oxide 144 mg PO DAILY Supplement 08/15/25 09/14/25 History
zinc 15 mg tablet 15 mg PO DAILY 08/15/25 09/14/25 History
Cbd Gummies 2 gummy PO DAILYPRN PRN mild pain 09/14/25 09/14/25 History
Cbg Gummies 2 gummy PO DAILYPRN PRN stomach 09/14/25 09/14/25 History
pains
Medical Marijuana 1 gummy PO DAILYPRN PRN pain 09/14/25 09/14/25 History
lorazepam 0.5 mg tablet 0.5 mg PO BIDPRN PRN anxiety 09/14/25 09/14/25 History
potassium 99 mg tablet 99 mg PO DAILY Supplement 09/14/25 09/14/25 History
Review of Systems
-
All other systems: Negative unless noted
Physical Exam
Vital Signs
Vital Signs
Temp Pulse Resp BP Pulse Ox
98.9 F 103 17 123/79 97
09/15/25 07:30 09/15/25 12:00 09/15/25 12:00 09/15/25 12:00 09/15/25 12:00
Lab Results
WBC 7.7 10^3/uL (4.8-10.8) 09/15/25 03:03
RBC 3.21 10^6/uL (4.20-5.40) L 09/15/25 03:03
Hgb 10.4 g/dL (12.0-16.0) L 09/15/25 03:03
Hct 29.2 % (37.0-47.0) L 09/15/25 03:03
Plt Count 175 10^3/uL (130-400) 09/15/25 03:03
Sodium 131 mmol/L (135-145) L 09/15/25 10:32
Potassium 3.4 mmol/L (3.5-5.1) L 09/15/25 03:03
Chloride 102 mmol/L (98-107) 09/15/25 03:03
Carbon Dioxide 28 mmol/L (22-30) 09/15/25 03:03
BUN 14 mg/dl (7-17) 09/15/25 03:03
Creatinine 0.6 mg/dL (0.6-1.0) 09/15/25 03:03
eGFR > 60.00 09/15/25 03:03
Glucose 94 mg/dl (70-99) 09/15/25 03:03
Calcium 8.3 mg/dl (8.4-10.2) L 09/15/25 03:03
Pxc-L-Ahutsmnnkgg Pept 216 pg/ml 09/14/25 17:56
Albumin 4.0 g/dl (3.5-5.0) 09/14/25 17:56
Physical Exam
General: Awake, Alert, Oriented, AOx3, No Distress and Nontoxic
HEENT: EOMI, Anicteric and Conjunctivae Clear
Respiratory: Clear, Normal Excursion and Nonlabored Respirations
Cardiac: S1/S2 and Regular Rate/Rhythm
Breast: Deferred by me
Abdomen: Soft, Nontender and Nondistended
Musculoskeletal: No Cyanosis and Edema (1+)
Skin: No Rash
Neuro: Nonfocal/Grossly Intact
Psych: Mood/afflect pleasant and Appropriate
Data Reviewed
-
Labs: Labs Reviewed by me, Discussed with Nurse and Discussed with Patient
Assessment/Plan
-
IMP:
Acute on chr Hyponatremia
Bilateral lower extremity edema
right UVJ obst s/p cysto and stent eventual removal in Aug 2025
Chronic back pain
Hypertension
Multiple Myeloma - In remission on maintenance Revlimid
Scleroderma / CREST Syndrome
Diverticular Disease
Hypothyroidism
Migraine Headaches
Cervical Dysplasia
Hypertension
Lupus
Pulmonary Nodule
h/o Left Pleural Effusion
2mm stone left kidney non obst
PLan:
Complex case a/w weakness sodium 122 possible symp hypotreamia
she has baseline 130s, this is acut on chronic
noted labs from 09/12, fluctuating trend, was at 129 on 09/13, on admit at 122
now improved to 130 with HTS, then has 1lit D5w now at 131 given acute changes of sodium correction is somewhat liberal
just monitor her with FR 48 ounces/day
U osmo at 115, U na low <5-suggest polydipsia and low solute intake too
reviewed with pt about imp of FR and increase food intak e
TSH and cortisol were ok
LE edema with low BNP, and normal EF in May suggest dependant or med related for MM?, no DVT noted on US
ok for prn lasix if needed
BP stable with meds
labs in am
long d/w pt and nursing
--- NOTE | 2025-09-15 13:42 | PTCARENOTE ---
Assumed care of patient at beginning of this shift from previous RN. Patient Ox3, forgetful at times. Assisted to commode x1 with unsteady gait. Worked with PT and ambulated in room See worklist for full assessment and vital signs.
Daughter called earlier this morning for update but this RN unable to get to phone. Daughter called again. When this RN returned call, reached voicemail. No message left as it was a generic voicemail recording.
--- NOTE | 2025-09-15 14:33 | W.PN.HOSP.TC ---
Today's Communication/Plan
-
see outlined plan
Assessment / Plan
Assessment / Plan
Assessment:
Acute on chronic hyponatremia, symptomatic hyponatremia
- workup suggestive of polydipsia and low solute intake. TSH/Cortisol ok.
- encourage patient for oral solute intake, OFR
- s/p 3% saline, Na now 131
- continue OFR
Bilateral LE edema
- no evidence of CHF - normal EF on Echo
- BNP 216
- DVT study and CXR unremarkable
- could be related to venous stasis vs side effect of Darzalex
- consider Lasix
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
- UA without infection
Chronic back pain
- L spine MRI due today outpatient; was ordered by [employer]
Essential HTN
- continue losartan, diltiazem
hx of MM
- on Darzalex. Also acyclovir
Scleroderma / CREST Syndrome
hx of lupus
Hypokalemia
- replete prn
DVT ppx: Lovenox
Code: Full
Anticipated Discharge: 24 - 48 hours
Subjective/Interval History
-
Date of Service: September 15, 2025
resting comfortably
reports LE edema
Objective Data
-
Labs:
Laboratory Results
09/15/25 09/15/25
03:03 10:32
WBC 7.7
Hgb 10.4 L
Hct 29.2 L
Plt Count 175
Sodium 130 L 131 L
Potassium 3.4 L
Chloride 102
Carbon Dioxide 28
BUN 14
Creatinine 0.6
Glucose 94
Calcium 8.3 L
Vital Signs:
Vital Signs
Temp Pulse Resp BP Pulse Ox
98 F 82 16 123/79 95
09/15/25 13:23 09/15/25 13:00 09/15/25 13:00 09/15/25 12:00 09/15/25 13:00
I&O
09/14/25 09/15/25 09/16/25
06:59 06:59 06:59
Intake Total 260 / 260
Balance 260 / 260
Physical Exam
-
General: No Apparent Distress
HEENT: Normocephalic and Atraumatic
Respiratory: Negative Wheezes
Cardiac: Regular Rhythm and S1/S2
GI: Soft
Musculoskeletal: Edema, Right Lower Extrem and Edema, Left Lower Extrem
Neuro: AO x 3
Psych: Calm
Data Reviewed
-
Total Time Spent with Patient (in minutes): 44
Labs: Labs Reviewed by me
--- NOTE | 2025-09-15 15:45 | PTCARENOTE ---
Dr Tai provided name and number of daughter via TT; he replied that he will call her.
[2025-09-15] MEDS: LOVENOX 40 MG SC (17:03)
[2025-09-15] MEDS: MIRALAX 17 GRAMS PO (22:07)
[2025-09-16] VITALS (8 sets, daily range): BP systolic 112–138; BP diastolic 62–80; PULSE 101; O2SAT 99; BMI 19.5
[2025-09-16] MEDS: TYLENOL PO ×3 (00:40→12:27)
--- NOTE | 2025-09-16 02:02 | PTCARENOTE ---
Assumed care for patient overnight. Son at the bedside at shift change. Pt AAOx3, forgetful, and anxious at times. NSR on the monitor. RA, 97%. Assist x1 w/ R.W. to the bathroom, pt experiencing frequency. +2 b/l lower ext edema. Pt able to make
needs known, bed alarm of for safety. CHG bath done, pt educated. Call james within reach.
[2025-09-16 04:21] LABS: Hematocrit 29.6 % (37.0-47.0); Hemoglobin 10.1 g/dL (12.0-16.0); Mean Corp Hgb Conc. 34.1 g/dL (33.0-37.0); Mean Corpuscular Volume 91.6 fL (81.0-99.0); Platelet Count 164 10^3/uL (130-400); Red Cell Dist. Width 16.9 % (11.5-14.5)
[2025-09-16 04:48] LABS: ALT (SGPT) 56 U/L (0-35); AST (SGOT) 38 U/L (14-36); Albumin 2.8 g/dl (3.5-5.0); Alkaline Phosphatase 61 U/L (38-126); Blood Urea Nitrogen 8 mg/dl (7-17); Calcium 8.1 mg/dl (8.4-10.2); Carbon Dioxide 28 mmol/L (22-30); Chloride 104 mmol/L (98-107); Estimated Creatinine Clearance 71 ml/min; Glucose 85 mg/dl (70-99); Potassium 3.8 mmol/L (3.5-5.1); Sodium 131 mmol/L (135-145); Total Protein 4.7 g/dl (6.3-8.2); eGFR > 60.00
--- NOTE | 2025-09-16 07:48 | W.PN.NEPH.PH ---
Today's Communication / Plan
-
Lasix 20 mg p.o. x 1
Follow-up electrolytes
Maintain fluid restriction 50 ounces daily
Assessment/Plan
-
IMP:
Acute on chr Hyponatremia
Bilateral lower extremity edema
right UVJ obst s/p cysto and stent eventual removal in Aug 2025
Chronic back pain
Hypertension
Multiple Myeloma - In remission on maintenance Revlimid
Scleroderma / CREST Syndrome
Diverticular Disease
Hypothyroidism
Migraine Headaches
Cervical Dysplasia
Hypertension
Lupus
Pulmonary Nodule
h/o Left Pleural Effusion
2mm stone left kidney non obst
PLan:
Complex case a/w weakness sodium 122 , now sodium up to 131 following hypertonic saline
she has baseline 130s, this is acute on chronic
Maintain fluid restriction
noted labs from 09/12, fluctuating trend, was at 129 on 09/13, on admit at 122
will give lasix 20mg po times one for edema
just monitor her with FR 48 ounces/day
U osmo at 115, U na low <5-suggest polydipsia and low solute intake too
reviewed with pt about imp of FR and increase food intake
TSH and cortisol were ok
LE edema with low BNP, and normal EF in May suggest dependant or med related for MM?, no DVT noted on US
ok for prn lasix if needed, although edema is likely a function of hypoalbuminemia serum albumin is 2.8
BP stable with meds
labs in am
-
-
Date of Service: September 16, 2025
CC / HPI / ROS
-
Chief Complaint:
Hyponatremia
History of Present Illness:
Serum sodium up to 131 following IV hypertonic saline
Hemodynamically stable
Edema persist
Review of Systems:
Nonoliguric
No chest pain or shortness of breath
Labs
-
Labs:
WBC 7.1 10^3/uL (4.8-10.8) 09/16/25 04:03
RBC 3.23 10^6/uL (4.20-5.40) L 09/16/25 04:03
Hgb 10.1 g/dL (12.0-16.0) L 09/16/25 04:03
Hct 29.6 % (37.0-47.0) L 09/16/25 04:03
Plt Count 164 10^3/uL (130-400) 09/16/25 04:03
Sodium 131 mmol/L (135-145) L 09/16/25 04:03
Potassium 3.8 mmol/L (3.5-5.1) 09/16/25 04:03
Chloride 104 mmol/L (98-107) 09/16/25 04:03
Carbon Dioxide 28 mmol/L (22-30) 09/16/25 04:03
BUN 8 mg/dl (7-17) 09/16/25 04:03
Creatinine 0.6 mg/dL (0.6-1.0) 09/16/25 04:03
eGFR > 60.00 09/16/25 04:03
Glucose 85 mg/dl (70-99) 09/16/25 04:03
Calcium 8.1 mg/dl (8.4-10.2) L 09/16/25 04:03
Pyz-K-Ajgagojgsqt Pept 216 pg/ml 09/14/25 17:56
Albumin 2.8 g/dl (3.5-5.0) L 09/16/25 04:03
Physical Exam
-
Vital Signs:
Vital Signs
Temp Pulse Resp BP Pulse Ox
98.0 F 70 22 134/73 98
09/16/25 03:35 09/16/25 06:00 09/16/25 06:00 09/16/25 06:00 12/12/25 06:00
Cardiovascular:: Regular rate and rhythm
Respiratory:: Bilateral: CTA
Lung Excursion:: Normal
Abdomen:: Nontender and Tender
Bowel Sounds:: Normal
Extremity Edema:: +1: Bilateral:
Shultz Catheter: No
[2025-09-16] MEDS: LIORESAL 10 MG PO (08:58)
[2025-09-16] MEDS: ZOVIRAX 400 MG PO (08:58)
[2025-09-16] MEDS: MAGNESIUM OXIDE 200 MG PO (08:58)
[2025-09-16] MEDS: COZAAR 50 MG PO (08:58)
[2025-09-16] MEDS: CARDIZEM CD 240 MG PO (08:58)
[2025-09-16] MEDS: VITAMIN C 1000 MG PO (08:58)
[2025-09-16] MEDS: TYLENOL 650 MG PO (08:58)
--- NOTE | 2025-09-16 10:22 | W.PN.HOSP.TC ---
Today's Communication/Plan
-
dc to home/VN
Assessment / Plan
Assessment / Plan
Assessment:
Acute on chronic hyponatremia, symptomatic hyponatremia
- workup suggestive of polydipsia and low solute intake. TSH/Cortisol ok.
- encourage patient for oral solute intake, OFR
- s/p 3% saline, Na now 131
- continue OFR per Nephrology
Bilateral LE edema
- no evidence of CHF - normal EF on Echo
- BNP 216
- DVT study and CXR unremarkable
- could be related to venous stasis vs side effect of Darzalex
- Lasix x 1 dose PO today
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
- UA without infection
Chronic back pain
- L spine MRI due outpatient; was ordered by [facility]. Will obtain prior to DC today
Essential HTN
- continue losartan, diltiazem
hx of MM
- on Darzalex. Also acyclovir
- was due for IVIG - TT'd to Dr. Moreland to reschedule
Scleroderma / CREST Syndrome
hx of lupus
Hypokalemia
- replete prn
DVT ppx: Lovenox
Code: Full
More than 30 minutes spent in discharge including
Final examination of the patient
Summarizing hospital stay
Instructions for continuing care to all relevant caregivers
Preparation of discharge records, prescriptions, and referral forms
Total time spent (in minutes): 42
Anticipated Discharge: Today
Subjective/Interval History
-
Date of Service: September 16, 2025
no new complaints at present
feels like LE edema is related to Darzalex and wants to stop this agent.
Objective Data
-
Labs:
Laboratory Results
09/16/25
04:03
WBC 7.1
Hgb 10.1 L
Hct 29.6 L
Plt Count 164
Sodium 131 L
Potassium 3.8
Chloride 104
Carbon Dioxide 28
BUN 8
Creatinine 0.6
Glucose 85
Calcium 8.1 L
Total Bilirubin 0.4
AST 38 H
ALT 56 H
Alkaline Phosphatase 61
Vital Signs:
Vital Signs
Temp Pulse Resp BP Pulse Ox
98.6 F 87 22 129/74 97
09/16/25 07:41 09/16/25 09:00 09/16/25 09:00 09/16/25 08:00 09/16/25 09:00
I&O
09/15/25 09/16/25 09/17/25
06:59 06:59 06:59
Intake Total 260 / 260 360 / 360
Output Total 850 / 850 350 / 350
Balance 260 / 260 -490 / -490 -350 / -350
Physical Exam
-
General: No Apparent Distress
HEENT: Normocephalic and Atraumatic
Respiratory: Negative Wheezes
Cardiac: Regular Rhythm and S1/S2
GI: Soft
Musculoskeletal: Edema, Right Lower Extrem and Edema, Left Lower Extrem
Neuro: AO x 3
Psych: Calm
Data Reviewed
-
Total Time Spent with Patient (in minutes): 42
Labs: Labs Reviewed by me
--- NOTE | 2025-09-16 10:26 | W.DCSUMMARY ---
Discharge Summary
Discharge Data
Date of Admission: 09/14/25
Date of Discharge: 09/16/25
-
Pending Results: No
Hospital Course
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
and acute on chronic hyponatremia. Admitting sodium level was 122. Patient received 3% saline and also was placed on fluid restriction with sodium improving to 131. She had lower extremity edema related to hypoalbumin state and possible side effect
of Darzalex. DVT study was negative. No Echo or CXR evidence of CHF. She received 1 dose of oral Lasix. She was recommended to maintain fluid restriction to 50 ounces and increase solute/protein intake. She was discharged home with VN on 09/16.
Discharge Plan
-
Patient Disposition: Home with Home Care
Discharge Diagnosis/Procedures: acute on chronic hyponatremia
Condition: Fair
Diet: Regular and Restrict fluids to 48 oz
Additional Diets: increase solute and meat intake to increase protein
Activity: As tolerated
Other Services: VN
Referrals:
Mariusz Majano DO [Active, Nephrology] - in three to four weeks
Brenda Luke MD [Active, Hematology / Oncology]
Referral Note: She was notified about edema and possible side effect of Darzalex with question of stopping it.
Daniel Easton MD [Family Provider, Internal Medicine]
Prescriptions:
Continued
losartan 50 MG tablet
50 mg PO DAILY
ascorbic acid (vitamin C) [Vitamin C] 500 MG tablet
1,000 mg PO BID
quercetin 500 mg Capsule
250 mg PO DAILY
acyclovir 400 mg Tablet
400 mg PO BID
diltiazem HCl 240 mg Capsule,Extended Release 24hr
240 mg PO DAILY
baclofen 10 mg Tablet
10 mg PO BID
zinc 15 mg Tablet
15 mg PO DAILY
ivermectin 3 mg Tablet
15 mg PO SUTUTH
magnesium oxide 200 mg magnesium Tablet
144 mg PO DAILY
Medical Marijuana
1 gummy PO DAILYPRN PRN (Reason: pain)
Rx Instructions:
5-10mg
potassium 99 mg Tablet
99 mg PO DAILY
lorazepam 0.5 mg Tablet
0.5 mg PO BIDPRN PRN (Reason: anxiety)
Cbd Gummies
2 gummy PO DAILYPRN PRN (Reason: mild pain)
Cbg Gummies
2 gummy PO DAILYPRN PRN (Reason: stomach pains)
Patient Comments:
infused with cannabigerol (CBG), the 'mother cannabinoid' from hemp
Held
Darzalex Faspro 1,800 mg-30,000 unit/15 mL Solution
15 ml SC FR
Hold Instructions: until reviewed with Dr. Moreland
Discharge Orders:
Discharge Patient (As Directed); Ordered 09/16/25
Ordered By: Krista Tai
Discharge Date and Time
Print Language: YORUBA
--- NOTE | 2025-09-16 11:44 | CM ---
F/U: Patient is being discharge and does not want SNF. Met daughter and patient, gave options of Home VN/PT, they chose [facility], referral made and IMM completed. PLAN: Home w/ [facility] for VN/PT.
--- NOTE | 2025-09-16 12:37 | VNURNOTE ---
Home Health Liaison met with patient at bedside to discuss [facility] nurse/therapy, visits, schedule and homebound status. Patient is agreeable and understands that visits at home will be 2-3 x per week to assess and teach medical management.
Patient is aware that [facility] will contact them for start of care within a week after discharge from . Provided contact number for [facility].
[facility] referral completed in Care Port.
[2025-09-16] MEDS: LASIX 20 MG PO (14:52)
--- NOTE | 2025-09-16 15:33 | PTCARENOTE ---
Pt for d/c. Instructions and med list reviewed. Port de-accessed by IVT. Belongings collected from room. D/c off unit via wheelchair.
== END 2025-09-16 15:35 | disposition home health service (06) | DRG 641 ==
LOC: IMU 20:08
PROVIDERS: Physician Assistant; ADMITTING PHYSICIAN Internal Medicine; ATTENDING PHYSICIAN Internal Medicine; CONSULT PHYSICIAN Internal Medicine; EMERGENCY PHYSICIAN Student in an Organized Health Care Education/Training Program; FAMILY PHYSICIAN Internal Medicine
DX: E87.1 Hypo-osmolality and hyponatremia (principal); C90.01 Multiple myeloma in remission; J90 Pleural effusion, not elsewhere classified; N20.0 Calculus of kidney; E87.6 Hypokalemia; R60.0 Localized edema; G89.29 Other chronic pain; I10 Essential (primary) hypertension; E03.9 Hypothyroidism, unspecified; M34.1 CR(E)ST syndrome; G43.909 Migraine, unspecified, not intractable, without status migrainosus; N87.9 Dysplasia of cervix uteri, unspecified; R91.1 Solitary pulmonary nodule; G62.9 Polyneuropathy, unspecified; I27.20 Pulmonary hypertension, unspecified; Z11.52 Encounter for screening for COVID-19; Z79.899 Other long term (current) drug therapy
CPT/HCPCS: 36415; 70450; 71046; 72148; 74176; 80048; 80053; 81003; 82533; 83605; 83880; 83935; 84295; 84300; 84443; 85025; 85027; 85610; 87502; 87811; 93005; 93306; 93970; 97163; 97167; 97530; 97535; 99285

== ENCOUNTER → 2025-09-19 12:33 | Outpatient (REF) | payer MEDICARE, OTHER, SELFPAY ==
[2025-09-19 13:47] LABS: Hematocrit 31.8 % (37.0-47.0); Hemoglobin 11.1 g/dL (12.0-16.0); Mean Corp Hgb Conc. 34.9 g/dL (33.0-37.0); Mean Corpuscular Volume 93.5 fL (81.0-99.0); Nucleated Red Blood Cells % 0 %; Platelet Count 190 10^3/uL (130-400); Red Cell Dist. Width 16.6 % (11.5-14.5)
== END ==
LOC: REG 12:33
PROVIDERS: ATTENDING PHYSICIAN Internal Medicine Hematology & Oncology; FAMILY PHYSICIAN Internal Medicine
DX: D64.9 Anemia, unspecified (principal); R53.81 Other malaise; C90.00 Multiple myeloma not having achieved remission; D80.1 Nonfamilial hypogammaglobulinemia
CPT/HCPCS: 36415; 85025

== ENCOUNTER → 2025-09-22 09:59 | Outpatient (REF) | payer MEDICARE, OTHER, SELFPAY ==
[2025-09-22 11:37] LABS: Blood Urea Nitrogen 14 mg/dl (7-17); Calcium 8.6 mg/dl (8.4-10.2); Carbon Dioxide 25 mmol/L (22-30); Chloride 104 mmol/L (98-107); Glucose 111 mg/dl (70-99); Magnesium 2.2 mg/dl (1.6-2.3); Potassium 4.3 mmol/L (3.5-5.1); Sodium 133 mmol/L (135-145); eGFR > 60.00
== END ==
LOC: REG 09:59
PROVIDERS: ATTENDING PHYSICIAN Internal Medicine; OTHER PHYSICIAN Family Medicine; OTHER PHYSICIAN Internal Medicine Hematology & Oncology; OTHER PHYSICIAN Specialist
DX: E87.1 Hypo-osmolality and hyponatremia (principal); E87.6 Hypokalemia
CPT/HCPCS: 36415; 80048; 83735

== ENCOUNTER 2025-09-28 09:34 | Outpatient (RCR) | payer MEDICARE, OTHER, SELFPAY | END 2025-09-28 23:59 | disposition home or self-care (01) | LOC: RPT 09:34 | PROVIDERS: ATTENDING PHYSICIAN Nurse Practitioner; FAMILY PHYSICIAN Internal Medicine | DX: R15.9 Full incontinence of feces (principal); M62.89 Other specified disorders of muscle; R35.0 Frequency of micturition; Z73.6 Limitation of activities due to disability | CPT/HCPCS: 97110; 97140 ==

== ENCOUNTER → 2025-09-28 14:07 | Outpatient (REF) | payer MEDICARE, OTHER, SELFPAY ==
[2025-09-28 16:47] LABS: Folate 11.8 ng/ml (2.76-20); Vitamin B12 820 pg/ml (239-931)
== END ==
LOC: REG 14:07
PROVIDERS: ATTENDING PHYSICIAN Internal Medicine
DX: R53.1 Weakness (principal); R20.0 Anesthesia of skin; R51.9 Headache, unspecified
CPT/HCPCS: 36415; 82607; 82746

== ENCOUNTER 2025-09-29 15:45 | Emergency (ER) | payer MEDICARE, OTHER, SELFPAY ==
[2025-09-29 15:49] VITALS: BP 152/91
[2025-09-29 16:35] VITALS: BMI 19.3
--- NOTE | 2025-09-29 16:38 | ED.GENMED ---
History of Present Illness
<LIANG Palomino - Last Filed: 09/30/25 13:54>
General
Chief Complaint: Malaise
Source: patient
Exam Limitations: none
Time Seen by Provider: 09/29/25 16:33
Nursing documentation reviewed up to this point in time: agreed with
History of Present Illness
History of Present Illness:
Patient is a 70-year-old female with past medical history of hypertension diverticulitis, multiple myeloma, scleroderma hypertension hypothyroidism chronic back pain, chronic hyponatremia, crest syndrome presents to the ER for evaluation. Patient
reports she was admitted in early September and since then continues to feel like she is in a brain fog, weak unsteady on her feet . Patient was admitted September 14 and discharged September 16 for acute on chronic hyponatremia but the sodium at that
time of 122.
Patient thinks she is getting worse however symptoms have been for months. Her son wanted her to be evaluated. She denies any recent fever chills illness. Denies any chest pain shortness of breath or lower extremity swelling.
Patient is a very difficult historian tangential language, concerned that she possibly has a bacterial infection mentions that she is concerned for' bacterial meningitis.'
Denies any fevers. Reports she had chills last night. Denies any headache or neck pain.
Past History
<LIANG Palomino - Last Filed: 09/30/25 13:54>
Past History
ED Past Medical History: Cancer (Multiple Myeloma), HTN, Psychiatric (depression, anxiety), Other (diverticulitis with Perforation, Lupus, connective tissue disorder, small bowel obstructions, irritable bowel syndrome, Back pain, Migraines,
Raynaud's, Colitis, Urinary retention) and Other (Headaches, Imitrex as needed at home, Lyme, Lupus, CREST disease, ADHD, )
ED Past Surgical History: Bowel resection (Sigmoid diverticulitis with perforation requiring temporary colostomy with colostomy reversal 2014. Sigmoid colon resection. Lysis of adhesions.), Gynecological (Hysterectomy, Pelvic lift, LEEP, Right and
left Rotator cuff), Orthopedic (RL5-S1 fusion, Left wrist surgery, Right hip repair. Right and left Hip replacement ), Urological (Bladder prolapse. Rectocele/Cystocele repair) and Other (Abdominoplasty, breast augmentation, Cataracts, face lift,
Breast implants, )
Social History
Tobacco: Non-smoker
Alcohol: None
Drug: Other (Medical marijuana as needed)
Personal:
Living: alone
Employment: Not employed
Family History
Family History: Other (Father with coronary disease, hypertension, gout)
Phy Exam
<LIANG Palomino - Last Filed: 09/30/25 13:54>
General Physical Exam
General Presentation: no apparent distress
General age: appears stated age
General Skin: warm and dry
General Habitus: normal
General Mental: alert
General Hydration: appears well hydrated
Cardiovascular Exam
Cardiovascular Exam: regular rate/rhythm, no murmur and normal peripheral pulses
Pulmonary Exam
Pulmonary Exam: lungs clear and no respiratory distress
Neurological Exam
Neurological Exam: alert and oriented x3
Musculoskeletal Exam
Musculoskeletal Exam: full ROM and other (No lower extremity swelling bilaterally)
Skin Exam
Skin Exam: normal color and warm/dry
Psychiatric Exam
Psychiatric Exam: other (Tangential speech)
Course
<LIANG Palomino - Last Filed: 09/30/25 13:54>
Orders/Labs/Results
Orders:
Orders
09/29/25 16:48
IV Insert/Care/Rem.- Treatment PRN
09/29/25 17:20
Complete Blood Count/With Diff Urgent
Comprehensive Metabolic Panel Urgent
09/29/25 19:30
CT Head W/o Iv Contrast Urgent
Comment:
Reason For Exam: difficulty walking
09/29/25 19:43
COVID-19 Antigen Urgent
Source: Nasal Swab
Influenza A+B Rapid Molecular Urgent
RADHA Source: Nasal Swab
Specimen Description:
09/29/25 19:59
UA Reflex to Culture [Urinalysis Reflex To Culture] Urgent
Date Specimen was Collected: 09/29/25
Time Specimen was Collected: 19:51
Abnormal Lab Results
09/29/25
17:20
WBC 4.7 L 10^3/uL
(4.8-10.8)
RBC 3.00 L 10^6/uL
(4.20-5.40)
Hgb 9.6 L g/dL
(12.0-16.0)
Hct 28.2 L %
(37.0-47.0)
MCH 32.0 H pg
(27.0-31.0)
RDW 16.8 H %
(11.5-14.5)
Absolute Lymphs (auto) 0.5 L 10^3/uL
(1.2-3.4)
Absolute Monos (auto) 0.7 H 10^3/uL
(0.1-0.6)
Immature Gran % 0.6 H %
(0-0.5)
Lymphocytes % 11.2 L %
(20.5-51.1)
Monocytes % 15.5 H %
(1.7-9.3)
Sodium 133 L mmol/L
(135-145)
Total Protein 6.1 L g/dl
(6.3-8.2)
Albumin 3.3 L g/dl
(3.5-5.0)
09/29/25 17:20
09/29/25 17:20
Vital Signs
Initial and Last Documented VS:
Initial Vital Signs
Temp Pulse Resp BP Pulse Ox
98.7 F 107 20 152/91 98
09/29/25 15:49 09/29/25 15:49 09/29/25 15:49 09/29/25 15:49 09/29/25 15:49
Last Documented Vital Signs
Temp Pulse Resp BP Pulse Ox
98.7 F 107 20 152/91 98
09/29/25 15:49 09/29/25 15:49 09/29/25 15:49 09/29/25 15:49 09/29/25 16:48
Process Lead consulted with Physician
Process Lead consulted with physician?: Yes
Name of Physician Consulted: frankie
<Robbie Belle, - Last Filed: 09/29/25 21:50>
Orders/Labs/Results
Orders:
Orders
09/29/25 16:48
IV Insert/Care/Rem.- Treatment PRN
09/29/25 17:20
Complete Blood Count/With Diff Urgent
Comprehensive Metabolic Panel Urgent
09/29/25 19:30
CT Head W/o Iv Contrast Urgent
Comment:
Reason For Exam: difficulty walking
09/29/25 19:43
COVID-19 Antigen Urgent
Source: Nasal Swab
Influenza A+B Rapid Molecular Urgent
RADHA Source: Nasal Swab
Specimen Description:
09/29/25 19:59
UA Reflex to Culture [Urinalysis Reflex To Culture] Urgent
Date Specimen was Collected: 09/29/25
Time Specimen was Collected: 19:51
Abnormal Lab Results
09/29/25
17:20
WBC 4.7 L 10^3/uL
(4.8-10.8)
RBC 3.00 L 10^6/uL
(4.20-5.40)
Hgb 9.6 L g/dL
(12.0-16.0)
Hct 28.2 L %
(37.0-47.0)
MCH 32.0 H pg
(27.0-31.0)
RDW 16.8 H %
(11.5-14.5)
Absolute Lymphs (auto) 0.5 L 10^3/uL
(1.2-3.4)
Absolute Monos (auto) 0.7 H 10^3/uL
(0.1-0.6)
Immature Gran % 0.6 H %
(0-0.5)
Lymphocytes % 11.2 L %
(20.5-51.1)
Monocytes % 15.5 H %
(1.7-9.3)
Sodium 133 L mmol/L
(135-145)
Total Protein 6.1 L g/dl
(6.3-8.2)
Albumin 3.3 L g/dl
(3.5-5.0)
09/29/25 17:20
09/29/25 17:20
Vital Signs
Initial and Last Documented VS:
Initial Vital Signs
Temp Pulse Resp BP Pulse Ox
98.7 F 107 20 152/91 98
09/29/25 15:49 09/29/25 15:49 09/29/25 15:49 09/29/25 15:49 09/29/25 15:49
Last Documented Vital Signs
Temp Pulse Resp BP Pulse Ox
98.7 F 107 20 152/91 98
09/29/25 15:49 09/29/25 15:49 09/29/25 15:49 09/29/25 15:49 09/29/25 16:48
Larisalt;LIANG Palomino - Last Filed: 09/30/25 13:54>
MDM/Problems Addressed
MDM/Problems Addressed:
As documented patient is a 70-year-old female with above medical history presenting for brain fog and difficulty with gait. Symptoms are not chronic. She was seen previously for lower extremity swelling and weakness and hyponatremia however
patient presents awake alert no acute distress here in the ER with a normal sodium no lower extremity swelling. She is in no acute stress she is very anxious speech. She does have a history of multiple myeloma disease/ crest disease and other
medical history. No other acute abnormalities. She is ambulatory [id number] steady no acute distress. Case d/c w/ ED physician who eval pt and discussed possible OBS/admit for PT however pt does want to go home.
<LIANG Palomino - Last Filed: 09/30/25 13:54>
*Radiology
Radiology exam reviewed: radiology read reviewed
*Pulse Oximetry
SaO2: 98
Oxygen Mode of Delivery: Room air
Patient hypoxic: no
*Critical Care Note
Total Time (30-74mins, 75-104mins- exclusive of procedures): Not Applicable
Data Reviewed
Review of Other/Old Records Reveals: Labs and Discharge Summary
ED Attending Note
<LIANG Palomino - Last Filed: 09/30/25 13:54>
-
Portions of this chart may have been created with voice recognition software.� Occasional wrong word or��sound alike� substitutions may have occurred due to the inherent limitations of voice recognition software.
<Robbie Belle DO - Last Filed: 09/29/25 21:50>
ED Attending Note
Patient seen and examined by attending physician: Yes
I performed the substantive portion of visit, reviewed & personally made and approve the management plan that is documented in note by myself or JESU.: Yes
I performed a history and physical exam of patient and discussed management with resident, I reviewed resident's note and agree with documented findings and plan of care.: Yes
ED Attending Note:
70-year-old female presents to the ER for reevaluation of weakness, gait disturbance, persistent dizziness and brain fog. Patient admits that this is been ongoing over the last several weeks to months. I am familiar with the patient from a prior
ER visit on 09/12/2025 where she was admitted for treatment of peripheral edema with significant hyponatremia. Patient has been in contact with her multiple specialists, and states that she only came to the ER today at the request of her son. Vital
signs reviewed, patient is awake, alert, loquacious, appears no acute distress, mucous membranes moist, moving all extremities symmetrically without focal deficit, GCS is 15, extremities without edema, 2+ DP pulses present symmetric. I reviewed
with patient all test results today-no evidence for acute infection, sodium level stable from time of discharge, no significant abnormalities. I discussed with patient benefit of overnight observation for PT evaluation. She showed me on her
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 She states that she has only used this medication 1 or 2 times but
would like to talk to her oncologist, Dr. Moreland along with her neurologist and her primary care physician prior to engaging in any further treatment plan. Patient does not wish to be admitted and feels that she is safe at home at the current
time. Will discharge
Discharge Plan
Departure
Patient Disposition: Home (Routine Discharge)
Date of Disposition: 09/29/25
Time of Disposition: 21:49
Patient with high blood pressure during this ER visit?: Yes
Condition: Fair
Covid-19: Not Applicable
Discharge Problem:
Weakness
Instructions: Generalized Weakness (DC), BLOOD PRESSURE
Prescriptions:
No Action
losartan 50 MG tablet
50 mg PO DAILY
ascorbic acid (vitamin C) [Vitamin C] 500 MG tablet
1,000 mg PO BID
quercetin 500 mg Capsule
250 mg PO DAILY
acyclovir 400 mg Tablet
400 mg PO BID
diltiazem HCl 240 mg Capsule,Extended Release 24hr
240 mg PO DAILY
baclofen 10 mg Tablet
10 mg PO BID
zinc 15 mg Tablet
15 mg PO DAILY
ivermectin 3 mg Tablet
15 mg PO SUTUTH
magnesium oxide 200 mg magnesium Tablet
144 mg PO DAILY
Darzalex Faspro 1,800 mg-30,000 unit/15 mL Solution
15 ml SC FR
Medical Marijuana
1 gummy PO DAILYPRN PRN (Reason: pain)
Rx Instructions:
5-10mg
potassium 99 mg Tablet
99 mg PO DAILY
lorazepam 0.5 mg Tablet
0.5 mg PO BIDPRN PRN (Reason: anxiety)
Cbd Gummies
2 gummy PO DAILYPRN PRN (Reason: mild pain)
Cbg Gummies
2 gummy PO DAILYPRN PRN (Reason: stomach pains)
Patient Comments:
infused with cannabigerol (CBG), the 'mother cannabinoid' from hemp
Referrals:
UNKNOWN - PT DOES,NOT KNOW [Unknown Provider]
Activity Restrictions/Additional Instructions:
Follow-up with your family doctor as discussed return if any worsening of symptoms.
Interventions
Interventions:
*General Assessment Last Done: 09/29/25 16:35
*Neglect/Abuse Screening Last Done: 09/29/25 16:35
*ED COVID-19 Vaccine History Last Done: 09/29/25 16:35
*ED Influenza Vaccine History Last Done: 09/29/25 16:35
[facility] Fall Risk Assessment Tool Last Done: 09/29/25 16:35
*Risk Screen - Suicide (C-SSRS) Last Done: 09/29/25 16:35
*Nursing Disposition Last Done: 09/29/25 23:08
Discharge Date and Time
Discharge Date/Time: 09/29/25 23:09
Print Language: IRISH
[2025-09-29 17:31] LABS: Hematocrit 28.2 % (37.0-47.0); Hemoglobin 9.6 g/dL (12.0-16.0); Mean Corp Hgb Conc. 34.0 g/dL (33.0-37.0); Mean Corpuscular Volume 94.0 fL (81.0-99.0); Nucleated Red Blood Cells % 0 %; Platelet Count 222 10^3/uL (130-400); Red Cell Dist. Width 16.8 % (11.5-14.5)
[2025-09-29 18:18] LABS: ALT (SGPT) 24 U/L (0-35); AST (SGOT) 31 U/L (14-36); Albumin 3.3 g/dl (3.5-5.0); Alkaline Phosphatase 78 U/L (38-126); Blood Urea Nitrogen 16 mg/dl (7-17); Calcium 9.0 mg/dl (8.4-10.2); Carbon Dioxide 22 mmol/L (22-30); Chloride 106 mmol/L (98-107); Estimated Creatinine Clearance 60 ml/min; Glucose 98 mg/dl (70-99); Potassium 3.8 mmol/L (3.5-5.1); Sodium 133 mmol/L (135-145); Total Protein 6.1 g/dl (6.3-8.2); eGFR > 60.00
--- NOTE | 2025-09-29 19:14 | VATNOTE ---
called to access pt. port at pt's request after ED RN was unsuccessful with peripheral IV.
[2025-09-29 20:07] LABS: Urine Character Clear (Clear)
[2025-09-29 20:16] LABS: COVID-19 Antigen Negative (Negative)
--- NOTE | 2025-09-29 22:56 | VATNOTE ---
CALLED TO FLUSH AND DEACCESS R SUBQ PORT FOR DISCHARGE. UNABLE TO FLUSH PRT TUBING IS OCCLUDED WITH BLOOD. PRT DEACCESSED AND REACCESSED WITH A 20HX1' SAUL-GOOD BR CONFIRMED AND PRT THEN FLUSHED WITH 10CC NSS AND 500 UNITS OF HEPARIN AND
DEACCESSED FOR PT DISCHARGE. PCN AWARE OF INTERVENTION
== END 2025-09-29 23:09 | disposition home or self-care (01) ==
LOC: EMR 15:45
PROVIDERS: Nurse Practitioner; EMERGENCY PHYSICIAN Emergency Medicine; FAMILY PHYSICIAN Internal Medicine
DX: R53.1 Weakness (principal); C90.00 Multiple myeloma not having achieved remission; I10 Essential (primary) hypertension; M34.1 CR(E)ST syndrome; M32.9 Systemic lupus erythematosus, unspecified; E03.9 Hypothyroidism, unspecified; F41.9 Anxiety disorder, unspecified; F32.A Depression, unspecified; F90.9 Attention-deficit hyperactivity disorder, unspecified type; K58.9 Irritable bowel syndrome, unspecified; M54.9 Dorsalgia, unspecified; G89.29 Other chronic pain; Z96.643 Presence of artificial hip joint, bilateral; Z82.49 Family history of ischemic heart disease and other diseases of the circulatory system
CPT/HCPCS: 99284; 70450; 80053; 81003; 85025; 87502; 87811

== ENCOUNTER → 2025-10-04 16:58 | Outpatient (REF) | payer MEDICARE, OTHER, SELFPAY ==
[2025-10-04 17:39] LABS: Hematocrit 31.3 % (37.0-47.0); Hemoglobin 10.3 g/dL (12.0-16.0); Mean Corp Hgb Conc. 32.9 g/dL (33.0-37.0); Mean Corpuscular Volume 95.7 fL (81.0-99.0); Nucleated Red Blood Cells % 0 %; Platelet Count 298 10^3/uL (130-400); Red Cell Dist. Width 17.2 % (11.5-14.5)
[2025-10-04 18:15] LABS: ALT (SGPT) 24 U/L (0-35); AST (SGOT) 28 U/L (14-36); Albumin 3.8 g/dl (3.5-5.0); Alkaline Phosphatase 83 U/L (38-126); Blood Urea Nitrogen 16 mg/dl (7-17); Calcium 8.9 mg/dl (8.4-10.2); Carbon Dioxide 25 mmol/L (22-30); Chloride 103 mmol/L (98-107); Glucose 94 mg/dl (70-99); Potassium 4.5 mmol/L (3.5-5.1); Sodium 135 mmol/L (135-145); Total Protein 6.3 g/dl (6.3-8.2); eGFR > 60.00
== END ==
LOC: REG 16:58
PROVIDERS: ATTENDING PHYSICIAN Internal Medicine Hematology & Oncology; FAMILY PHYSICIAN Internal Medicine
DX: D64.9 Anemia, unspecified (principal); R53.81 Other malaise; C90.00 Multiple myeloma not having achieved remission; D80.1 Nonfamilial hypogammaglobulinemia
CPT/HCPCS: 36415; 80053; 85025